=== PATIENT | female | born 1935 | race Caucasian/White ===

== ENCOUNTER → 2016-10-12 | Outpatient (REF) | payer MEDICARE, OTHER ==
[2016-10-12 15:42] LABS: BASO # 0.1 K/mm3 (0.0-0.2); BASO % 1.1 % (0.0-1.0); EOS # 0.3 K/mm3 (0.0-0.50); EOS % 3.6 % (0.0-3.0); LARGE UNSTAINED CELL # 0.2 K/mm3 (0.0-0.4); LARGE UNSTAINED CELL % 2.5 % (0.0-4.0); LYMPH # 2.2 K/mm3 (1.5-4.5); LYMPH % 26.3 % (24.0-44.0); MEAN CORPUSCULAR HEMOGLOBIN 29.4 pg (27.0-33.0); MEAN CORPUSCULAR HGB CONC 33.5 g/dl (32.0-36.5); MEAN CORPUSCULAR VOLUME 87.9 fl (80.0-96.0); MONO # 0.6 K/mm3 (0.0-0.8); MONO % 7.6 % (0.0-5.0); NEUTROPHILS # 4.8 K/mm3 (1.8-7.7); PLATELET COUNT, AUTOMATED 310 k/mm3 (150-450); RED CELL DISTRIBUTION WIDTH 13.2 % (11.5-14.5); WHITE BLOOD COUNT 8.2 K/mm3 (4.0-10.0)
== END ==
LOC: M SFHCSACK 08:50
PROVIDERS: ATTEND Physician Assistant
DX: E87.6 Hypokalemia (principal); D72.828 Other elevated white blood cell count
CPT/HCPCS: 36415; 81001; 84132; 85025; G0463

== ENCOUNTER → 2016-12-30 | Outpatient (REF) | payer MEDICARE, OTHER ==
[2016-12-30 16:17] LABS: ALBUMIN 4.2 GM/DL (3.2-5.2); ALBUMIN/GLOBULIN RATIO 1.2 (1.00-1.93); BILIRUBIN,TOTAL 1.3 MG/DL (0.2-1.0); CALCIUM LEVEL 9.9 MG/DL (8.8-10.2); CREATININE FOR GFR 1.14 MG/DL (0.55-1.02); GLOMERULAR FILTRATION RATE 48.8 (>32); TOTAL PROTEIN 7.7 GM/DL (6.4-8.2)
== END ==
LOC: M SFHCSACK 09:00
PROVIDERS: ATTEND Physician Assistant
DX: I10 Essential (primary) hypertension (principal); E78.5 Hyperlipidemia, unspecified; E11.9 Type 2 diabetes mellitus without complications

== ENCOUNTER → 2017-01-08 | Outpatient (REF) | payer MEDICARE, OTHER | LOC: M SFHCSACK 11:17 | PROVIDERS: ATTEND Physician Assistant | DX: N39.0 Urinary tract infection, site not specified (principal) ==

== ENCOUNTER → 2017-06-30 | Outpatient (REF) | payer MEDICARE, OTHER ==
[~2017-06-30] MED LIST: ATOR1TAB19 PO; CALCTAB68 PO; CIPR-249 PO; FISH1000 PO; GLUCTAB PO; GLUCTAB6 PO; MODU5TA PO; PIND10TA PO; POTA10CA PO; PRAV1TAB39 PO; PRESCAP6 PO; SENN1TAB2 PO; TRAM1CAP15 PO; TRAM50TA2 PO; VESI10TA2 PO; VITA100066 PO; VITA400C7 PO; oxygen
[2017-06-30 16:09] LABS: BASO # 0.1 10^3/uL (0.0-0.2); EOS # 0.2 10^3/uL (0.0-0.50); EOS % 2.3 % (0.0-3.0); IMMATURE GRANULOCYTE % 0.5 % (0-0); LYMPH # 2.4 10^3/uL (1.5-4.5); MEAN CORPUSCULAR HEMOGLOBIN 28.9 pg (27.0-33.0); MEAN CORPUSCULAR HGB CONC 33.5 g/dl (32.0-36.5); MONO % 11.8 % (0.0-5.0); NEUTROPHILS # 4.7 10^3/uL (1.8-7.7); NEUTROPHILS % 55.4 % (36.0-66.0); PLATELET COUNT, AUTOMATED 287 10^3/uL (150-450); RED CELL DISTRIBUTION WIDTH 14.1 % (11.5-14.5); WHITE BLOOD COUNT 8.4 10^3/uL (4.0-10.0)
[2017-06-30 16:14] LABS: ADD MORPHOLOGY? NO
[2017-06-30 16:26] LABS: ALBUMIN/GLOBULIN RATIO 1.25 (1.00-1.93); BILIRUBIN,TOTAL 1.2 MG/DL (0.2-1.0); CALCIUM LEVEL 9.9 MG/DL (8.8-10.2); CREATININE FOR GFR 1.06 MG/DL (0.55-1.02); POTASSIUM SERUM 3.4 MEQ/L (3.5-5.1); TOTAL PROTEIN 7.2 GM/DL (6.4-8.2)
== END ==
LOC: M SFHCSACK 08:46
PROVIDERS: ATTEND Physician Assistant
DX: Z00.00 Encounter for general adult medical examination without abnormal findings (principal); I10 Essential (primary) hypertension; E78.5 Hyperlipidemia, unspecified; E11.9 Type 2 diabetes mellitus without complications; N39.0 Urinary tract infection, site not specified; E55.9 Vitamin D deficiency, unspecified

== ENCOUNTER 2017-07-14 18:19 | Inpatient (IN) | payer MEDICARE, OTHER ==
[~2017-07-14] VITALS: Ht 152.4 cm; Wt 114.2 kg
[2017-07-14] MEDS ORDERED: MODU5TA PO (19:04)
[2017-07-14] MEDS ORDERED: VESI10TA2 PO (19:04)
[2017-07-14] MEDS ORDERED: PIND10TA PO (19:04)
[2017-07-14] MEDS ORDERED: ATOR1TAB19 PO (19:04)
[2017-07-14] MEDS ORDERED: TRAM1CAP15 PO (19:04)
--- NOTE | 2017-07-14 20:10 | REPUSA ---
CLINICAL HISTORY: CVA TECHNIQUE: Multiple axial brain CT scan sections were obtained from base to vertex without contrast a dministration. COMMENTS: The study shows normal configuration of sella turcica. There are no intra or extra-axial collections. There is no mass effect or midline shift. There is no evidence of hematoma formation. No hydrocephal us is present. No abnormal calcifications are noted. Changes of diffuse cerebellar and cerebral atrophy are noted with symmetrically dilated ventricles an d cortical sulci. There are mild bilateral periventricular hypolucencies compatible with white matter ischemic disease. No significant other abnormalities are seen either in the posterior fossa or supra tentorial compartment. There is mucosal thickening and partial opacification involving left sphenoid sinus. IMPRESSION: 1. Diffuse age-appropriate cerebellar and cerebral atrophy. 2. Bilateral periventricular hypolucencies compatible with chronic white matter ischemic disease. 3. Sinusitis as above. 4. No evidence of acute intracranial pathology. Thank you for your kind referral of this patient.
[2017-07-14 20:35] LABS: MEAN CORPUSCULAR HEMOGLOBIN 29.1 pg (27.0-33.0); MEAN CORPUSCULAR HGB CONC 33.8 g/dl (32.0-36.5); PLATELET COUNT, AUTOMATED 261 10^3/uL (150-450); RED CELL DISTRIBUTION WIDTH 14.2 % (11.5-14.5); WHITE BLOOD COUNT 15.9 10^3/uL (4.0-10.0)
[2017-07-14 20:38] LABS: ADD MANUAL DIFFER YES; DIFF SLIDE NUMBER 340; POSITIVE DIFF POS FLAG
--- NOTE | 2017-07-14 20:42 | REP ---
PORTABLE CHEST, ONE VIEW: HISTORY: Infarction. The lungs are clear. The heart is normal in size. The pulmonary vasculature is normal in appearance. IMPRESSION: No acute disease. Signed by Salvatore Ames MD 07/15/2017 08:59 A
--- NOTE | 2017-07-14 20:44 | REP ---
LUMBAR SPINE, FOUR VIEWS: HISTORY: Fall. There is no acute fracture. The L5-S1 intervertebral disc is decreased in height consistent with degeneration. There are 15 mm of grade 2 spondylolisthesis of L5 on S1. There appear to be L5 pars defects. IMPRESSION: Degenerative change as described above. Signed by Salvatore Ames MD 07/15/2017 08:59 A
--- NOTE | 2017-07-14 20:46 | REP ---
PELVIS, BILATERAL HIPS, FIVE VIEWS: HISTORY: Fall. RIGHT HIP, TWO VIEWS: There is no acute fracture or dislocation. There is narrowing of the hip joint space. IMPRESSION: Degenerative change as described above. LEFT HIP, TWO VIEWS: The patient is status post left hip arthroplasty. There is no acute fracture or dislocation. Dystrophic calcification is present. IMPRESSION: The patient is status post left arthroplasty. Signed by Salvatore Ames MD 07/15/2017 08:59 A
--- NOTE | 2017-07-14 20:47 | REP ---
LEFT FEMUR, TWO VIEWS: HISTORY: Pain. There is no acute fracture or dislocation. The patient is status post left hip arthroplasty. There is narrowing of the medial knee joint space. IMPRESSION: Degenerative change as described above. Signed by Salvatore Ames MD 07/15/2017 08:59 A
[2017-07-14 21:08] LABS: BLOOD UREA NITROGEN 27 MG/DL (7-18); CALCIUM LEVEL 9.9 MG/DL (8.8-10.2); CARBON DIOXIDE LEVEL 28 MEQ/L (21-32); CHLORIDE LEVEL 104 MEQ/L (98-107); CREATININE FOR GFR 1.07 MG/DL (0.55-1.02); GLUCOSE, FASTING 169 MG/DL (83-110); POTASSIUM SERUM 3.4 MEQ/L (3.5-5.1)
[2017-07-14 22:27] LABS: ANION GAP 9 MEQ/L (8-16); SODIUM LEVEL 141 MEQ/L (136-145)
[2017-07-14] MEDS ORDERED: NS 500 ML IV ONE (22:30)
[2017-07-14 22:54] LABS: INR 1.21
[2017-07-15] MEDS ORDERED: ONDANSETRON 4MG/2ML VIAL (J2405) IV PRN (00:15)
[2017-07-15] MEDS ORDERED: ACETAMINOPHEN TAB 650MG DOSE (2X325MG) PO PRN (00:15)
[2017-07-15] MEDS ORDERED: POTASSIUM CHLORIDE 10 MEQ SR TABLET PO ONE (00:45)
[2017-07-15] MEDS ORDERED: GLUCTAB6 PO (00:54)
[2017-07-15] MEDS ORDERED: FISH1000 PO (00:54)
[2017-07-15] MEDS ORDERED: TRAM50TA2 PO (00:54)
[2017-07-15] MEDS ORDERED: VITA400C7 PO (00:54)
[2017-07-15] MEDS ORDERED: PRESCAP6 PO (00:54)
[2017-07-15] MEDS ORDERED: VITA100066 PO (00:54)
[2017-07-15] MEDS ORDERED: CALCTAB68 PO (00:54)
[2017-07-15] MEDS ORDERED: DEXTROSE 50% 50 ML SYRINGE IV PRN (01:45)
[2017-07-15] MEDS ORDERED: GLUCOSE 4 GM CHEW TABLET PO PRN (01:45)
[2017-07-15] MEDS ORDERED: GLUCAGON FOR INJ 1 MG VIAL (J1610) SC PRN (01:45)
--- NOTE | 2017-07-15 01:54 | HPEPDOC ---
General Date of Admission Jul 15, 2017 at 00:04 Primary Care Physician: Abida Stephens PA-C Attending Physician: GINNY PANTOJA MD Chief Complaint The patient is a 82-year-old female admitted with a reason for visit of [facility]. Source: Patient, Family History of Present Illness 82-year-old female with a past medical history of hypertension, dyslipidemia, chronic kidney disease, morbid obesity, and diabetes mellitus presents to the ER after she was found down on the floor by her daughter. The patient's history is limited, as she does not recollect the specific events which led her to fall. Apparently, the patient was found down in her home by her daughter at around 5 PM yesterday evening. The patient states that she last remembers having breakfast in the morning, and subsequently remembers awakening following a fall. According to the patient's daughter, the patient has had 4 falls over the last 3 weeks, and there is a concern for her safety at home. The previous falls were noted to be mechanical, with no evidence of seizure-like activity, or any cardiac events. The patient does live by herself, but she does have her daughter and 4 sons who check up on her frequently. The patient denies any symptoms of fevers, chills, chest pain, palpitations, abdominal pain, or any nausea/vomiting. In the ER, imaging did not reveal any acute hip fractures. However, the patient was noted to have rhabdomyolysis, and a mild troponin elevation of 0.31. There were no acute EKG changes, no complaints of chest pain or palpitations noted. The patient will be admitted to the hospitalist service under Dr. Pantoja for further evaluation and management. Home Medications Scheduled (Preservision Areds 2) 1 Cap Cap, 1 CAP PO DAILY, (Reported) (Glucosamine Chondroitin) 1 Tab Tab, 1 TAB PO DAILY, (Reported) Amiloride/Hctz (Amiloride/Hydrochlorothia 5-50 mg) 1 Ea Tab, 1 EA PO QHS, ( Reported) Atorvastatin Calcium (Atorvastatin Calcium) 10 Mg Tab, 10 MG PO QHS, (Reported) Calcium/Vitamin D (Calcium 600 + D 600-400 mg-Unit) 1 Tab Tab, 1 TAB PO DAILY, ( Reported) Cholecalciferol (Vitamin D) 1,000 Unit Tab, 1,000 UNIT PO DAILY, (Reported) Fish Oil (Fish Oil) 1,000 Mg Cap, 1,000 MG PO DAILY, (Reported) Pindolol (Pindolol) 10 Mg Tab, 10 MG PO QHS, (Reported) Solifenacin Succinate (Vesicare) 10 Mg Tab, 10 MG PO QHS, (Reported) Vitamin E (Vitamin E) 400 Unit Cap, 400 UNIT PO DAILY, (Reported) Scheduled PRN Tramadol HCl (Tramadol HCl) 50 Mg Tab, 50 MG PO Q6H PRN for PAIN, (Reported) Allergies Coded Allergies: Penicillins (Unverified Allergy, Intermediate, Rash, 12/28/12) Penicillins Cross Reactors (Unverified Allergy, Intermediate, Rash, 12/28/12 ) Past Medical History Medical History As noted in HPI. Surgical History TONSILECTOMY HYSTERECTOMY HIP REPLACEMENT LEFT Family History Significant Family History: No pertinent family hx Social History * Smoker: Denies Alcohol: Denies Drugs: denies Lives at home by herself. Ambulates with a rolling walker at baseline. Performs most activities of daily living independently. One daughter and 4 sons live nearby and check up on her frequently Review of Symptoms Other systems 10 point review of systems negative unless otherwise specified in HPI. Physical Examination General Exam: Positive: Alert, Cooperative, No Acute Distress ENT Exam: Positive: Atraumatic, Mucous membr. moist/pink Neck Exam: Negative: JVD Chest Exam: Positive: Clear to auscultation, Normal air movement Heart Exam: Positive: Rate Normal, Normal S1, Normal S2 Abdomen Exam: Positive: Soft, Negative: Tenderness Extremity Exam: Negative: Tenderness, Swelling Psych Exam: Positive: Oriented x 3 Vital Signs Vital Signs Date Time Temp Pulse Resp B/P (MAP) Pulse Ox O2 Delivery O2 Flow Rate FiO2 07/15/17 01:39 98.3 07/15/17 01:30 58 18 95 Room Air Laboratory Data Labs 24H Laboratory Tests 2 07/14/17 19:31: White Blood Count 15.9H, Red Blood Count 5.29, Hemoglobin 15.4, Hematocrit 45.5 , Mean Corpuscular Volume 86.0, Mean Corpuscular Hemoglobin 29.1, Mean Corpuscular Hemoglobin Concent 33.8, Red Cell Distribution Width 14.2, Platelet Count 261, Monocytes # (Auto) , Nucleated Red Blood Cells % (auto) 0.0, Neutrophils 63, Lymphocytes (Manual) 18, Monocytes (Manual) 19H, Platelet Estimate NORMAL, Urine Appearance HAZY, Urine Color YELLOW, Urine pH 5.0, Urine Specific [place] 1.023, Urine Protein NEGATIVE, Urine Glucose (UA) NEGATIVE, Urine Ketones NEGATIVE, Urine Urobilinogen 0.2, Urine Bilirubin NEGATIVE, Urine Leukocyte Esterase NEGATIVE, Urine Blood NEGATIVE, Urine Nitrite NEGATIVE, Urine WBC (Auto) 0, Urine RBC (Auto) 1, Urine Hyaline Casts (Auto) 0, Urine Bacteria (Auto) NEGATIVE, Urine Squamous Epithelial Cells 0, Urine Mucus (Auto) SMALL, Urine Sperm (Auto) , Anion Gap 9, Blood Urea Nitrogen 27H, Creatinine 1.07H, Sodium Level 141, Potassium Level 3.4L, Chloride Level 104, Carbon Dioxide Level 28, Calcium Level 9.9, Total Creatine Kinase 2946H, Creatine Kinase MB 17.4H, Creatine Kinase MB Relative Index 0.59, Troponin I 0.31H 07/14/17 22:32: Total Creatine Kinase 2449H, Creatine Kinase MB 15.9H, Creatine Kinase MB Relative Index 0.64, Troponin I 0.26H, Prothrombin Time 15.5H, Prothromb Time International Ratio 1.21, Activated Partial Thromboplast Time 28.2 CBC/BMP Laboratory Tests 07/14/17 19:31 Red Blood Count 5.29, Mean Corpuscular Volume 86.0, Mean Corpuscular Hemoglobin 29.1, Mean Corpuscular Hemoglobin Concent 33.8, Red Cell Distribution Width 14.2 , Monocytes # (Auto) , Calcium Level 9.9, Total Creatine Kinase 2946 H Microbiology Microbiology 07/14/17 Urine Culture, Received Pending Plan / VTE VTE Prophylaxis Ordered?: Yes Plan Plan Rhabdomyolysis likely 2/2 Mechanical Fall, Immobilization CPK noted to be 2946 on admission No acute fractures or dislocations noted on imaging IVF Hydation ordered We will cont to trend CPK levels PT ordered PFS consulted for potential need for placement, given the patient's frequent falls, and concern for the patient's overall safety as she is currently living by herself Elevated Troponin levels possibly 2/2 above Troponin peak at 0.31--we will serially trend EKG with no acute ST changes compared to previous tracing in 08/2016 (Sinus Mechanism with multiple PVC's, and LAFB) Patient with no acute complaints of chest pain, palpitations, shortness of breath, or any abdominal pain We will obtain a 2-D echocardiogram Continue to monitor on telemetry Chronic kidney disease Stage III Serum creatinine appears to be at baseline Diabetes mellitus Hemoglobin A1c noted to be 7.0 % during last PCP visit on 06/30 Patient not currently taking any medications We will continue the patient on insulin sliding scale here Hypertension, stable Continue current regimen Dyslipidemia Continue statin Morbid obesity Counseled on lifestyle modifications Chronic pain Continue tramadol when necessary DVT prophylaxis Heparin subcutaneous This patient will be admitted under the service of Dr. Pantoja, who will begin to follow the patient on 07/15/17 at 7 AM. SHANIQUE PETERS MD Jul 15, 2017 01:54
[2017-07-15] MEDS ORDERED: NS 1,000 ML IV SCH (02:00)
[2017-07-15] MEDS ORDERED: NS 1,500 ML IV SCH ×2 (02:30→02:46)
[2017-07-15 02:53] VITALS: BP 138/72
[2017-07-15 04:00] VITALS: BP 117/58
[2017-07-15] MEDS ORDERED: PREVNAR 13 VACCINE SYRINGE (CPT CODE:90670) IM SCH (04:30)
[2017-07-15 05:14] LABS: MEAN CORPUSCULAR HEMOGLOBIN 28.9 pg (27.0-33.0); MEAN CORPUSCULAR HGB CONC 33.3 g/dl (32.0-36.5); MEAN CORPUSCULAR VOLUME 86.6 fl (80.0-96.0); PLATELET COUNT, AUTOMATED 237 10^3/uL (150-450); RED CELL DISTRIBUTION WIDTH 14.3 % (11.5-14.5); WHITE BLOOD COUNT 12.6 10^3/uL (4.0-10.0)
[2017-07-15 05:32] LABS: ADD MANUAL DIFFER YES; DIFF SLIDE NUMBER 114; POSITIVE DIFF POS FLAG
[2017-07-15 05:37] LABS: ALKALINE PHOSPHATASE 59 U/L (45-117); ALT/SGPT 46 U/L (12-78); AST/SGOT 81 U/L (15-37); BILIRUBIN,TOTAL 2.1 MG/DL (0.2-1.0); BLOOD UREA NITROGEN 30 MG/DL (7-18); CALCIUM LEVEL 8.9 MG/DL (8.8-10.2); CARBON DIOXIDE LEVEL 27 MEQ/L (21-32); CHLORIDE LEVEL 103 MEQ/L (98-107); CREATININE FOR GFR 1.17 MG/DL (0.55-1.02); GLUCOSE, FASTING 163 MG/DL (83-110); MAGNESIUM LEVEL 1.5 MG/DL (1.8-2.4); TOTAL PROTEIN 6.7 GM/DL (6.4-8.2)
[2017-07-15] MEDS: HEPARIN SOD (PORCINE) 5000 UNITS/ML VIAL SC SCH ×3 (06:12→20:12)
[2017-07-15] MEDS: MAG SULF 1GM/100ML (MAG RUN) 1 GM in APPROPRIATE DILUENT 1 EA IV SCH ×2 (06:34→07:47)
[2017-07-15] MEDS: HumaLOG INSULIN (NovoLOG) PER UNIT SC SCH ×4 (07:30→20:11)
[2017-07-15 08:00] VITALS: BP 150/70
[2017-07-15 08:13] LABS: ALBUMIN 3.4 GM/DL (3.2-5.2); ALBUMIN/GLOBULIN RATIO 1.03 (1.00-1.93); ANION GAP 10 MEQ/L (8-16); SODIUM LEVEL 140 MEQ/L (136-145)
[2017-07-15] MEDS: VITAMIN E 400 INTERNATIONAL UNITS CAP PO SCH (09:27)
[2017-07-15] MEDS: VITAMIN D 1,000 INTERNATIONAL UNITS TABLET PO SCH (09:27)
[2017-07-15] MEDS: POTASSIUM CHLORIDE 10 MEQ SR TABLET PO SCH ×2 (09:28→20:11)
[2017-07-15 12:00] VITALS: BP 151/71
[2017-07-15] MEDS: traMADol 50 MG TAB PO PRN ×2 (12:20→20:14)
[2017-07-15 16:00] VITALS: BP 145/67
[2017-07-15] MEDS: NS 1,000 ML IV SCH (17:53)
[2017-07-15 20:00] VITALS: BP 124/75
[2017-07-15] MEDS: SOLIFENACIN 5 MG TAB PO SCH (20:11)
[2017-07-15] MEDS: ATORVASTATIN 10 MG TAB PO SCH (20:11)
[2017-07-15] MEDS ORDERED: PINDOLOL 5 MG TAB PO SCH (21:00)
--- NOTE | 2017-07-15 22:45 | ECGEPIP ---
Stationary ECG Study [facility] Test Date: 2017-07-15 Pat Name: KENIA RICHARDS Department: Room: [place] [address] Gender: F Addresser: ED : 1935 Requested By: SHANIQUE PETERS Order Number: [id number] Reading MD: Tristin Long Measurements Intervals [place] Rate: 60 P: IA: 0 QRS: -53 QRSD: 125 T: 61 QT: 441 QTc: 443 Interpretive Statements SINUS RHYTHM WITH 2ND DEGREE AV BLOCK, MOBITZ TYPE I (WENCKEBACH) POSSIBLE RIGHT VENTRICULAR CONDUCTION DELAY LEFT ANTERIOR FASCICULAR BLOCK Poor R-wave progression. Electronically Signed On 07-15-2017 22:45:03 EDT by Tristin Long
[2017-07-16] VITALS: BP 149/65
[2017-07-16 04:00] VITALS: BP 155/68
[2017-07-16 04:55] LABS: MEAN CORPUSCULAR HGB CONC 32.7 g/dl (32.0-36.5); MEAN CORPUSCULAR VOLUME 88.6 fl (80.0-96.0); PLATELET COUNT, AUTOMATED 211 10^3/uL (150-450); RED CELL DISTRIBUTION WIDTH 14.4 % (11.5-14.5); WHITE BLOOD COUNT 9.6 10^3/uL (4.0-10.0)
[2017-07-16 05:35] LABS: ALBUMIN 2.9 GM/DL (3.2-5.2); ALBUMIN/GLOBULIN RATIO 1.07 (1.00-1.93); ALKALINE PHOSPHATASE 55 U/L (45-117); ALT/SGPT 49 U/L (12-78); ANION GAP 8 MEQ/L (8-16); AST/SGOT 81 U/L (15-37); BILIRUBIN,TOTAL 1.2 MG/DL (0.2-1.0); BLOOD UREA NITROGEN 28 MG/DL (7-18); CALCIUM LEVEL 7.8 MG/DL (8.8-10.2); CARBON DIOXIDE LEVEL 23 MEQ/L (21-32); CHLORIDE LEVEL 111 MEQ/L (98-107); CREATININE FOR GFR 0.93 MG/DL (0.55-1.02); GLOMERULAR FILTRATION RATE > 60.0 (>32); GLUCOSE, FASTING 139 MG/DL (83-110); MAGNESIUM LEVEL 1.8 MG/DL (1.8-2.4); POTASSIUM SERUM 4.1 MEQ/L (3.5-5.1); SODIUM LEVEL 142 MEQ/L (136-145); TOTAL PROTEIN 5.6 GM/DL (6.4-8.2)
--- NOTE | 2017-07-16 05:54 | ECGEPIP ---
Stationary ECG Study [facility] - ED Test Date: 2017-07-14 Pat Name: KENIA RICHARDS Department: Room: [place] [address] Gender: F Datawarehouse Developer: : 1935 Requested By: PERCY Gaffney Order Number: [id number] Reading MD: Chetan Chaney Measurements Intervals [place] Rate: 58 P: -69 DC: 153 QRS: -55 QRSD: 112 T: -14 QT: 456 QTc: 449 Interpretive Statements SECOND DEGREE AV BLOCK, TYPE 1, IN 3:2 RATIO LEFT ANTERIOR FASCICULAR BLOCK NONSPECIFIC ST & T-WAVE ABNORMALITY RHYTHM CHANGE COMPARED TO 09/23/16 Electronically Signed On 07-16-2017 5:54:03 EDT by Chetan Chaney
[2017-07-16] MEDS: HEPARIN SOD (PORCINE) 5000 UNITS/ML VIAL SC SCH ×3 (06:40→21:18)
[2017-07-16] MEDS: NS 1,000 ML IV SCH ×3 (06:51→19:03)
[2017-07-16 08:00] VITALS: BP 140/64
[2017-07-16] MEDS ORDERED: MOM 30ML SUSPENSION UDC PO PRN (08:30)
[2017-07-16] MEDS ORDERED: SENOKOT S TAB PO PRN (08:30)
[2017-07-16] MEDS: POTASSIUM CHLORIDE 10 MEQ SR TABLET PO SCH ×2 (08:40→21:15)
[2017-07-16] MEDS: VITAMIN D 1,000 INTERNATIONAL UNITS TABLET PO SCH (08:40)
[2017-07-16] MEDS: VITAMIN E 400 INTERNATIONAL UNITS CAP PO SCH (08:40)
[2017-07-16] MEDS: HumaLOG INSULIN (NovoLOG) PER UNIT SC SCH ×4 (08:40→20:50)
--- NOTE | 2017-07-16 10:10 | ECGEPIP ---
Stationary ECG Study [facility] Test Date: 2017-07-16 Pat Name: KENIA RICHARDS Department: Room: [place] [address] Gender: F Forming Department Supervisor: KHUSHI : 1935 Requested By: GINNY PANTOJA Order Number: [id number] Reading MD: Tristin Long Measurements Intervals [place] Rate: 75 P: -35 DC: 221 QRS: -59 QRSD: 112 T: 45 QT: 420 QTc: 469 Interpretive Statements SINUS RHYTHM WITH FIRST DEGREE AV BLOCK PATTERN CONSISTENT WITH PULMONARY DISEASE LEFT ANTERIOR FASCICULAR BLOCK Electronically Signed On 07-16-2017 10:10:20 EDT by Tristin Long
--- NOTE | 2017-07-16 11:50 | IPN ---
DATE OF EXAM: 07/16/2017 SUBJECTIVE: The patient tells me she is feeling well. She has no specific complaints at this time. She tells me that she has some pain and weakness in the right lower extremity, but this is secondary to her fall. She denies any fevers, chills, chest pain, shortness of breath, nausea, vomiting, or diarrhea. OBJECTIVE: VITAL SIGNS: Temperature 98.3, pulse 66, respiratory rate 16, blood pressure 155/68. Oxygen saturation 97% on room air. GENERAL: She is an obese, elderly, female lying flat in bed. She does not appear to be in any acute distress whatsoever. HEENT: Cranial nerves III-XII are grossly intact. She has moist mucous membranes. No elevation of CPV. CARDIOVASCULAR EXAM: S1, S2 regular. She is not bradycardic. RESPIRATORY EXAM: Is clear. ABDOMINAL EXAM: Is obese, but exam is benign. EXTREMITIES: No clubbing, cyanosis, or edema. There is no tenderness. She has 5/5 strength throughout. LABORATORY STUDIES: WBC 9.6, down from 15.9, hemoglobin 12.7, platelet count 211. Chemistry panel: Sodium 142, potassium 4.1, chloride 111, bicarbonate 23, BUN 28, creatinine 0.9. CK is 1553, down from 2946 at time of admission. Troponin 0.35 with peak of 0.36, is fairly consistent in that range over numerous values without any symptoms. Urinalysis (UA) is unremarkable. Microbiology: Urine culture is negative. IMAGING: The patient had a chest x-ray that revealed no acute disease, a femur x-ray revealed degenerative changes, a head CT that showed diffuse age-appropriate cerebellar and cerebral atrophy, chronic white matter ischemic disease, sinusitis, no evidence of intracranial pathology, a hip x-ray that revealed degenerative changes, status post left arthroplasty, and a lumbar spine x-ray that revealed degenerative changes. ASSESSMENT AND PLAN: This is an 82-year-old female who presented status post fall. PROBLEM: 1. Fall. The patient has had numerous falls. She tells me that they happen when she is not using her walker. She denies any prodromal symptoms. She denies chest pain, lightheadedness, palpitations, headache, or dizziness. She was unable to answer why she did not hit her Life Alert button when she fell, and she remained down for several hours. She lives alone. Obviously, there are concerns with her returning home. In terms of why she is falling, it may be mechanical, gait instability versus also there is concern for second degree Wenckebach arterioventricular (AV) block. She did present in this and had been on pindolol. Since discontinuing this medication, the AV block has resolved. For the time being, we will continue to monitor her on telemetry. 2. Rhabdomyolysis secondary to fall and being down. Continue with intravenous (IV) fluids. It does appear to be resolving. 3. Elevated troponin, likely related to chronic kidney disease. Is fairly stable in the absence of symptoms or EKG changes. Consider outpatient stress testing and outpatient referral for cardiology. An echocardiogram has been ordered. We are awaiting the results. 4. Chronic kidney disease, stable. 5. Type 2 diabetes. Currently, the patient is on sliding scale and tolerating it well. 6. Hypertension. We will replace her pindolol with Norvasc. 7. Dyslipidemia. Continue statin. 8. Morbid obesity. Counseled on lifestyle modifications, complicating care. 9. Chronic pain. Tramadol when necessary. 10. Deep venous thrombosis (DVT) prophylaxis. Patient is on heparin. DISPOSITION: Pending physical therapy evaluation, resolution of rhabdomyolysis.
[2017-07-16 12:00] VITALS: BP 126/87
[2017-07-16] MEDS: amLODIPine 5 MG TAB PO SCH (12:00)
[2017-07-16] MEDS: BACITRACIN OINT 30GM TOP SCH ×2 (12:01→21:19)
[2017-07-16] MEDS ORDERED: BISACODYL 10 MG SUPP PR ONE (13:30)
[2017-07-16 16:00] VITALS: BP 120/65
--- NOTE | 2017-07-16 17:42 | ECHO ---
DATE OF STUDY: 07/16/2017 REFERRING PHYSICIAN: Neptali Pepe MD INDICATION: Abnormal ECG. HEIGHT: 152 cm. WEIGHT: 160 kg. 2D MEASUREMENTS: Left atrium 4.0 cm Aortic root 3.2 cm Ventricular septum 1.40 cm Posterior wall 1.42 cm Left ventricle diastole 4.7 cm Aortic annulus 2.1 cm Inferior vena cava 1.9 cm DOPPLER MEASUREMENTS: Aortic valve velocity 161 cm/s LVOT velocity 123 cm/s LVOT VTI 31.1 cm Mitral E velocity 112 cm/s Mitral A velocity 13.7 cm/s Very mild tricuspid regurgitation. Estimated right ventricle systolic pressure 38 mmHg assuming a right atrial pressure of 5 mmHg. Pulmonary artery systolic pressure 34 mmHg by pulmonary acceleration time method. MITRAL ANNULAR TISSUE DOPPLER: E prime septal 6.4 cm/s E prime lateral 6.9 cm/s DESCRIPTION: Rhythm was sinus with appearance of a first degree AV block. This was a moderately technically difficult echocardiogram. This is a 2D, M-mode, color flow Doppler and pulse wave Doppler examination including mitral annular tissue Doppler. CONCLUSIONS: 1. Mild concentric left ventricular hypertrophy (LVH). No regional wall motion abnormalities of the left ventricle. Normal LV systolic function. LVEF 70% by visual estimate. Grade 1 LV diastolic dysfunction (impaired relaxation and filling pattern). 2. Mild left atrial dilatation. 3. Suggestive of mild elevation of estimated right ventricle systolic pressure and mild elevation of pulmonary artery systolic pressure. 4. Moderate mitral annular calcification. No mitral regurgitation or mitral stenosis. 5. Mild aortic valve sclerosis of a three-cusps aortic valve. No aortic regurgitation. 6. No pericardial effusion.
[2017-07-16 20:00] VITALS: BP 158/70
[2017-07-16] MEDS: ATORVASTATIN 10 MG TAB PO SCH (21:16)
[2017-07-16] MEDS: SOLIFENACIN 5 MG TAB PO SCH (21:17)
[2017-07-17] VITALS: BP 142/70
[2017-07-17] MEDS: NS 1,000 ML IV SCH ×2 (01:48→08:12)
[2017-07-17 04:00] VITALS: BP 139/65
[2017-07-17] MEDS: HEPARIN SOD (PORCINE) 5000 UNITS/ML VIAL SC SCH ×3 (06:08→21:36)
[2017-07-17] MEDS: HumaLOG INSULIN (NovoLOG) PER UNIT SC SCH ×4 (07:30→21:00)
[2017-07-17 08:00] VITALS: BP 156/71
[2017-07-17 08:03] LABS: MEAN CORPUSCULAR HEMOGLOBIN 29.3 pg (27.0-33.0); MEAN CORPUSCULAR HGB CONC 33.2 g/dl (32.0-36.5); MEAN CORPUSCULAR VOLUME 88.1 fl (80.0-96.0); PLATELET COUNT, AUTOMATED 201 10^3/uL (150-450); RED CELL DISTRIBUTION WIDTH 14.2 % (11.5-14.5); WHITE BLOOD COUNT 6.9 10^3/uL (4.0-10.0)
[2017-07-17 08:17] LABS: ALBUMIN 2.7 GM/DL (3.2-5.2); ALBUMIN/GLOBULIN RATIO 1.08 (1.00-1.93); ALKALINE PHOSPHATASE 54 U/L (45-117); ALT/SGPT 45 U/L (12-78); ANION GAP 7 MEQ/L (8-16); AST/SGOT 46 U/L (15-37); BLOOD UREA NITROGEN 16 MG/DL (7-18); CALCIUM LEVEL 7.4 MG/DL (8.8-10.2); CARBON DIOXIDE LEVEL 23 MEQ/L (21-32); CHLORIDE LEVEL 114 MEQ/L (98-107); CREATININE FOR GFR 0.77 MG/DL (0.55-1.02); GLOMERULAR FILTRATION RATE > 60.0 (>32); GLUCOSE, FASTING 141 MG/DL (83-110); MAGNESIUM LEVEL 1.8 MG/DL (1.8-2.4); SODIUM LEVEL 144 MEQ/L (136-145); TOTAL PROTEIN 5.2 GM/DL (6.4-8.2)
[2017-07-17] MEDS: POTASSIUM CHLORIDE 10 MEQ SR TABLET PO SCH ×2 (08:29→21:00)
[2017-07-17] MEDS: VITAMIN E 400 INTERNATIONAL UNITS CAP PO SCH (08:29)
[2017-07-17] MEDS: amLODIPine 5 MG TAB PO SCH (08:30)
[2017-07-17] MEDS: VITAMIN D 1,000 INTERNATIONAL UNITS TABLET PO SCH (08:30)
[2017-07-17] MEDS: BACITRACIN OINT 30GM TOP SCH ×2 (08:30→21:00)
[2017-07-17 11:25] VITALS: BP 140/90
--- NOTE | 2017-07-17 11:27 | IPN ---
DATE OF EXAM: 07/17/2017 SUBJECTIVE: The patient tells me she is feeling better today. She has no specific complaints. Denies any chest pain, fevers, chills, chest pain, fever, chills, nausea, vomiting, or diarrhea. OBJECTIVE: VITAL SIGNS: Temperature 98.2, pulse 88, respiratory rate 16, blood pressure (BP) 156/71. Oxygen saturation 97% on room air. GENERAL: She is an obese, pleasant, female lying in bed. She does not appear to be in any acute distress whatsoever. HEENT: Cranial nerves III-XII are grossly intact. She has moist mucous membranes. No elevation of central venous pressure (CVP). CARDIOVASCULAR EXAM: S1, S2 regular. She is not bradycardic. RESPIRATORY EXAM: Is clear. ABDOMINAL EXAM: Is benign and obese. Bowel sounds present. The abdomen is soft. EXTREMITIES: No clubbing, cyanosis or edema. She 5/5 strength. LABORATORY STUDIES: WBC 6.9, hemoglobin 12.1, platelet count 201. Chemistry panel: Sodium 144, potassium 4.0, chloride 114, bicarbonate 23, BUN 16, creatinine 0.7. CK is 1624. Urine culture is negative. Patient did have an echocardiogram completed, which revealed concentric left ventricular hypertrophy (LVH), ejection fraction (EF) 70%, grade 1 diastolic dysfunction, mild left atrial dilation suggestive of a mild elevation in estimated right ventricular systolic pressure and mild elevation of pulmonary artery systolic pressure. ASSESSMENT AND PLAN: This is an 82-year-old female who presented status post fall, found down, with rhabdomyolysis. PROBLEMS: 1. Fall. She has had numerous falls in the past. They happen when she is not using her walker. She denies prodromal symptoms, chest pain, lightheadedness, palpitations or dizziness. She cannot tell my why she did not hit her Life Alert button for several hours. She lives alone. Physical therapy is working with her, and at the present time, they do not as though that she is safe. Continue working with physical therapy. There was also concern that her falls may have been related to second-degree atrioventricular (AV) block. She did have Wenckebach since stopping her pindolol. This has resolved. She has a persistent first-degree AV block, but is no longer bradycardic. 2. Rhabdomyolysis secondary to being down. At this time, we will discontinue her intravenous (IV) fluids, continue to trend down. 3. Elevated troponin likely related to chronic kidney disease. Fairly stable in the absence of any symptoms or EKG changes. Recommend outpatient stress testing and followup with outpatient referral to cardiology. Echocardiogram is unrevealing. 4. Chronic kidney disease, stable. 5. Type 2 diabetes. She is on sliding scale, tolerating it well. 6. Hypertension. We have replaced her pindolol with Norvasc and her blood pressure is well controlled. 7. Dyslipidemia. Continue statin. 8. Obesity. Counseled on lifestyle modifications, complicating care. 9. Chronic pain. Tramadol when necessary. 10. Deep venous thrombosis (DVT) prophylaxis. Patient is on heparin. DISPOSITION: Pending PT clearance. At this time, she is medically stable. Transfer to medical-surgical floor.
--- NOTE | 2017-07-17 11:37 | ECGEPIP ---
Stationary ECG Study [facility] Test Date: 2017-07-17 Pat Name: KENIA RICHARDS Department: Room: [place] [address] Gender: F Service Supervisor: ED : 1935 Requested By: GINNY PANTOJA Order Number: [id number] Reading MD: Ziyad Hoffman Measurements Intervals [place] Rate: 87 P: 31 AK: 259 QRS: -50 QRSD: 118 T: 88 QT: 403 QTc: 487 Interpretive Statements SINUS RHYTHM WITH FIRST DEGREE AV BLOCK LEFT ANTERIOR FASCICULAR BLOCK POOR R WAVE PROGRESSION SIMILAR TO 07/16/17 Electronically Signed On 07-17-2017 11:37:42 EDT by Ziyad Hoffman
[2017-07-17 14:00] VITALS: BP 142/90
[2017-07-17] MEDS: ATORVASTATIN 10 MG TAB PO SCH (21:00)
[2017-07-17] MEDS: SOLIFENACIN 5 MG TAB PO SCH (21:00)
[2017-07-17 22:00] VITALS: BP 139/73
[2017-07-17] MEDS: traMADol 50 MG TAB PO PRN (22:05)
[2017-07-18] MEDS: HEPARIN SOD (PORCINE) 5000 UNITS/ML VIAL SC SCH ×3 (05:40→21:06)
[2017-07-18 06:00] VITALS: BP 136/63
[2017-07-18 06:23] LABS: MEAN CORPUSCULAR HEMOGLOBIN 28.9 pg (27.0-33.0); MEAN CORPUSCULAR HGB CONC 32.8 g/dl (32.0-36.5); MEAN CORPUSCULAR VOLUME 88.2 fl (80.0-96.0); PLATELET COUNT, AUTOMATED 224 10^3/uL (150-450); RED CELL DISTRIBUTION WIDTH 14.3 % (11.5-14.5); WHITE BLOOD COUNT 6.9 10^3/uL (4.0-10.0)
[2017-07-18 07:45] LABS: ALBUMIN 2.9 GM/DL (3.2-5.2); ALBUMIN/GLOBULIN RATIO 1.04 (1.00-1.93); ALKALINE PHOSPHATASE 63 U/L (45-117); ALT/SGPT 49 U/L (12-78); ANION GAP 7 MEQ/L (8-16); AST/SGOT 39 U/L (15-37); BLOOD UREA NITROGEN 16 MG/DL (7-18); CALCIUM LEVEL 7.7 MG/DL (8.8-10.2); CARBON DIOXIDE LEVEL 24 MEQ/L (21-32); CHLORIDE LEVEL 114 MEQ/L (98-107); CREATININE FOR GFR 0.85 MG/DL (0.55-1.02); GLOMERULAR FILTRATION RATE > 60.0 (>32); GLUCOSE, FASTING 138 MG/DL (83-110); MAGNESIUM LEVEL 1.9 MG/DL (1.8-2.4); POTASSIUM SERUM 4.4 MEQ/L (3.5-5.1); SODIUM LEVEL 145 MEQ/L (136-145); TOTAL PROTEIN 5.7 GM/DL (6.4-8.2)
[2017-07-18] MEDS: POTASSIUM CHLORIDE 10 MEQ SR TABLET PO SCH ×2 (08:07→21:00)
[2017-07-18] MEDS: HumaLOG INSULIN (NovoLOG) PER UNIT SC SCH ×4 (08:08→21:00)
[2017-07-18] MEDS: VITAMIN D 1,000 INTERNATIONAL UNITS TABLET PO SCH (08:08)
[2017-07-18] MEDS: amLODIPine 5 MG TAB PO SCH (08:08)
[2017-07-18] MEDS: BACITRACIN OINT 30GM TOP SCH ×2 (08:09→21:00)
[2017-07-18] MEDS: VITAMIN E 400 INTERNATIONAL UNITS CAP PO SCH (09:55)
[2017-07-18 14:00] VITALS: BP 136/98
--- NOTE | 2017-07-18 17:19 | IPN ---
DATE: 07/16/2017 SUBJECTIVE: The patient tells me she feels well. She has no complaints at this time. She says that she feels more stable on her feet than she has in quite some time. She denies chest pain, fevers, chills, nausea, vomiting or diarrhea. OBJECTIVE: VITAL SIGNS: Temperature 98.4, pulse 81, respiratory rate 18, blood pressure 136/63, oxygen saturation 95% on room air. GENERAL: She is a pleasant, obese, elderly female lying flat in bed. She does not appear to be in any acute distress whatsoever. HEENT: Cranial nerves II through XII are grossly intact. CARDIOVASCULAR: S1, S2 regular. RESPIRATORY: Clear. ABDOMEN: Obese. Bowel sounds are present. The abdomen is soft. EXTREMITIES: No clubbing, cyanosis or edema. LABORATORY DATA: WBC 6.9, hemoglobin 12.2, platelet count 224. Chemistry panel: Sodium 145, potassium 4.4, chloride 114, bicarbonate 24, BUN 15, creatinine 0.8. CK is 425 today. No new microbiology or imaging. ASSESSMENT AND PLAN: This is an 82-year-old female status post fall, found down with rhabdomyolysis. 1. Fall. She has had numerous falls in the past. I suspect this may be related to second-degree Wenckebach block associated with pindolol and it did resolved with discontinuing the pindolol. However, the patient lives alone. Physical therapy is working with her at this time, and did not feel she is safe. We will have them reevaluate her tomorrow and see if she is able to return home to her previous living environment. 2. Rhabdomyolysis secondary to being down. We have discontinued her intravenous (IV) fluids. Her CK continues to trend down. This is resolving. 3. Elevated troponin, likely related to chronic kidney disease. She did not have any symptoms or electrocardiogram (EKG) changes. Recommend outpatient referral to cardiology for stress testing. An echocardiogram completed during her stay was unrevealing. 4. Chronic kidney disease, stable. 5. Type 2 diabetes. She is on sliding-scale insulin and tolerating it well with control fingersticks. 6. Hypertension. We have replaced her pindolol with Norvasc and her blood pressure is controlled. 7. Dyslipidemia. She is on a statin. 8. Obesity. Counseled on life style modifications and complicating care. 9. Chronic pain. She is on tramadol when necessary. 10. Deep venous thrombosis (DVT) prophylaxis. She is on heparin. DISPOSITION: Pending physical therapy (PT).
[2017-07-18] MEDS: SOLIFENACIN 5 MG TAB PO SCH (21:00)
[2017-07-18] MEDS: ATORVASTATIN 10 MG TAB PO SCH (21:00)
[2017-07-18 22:00] VITALS: BP 142/89
[2017-07-19] MEDS: HEPARIN SOD (PORCINE) 5000 UNITS/ML VIAL SC SCH ×3 (05:19→21:37)
[2017-07-19 06:00] VITALS: BP 158/85
[2017-07-19] MEDS: HumaLOG INSULIN (NovoLOG) PER UNIT SC SCH ×4 (07:30→20:25)
[2017-07-19 08:04] LABS: MEAN CORPUSCULAR HEMOGLOBIN 29.3 pg (27.0-33.0); MEAN CORPUSCULAR HGB CONC 33.2 g/dl (32.0-36.5); MEAN CORPUSCULAR VOLUME 88.2 fl (80.0-96.0); PLATELET COUNT, AUTOMATED 231 10^3/uL (150-450); RED CELL DISTRIBUTION WIDTH 14.5 % (11.5-14.5); WHITE BLOOD COUNT 7.6 10^3/uL (4.0-10.0)
[2017-07-19 08:18] LABS: ALBUMIN 2.9 GM/DL (3.2-5.2); ALBUMIN/GLOBULIN RATIO 1.07 (1.00-1.93); ALKALINE PHOSPHATASE 59 U/L (45-117); ALT/SGPT 49 U/L (12-78); ANION GAP 8 MEQ/L (8-16); AST/SGOT 32 U/L (15-37); BILIRUBIN,TOTAL 0.8 MG/DL (0.2-1.0); BLOOD UREA NITROGEN 16 MG/DL (7-18); CARBON DIOXIDE LEVEL 23 MEQ/L (21-32); CHLORIDE LEVEL 113 MEQ/L (98-107); CREATININE FOR GFR 0.83 MG/DL (0.55-1.02); GLOMERULAR FILTRATION RATE > 60.0 (>32); GLUCOSE, FASTING 125 MG/DL (83-110); MAGNESIUM LEVEL 1.9 MG/DL (1.8-2.4); POTASSIUM SERUM 4.7 MEQ/L (3.5-5.1); SODIUM LEVEL 144 MEQ/L (136-145); TOTAL PROTEIN 5.6 GM/DL (6.4-8.2)
[2017-07-19] MEDS: POTASSIUM CHLORIDE 10 MEQ SR TABLET PO SCH ×2 (08:48→21:36)
[2017-07-19] MEDS: VITAMIN E 400 INTERNATIONAL UNITS CAP PO SCH (08:59)
[2017-07-19] MEDS: VITAMIN D 1,000 INTERNATIONAL UNITS TABLET PO SCH (08:59)
[2017-07-19] MEDS: traMADol 50 MG TAB PO PRN ×2 (09:00→19:46)
[2017-07-19] MEDS: BACITRACIN OINT 30GM TOP SCH ×2 (09:00→21:37)
[2017-07-19] MEDS: amLODIPine 5 MG TAB PO SCH (09:04)
--- NOTE | 2017-07-19 13:54 | IPN ---
DATE: 07/19/2017 SUBJECTIVE: The patient tells me she feels well. She wants to go home. She has no complaints at this time. She denies chest pain, fever, shortness of breath, nausea, vomiting or diarrhea. OBJECTIVE: VITAL SIGNS: Temperature 97.9, pulse 74, respiratory rate 21, blood pressure 158/85, oxygen saturations 90% in room air. General: She is a pleasant elderly female sitting in the chair. She does appear to be in any acute distress. HEENT: Cranial nerves II through XII are grossly intact. She has moist mucous membranes. No elevation of her jugular venous distention. Cardiovascular: S1, S2, regular. Respiratory exam: Actually quite clear. Abdomen is grossly obese. Bowel sounds present. Abdomen is soft. EXTREMITIES: No clubbing, cyanosis or edema. LABORATORY STUDIES: WBC 7.6, hemoglobin 12.4, platelet count 231. Chemistry pane: Sodium 144, potassium 4.7, chloride 113, bicarbonate 23, BUN 16, creatinine 0.8. No new imaging. ASSESSMENT/PLAN: This is an 82-year-old female status post fall, down with rhabdomyolysis. PROBLEMS: 1. Fall: She has had numerous falls in the past. She tells me it happens only when she does not use her walker. I did also have concern that she presented with second Wenckebach associated with pindolol. It did resolve. We are discontinuing pindolol. However, the patient does live alone and physical therapy are working with this and at this time they do not feel she is safe, which I agree with. The patient may progress over the next several days and go home with services verses rehabilitation. 2. Rhabdomyolysis secondary to being down. We have discontinued her IV fluids. Her CKs are trending down and this is resolving. 3. Elevated troponin likely related to her kidney disease: She does not have any symptoms or any electrocardiogram changes, which are concerning of ischemia. Recommend outpatient referral to cardiology for stress testing. An echogram completed during her stay here has been unrevealing. Chronic kidney disease, stable. 4. Type 2 diabetes: She will have sliding scale and her fingersticks are well controlled. 5. Hypertension: We replaced pindolol with Norvasc, fairly well controlled. If this becomes uncontrolled consider titrating up further. 6. Dyslipidemia: She is on a statin. 7. Obesity complicating care. 8. Chronic pain: She is on tramadol when necessary. 9. Deep venous thrombosis prophylaxis: She is on heparin. DISPOSITION: Pending physical therapy, likely subacute rehabilitation in my opinion.
[2017-07-19 14:00] VITALS: BP 153/88
[2017-07-19] MEDS: SOLIFENACIN 5 MG TAB PO SCH (21:30)
[2017-07-19] MEDS: ATORVASTATIN 10 MG TAB PO SCH (21:36)
[2017-07-19 22:00] VITALS: BP 149/84
[2017-07-20] MEDS: HEPARIN SOD (PORCINE) 5000 UNITS/ML VIAL SC SCH ×3 (05:08→21:18)
[2017-07-20 06:00] VITALS: BP 145/62
[2017-07-20 06:08] LABS: MEAN CORPUSCULAR HGB CONC 33.2 g/dl (32.0-36.5); MEAN CORPUSCULAR VOLUME 87.5 fl (80.0-96.0); PLATELET COUNT, AUTOMATED 223 10^3/uL (150-450); RED CELL DISTRIBUTION WIDTH 14.4 % (11.5-14.5); WHITE BLOOD COUNT 7.7 10^3/uL (4.0-10.0)
[2017-07-20 06:39] LABS: ALBUMIN 2.7 GM/DL (3.2-5.2); ALBUMIN/GLOBULIN RATIO 0.84 (1.00-1.93); ALKALINE PHOSPHATASE 59 U/L (45-117); ALT/SGPT 48 U/L (12-78); ANION GAP 9 MEQ/L (8-16); AST/SGOT 30 U/L (15-37); BILIRUBIN,TOTAL 0.8 MG/DL (0.2-1.0); BLOOD UREA NITROGEN 16 MG/DL (7-18); CALCIUM LEVEL 8.2 MG/DL (8.8-10.2); CARBON DIOXIDE LEVEL 24 MEQ/L (21-32); CHLORIDE LEVEL 109 MEQ/L (98-107); CREATININE FOR GFR 0.88 MG/DL (0.55-1.02); GLOMERULAR FILTRATION RATE > 60.0 (>32); GLUCOSE, FASTING 123 MG/DL (83-110); MAGNESIUM LEVEL 1.8 MG/DL (1.8-2.4); POTASSIUM SERUM 4.1 MEQ/L (3.5-5.1); SODIUM LEVEL 142 MEQ/L (136-145); TOTAL PROTEIN 5.9 GM/DL (6.4-8.2)
[2017-07-20] MEDS: HumaLOG INSULIN (NovoLOG) PER UNIT SC SCH ×4 (07:30→20:45)
[2017-07-20] MEDS: POTASSIUM CHLORIDE 10 MEQ SR TABLET PO SCH ×2 (08:41→21:16)
[2017-07-20] MEDS: BACITRACIN OINT 30GM TOP SCH ×2 (08:42→21:18)
[2017-07-20] MEDS: VITAMIN D 1,000 INTERNATIONAL UNITS TABLET PO SCH (08:42)
[2017-07-20] MEDS: amLODIPine 5 MG TAB PO SCH (08:42)
[2017-07-20] MEDS: VITAMIN E 400 INTERNATIONAL UNITS CAP PO SCH (08:42)
[2017-07-20] MEDS: traMADol 50 MG TAB PO PRN ×2 (08:50→17:26)
[2017-07-20 14:00] VITALS: BP 137/92
--- NOTE | 2017-07-20 15:02 | REP ---
Duplex extremity venous ultrasound: Right lower extremity. History: Right leg pain. Question DVT. Findings: The deep veins are anechoic and fully compressible from the groin to the popliteal fossa in the right lower extremity. Color flow imaging is homogeneous. Spectral Doppler interrogation demonstrates intact respiratory variation in flow and normal manual augmentation of flow. There is no evidence of deep vein thrombosis. There is a 5.0 x 1.5 x 2.8 cm fluid collection in the popliteal soft tissues on the right consistent with a Calderon's cyst. Impression: 5.0 cm Calderon's cyst right popliteal fossa. Otherwise negative right lower extremity duplex venous ultrasound. No evidence of deep vein thrombosis. Signed by Caesar Griffin MD 07/20/2017 05:44 P
--- NOTE | 2017-07-20 17:12 | IPN ---
DATE: 07/20/2017 Patient seen and examined. No acute events overnight. Reported right lower extremity pain. Denies any chest pain, pressure, or discomfort, fevers, or chills. VITAL SIGNS: Temperature 96.1, pulse 84, respirations 18, blood pressure 137/92, pulse oximetry 100% on room air. LABORATORY DATA: WBC 7.7, hemoglobin and hmt12.3/37.1, platelets 223. Chemistry: Sodium 142, potassium 4.1, chloride 109, bicarbonate 24, BUN 16, creatinine 0.88. Ultrasound Doppler negative for deep vein thrombosis (DVT). PHYSICAL EXAMINATION: GENERAL: Patient pleasant, elderly female in no acute distress. HEENT: Normocephalic, atraumatic. Moist mucous membranes. NECK: Supple. CARDIAC: Regular rate and rhythm. Normal S1, S2. PULMONARY: Bilaterally clear. ABDOMEN: Obese, soft, nontender. Positive bowel sounds. EXTREMITIES: No clubbing, cyanosis, or edema. ASSESSMENT AND PLAN: This is an 82-year-old female patient with underlying medical history of hypertension, dyslipidemia, chronic kidney disease (CKD), morbid obesity, diabetes mellitus, presented to the hospital status post fall with rhabdomyolysis. 1. Fall. Patient had numerous falls in the past. Patient reported it happening only when she does not use her walker. Patient was also noticed to have Wenckebach on telemetry with pindolol that was discontinued. Patient subsequently reverted back to first-degree heart block. Telemetry appreciated. Physical therapy was ordered. Followup orthostatic vital signs. Pending home services versus rehabilitation. 2. Rhabdomyolysis. Intravenous (IV) fluid discontinued. Currently resolved. 3. Elevated troponin, likely secondary to kidney disease. Patient does not have any cardiac symptoms. Outpatient followup with cardiology recommended. Echocardiogram is appreciated. 4. Type 2 diabetes. Insulin as per protocol. 5. Hypertension. Pindolol has been replaced with Norvasc. Currently controlled. Monitor blood pressure. 6. Dyslipidemia. Continue statin. 7. Obesity complicating care. 8. Chronic pain. Continue current medication. 9. Dyslipidemia. Continue statin. 10. Deep vein thrombosis (DVT) prophylaxis. Heparin subcutaneous. DISPOSITION: Pending physical therapy. Acute rehabilitation evaluation.
[2017-07-20] MEDS: SOLIFENACIN 5 MG TAB PO SCH (21:16)
[2017-07-20] MEDS: ATORVASTATIN 10 MG TAB PO SCH (21:17)
[2017-07-20 22:00] VITALS: BP 142/85
[2017-07-21] MEDS: HEPARIN SOD (PORCINE) 5000 UNITS/ML VIAL SC SCH ×3 (05:59→21:33)
[2017-07-21 06:00] VITALS: BP 157/81
[2017-07-21 06:27] LABS: MEAN CORPUSCULAR HEMOGLOBIN 28.9 pg (27.0-33.0); MEAN CORPUSCULAR VOLUME 87.7 fl (80.0-96.0); PLATELET COUNT, AUTOMATED 263 10^3/uL (150-450); RED CELL DISTRIBUTION WIDTH 14.5 % (11.5-14.5); WHITE BLOOD COUNT 8.1 10^3/uL (4.0-10.0)
[2017-07-21 06:54] LABS: ALBUMIN 3.1 GM/DL (3.2-5.2); ALBUMIN/GLOBULIN RATIO 0.89 (1.00-1.93); BILIRUBIN,TOTAL 0.9 MG/DL (0.2-1.0); CALCIUM LEVEL 8.4 MG/DL (8.8-10.2); CREATININE FOR GFR 0.98 MG/DL (0.55-1.02); MAGNESIUM LEVEL 1.7 MG/DL (1.8-2.4); POTASSIUM SERUM 4.2 MEQ/L (3.5-5.1); TOTAL PROTEIN 6.6 GM/DL (6.4-8.2)
[2017-07-21] MEDS: VITAMIN D 1,000 INTERNATIONAL UNITS TABLET PO SCH (08:04)
[2017-07-21] MEDS: amLODIPine 5 MG TAB PO SCH (08:05)
[2017-07-21] MEDS: POTASSIUM CHLORIDE 10 MEQ SR TABLET PO SCH ×2 (08:05→21:33)
[2017-07-21] MEDS: BACITRACIN OINT 30GM TOP SCH ×2 (08:05→21:33)
[2017-07-21] MEDS: VITAMIN E 400 INTERNATIONAL UNITS CAP PO SCH (08:05)
[2017-07-21] MEDS: HumaLOG INSULIN (NovoLOG) PER UNIT SC SCH ×4 (08:06→21:00)
[2017-07-21] MEDS: traMADol 50 MG TAB PO PRN ×2 (08:11→18:59)
[2017-07-21] MEDS ORDERED: MAG SULF 1GM/100ML (MAG RUN) 1 GM in APPROPRIATE DILUENT 1 EA IV ONE ×2 (09:00→16:15)
[2017-07-21] MEDS ORDERED: PREVNAR 13 VACCINE SYRINGE (CPT CODE:90670) IM ONE (11:00)
[2017-07-21 14:00] VITALS: BP 148/79
--- NOTE | 2017-07-21 16:32 | IPN ---
DATE: 07/21/2017 Patient seen and examined. No acute events overnight. Telemetry reviewed, remained a first degree heart block. Currently at baseline. Reported right lower extremity pain seems to be improved. Denies any chest pain, pressure, or discomfort, fevers, chills, or shortness of breath.. VITAL SIGNS: Temperature 97.9, pulse 78, respirations 19, blood pressure 148/79, pulse oximetry 93% on room air. LABORATORY DATA: WBC 8.1, hemoglobin and hematocrit 12.7/38.5, platelets 263. Chemistry: Sodium 140, potassium 4.2, chloride 108, bicarbonate 25, BUN 18, creatinine 0.98, A1c 7.1, PHYSICAL EXAMINATION: GENERAL: Patient pleasant, elderly, in no acute distress. HEENT: Normocephalic, atraumatic. Moist mucous membranes. NECK: Supple. CARDIAC: Regular rate and rhythm. Normal S1, S2. PULMONARY: Bilaterally clear. ABDOMEN: Obese, soft, nontender. Positive bowel sounds. EXTREMITIES: No clubbing, cyanosis, or edema. ASSESSMENT AND PLAN: This is an 82-year-old female patient with underlying medical history of hypertension, dyslipidemia, chronic kidney disease (CKD), morbid obesity, diabetes mellitus non-insulin dependent who presented to the hospital status post fall with rhabdomyolysis. 1. Fall. Patient had numerous falls in the past. Baseline is supposed to use a walker which patient has not been using. Patient reported that it happens when she is not using a walker. Also noted to have Wenckebach on telemetry on admission. Patients pindolol has been discontinued, subsequently patient reverted back to first-degree heart block. Telemetry appreciated. Physical therapy was ordered. Orthostatic vital signs appreciated. Currently pending PT with home services versus subacute rehabilitation. 2. Rhabdomyolysis. Intravenous (IV) fluid discontinued. Currently resolved. 3. Elevated troponin, likely secondary to acute kidney injury (KT). Patient does not have any cardiac symptoms. Outpatient followup with cardiology recommended. Echocardiogram is appreciated. 4. Type 2 diabetes. A1c 7.1. Patient might benefit from metformin. The family has reported previous reaction to metformin. Will consider putting the patient on Januvia prior to discharge. 5. Hypertension. Pindolol has been discontinued, replaced with Norvasc. Continue to monitor blood pressure. 6. Dyslipidemia. Continue statin. Patients family reported that patient had a reaction to Lipitor before subsequently changed her to pravastatin. 7. Obesity. Patient had success with weight loss, currently complicating care. 8. Chronic pain. Continue current medication. 9. Deep vein thrombosis (DVT) prophylaxis. Heparin subcutaneous. DISPOSITION: Pending physical therapy. Home services versus acute rehabilitation.
[2017-07-21] MEDS: SOLIFENACIN 5 MG TAB PO SCH (21:33)
[2017-07-21] MEDS: PRAVASTATIN 20 MG TAB PO SCH (21:33)
[2017-07-21 22:00] VITALS: BP 144/74
[2017-07-22] MEDS: HEPARIN SOD (PORCINE) 5000 UNITS/ML VIAL SC SCH ×3 (05:54→22:00)
[2017-07-22 06:00] VITALS: BP 132/79
[2017-07-22 06:16] LABS: MEAN CORPUSCULAR HEMOGLOBIN 28.8 pg (27.0-33.0); MEAN CORPUSCULAR HGB CONC 32.8 g/dl (32.0-36.5); MEAN CORPUSCULAR VOLUME 87.8 fl (80.0-96.0); PLATELET COUNT, AUTOMATED 263 10^3/uL (150-450); RED CELL DISTRIBUTION WIDTH 14.6 % (11.5-14.5); WHITE BLOOD COUNT 7.7 10^3/uL (4.0-10.0)
[2017-07-22 06:36] LABS: ALBUMIN 2.9 GM/DL (3.2-5.2); ALBUMIN/GLOBULIN RATIO 0.91 (1.00-1.93); ALKALINE PHOSPHATASE 59 U/L (45-117); ALT/SGPT 53 U/L (12-78); ANION GAP 7 MEQ/L (8-16); AST/SGOT 34 U/L (15-37); BILIRUBIN,TOTAL 0.9 MG/DL (0.2-1.0); BLOOD UREA NITROGEN 15 MG/DL (7-18); CALCIUM LEVEL 8.4 MG/DL (8.8-10.2); CARBON DIOXIDE LEVEL 25 MEQ/L (21-32); CHLORIDE LEVEL 108 MEQ/L (98-107); CREATININE FOR GFR 0.91 MG/DL (0.55-1.02); GLOMERULAR FILTRATION RATE > 60.0 (>32); GLUCOSE, FASTING 123 MG/DL (83-110); POTASSIUM SERUM 4.4 MEQ/L (3.5-5.1); SODIUM LEVEL 140 MEQ/L (136-145); TOTAL PROTEIN 6.1 GM/DL (6.4-8.2)
[2017-07-22] MEDS: VITAMIN E 400 INTERNATIONAL UNITS CAP PO SCH (08:00)
[2017-07-22] MEDS: amLODIPine 5 MG TAB PO SCH (08:01)
[2017-07-22] MEDS: traMADol 50 MG TAB PO PRN ×2 (08:01→19:27)
[2017-07-22] MEDS: POTASSIUM CHLORIDE 10 MEQ SR TABLET PO SCH ×2 (08:01→21:59)
[2017-07-22] MEDS: BACITRACIN OINT 30GM TOP SCH ×2 (08:02→22:00)
[2017-07-22] MEDS: HumaLOG INSULIN (NovoLOG) PER UNIT SC SCH ×4 (08:03→21:00)
[2017-07-22] MEDS: VITAMIN D 1,000 INTERNATIONAL UNITS TABLET PO SCH (10:33)
[2017-07-22 14:00] VITALS: BP 152/71
[2017-07-22] MEDS: metFORMIN XR 500MG TAB *GLUCOPHAGE XR PO SCH (18:40)
--- NOTE | 2017-07-22 19:18 | IPN ---
DATE: 07/22/2017 Patient seen and examined. No acute events overnight. Denies any chest pain, pressure, or discomfort, fevers, chills, or shortness of breath. Patient is asymptomatic. Tolerating physical therapy. Reported her strength to be improved. VITAL SIGNS: Temperature 98, respirations 18, blood pressure 153/71, pulse oximetry 95% on room air. LABORATORY DATA: WBC 7.7, hemoglobin and hematocrit 12.3/37.5, platelets 263. Chemistry: Sodium 140, potassium 4.4, chloride 108, bicarbonate 25, BUN 15, creatinine 0.91, A1c 7.1, PHYSICAL EXAMINATION: GENERAL: Patient pleasant, elderly, in no acute distress. HEENT: Normocephalic, atraumatic. Moist mucous membranes. NECK: Supple. CARDIAC: Regular rate and rhythm. Normal S1, S2. PULMONARY: Bilaterally clear to auscultation. ABDOMEN: Obese, soft, nontender. Positive bowel sounds. EXTREMITIES: No clubbing, cyanosis, or edema. ASSESSMENT AND PLAN: This is an 82-year-old female patient with underlying medical history of hypertension, dyslipidemia, chronic kidney disease (CKD), morbid obesity, diabetes mellitus non-insulin dependent who presented to the hospital status post fall with rhabdomyolysis. 1. Fall. Patient had numerous falls in the past. Baseline is supposed to use a walker which patient has not been using. Patient reported that it happens when she is not using a walker. On admission patient was noted to have Wenckebach on telemetry. Patients pindolol has been discontinued, subsequently patient reverted back to first-degree heart block. Telemetry has been appreciated. Physical therapy, orthostatic vital signs appreciated. Currently patient is working with physical therapy. Discharge pending physical therapy. 2. Rhabdomyolysis. Intravenous (IV) fluid has initially been given, currently discontinued. Currently resolved. 3. Elevated troponin, likely secondary to acute kidney injury (KT). Patient does not have any cardiac symptoms. Outpatient followup with cardiology recommended. Echocardiogram is appreciated. 4. Type 2 diabetes. A1c 7.1. Patient will benefit from metformin. The patient has unknown reaction in terms of nausea and vomiting to a diabetic medication, we will give the patient a trial of low dose metformin to see if patient tolerates it, if not we will place patient on Januvia. In the meantime will continue to followup finger sticks. Insulin per protocol. 5. Hypertension. Pindolol has been discontinued, replaced with Norvasc. Continue to monitor blood pressure. 6. Dyslipidemia. Continue statin. Patients family reported that patient had a reaction to Lipitor before subsequently changed her to pravastatin. 7. Obesity. Patient had successful with weight loss. Outpatient followup. 8. Chronic pain. Continue current medication. 9. Deep vein thrombosis (DVT) prophylaxis. Heparin subcutaneous. DISPOSITION: Pending physical therapy. Home services versus short term rehabilitation.
[2017-07-22] MEDS: SOLIFENACIN 5 MG TAB PO SCH (21:59)
[2017-07-22] MEDS: PRAVASTATIN 20 MG TAB PO SCH (21:59)
[2017-07-22 22:00] VITALS: BP 158/81
[2017-07-23] MEDS: traMADol 50 MG TAB PO PRN ×2 (05:29→20:25)
[2017-07-23] MEDS: HEPARIN SOD (PORCINE) 5000 UNITS/ML VIAL SC SCH ×3 (05:29→20:20)
[2017-07-23 06:00] VITALS: BP 143/76
[2017-07-23 06:38] LABS: MEAN CORPUSCULAR HEMOGLOBIN 28.9 pg (27.0-33.0); MEAN CORPUSCULAR HGB CONC 32.7 g/dl (32.0-36.5); MEAN CORPUSCULAR VOLUME 88.3 fl (80.0-96.0); PLATELET COUNT, AUTOMATED 256 10^3/uL (150-450); RED CELL DISTRIBUTION WIDTH 14.7 % (11.5-14.5); WHITE BLOOD COUNT 7.2 10^3/uL (4.0-10.0)
[2017-07-23 06:59] LABS: CALCIUM LEVEL 8.6 MG/DL (8.8-10.2); CREATININE FOR GFR 0.99 MG/DL (0.55-1.02); GLOMERULAR FILTRATION RATE 57.3 (>32); MAGNESIUM LEVEL 1.8 MG/DL (1.8-2.4); POTASSIUM SERUM 4.1 MEQ/L (3.5-5.1)
[2017-07-23] MEDS: VITAMIN E 400 INTERNATIONAL UNITS CAP PO SCH (08:33)
[2017-07-23] MEDS: VITAMIN D 1,000 INTERNATIONAL UNITS TABLET PO SCH (08:33)
[2017-07-23] MEDS: HumaLOG INSULIN (NovoLOG) PER UNIT SC SCH (08:33)
[2017-07-23] MEDS: POTASSIUM CHLORIDE 10 MEQ SR TABLET PO SCH ×2 (08:34→20:20)
[2017-07-23] MEDS: amLODIPine 5 MG TAB PO SCH (08:34)
[2017-07-23] MEDS: BACITRACIN OINT 30GM TOP SCH ×2 (08:34→20:21)
[2017-07-23 14:00] VITALS: BP 120/68
[2017-07-23] MEDS: metFORMIN XR 500MG TAB *GLUCOPHAGE XR PO SCH (17:58)
--- NOTE | 2017-07-23 19:17 | IPN ---
DATE: 07/23/2017 Patient seen and examined. No acute events overnight. Reported urinary urgency that has been chronic for the patient. The patient is on VESIcare. Denies any chest pain, pressure or discomfort, shortness of breath. Participating with physical therapy. VITAL SIGNS: Temperature 99, pulse 86, respirations 18, blood pressure 120/68, pulse oximetry 93% on room air. LABORATORY DATA: WBC 7.3, hemoglobin and hematocrit 12.3 over 37.6, platelets 256. Chemistry: Sodium 140, potassium 4.1, chloride 106, bicarbonate 25, BUN 16, creatinine 0.99. PHYSICAL EXAMINATION: A pleasant elderly obese female in no acute distress. HEENT: Normocephalic, atraumatic. Moist mucous membranes. NECK: Supple. CARDIAC: Regular rate and rhythm. Normal S1, S2. PULMONARY: Bilaterally clear to auscultation. ABDOMEN: Soft, nontender, positive bowel sounds. EXTREMITIES: No clubbing, cyanosis, or edema. ASSESSMENT AND PLAN: This is an 82-year-old female patient with underlying medical history of hypertension, dyslipidemia, chronic kidney disease, morbid obesity, diabetes mellitus, non-insulin dependent, presented to the hospital status post fall with rhabdomyolysis. Problems: 1. Fall. The patient had numerous falls in the past. At baseline, she is supposed to use a walker, which the patient has not been using. Reported that has happened when she was not using a walker. On admission, the patient was noted to have Wenckebach on telemetry. Patient's pindolol has been discontinued. Subsequently, the patient reverted back to first-degree heart block and telemetry has been appreciated. Physical therapy. Orthostatic vital signs appreciated. Currently, the patient is working with physical therapy. Discharge pending physical therapy. 2. Rhabdomyolysis. Intravenous (IV) fluids initially provided, currently resolved. 3. Elevated troponin. Likely secondary to acute kidney injury (KT). The patient does not have any cardiac symptoms. Outpatient followup with cardiology recommended. Echo appreciated. 4. Type 2 diabetes. A1c 7.1. Patient started on metformin and is currently tolerating metformin. Insulin has been discontinued. The patient has a history of reaction to diabetic medication but currently is tolerating metformin. 5. Hypertension. Pindolol has been discontinued, replaced with Norvasc. Continue to monitor blood pressure. 6. Dyslipidemia. Continue statin. Patient on pravastatin. 7. Obesity. Patient has successful weight loss. Outpatient followup. 8. Chronic pain. Continue current medication. 9. Deep vein thrombosis (DVT) prophylaxis. Heparin subcutaneous. DISPOSITION: Pending physical therapy. Likely home with services.
[2017-07-23] MEDS: oxyBUTYnin *DITROPAN XL* 5 MG TABCR PO SCH (20:20)
[2017-07-23] MEDS: PRAVASTATIN 20 MG TAB PO SCH (20:21)
[2017-07-23 22:00] VITALS: BP 158/60
[2017-07-24] MEDS: HEPARIN SOD (PORCINE) 5000 UNITS/ML VIAL SC SCH ×3 (05:30→20:58)
[2017-07-24 06:10] LABS: MEAN CORPUSCULAR HEMOGLOBIN 28.8 pg (27.0-33.0); MEAN CORPUSCULAR HGB CONC 32.6 g/dl (32.0-36.5); MEAN CORPUSCULAR VOLUME 88.3 fl (80.0-96.0); PLATELET COUNT, AUTOMATED 270 10^3/uL (150-450); RED CELL DISTRIBUTION WIDTH 14.6 % (11.5-14.5); WHITE BLOOD COUNT 7.9 10^3/uL (4.0-10.0)
[2017-07-24 06:29] LABS: CALCIUM LEVEL 9.1 MG/DL (8.8-10.2); CREATININE FOR GFR 0.98 MG/DL (0.55-1.02); MAGNESIUM LEVEL 1.8 MG/DL (1.8-2.4); POTASSIUM SERUM 4.7 MEQ/L (3.5-5.1)
[2017-07-24] MEDS: POTASSIUM CHLORIDE 10 MEQ SR TABLET PO SCH ×2 (08:40→20:58)
[2017-07-24] MEDS: amLODIPine 5 MG TAB PO SCH (08:48)
[2017-07-24] MEDS: VITAMIN D 1,000 INTERNATIONAL UNITS TABLET PO SCH (08:48)
[2017-07-24] MEDS: VITAMIN E 400 INTERNATIONAL UNITS CAP PO SCH (08:49)
[2017-07-24] MEDS: BACITRACIN OINT 30GM TOP SCH ×2 (08:49→20:58)
[2017-07-24] MEDS: metFORMIN XR 500MG TAB *GLUCOPHAGE XR PO SCH (18:43)
[2017-07-24] MEDS: oxyBUTYnin *DITROPAN XL* 5 MG TABCR PO SCH (20:58)
[2017-07-24] MEDS: PRAVASTATIN 20 MG TAB PO SCH (20:58)
[2017-07-24] MEDS: traMADol 50 MG TAB PO PRN (20:59)
[2017-07-24 22:00] VITALS: BP 156/86
[2017-07-24 22:46] LABS: YEAST LIKE CELL URINE AUTO SMALL
[2017-07-25 04:00] VITALS: BP 156/86
[2017-07-25] MEDS: HEPARIN SOD (PORCINE) 5000 UNITS/ML VIAL SC SCH ×3 (05:15→20:15)
[2017-07-25 06:00] VITALS: BP 130/84
[2017-07-25 06:17] LABS: MEAN CORPUSCULAR HEMOGLOBIN 28.8 pg (27.0-33.0); MEAN CORPUSCULAR HGB CONC 32.4 g/dl (32.0-36.5); MEAN CORPUSCULAR VOLUME 88.7 fl (80.0-96.0); PLATELET COUNT, AUTOMATED 258 10^3/uL (150-450); RED CELL DISTRIBUTION WIDTH 14.8 % (11.5-14.5); WHITE BLOOD COUNT 7.7 10^3/uL (4.0-10.0)
[2017-07-25 06:34] LABS: CALCIUM LEVEL 9.1 MG/DL (8.8-10.2); CREATININE FOR GFR 0.99 MG/DL (0.55-1.02); GLOMERULAR FILTRATION RATE 57.3 (>32); MAGNESIUM LEVEL 1.9 MG/DL (1.8-2.4); POTASSIUM SERUM 4.3 MEQ/L (3.5-5.1)
[2017-07-25] MEDS: VITAMIN E 400 INTERNATIONAL UNITS CAP PO SCH (08:46)
[2017-07-25] MEDS: BACITRACIN OINT 30GM TOP SCH ×2 (08:46→20:15)
[2017-07-25] MEDS: VITAMIN D 1,000 INTERNATIONAL UNITS TABLET PO SCH (08:46)
[2017-07-25] MEDS: POTASSIUM CHLORIDE 10 MEQ SR TABLET PO SCH ×2 (08:46→20:13)
[2017-07-25] MEDS: amLODIPine 5 MG TAB PO SCH (08:46)
[2017-07-25] MEDS: CIPROFLOXACIN 500 MG TAB PO SCH ×2 (10:17→17:22)
[2017-07-25 14:00] VITALS: BP 147/64
--- NOTE | 2017-07-25 15:51 | IPN ---
DATE: 07/24/2017 Patient seen and examined. No acute events overnight. Denies any chest pain, pressure or discomfort. Reported one episode of loose stool. Denies any fever or chills, abdominal pain, chest pain, nausea or vomiting. VITAL SIGNS: Temperature 98.4, pulse 84, respirations 19, blood pressure 157/65, pulse oximetry 96% on room air. LABORATORY DATA: WBC 7.9, hemoglobin and hematocrit 13.3/40, platelets 270. Chemistry: Sodium 141, potassium 4.7, chloride 107, bicarbonate 27, BUN 15, creatinine 0.98. PHYSICAL EXAMINATION: Pleasant, obese female in no acute distress. HEENT: Normocephalic, atraumatic. Moist mucous membranes. NECK: Supple. CARDIAC: Regular rate and rhythm. Normal S1, S2. PULMONARY: Bilaterally clear to auscultation. ABDOMEN: Soft, nontender. Positive bowel sounds. EXTREMITIES: No clubbing, cyanosis, or edema. ASSESSMENT AND PLAN: This is an 82-year-old female patient with underlying medical history of hypertension, dyslipidemia, chronic kidney disease (CKD), morbid obesity, diabetes mellitus non-insulin dependent, presented to the hospital status post fall with rhabdomyolysis. 1. Fall. Patient had numerous falls in the past. At baseline, patient is supposed to use a walker, which the patient does not use and reported the fall happened when she was not using walker. On admission, patient was noted to have Wenckebach on telemetry. Patient's pindolol has been discontinued. Subsequently, patient reverted back to first-degree heart block. Telemetry has been appreciated. Physical therapy. Orthostatic vital signs appreciated. Currently, patient is working with physical therapy. Discharge pending physical therapy. 2. Rhabdomyolysis. IV fluids initially given, currently resolved. 3. Elevated troponin, likely secondary to acute kidney injury (KT). Patient does not have any cardiac symptoms. Outpatient followup with cardiology recommended. Echo appreciated. 4. Type 2 diabetes. A1c 7.1. Patient started on metformin. Currently tolerating metformin with only minor side effects. Insulin has been discontinued. Patient does have history of side effects from metformin, would not recommend increasing the dose until patient is completely used to it. 5. Hypertension. Pindolol has been discontinued, replaced with Norvasc. Monitor blood pressure. 6. Dyslipidemia. Continue statin. Patient on pravastatin now given history of side effect with Lipitor. 7. Obesity. Successful weight loss. Obesity complicating care. Outpatient followup. 8. Chronic pain. Continue current medication. 9. Deep vein thrombosis (DVT) prophylaxis. Heparin subcutaneous. DISPOSITION PLANNING: Pending physical therapy. Home with services. Patient and family services (PFS) has been consulted.
[2017-07-25] MEDS: metFORMIN XR 500MG TAB *GLUCOPHAGE XR PO SCH (17:22)
[2017-07-25] MEDS: PRAVASTATIN 20 MG TAB PO SCH (20:13)
[2017-07-25] MEDS: oxyBUTYnin *DITROPAN XL* 5 MG TABCR PO SCH (20:13)
[2017-07-25] MEDS: traMADol 50 MG TAB PO PRN (20:14)
--- NOTE | 2017-07-25 20:22 | IPN ---
DATE: 07/25/2017 Patient seen and examined. No acute events overnight. Reported urinary frequency and urgency. Denies any chest pain, pressure or discomfort, fevers or chills. VITAL SIGNS: Temperature 98.4, pulse 79, respirations 18, blood pressure 147/46, pulse oximetry 94% on room air. LABORATORY DATA: WBC 7.7, hemoglobin and hematocrit 13.2/40.7, platelets 258. Chemistry: Sodium 141, potassium 4.2, chloride 107, bicarbonate 25, BUN 13, creatinine 0.99. PHYSICAL EXAMINATION: Obese female in no acute distress. HEENT: Normocephalic, atraumatic. Moist mucous membranes. NECK: Supple. CARDIAC: Regular rate and rhythm. Normal S1, S2. PULMONARY: Bilaterally clear to auscultation. ABDOMEN: Soft, nontender. Positive bowel sounds. EXTREMITIES: No clubbing, cyanosis, or edema. ASSESSMENT AND PLAN: This is an 82-year-old female patient with underlying medical history of hypertension, dyslipidemia, chronic kidney disease (CKD), morbid obesity, diabetes mellitus non-insulin dependent, presented to the hospital status post fall with rhabdomyolysis. 1. Fall. Patient had numerous falls in the past. At baseline, patient is supposed to use a walker, which the patient does not use and reported the fall happened when she was not using walker. On admission, patient was noted to have Wenckebach on telemetry. Patient's pindolol has been discontinued. Subsequently, patient went back to first-degree heart block. Telemetry has been appreciated. Physical therapy. Orthostatics appreciated. Currently, patient is working with physical therapy. Discharge pending physical therapy. 2. Rhabdomyolysis. Resolved with IV fluids. 3. Elevated troponin, likely secondary to acute kidney injury (KT). Patient does not have any cardiac symptoms. Outpatient followup with cardiology recommended. Echo appreciated. 4. Type 2 diabetes. A1c 7.1. Patient started on metformin. Currently tolerating metformin with minor side effects. Insulin discontinued. 5. Hypertension. Pindolol has been discontinued, replaced with Norvasc. Monitor blood pressure. 6. Urinary tract infection (UTI). The patient is ordered Cipro. Followup cultures. 7. Dyslipidemia. Continue statin. Patient was on pravastatin and reported a history of side effect with Lipitor. 8. Obesity. Discussed weight loss. Obesity complicating care. Outpatient followup. 9. Chronic pain. Continue current medication. 10. Deep vein thrombosis (DVT) prophylaxis. Heparin subcutaneous. DISPOSITION PLANNING: Pending physical therapy. Home with services. Patient and family services (PFS) has been consulted.
[2017-07-25 22:00] VITALS: BP 151/77
[2017-07-26] MEDS: CIPROFLOXACIN 500 MG TAB PO SCH ×2 (05:05→18:31)
[2017-07-26] MEDS: HEPARIN SOD (PORCINE) 5000 UNITS/ML VIAL SC SCH ×3 (05:05→21:07)
[2017-07-26 05:56] LABS: MEAN CORPUSCULAR HEMOGLOBIN 29.3 pg (27.0-33.0); MEAN CORPUSCULAR VOLUME 88.7 fl (80.0-96.0); PLATELET COUNT, AUTOMATED 233 10^3/uL (150-450); RED CELL DISTRIBUTION WIDTH 14.7 % (11.5-14.5); WHITE BLOOD COUNT 7.9 10^3/uL (4.0-10.0)
[2017-07-26 06:00] VITALS: BP 154/83
[2017-07-26 06:19] LABS: CALCIUM LEVEL 8.8 MG/DL (8.8-10.2); GLOMERULAR FILTRATION RATE 56.6 (>32); MAGNESIUM LEVEL 1.5 MG/DL (1.8-2.4); POTASSIUM SERUM 3.9 MEQ/L (3.5-5.1)
[2017-07-26] MEDS ORDERED: MAG SULF 1GM/100ML (MAG RUN) 1 GM in APPROPRIATE DILUENT 1 EA IV ONE (06:45)
[2017-07-26] MEDS ORDERED: PRAV1TAB39 PO (10:20)
[2017-07-26] MEDS ORDERED: POTA10CA PO (10:20)
[2017-07-26] MEDS ORDERED: GLUCTAB PO (10:20)
[2017-07-26] MEDS ORDERED: SENN1TAB2 PO (10:20)
[2017-07-26] MEDS ORDERED: CIPR-249 PO (10:20)
--- NOTE | 2017-07-26 10:44 | REP ---
Bilateral lower extremity Duplex Doppler venous ultrasound: Real time compression and duplex Doppler interrogation of the bilateral lower extremity deep venous system is performed. Bilaterally, the common femoral, superficial femoral and popliteal veins are fully compressible with transducer pressure and demonstrate normal spontaneous and phasic flow, without evidence of deep venous thrombosis. Impression: No evidence of deep venous thrombosis of the bilateral lower extremity femoral popliteal venous system. There is a complex right popliteal cyst measuring 5.8 x 2.5 x 4.5 cm. Signed by Eulalio Valenzuela MD 07/26/2017 10:36 A
[2017-07-26] MEDS: POTASSIUM CHLORIDE 10 MEQ SR TABLET PO SCH ×2 (11:04→20:17)
[2017-07-26] MEDS: VITAMIN E 400 INTERNATIONAL UNITS CAP PO SCH (11:05)
[2017-07-26] MEDS: VITAMIN D 1,000 INTERNATIONAL UNITS TABLET PO SCH (11:05)
[2017-07-26] MEDS: BACITRACIN OINT 30GM TOP SCH ×2 (11:06→20:19)
[2017-07-26] MEDS: amLODIPine 5 MG TAB PO SCH (11:09)
[2017-07-26 14:00] VITALS: BP 149/70
--- NOTE | 2017-07-26 16:12 | DSES ---
DATE OF ADMISSION: 07/15/2017 DATE OF DISCHARGE: Unknown pending physical therapy. FINAL DIAGNOSES: 1. Fall. 2. Second degree heart block with Wenckebach. 3. Rhabdomyolysis. 4. Troponin elevation. 5. Acute kidney injury (KT). 6. Type 2 diabetes. 7. Hypertension. 8. Urinary tract infection (UTI). 9. Dyslipidemia. 10. Obesity. 11. Chronic pain. 12. Deconditioning. PRIMARY CARE PROVIDER: MARYJANE Hobbs HISTORY OF PRESENT ILLNESS: This is an 82-year-old female patient with underlying medical history of hypertension, dyslipidemia, chronic kidney disease (CKD), morbid obesity, diabetes mellitus, who presented to the emergency room, was found down on the floor by her daughter. Patient's history was limited, she does not recollect the event of her fall. Apparently, the patient was found down in her home by her daughter at around 5 p.m. yesterday evening. The patient stated that she had last remembered having breakfast in the morning and subsequently remembered waking up following a fall, going to the kitchen and then subsequently falling. According to the patient's daughter, the patient has had four falls over the past 3 weeks and has concern for her safety. At baseline, is ambulating with a walker or cane, but does not really use it. Previous fall noted to be mechanical with no evidence of seizure activity or cardiac event. Patient lives by herself with her family, sons and daughter, checking on her frequently. Denies any fevers, chills, tongue biting, chest pain, palpitations, abdominal pain, nausea, vomiting, urinary or bladder incontinence. HOSPITAL COURSE: Patient is admitted to the hospital. Telemetry monitoring. Echo was ordered. Rhabdomyolysis was found. Patient was given IV fluids. Patient initially found to be in second degree heart block with Wenckebach. Patient's beta gayathri was discontinued, subsequently going into first degree heart block. Telemetry was appreciated. Orthostatic vital signs were done. Initial troponin was elevated which was followed. Patient had no cardiac symptoms. Echo was appreciated. A1c was appreciated. Initially on insulin, later started on metformin, to monitor for side effects given patient has history of side effects to diabetic medication. Patient tolerated metformin. Blood pressure medication was adjusted. Treated for UTI. Patient's home medication was continued. Physical therapy was done. Currently, patient is tolerating oral, feeling comfortable. Ultrasound Doppler negative for deep venous thrombosis (DVT). Discharge pending physical therapy. Possible discharge plan includes short-term rehabilitation versus home with services, but physical therapy believes that patient needs additional work for possible home with services. Discharge delayed by deconditioning and physical therapy. PHYSICAL EXAMINATION: VITAL SIGNS: Temperature 96.6, pulse 85, respirations 19, blood pressure 149/70 , pulse oximetry 97% on room air. GENERAL: Patient alert, comfortable, in no acute distress. HEENT: Normocephalic, atraumatic. PULMONARY: Bilaterally clear to auscultation. CARDIAC: Regular rate and rhythm. Normal S1, S2. ABDOMEN: Soft, nontender, obese. Positive bowel sounds. EXTREMITIES: Trace edema. No clubbing or cyanosis. LABORATORY DATA: WBC 7.9, hemoglobin and hematocrit 12.2/37, platelets 233. Chemistry: Sodium 141, potassium 3.9, chloride 106, bicarbonate 24, BUN 15, creatinine 1. DISCHARGE MEDICATIONS: - Cipro 500 mg by mouth twice a day for 5 more days - metformin 500 mg by mouth daily - potassium chloride 40 mEq by mouth daily for 7 more days - pravastatin 20 mg by mouth nightly - Senna Plus one tablet by mouth twice a day as needed - amiloride/hydrochlorothiazide 5/50 mg combination by mouth nightly - calcium with vitamin D one tablet by mouth daily - vitamin D 1000 units by mouth daily - fish oil 1000 mg by mouth daily - glucosamine one tablet by mouth daily - PreserVision one capsule by mouth daily - VESIcare 10 mg by mouth nightly - tramadol 50 mg by mouth every 6 hours as needed - vitamin E 400 units by mouth daily Patient's Lipitor and pindolol were discontinued. DISCHARGE INSTRUCTIONS: Patient is instructed to followup with primary care provider in 7 days for checking of patient's potassium as well as monitoring of her blood pressure. Home with services. Return to the hospital if symptoms worsen. Fall precaution. Discharge delayed secondary to physical therapy. MTDD
[2017-07-26] MEDS: metFORMIN XR 500MG TAB *GLUCOPHAGE XR PO SCH (18:31)
[2017-07-26] MEDS: PRAVASTATIN 20 MG TAB PO SCH (20:17)
[2017-07-26] MEDS: oxyBUTYnin *DITROPAN XL* 5 MG TABCR PO SCH (20:17)
[2017-07-26] MEDS: traMADol 50 MG TAB PO PRN (20:18)
[2017-07-26 22:00] VITALS: BP 149/78
[2017-07-27] MEDS: HEPARIN SOD (PORCINE) 5000 UNITS/ML VIAL SC SCH ×2 (05:14→13:11)
[2017-07-27] MEDS: CIPROFLOXACIN 500 MG TAB PO SCH (05:14)
[2017-07-27 06:00] VITALS: BP 164/70
[2017-07-27 06:05] LABS: MEAN CORPUSCULAR HEMOGLOBIN 28.9 pg (27.0-33.0); MEAN CORPUSCULAR HGB CONC 32.4 g/dl (32.0-36.5); MEAN CORPUSCULAR VOLUME 89.2 fl (80.0-96.0); PLATELET COUNT, AUTOMATED 244 10^3/uL (150-450); RED CELL DISTRIBUTION WIDTH 14.7 % (11.5-14.5); WHITE BLOOD COUNT 8.4 10^3/uL (4.0-10.0)
[2017-07-27 06:20] LABS: CALCIUM LEVEL 9.2 MG/DL (8.8-10.2); CREATININE FOR GFR 1.12 MG/DL (0.55-1.02); GLOMERULAR FILTRATION RATE 49.7 (>32); MAGNESIUM LEVEL 1.8 MG/DL (1.8-2.4); POTASSIUM SERUM 4.1 MEQ/L (3.5-5.1)
[2017-07-27] MEDS: POTASSIUM CHLORIDE 10 MEQ SR TABLET PO SCH (08:39)
[2017-07-27 08:40] VITALS: BP 164/70
[2017-07-27] MEDS: VITAMIN D 1,000 INTERNATIONAL UNITS TABLET PO SCH (08:40)
[2017-07-27] MEDS: amLODIPine 5 MG TAB PO SCH (08:40)
[2017-07-27] MEDS: VITAMIN E 400 INTERNATIONAL UNITS CAP PO SCH (08:40)
[2017-07-27] MEDS: BACITRACIN OINT 30GM TOP SCH (08:41)
[2017-07-27] MEDS: traMADol 50 MG TAB PO PRN ×2 (08:41→15:37)
--- NOTE | 2017-07-27 10:54 | IPNPDOC ---
Text Note Date of Service The patient was seen on 07/27/17. NOTE Discharge Addendum Patient cleared by PT today, discharge home with services. Please refer to discharge summary for full details. No changes to discharge summary. VS,Fishbone, I+O VS, Fishbone, I+O Laboratory Tests 07/27/17 05:44 Red Blood Count 4.43, Mean Corpuscular Volume 89.2, Mean Corpuscular Hemoglobin 28.9, Mean Corpuscular Hemoglobin Concent 32.4, Red Cell Distribution Width 14.7 H, Calcium Level 9.2 Vital Signs Date Time Temp Pulse Resp B/P (MAP) Pulse Ox O2 Delivery O2 Flow Rate FiO2 07/27/17 09:11 18 07/27/17 08:40 66 164/70 07/27/17 08:00 Room Air 07/27/17 06:00 97.7 96 I&O- Last 24 Hours up to 6 AM 07/28/17 06:00 Intake Total 240 ml Output Total 200 ml Balance 40 ml LON VEGA MD Jul 27, 2017 10:54
[2017-07-27 14:00] VITALS: BP 132/67
== END 2017-07-27 16:27 | disposition home health service (06) | DRG 558 ==
LOC: EDBD 18:19 → M ED 18:19 → M ED INP 07-15 00:04 → M ICU 07-15 02:42 → M MSPAV 07-17 11:20
PROVIDERS: ADMIT Internal Medicine; ATTEND Hospitalist
DX: M62.82 Rhabdomyolysis (principal); Z68.42 Body mass index [BMI] 45.0-49.9, adult; N17.9 Acute kidney failure, unspecified; N39.0 Urinary tract infection, site not specified; N18.3 Chronic kidney disease, stage 3 (moderate); E66.01 Morbid (severe) obesity due to excess calories; G89.29 Other chronic pain; E11.9 Type 2 diabetes mellitus without complications; E78.5 Hyperlipidemia, unspecified; I44.1 Atrioventricular block, second degree; Z79.899 Other long term (current) drug therapy; Z88.0 Allergy status to penicillin; R29.6 Repeated falls; B96.29 Other Escherichia coli [E. coli] as the cause of diseases classified elsewhere

== ENCOUNTER 2017-08-10 08:59 | Emergency (ER) | payer MEDICARE, OTHER ==
[~2017-08-10] VITALS: Ht 152.4 cm; Wt 65.0 kg
[~2017-08-10 08:59] MED LIST changes: -oxygen
[2017-08-10] MEDS ORDERED: traMADol 50 MG TAB PO ONE (09:15)
[2017-08-10] MEDS ORDERED: ATOR1TAB19 PO (09:16)
[2017-08-10] MEDS ORDERED: oxygen (09:18)
--- NOTE | 2017-08-10 10:05 | REP ---
Clinical: Trauma. Technique: Internal rotation, external rotation, and Y view of the left shoulder. Comparison: 09/23/2016. Findings: Advanced osteoarthritic degenerative changes are again appreciated and similar to prior examination including diffuse joint space narrowing, subchondral sclerosis/heterogeneity, spurring and osteophyte formation, and bulky loose bodies. No acute fracture or dislocation. Impression: Advanced osteoarthritic degenerative changes similar to prior examination. No acute fracture or dislocation. Signed by Corby Salcido MD 08/10/2017 09:56 A
--- NOTE | 2017-08-10 10:08 | REP ---
CT Head without contrast HISTORY: Injury COMPARISON: 07/14/2017 Areas of decreased attenuation are present in the periventricular white matter. This represents small-vessel ischemic disease. There is no intraparenchymal hemorrhage, acute infarct, mass or midline shift. The ventricular system and cortical sulci are dilated consistent with minimal volume loss. There is no extra cerebral collection. There is no fracture. The visualized sinuses are clear. IMPRESSION: 1. Small vessel ischemic disease . 2. Minimal volume loss. Signed by Salvatore Ames MD 08/10/2017 09:59 A
--- NOTE | 2017-08-10 10:08 | REP ---
CT CERVICAL SPINE WITHOUT CONTRAST: HISTORY: Fall. There is no acute fracture or subluxation. A disc bulge is present at the C4-5 level. A disc bulge with associated osteophyte formation is present at the C5-6 level. There is minimal narrowing of the spinal canal. Uncinate process and/or facet hypertrophy are present at the C2-3 through C7-T1 levels. These findings produce minimal to mild narrowing of the neural foramina. The C4-5 through C6-7 intervertebral discs are decreased in height consistent with disc degeneration. IMPRESSION: 1. There is no acute fracture or subluxation. 2. There is cervical spondylosis at the C2-3 through C7-T1 levels. Signed by Salvatore Ames MD 08/10/2017 11:21 A
[2017-08-10 10:53] VITALS: BP 160/74
== END 2017-08-10 11:16 | disposition home or self-care (01) ==
LOC: EDBD 08:59 → M ED 08:59
DX: S16.1XXA Strain of muscle, fascia and tendon at neck level, initial encounter (principal); S40.012A Contusion of left shoulder, initial encounter; W19.XXXA Unspecified fall, initial encounter; Y92.129 Unspecified place in nursing home as the place of occurrence of the external cause; Y93.01 Activity, walking, marching and hiking; Y99.9 Unspecified external cause status; I10 Essential (primary) hypertension; G43.909 Migraine, unspecified, not intractable, without status migrainosus; E11.9 Type 2 diabetes mellitus without complications; N18.9 Chronic kidney disease, unspecified; M47.812 Spondylosis without myelopathy or radiculopathy, cervical region; M47.813 Spondylosis without myelopathy or radiculopathy, cervicothoracic region; M19.012 Primary osteoarthritis, left shoulder; Z79.84 Long term (current) use of oral hypoglycemic drugs; Z99.81 Dependence on supplemental oxygen; Z79.899 Other long term (current) drug therapy; Z88.0 Allergy status to penicillin

== ENCOUNTER 2017-09-10 11:46 | Inpatient (IN) | payer MEDICARE, BC, OTHER ==
[2017-09-10] MEDS: hydroCHLOROthiazide 25 MG TAB PO (09:00)
[2017-09-10 12:31] LABS: BASO # 0.1 10^3/uL (0.0-0.2); BASO % 1.2 % (0.0-1.0); EOS % 0.2 % (0.0-3.0); IMMATURE GRANULOCYTE % 0.5 % (0-0); LYMPH # 0.9 10^3/uL (1.5-4.5); LYMPH % 20.4 % (24.0-44.0); MEAN CORPUSCULAR HGB CONC 34.4 g/dl (32.0-36.5); MEAN CORPUSCULAR VOLUME 84.1 fl (80.0-96.0); MONO # 0.9 10^3/uL (0.0-0.8); MONO % 19.7 % (0.0-5.0); NEUTROPHILS # 2.5 10^3/uL (1.8-7.7); PLATELET COUNT, AUTOMATED 206 10^3/uL (150-450); RED CELL DISTRIBUTION WIDTH 14.3 % (11.5-14.5); WHITE BLOOD COUNT 4.3 10^3/uL (4.0-10.0)
[2017-09-10 12:45] LABS: ANION GAP 9 MEQ/L (8-16); BLOOD UREA NITROGEN 16 MG/DL (7-18); CARBON DIOXIDE LEVEL 27 MEQ/L (21-32); CHLORIDE LEVEL 100 MEQ/L (98-107); CREATININE FOR GFR 1.09 MG/DL (0.55-1.02); GLOMERULAR FILTRATION RATE 51.3 (>32); GLUCOSE, FASTING 125 MG/DL (83-110); POTASSIUM SERUM 3.2 MEQ/L (3.5-5.1); SODIUM LEVEL 136 MEQ/L (136-145)
[2017-09-10] MEDS ORDERED: ACETAMINOPHEN TAB 650MG DOSE (2X325MG) PO (17:45)
[2017-09-10] MEDS ORDERED: ONDANSETRON 4MG/2ML VIAL (J2405) IV (17:45)
[2017-09-10] MEDS: HEPARIN SOD (PORCINE) 5000 UNITS/ML VIAL SC ×2 (18:24→21:22)
[2017-09-10] MEDS: POTASSIUM CHLORIDE 10 MEQ SR TABLET PO (18:25)
[2017-09-10] MEDS: PRAVASTATIN 10 MG TAB PO (21:22)
[2017-09-10] MEDS: metFORMIN XR 500MG TAB *GLUCOPHAGE XR PO (21:23)
[2017-09-10] MEDS: SOLIFENACIN 5 MG TAB PO (21:23)
[2017-09-11] MEDS: HEPARIN SOD (PORCINE) 5000 UNITS/ML VIAL SC ×3 (06:11→21:38)
[2017-09-11 06:49] LABS: MEAN CORPUSCULAR HEMOGLOBIN 28.6 pg (27.0-33.0); MEAN CORPUSCULAR HGB CONC 33.7 g/dl (32.0-36.5); MEAN CORPUSCULAR VOLUME 85.1 fl (80.0-96.0); PLATELET COUNT, AUTOMATED 194 10^3/uL (150-450); RED CELL DISTRIBUTION WIDTH 14.6 % (11.5-14.5); WHITE BLOOD COUNT 6.1 10^3/uL (4.0-10.0)
[2017-09-11 07:13] LABS: ANION GAP 9 MEQ/L (8-16); BLOOD UREA NITROGEN 15 MG/DL (7-18); CALCIUM LEVEL 8.7 MG/DL (8.8-10.2); CARBON DIOXIDE LEVEL 28 MEQ/L (21-32); CHLORIDE LEVEL 102 MEQ/L (98-107); CREATININE FOR GFR 1.02 MG/DL (0.55-1.02); GLOMERULAR FILTRATION RATE 55.4 (>32); GLUCOSE, FASTING 121 MG/DL (83-110); MAGNESIUM LEVEL 1.9 MG/DL (1.8-2.4); POTASSIUM SERUM 3.1 MEQ/L (3.5-5.1); SODIUM LEVEL 139 MEQ/L (136-145)
[2017-09-11] MEDS: POTASSIUM CHLORIDE 10 MEQ SR TABLET PO (09:32)
[2017-09-11] MEDS: VITAMIN D 1,000 INTERNATIONAL UNITS TABLET PO (09:33)
[2017-09-11] MEDS: hydroCHLOROthiazide 25 MG TAB PO (09:33)
[2017-09-11] MEDS: VITAMIN E 400 INTERNATIONAL UNITS CAP PO (09:33)
[2017-09-11] MEDS: traMADol 50 MG TAB PO ×2 (09:36→16:59)
[2017-09-11] MEDS: metFORMIN XR 500MG TAB *GLUCOPHAGE XR PO (21:37)
[2017-09-11] MEDS: SOLIFENACIN 5 MG TAB PO (21:37)
[2017-09-11] MEDS: PRAVASTATIN 10 MG TAB PO (21:37)
[2017-09-12] MEDS: HEPARIN SOD (PORCINE) 5000 UNITS/ML VIAL SC ×3 (05:10→20:56)
[2017-09-12 05:43] LABS: MEAN CORPUSCULAR HEMOGLOBIN 28.7 pg (27.0-33.0); MEAN CORPUSCULAR HGB CONC 33.3 g/dl (32.0-36.5); MEAN CORPUSCULAR VOLUME 86.1 fl (80.0-96.0); PLATELET COUNT, AUTOMATED 186 10^3/uL (150-450); RED CELL DISTRIBUTION WIDTH 14.6 % (11.5-14.5); WHITE BLOOD COUNT 5.7 10^3/uL (4.0-10.0)
[2017-09-12 05:57] LABS: ANION GAP 13 MEQ/L (8-16); BLOOD UREA NITROGEN 17 MG/DL (7-18); CALCIUM LEVEL 7.9 MG/DL (8.8-10.2); CARBON DIOXIDE LEVEL 24 MEQ/L (21-32); CHLORIDE LEVEL 104 MEQ/L (98-107); CREATININE FOR GFR 1.08 MG/DL (0.55-1.02); GLOMERULAR FILTRATION RATE 51.8 (>32); GLUCOSE, FASTING 131 MG/DL (83-110); MAGNESIUM LEVEL 1.6 MG/DL (1.8-2.4); SODIUM LEVEL 141 MEQ/L (136-145)
[2017-09-12 06:06] LABS: POTASSIUM SERUM 2.9 MEQ/L (3.5-5.1)
[2017-09-12] MEDS: POTASSIUM CHLORIDE 10 MEQ SR TABLET PO ×3 (06:19→11:03)
[2017-09-12] MEDS: VITAMIN E 400 INTERNATIONAL UNITS CAP PO (11:01)
[2017-09-12] MEDS: VITAMIN D 1,000 INTERNATIONAL UNITS TABLET PO (11:02)
[2017-09-12] MEDS: traMADol 50 MG TAB PO ×2 (11:02→18:33)
[2017-09-12] MEDS: MAG SULF 1GM/100ML (MAG RUN) 1 GM in APPROPRIATE DILUENT 1 EA IV ×2 (11:03→12:00)
[2017-09-12] MEDS: PRAVASTATIN 10 MG TAB PO (20:53)
[2017-09-12] MEDS: metFORMIN XR 500MG TAB *GLUCOPHAGE XR PO (20:53)
[2017-09-12] MEDS: SOLIFENACIN 5 MG TAB PO (20:54)
[2017-09-13] MEDS: HEPARIN SOD (PORCINE) 5000 UNITS/ML VIAL SC ×3 (05:24→21:21)
[2017-09-13 07:00] LABS: MEAN CORPUSCULAR HEMOGLOBIN 28.3 pg (27.0-33.0); MEAN CORPUSCULAR HGB CONC 33.1 g/dl (32.0-36.5); MEAN CORPUSCULAR VOLUME 85.5 fl (80.0-96.0); PLATELET COUNT, AUTOMATED 209 10^3/uL (150-450); RED CELL DISTRIBUTION WIDTH 14.6 % (11.5-14.5); WHITE BLOOD COUNT 5.7 10^3/uL (4.0-10.0)
[2017-09-13 07:25] LABS: ANION GAP 11 MEQ/L (8-16); BLOOD UREA NITROGEN 19 MG/DL (7-18); CALCIUM LEVEL 8.1 MG/DL (8.8-10.2); CARBON DIOXIDE LEVEL 24 MEQ/L (21-32); CHLORIDE LEVEL 107 MEQ/L (98-107); CREATININE FOR GFR 0.98 MG/DL (0.55-1.02); GLUCOSE, FASTING 117 MG/DL (83-110); POTASSIUM SERUM 3.7 MEQ/L (3.5-5.1); SODIUM LEVEL 142 MEQ/L (136-145)
[2017-09-13] MEDS: POTASSIUM CHLORIDE 10 MEQ SR TABLET PO (09:31)
[2017-09-13] MEDS: VITAMIN E 400 INTERNATIONAL UNITS CAP PO (09:31)
[2017-09-13] MEDS: VITAMIN D 1,000 INTERNATIONAL UNITS TABLET PO (09:31)
[2017-09-13] MEDS: traMADol 50 MG TAB PO ×2 (09:41→17:50)
[2017-09-13] MEDS: DOCUSATE SODIUM 100 MG CAP PO ×2 (13:41→21:20)
[2017-09-13] MEDS: PRAVASTATIN 10 MG TAB PO (21:19)
[2017-09-13] MEDS: metFORMIN XR 500MG TAB *GLUCOPHAGE XR PO (21:20)
[2017-09-13] MEDS: SOLIFENACIN 5 MG TAB PO (21:20)
[2017-09-14] MEDS: HEPARIN SOD (PORCINE) 5000 UNITS/ML VIAL SC ×3 (05:57→20:59)
[2017-09-14] MEDS: traMADol 50 MG TAB PO ×2 (05:57→20:16)
[2017-09-14 07:15] LABS: MEAN CORPUSCULAR HEMOGLOBIN 28.6 pg (27.0-33.0); MEAN CORPUSCULAR HGB CONC 33.5 g/dl (32.0-36.5); MEAN CORPUSCULAR VOLUME 85.5 fl (80.0-96.0); PLATELET COUNT, AUTOMATED 232 10^3/uL (150-450); RED CELL DISTRIBUTION WIDTH 14.7 % (11.5-14.5); WHITE BLOOD COUNT 6.4 10^3/uL (4.0-10.0)
[2017-09-14 07:34] LABS: ANION GAP 11 MEQ/L (8-16); BLOOD UREA NITROGEN 16 MG/DL (7-18); CALCIUM LEVEL 8.3 MG/DL (8.8-10.2); CARBON DIOXIDE LEVEL 22 MEQ/L (21-32); CHLORIDE LEVEL 107 MEQ/L (98-107); CREATININE FOR GFR 0.93 MG/DL (0.55-1.02); GLOMERULAR FILTRATION RATE > 60.0 (>32); GLUCOSE, FASTING 117 MG/DL (83-110); MAGNESIUM LEVEL 1.9 MG/DL (1.8-2.4); POTASSIUM SERUM 4.2 MEQ/L (3.5-5.1); SODIUM LEVEL 140 MEQ/L (136-145)
[2017-09-14] MEDS: VITAMIN D 1,000 INTERNATIONAL UNITS TABLET PO (08:51)
[2017-09-14] MEDS: VITAMIN E 400 INTERNATIONAL UNITS CAP PO (08:51)
[2017-09-14] MEDS: POTASSIUM CHLORIDE 10 MEQ SR TABLET PO (08:51)
[2017-09-14] MEDS: DOCUSATE SODIUM 100 MG CAP PO ×2 (08:51→20:16)
[2017-09-14] MEDS: ASPIRIN 81 MG CHEW TABLET PO (12:54)
[2017-09-14] MEDS ORDERED: GLUCAGON FOR INJ 1 MG VIAL (J1610) SC (14:00)
[2017-09-14] MEDS ORDERED: DEXTROSE 50% 50 ML SYRINGE IV (14:00)
[2017-09-14] MEDS ORDERED: GLUCOSE 4 GM CHEW TABLET PO (14:00)
[2017-09-14] MEDS: HumaLOG INSULIN (NovoLOG) PER UNIT SC ×2 (16:36→20:59)
[2017-09-14] MEDS: PRAVASTATIN 10 MG TAB PO (20:16)
[2017-09-14] MEDS: SOLIFENACIN 5 MG TAB PO (20:16)
[2017-09-15 05:35] LABS: MEAN CORPUSCULAR HEMOGLOBIN 27.9 pg (27.0-33.0); MEAN CORPUSCULAR HGB CONC 32.6 g/dl (32.0-36.5); MEAN CORPUSCULAR VOLUME 85.7 fl (80.0-96.0); PLATELET COUNT, AUTOMATED 230 10^3/uL (150-450); RED CELL DISTRIBUTION WIDTH 14.8 % (11.5-14.5); WHITE BLOOD COUNT 6.6 10^3/uL (4.0-10.0)
[2017-09-15 05:50] LABS: ANION GAP 9 MEQ/L (8-16); BLOOD UREA NITROGEN 18 MG/DL (7-18); CALCIUM LEVEL 8.1 MG/DL (8.8-10.2); CARBON DIOXIDE LEVEL 25 MEQ/L (21-32); CHLORIDE LEVEL 108 MEQ/L (98-107); CREATININE FOR GFR 0.94 MG/DL (0.55-1.02); GLOMERULAR FILTRATION RATE > 60.0 (>32); GLUCOSE, FASTING 125 MG/DL (83-110); POTASSIUM SERUM 4.3 MEQ/L (3.5-5.1); SODIUM LEVEL 142 MEQ/L (136-145)
[2017-09-15] MEDS: HEPARIN SOD (PORCINE) 5000 UNITS/ML VIAL SC ×3 (06:26→21:27)
[2017-09-15] MEDS: VITAMIN E 400 INTERNATIONAL UNITS CAP PO (08:40)
[2017-09-15] MEDS: POTASSIUM CHLORIDE 10 MEQ SR TABLET PO (08:41)
[2017-09-15] MEDS: DOCUSATE SODIUM 100 MG CAP PO ×2 (08:41→21:25)
[2017-09-15] MEDS: ASPIRIN 81 MG CHEW TABLET PO (08:41)
[2017-09-15] MEDS: VITAMIN D 1,000 INTERNATIONAL UNITS TABLET PO (08:41)
[2017-09-15] MEDS: HumaLOG INSULIN (NovoLOG) PER UNIT SC ×4 (08:42→20:42)
[2017-09-15] MEDS: traMADol 50 MG TAB PO ×3 (08:46→21:26)
[2017-09-15] MEDS ORDERED: SLF 3 ML SYR IV (13:00)
[2017-09-15] MEDS: SLF 3 ML SYR IV ×2 (14:37→21:27)
[2017-09-15] MEDS: PRAVASTATIN 10 MG TAB PO (21:25)
[2017-09-15] MEDS: SOLIFENACIN 5 MG TAB PO (21:26)
[2017-09-16] MEDS: traMADol 50 MG TAB PO ×2 (03:43→21:32)
[2017-09-16 05:15] LABS: MEAN CORPUSCULAR HEMOGLOBIN 28.3 pg (27.0-33.0); MEAN CORPUSCULAR HGB CONC 32.6 g/dl (32.0-36.5); MEAN CORPUSCULAR VOLUME 86.9 fl (80.0-96.0); PLATELET COUNT, AUTOMATED 237 10^3/uL (150-450); RED CELL DISTRIBUTION WIDTH 14.7 % (11.5-14.5); WHITE BLOOD COUNT 7.1 10^3/uL (4.0-10.0)
[2017-09-16] MEDS: SLF 3 ML SYR IV ×3 (05:34→21:31)
[2017-09-16] MEDS: HEPARIN SOD (PORCINE) 5000 UNITS/ML VIAL SC ×3 (05:34→21:32)
[2017-09-16 05:35] LABS: ANION GAP 8 MEQ/L (8-16); BLOOD UREA NITROGEN 18 MG/DL (7-18); CALCIUM LEVEL 8.2 MG/DL (8.8-10.2); CARBON DIOXIDE LEVEL 25 MEQ/L (21-32); CHLORIDE LEVEL 108 MEQ/L (98-107); CREATININE FOR GFR 0.95 MG/DL (0.55-1.02); GLOMERULAR FILTRATION RATE > 60.0 (>32); GLUCOSE, FASTING 120 MG/DL (83-110); MAGNESIUM LEVEL 1.8 MG/DL (1.8-2.4); POTASSIUM SERUM 4.1 MEQ/L (3.5-5.1); SODIUM LEVEL 141 MEQ/L (136-145)
[2017-09-16] MEDS: HumaLOG INSULIN (NovoLOG) PER UNIT SC ×4 (08:11→21:00)
[2017-09-16] MEDS: VITAMIN E 400 INTERNATIONAL UNITS CAP PO (08:12)
[2017-09-16] MEDS: VITAMIN D 1,000 INTERNATIONAL UNITS TABLET PO (08:12)
[2017-09-16] MEDS: ASPIRIN 81 MG CHEW TABLET PO (08:12)
[2017-09-16] MEDS: DOCUSATE SODIUM 100 MG CAP PO ×2 (08:12→21:32)
[2017-09-16] MEDS: POTASSIUM CHLORIDE 10 MEQ SR TABLET PO (08:12)
[2017-09-16] MEDS: SOLIFENACIN 5 MG TAB PO (21:32)
[2017-09-16] MEDS: PRAVASTATIN 10 MG TAB PO (21:32)
[2017-09-17] MEDS: HEPARIN SOD (PORCINE) 5000 UNITS/ML VIAL SC ×3 (05:18→21:02)
[2017-09-17] MEDS: SLF 3 ML SYR IV ×3 (05:18→21:02)
[2017-09-17 05:39] LABS: MEAN CORPUSCULAR HEMOGLOBIN 28.7 pg (27.0-33.0); MEAN CORPUSCULAR HGB CONC 33.3 g/dl (32.0-36.5); PLATELET COUNT, AUTOMATED 232 10^3/uL (150-450); RED CELL DISTRIBUTION WIDTH 14.8 % (11.5-14.5); WHITE BLOOD COUNT 6.9 10^3/uL (4.0-10.0)
[2017-09-17 05:59] LABS: ANION GAP 8 MEQ/L (8-16); BLOOD UREA NITROGEN 18 MG/DL (7-18); CARBON DIOXIDE LEVEL 25 MEQ/L (21-32); CHLORIDE LEVEL 108 MEQ/L (98-107); GLOMERULAR FILTRATION RATE > 60.0 (>32); GLUCOSE, FASTING 115 MG/DL (83-110); MAGNESIUM LEVEL 1.9 MG/DL (1.8-2.4); POTASSIUM SERUM 3.9 MEQ/L (3.5-5.1); SODIUM LEVEL 141 MEQ/L (136-145)
[2017-09-17] MEDS: VITAMIN D 1,000 INTERNATIONAL UNITS TABLET PO (08:19)
[2017-09-17] MEDS: HumaLOG INSULIN (NovoLOG) PER UNIT SC ×4 (08:19→20:47)
[2017-09-17] MEDS: VITAMIN E 400 INTERNATIONAL UNITS CAP PO (08:19)
[2017-09-17] MEDS: POTASSIUM CHLORIDE 10 MEQ SR TABLET PO (08:20)
[2017-09-17] MEDS: ASPIRIN 81 MG CHEW TABLET PO (08:20)
[2017-09-17] MEDS: DOCUSATE SODIUM 100 MG CAP PO ×2 (08:20→21:01)
[2017-09-17] MEDS: traMADol 50 MG TAB PO (16:45)
[2017-09-17] MEDS: PRAVASTATIN 10 MG TAB PO (21:01)
[2017-09-17] MEDS: SOLIFENACIN 5 MG TAB PO (21:02)
[2017-09-18] MEDS: HEPARIN SOD (PORCINE) 5000 UNITS/ML VIAL SC ×3 (06:13→21:50)
[2017-09-18] MEDS: SLF 3 ML SYR IV ×3 (06:13→21:50)
[2017-09-18 06:28] LABS: MEAN CORPUSCULAR HGB CONC 32.6 g/dl (32.0-36.5); MEAN CORPUSCULAR VOLUME 86.1 fl (80.0-96.0); PLATELET COUNT, AUTOMATED 241 10^3/uL (150-450); WHITE BLOOD COUNT 6.5 10^3/uL (4.0-10.0)
[2017-09-18 06:49] LABS: ANION GAP 10 MEQ/L (8-16); BLOOD UREA NITROGEN 17 MG/DL (7-18); CALCIUM LEVEL 8.6 MG/DL (8.8-10.2); CARBON DIOXIDE LEVEL 25 MEQ/L (21-32); CHLORIDE LEVEL 108 MEQ/L (98-107); CREATININE FOR GFR 0.94 MG/DL (0.55-1.02); GLOMERULAR FILTRATION RATE > 60.0 (>32); GLUCOSE, FASTING 115 MG/DL (83-110); MAGNESIUM LEVEL 1.9 MG/DL (1.8-2.4); POTASSIUM SERUM 3.9 MEQ/L (3.5-5.1); SODIUM LEVEL 143 MEQ/L (136-145)
[2017-09-18] MEDS: DOCUSATE SODIUM 100 MG CAP PO ×2 (09:00→21:50)
[2017-09-18] MEDS: VITAMIN E 400 INTERNATIONAL UNITS CAP PO (09:00)
[2017-09-18] MEDS: ASPIRIN 81 MG CHEW TABLET PO (09:32)
[2017-09-18] MEDS: POTASSIUM CHLORIDE 10 MEQ SR TABLET PO (09:33)
[2017-09-18] MEDS: VITAMIN D 1,000 INTERNATIONAL UNITS TABLET PO (09:33)
[2017-09-18] MEDS: HumaLOG INSULIN (NovoLOG) PER UNIT SC ×4 (09:34→21:00)
[2017-09-18] MEDS: traMADol 50 MG TAB PO (09:38)
[2017-09-18] MEDS: SOLIFENACIN 5 MG TAB PO (21:50)
[2017-09-18] MEDS: PRAVASTATIN 10 MG TAB PO (21:51)
[2017-09-19] MEDS: SLF 3 ML SYR IV ×3 (05:26→21:00)
[2017-09-19] MEDS: HEPARIN SOD (PORCINE) 5000 UNITS/ML VIAL SC ×3 (05:26→20:59)
[2017-09-19] MEDS: POTASSIUM CHLORIDE 10 MEQ SR TABLET PO (09:07)
[2017-09-19] MEDS: ASPIRIN 81 MG CHEW TABLET PO (09:07)
[2017-09-19] MEDS: DOCUSATE SODIUM 100 MG CAP PO ×2 (09:08→20:59)
[2017-09-19] MEDS: VITAMIN E 400 INTERNATIONAL UNITS CAP PO (09:08)
[2017-09-19] MEDS: VITAMIN D 1,000 INTERNATIONAL UNITS TABLET PO (09:08)
[2017-09-19] MEDS: HumaLOG INSULIN (NovoLOG) PER UNIT SC ×4 (09:09→20:59)
[2017-09-19] MEDS: PRAVASTATIN 10 MG TAB PO (20:59)
[2017-09-19] MEDS: SOLIFENACIN 5 MG TAB PO (20:59)
[2017-09-20] MEDS: HEPARIN SOD (PORCINE) 5000 UNITS/ML VIAL SC ×3 (05:31→20:04)
[2017-09-20] MEDS: SLF 3 ML SYR IV ×3 (05:31→20:03)
[2017-09-20] MEDS: HumaLOG INSULIN (NovoLOG) PER UNIT SC ×4 (07:30→20:09)
[2017-09-20] MEDS: traMADol 50 MG TAB PO ×2 (09:07→20:05)
[2017-09-20] MEDS: VITAMIN E 400 INTERNATIONAL UNITS CAP PO (09:08)
[2017-09-20] MEDS: DOCUSATE SODIUM 100 MG CAP PO ×2 (09:08→20:04)
[2017-09-20] MEDS: POTASSIUM CHLORIDE 10 MEQ SR TABLET PO (09:08)
[2017-09-20] MEDS: VITAMIN D 1,000 INTERNATIONAL UNITS TABLET PO (09:08)
[2017-09-20] MEDS: ASPIRIN 81 MG CHEW TABLET PO (09:08)
[2017-09-20] MEDS ORDERED: MECLIZINE 12.5 MG TAB PO (10:15)
[2017-09-20] MEDS: PRAVASTATIN 10 MG TAB PO (20:04)
[2017-09-20] MEDS: SOLIFENACIN 5 MG TAB PO (20:04)
[2017-09-21] MEDS: HEPARIN SOD (PORCINE) 5000 UNITS/ML VIAL SC ×3 (05:12→21:02)
[2017-09-21] MEDS: SLF 3 ML SYR IV ×4 (05:27→22:00)
[2017-09-21] MEDS: HumaLOG INSULIN (NovoLOG) PER UNIT SC ×4 (08:19→21:00)
[2017-09-21] MEDS: VITAMIN D 1,000 INTERNATIONAL UNITS TABLET PO (08:20)
[2017-09-21] MEDS: DOCUSATE SODIUM 100 MG CAP PO ×2 (08:20→21:02)
[2017-09-21] MEDS: VITAMIN E 400 INTERNATIONAL UNITS CAP PO (08:20)
[2017-09-21] MEDS: ASPIRIN 81 MG CHEW TABLET PO (08:20)
[2017-09-21] MEDS: POTASSIUM CHLORIDE 10 MEQ SR TABLET PO (08:20)
[2017-09-21] MEDS: traMADol 50 MG TAB PO ×3 (08:22→23:07)
[2017-09-21] MEDS: SOLIFENACIN 5 MG TAB PO (21:02)
[2017-09-21] MEDS: PRAVASTATIN 10 MG TAB PO (21:02)
[2017-09-22] MEDS: HEPARIN SOD (PORCINE) 5000 UNITS/ML VIAL SC ×3 (05:29→21:49)
[2017-09-22] MEDS: SLF 3 ML SYR IV ×4 (05:30→21:49)
[2017-09-22] MEDS: HumaLOG INSULIN (NovoLOG) PER UNIT SC ×4 (07:30→21:00)
[2017-09-22] MEDS: VITAMIN E 400 INTERNATIONAL UNITS CAP PO (08:40)
[2017-09-22] MEDS: ASPIRIN 81 MG CHEW TABLET PO (08:40)
[2017-09-22] MEDS: DOCUSATE SODIUM 100 MG CAP PO ×2 (08:40→21:48)
[2017-09-22] MEDS: VITAMIN D 1,000 INTERNATIONAL UNITS TABLET PO (08:40)
[2017-09-22] MEDS: POTASSIUM CHLORIDE 10 MEQ SR TABLET PO (08:41)
[2017-09-22] MEDS: traMADol 50 MG TAB PO ×2 (08:41→21:48)
[2017-09-22 10:34] LABS: MEAN CORPUSCULAR HEMOGLOBIN 28.7 pg (27.0-33.0); MEAN CORPUSCULAR HGB CONC 32.9 g/dl (32.0-36.5); MEAN CORPUSCULAR VOLUME 87.2 fl (80.0-96.0); PLATELET COUNT, AUTOMATED 246 10^3/uL (150-450); RED CELL DISTRIBUTION WIDTH 15.4 % (11.5-14.5); WHITE BLOOD COUNT 6.6 10^3/uL (4.0-10.0)
[2017-09-22 11:14] LABS: ANION GAP 7 MEQ/L (8-16); BLOOD UREA NITROGEN 21 MG/DL (7-18); CALCIUM LEVEL 8.7 MG/DL (8.8-10.2); CARBON DIOXIDE LEVEL 26 MEQ/L (21-32); CHLORIDE LEVEL 107 MEQ/L (98-107); CREATININE FOR GFR 1.09 MG/DL (0.55-1.02); GLOMERULAR FILTRATION RATE 51.3 (>32); GLUCOSE, FASTING 124 MG/DL (83-110); POTASSIUM SERUM 4.4 MEQ/L (3.5-5.1); SODIUM LEVEL 140 MEQ/L (136-145)
[2017-09-22] MEDS: PRAVASTATIN 10 MG TAB PO (21:48)
[2017-09-22] MEDS: SOLIFENACIN 5 MG TAB PO (21:48)
[2017-09-23] MEDS: HEPARIN SOD (PORCINE) 5000 UNITS/ML VIAL SC ×3 (05:49→21:11)
[2017-09-23] MEDS: SLF 3 ML SYR IV ×3 (05:49→21:11)
[2017-09-23] MEDS: HumaLOG INSULIN (NovoLOG) PER UNIT SC ×4 (07:30→21:00)
[2017-09-23] MEDS: VITAMIN E 400 INTERNATIONAL UNITS CAP PO (08:42)
[2017-09-23] MEDS: DOCUSATE SODIUM 100 MG CAP PO ×2 (08:42→21:08)
[2017-09-23] MEDS: VITAMIN D 1,000 INTERNATIONAL UNITS TABLET PO (08:42)
[2017-09-23] MEDS: POTASSIUM CHLORIDE 10 MEQ SR TABLET PO (08:43)
[2017-09-23] MEDS: ASPIRIN 81 MG CHEW TABLET PO (08:44)
[2017-09-23] MEDS: NYSTATIN 100,000 UNITS/GM TOPICAL PWD 15 GM TOP ×2 (08:44→21:09)
[2017-09-23] MEDS: traMADol 50 MG TAB PO ×2 (08:47→21:09)
[2017-09-23] MEDS: TUBERCULIN PPD 5 UNITS/0.1 ML ID (20:37)
[2017-09-23] MEDS: PRAVASTATIN 10 MG TAB PO (21:08)
[2017-09-23] MEDS: SOLIFENACIN 5 MG TAB PO (21:08)
[2017-09-24] MEDS: HEPARIN SOD (PORCINE) 5000 UNITS/ML VIAL SC (05:47)
[2017-09-24] MEDS: traMADol 50 MG TAB PO (05:47)
[2017-09-24] MEDS: SLF 3 ML SYR IV (05:47)
[2017-09-24] MEDS: ASPIRIN 81 MG CHEW TABLET PO (08:30)
[2017-09-24] MEDS: DOCUSATE SODIUM 100 MG CAP PO (08:31)
[2017-09-24] MEDS: HumaLOG INSULIN (NovoLOG) PER UNIT SC (08:31)
[2017-09-24] MEDS: VITAMIN E 400 INTERNATIONAL UNITS CAP PO (08:31)
[2017-09-24] MEDS: VITAMIN D 1,000 INTERNATIONAL UNITS TABLET PO (08:31)
[2017-09-24] MEDS: POTASSIUM CHLORIDE 10 MEQ SR TABLET PO (08:31)
[2017-09-24] MEDS: NYSTATIN 100,000 UNITS/GM TOPICAL PWD 15 GM TOP (08:32)
[2017-09-25] MEDS ORDERED: PPD DOCUMENTATION ENTRY MISC XX (20:00)
== END 2017-09-24 11:46 | DRG 552 ==
LOC: M PCU 09-14 13:30 → M MS5PR 09-17 17:36 → M ED 11:46 → M ED INP 17:41 → M MS4PR 20:40
DX: M43.17 Spondylolisthesis, lumbosacral region (principal); Z68.42 Body mass index [BMI] 45.0-49.9, adult; R53.1 Weakness; E66.01 Morbid (severe) obesity due to excess calories; E87.6 Hypokalemia; M99.73 Connective tissue and disc stenosis of intervertebral foramina of lumbar region; R29.6 Repeated falls; E11.40 Type 2 diabetes mellitus with diabetic neuropathy, unspecified; N18.9 Chronic kidney disease, unspecified; I12.9 Hypertensive chronic kidney disease with stage 1 through stage 4 chronic kidney disease, or unspecified chronic kidney disease; E78.5 Hyperlipidemia, unspecified; R94.31 Abnormal electrocardiogram [ECG] [EKG]; Z90.710 Acquired absence of both cervix and uterus; Z96.642 Presence of left artificial hip joint; Z79.84 Long term (current) use of oral hypoglycemic drugs; Z79.01 Long term (current) use of anticoagulants; Z79.891 Long term (current) use of opiate analgesic

== ENCOUNTER → 2017-10-05 | Outpatient (REF) ==
[2017-10-05 11:11] LABS: HEMATOCRIT 40.9 % (36.0-47.0); HEMOGLOBIN 13.5 g/dl (12.0-16.0); MEAN CORPUSCULAR VOLUME 87.8 fl (80.0-96.0); PLATELET COUNT, AUTOMATED 254 10^3/uL (150-450); RED BLOOD COUNT 4.66 10^6/uL (4.00-5.40); RED CELL DISTRIBUTION WIDTH 15.2 % (11.5-14.5); WHITE BLOOD COUNT 5.6 10^3/uL (4.0-10.0)
[2017-10-05 11:37] LABS: ANION GAP 11 MEQ/L (8-16); BLOOD UREA NITROGEN 21 MG/DL (7-18); CALCIUM LEVEL 8.5 MG/DL (8.8-10.2); CARBON DIOXIDE LEVEL 25 MEQ/L (21-32); CHLORIDE LEVEL 107 MEQ/L (98-107); CREATININE FOR GFR 0.98 MG/DL (0.55-1.02); GLUCOSE, FASTING 133 MG/DL (83-110); POTASSIUM SERUM 3.8 MEQ/L (3.5-5.1); SODIUM LEVEL 143 MEQ/L (136-145)
== END ==
DX: E11.9 Type 2 diabetes mellitus without complications (principal); I10 Essential (primary) hypertension

== ENCOUNTER → 2017-10-14 | Outpatient (REF) ==
[2017-10-14 12:07] LABS: HEMATOCRIT 41.1 % (36.0-47.0); HEMOGLOBIN 13.6 g/dl (12.0-16.0); MEAN CORPUSCULAR HEMOGLOBIN 28.9 pg (27.0-33.0); MEAN CORPUSCULAR HGB CONC 33.1 g/dl (32.0-36.5); MEAN CORPUSCULAR VOLUME 87.3 fl (80.0-96.0); PLATELET COUNT, AUTOMATED 227 10^3/uL (150-450); RED BLOOD COUNT 4.71 10^6/uL (4.00-5.40); RED CELL DISTRIBUTION WIDTH 14.5 % (11.5-14.5); WHITE BLOOD COUNT 5.9 10^3/uL (4.0-10.0)
[2017-10-14 12:50] LABS: ALBUMIN 3.6 GM/DL (3.2-5.2); ALBUMIN/GLOBULIN RATIO 1.16 (1.00-1.93); ALKALINE PHOSPHATASE 61 U/L (45-117); ALT/SGPT 20 U/L (12-78); ANION GAP 11 MEQ/L (8-16); AST/SGOT 17 U/L (7-37); BILIRUBIN,TOTAL 1.1 MG/DL (0.2-1.0); BLOOD UREA NITROGEN 14 MG/DL (7-18); CALCIUM LEVEL 8.7 MG/DL (8.8-10.2); CARBON DIOXIDE LEVEL 26 MEQ/L (21-32); CHLORIDE LEVEL 106 MEQ/L (98-107); CREATININE FOR GFR 0.89 MG/DL (0.55-1.02); GLOMERULAR FILTRATION RATE > 60.0 (>32); GLUCOSE, FASTING 115 MG/DL (83-110); POTASSIUM SERUM 3.8 MEQ/L (3.5-5.1); SODIUM LEVEL 143 MEQ/L (136-145); TOTAL PROTEIN 6.7 GM/DL (6.4-8.2)
== END ==
DX: R53.83 Other fatigue (principal)

== ENCOUNTER → 2017-10-15 | Outpatient (REF) ==
[2017-10-15 16:52] LABS: APPEARANCE, URINE CLOUDY (CLEAR); BACTERIA, URINE AUTO 1+ (NEGATIVE); BILIRUBIN, URINE AUTO NEGATIVE (NEGATIVE); BLOOD, URINE BLOOD NEGATIVE (NEGATIVE); CALCIUM OXALATE CRYSTALS SMALL; COLOR, URINE YELLOW (YELLOW); GLUCOSE, URINE (UA) AUTO NEGATIVE (NEGATIVE); KETONE, URINE AUTO NEGATIVE (NEGATIVE); LEUKOCYTE ESTERASE, URINE AUTO 3+ (NEGATIVE); MUCUS, URINE SMALL (NEGATIVE); NITRITE, URINE AUTO NEGATIVE (NEGATIVE); PROTEIN, URINE AUTO NEGATIVE (NEGATIVE); RBC, URINE AUTO 3 /HPF (0-3); SPECIFIC GRAVITY URINE AUTO 1.018 (1.002-1.035); SQUAMOUS EPITHELIAL CELL UR AU 8 /HPF (0-6); UROBILINOGEN, URINE AUTO 0.2 mg/dL (0.0-2.0); WBC, URINE AUTO 41 /HPF (0-3)
== END ==
DX: R53.83 Other fatigue (principal)

== ENCOUNTER 2017-10-17 17:49 | Inpatient (IN) | payer MEDICARE, BC, OTHER ==
[2017-10-17 18:15] LABS: ABG BASE EXCESS -1.9 (-2.0-2.0); ABG HCO3 19.4 MEQ/L (22.0-26.0); ABG O2 SATURATION 99.3 % (95.0-99.0); ABG PARTIAL PRESSURE CO2 25.1 mmHg (35.0-45.0); ABG PARTIAL PRESSURE O2 139.8 mmHg (75.0-100.0); ABG STANDARD HCO3 22.9 MEQ/L (22.0-26.0); ABG TOTAL CO2 20.2 MEQ/L (23.0-31.0); ABG pH (ARTERIAL) 7.507 UNITS (7.350-7.450)
[2017-10-17 18:27] LABS: BASO # 0.1 10^3/uL (0.0-0.2); BASO % 0.5 % (0.0-1.0); EOS % 0.2 % (0.0-3.0); HEMATOCRIT 40.7 % (36.0-47.0); HEMOGLOBIN 13.9 g/dl (12.0-16.0); IMMATURE GRANULOCYTE # 0.1 10^3/uL (0-0); IMMATURE GRANULOCYTE % 0.4 % (0-0); LYMPH # 0.9 10^3/uL (1.5-4.5); LYMPH % 7.1 % (24.0-44.0); MEAN CORPUSCULAR HGB CONC 34.2 g/dl (32.0-36.5); MONO # 1.5 10^3/uL (0.0-0.8); NEUTROPHILS # 9.7 10^3/uL (1.8-7.7); NEUTROPHILS % 79.8 % (36.0-66.0); PLATELET COUNT, AUTOMATED 237 10^3/uL (150-450); RED BLOOD COUNT 4.79 10^6/uL (4.00-5.40); RED CELL DISTRIBUTION WIDTH 14.4 % (11.5-14.5); WHITE BLOOD COUNT 12.2 10^3/uL (4.0-10.0)
[2017-10-17 18:51] LABS: AMMONIA < 10 uMOL/L (<32)
[2017-10-17 18:51] LABS: OSMOLALITY SERUM 290 MOSM/KG (280-301)
[2017-10-17 18:54] LABS: BEDSIDE GLUCOSE 162 MG/DL (83-110)
[2017-10-17 18:54] LABS: LACTIC ACID SEPSIS PROTOCOL 1.2 MMOL/L (0.4-2.0)
[2017-10-17 18:55] LABS: ALBUMIN 3.4 GM/DL (3.2-5.2); ALBUMIN/GLOBULIN RATIO 0.92 (1.00-1.93); ALKALINE PHOSPHATASE 62 U/L (45-117); ALT/SGPT 19 U/L (12-78); ANION GAP 9 MEQ/L (8-16); AST/SGOT 18 U/L (7-37); BILIRUBIN,DIRECT 0.3 MG/DL (0.0-0.2); BILIRUBIN,TOTAL 1.6 MG/DL (0.2-1.0); BLOOD UREA NITROGEN 10 MG/DL (7-18); CALCIUM LEVEL 8.9 MG/DL (8.8-10.2); CARBON DIOXIDE LEVEL 29 MEQ/L (21-32); CHLORIDE LEVEL 102 MEQ/L (98-107); CPK CREATINE PHOSPHOKINASE 72 U/L (26-192); CREATININE FOR GFR 0.86 MG/DL (0.55-1.02); GLOMERULAR FILTRATION RATE > 60.0 (>32); GLUCOSE, FASTING 141 MG/DL (83-110); SODIUM LEVEL 140 MEQ/L (136-145); TOTAL PROTEIN 7.1 GM/DL (6.4-8.2); TROPONIN I < 0.02 NG/ML (< 0.10)
[2017-10-17 19:01] LABS: MB/CK RELATIVE INDEX 1.38 (< OR =4)
[2017-10-17] MEDS ORDERED: ISOVUE-370 76% 100ML VIAL (Q9967) As Ordered (19:19)
[2017-10-17] MEDS ORDERED: POTASSIUM CHLORIDE INJ 10 MEQ in D5W/0.2% SODIUM CHLORIDE 1,000 ML IV (19:45)
[2017-10-17 19:51] LABS: MAGNESIUM LEVEL 1.5 MG/DL (1.8-2.4)
[2017-10-17] MEDS: AMIODARONE HCL 150 MG in APPROPRIATE DILUENT 1 EA IV (20:10)
[2017-10-17] MEDS ORDERED: ACETAMINOPHEN TAB 650MG DOSE (2X325MG) PO (20:15)
[2017-10-17] MEDS ORDERED: ONDANSETRON 4MG/2ML VIAL (J2405) IV (20:15)
[2017-10-17] MEDS: KCL 10MEQ IN 100ML SWI (KRUN) 10 MEQ in APPROPRIATE DILUENT 1 EA IV ×3 (20:25→22:37)
[2017-10-17] MEDS: MAG SULF 1GM/100ML (MAG RUN) 1 GM in APPROPRIATE DILUENT 1 EA IV ×2 (20:25→21:31)
[2017-10-17] MEDS ORDERED: CIPROFLOXACIN 400 MG in APPROPRIATE DILUENT 1 EA IV (20:30)
[2017-10-17 21:00] LABS: CPK CREATINE PHOSPHOKINASE 71 U/L (26-192); TROPONIN I 0.02 NG/ML (< 0.10)
[2017-10-17] MEDS: PRAVASTATIN 10 MG TAB PO (21:00)
[2017-10-17] MEDS: SENOKOT S TAB PO (21:00)
[2017-10-17] MEDS: MEROPENEM INJ 1 GM in APPROPRIATE DILUENT 1 EA IV (22:34)
[2017-10-17] MEDS: amLODIPine 5 MG TAB PO (23:51)
[2017-10-18 00:23] LABS: KETONE, URINE AUTO RFX TRACE mg/dL (NEGATIVE); LEUKOCYTE ESTERASE UR AUTO RFX NEGATIVE (NEGATIVE); NITRITE, URINE AUTO RFX NEGATIVE (NEGATIVE); RBC, URINE AUTO RFX 1 /HPF (0-3); SPECIFIC GRAVITY UR AUTO RFX 1.035 (1.002-1.035); SQUAM EPITHELIAL CELL UR AURFX 0 /HPF (0-6); WBC, URINE AUTO RFX 1 /HPF (0-3)
[2017-10-18 00:33] LABS: MAGNESIUM LEVEL 2.2 MG/DL (1.8-2.4)
[2017-10-18] MEDS ORDERED: POTASSIUM CHLORIDE 10 MEQ SR TABLET PO ×2 (00:45→01:30)
[2017-10-18] MEDS: POTASSIUM CHLORIDE 10% LIQ 20 MEQ/15 ML UDC PO (01:10)
[2017-10-18] MEDS: KCL 10MEQ IN 100ML SWI (KRUN) 10 MEQ in APPROPRIATE DILUENT 1 EA IV ×5 (02:01→22:56)
[2017-10-18 07:26] LABS: HEMATOCRIT 41.6 % (36.0-47.0); HEMOGLOBIN 13.9 g/dl (12.0-16.0); MEAN CORPUSCULAR HEMOGLOBIN 28.7 pg (27.0-33.0); MEAN CORPUSCULAR HGB CONC 33.4 g/dl (32.0-36.5); PLATELET COUNT, AUTOMATED 226 10^3/uL (150-450); RED BLOOD COUNT 4.84 10^6/uL (4.00-5.40); RED CELL DISTRIBUTION WIDTH 14.7 % (11.5-14.5); WHITE BLOOD COUNT 13.4 10^3/uL (4.0-10.0)
[2017-10-18 07:30] LABS: ABG BASE EXCESS 4.9 (-2.0-2.0); ABG HCO3 29.5 MEQ/L (22.0-26.0); ABG O2 SATURATION 98.4 % (95.0-99.0); ABG PARTIAL PRESSURE CO2 43.5 mmHg (35.0-45.0); ABG PARTIAL PRESSURE O2 112.2 mmHg (75.0-100.0); ABG STANDARD HCO3 28.9 MEQ/L (22.0-26.0); ABG TOTAL CO2 30.8 MEQ/L (23.0-31.0); ABG pH (ARTERIAL) 7.449 UNITS (7.350-7.450)
[2017-10-18 07:55] LABS: ALBUMIN 3.4 GM/DL (3.2-5.2); ALBUMIN/GLOBULIN RATIO 0.97 (1.00-1.93); ALKALINE PHOSPHATASE 61 U/L (45-117); ALT/SGPT 21 U/L (12-78); ANION GAP 7 MEQ/L (8-16); AST/SGOT 20 U/L (7-37); BILIRUBIN,TOTAL 1.4 MG/DL (0.2-1.0); BLOOD UREA NITROGEN 11 MG/DL (7-18); CALCIUM LEVEL 8.5 MG/DL (8.8-10.2); CARBON DIOXIDE LEVEL 29 MEQ/L (21-32); CHLORIDE LEVEL 103 MEQ/L (98-107); CREATININE FOR GFR 0.91 MG/DL (0.55-1.02); GLOMERULAR FILTRATION RATE > 60.0 (>32); GLUCOSE, FASTING 145 MG/DL (83-110); POTASSIUM SERUM 3.4 MEQ/L (3.5-5.1); SODIUM LEVEL 139 MEQ/L (136-145); TOTAL PROTEIN 6.9 GM/DL (6.4-8.2)
[2017-10-18 09:08] LABS: MAGNESIUM LEVEL 2.4 MG/DL (1.8-2.4)
[2017-10-18] MEDS: VITAMIN D 1,000 INTERNATIONAL UNITS TABLET PO ×2 (10:00→10:14)
[2017-10-18] MEDS: SENOKOT S TAB PO ×3 (10:00→20:17)
[2017-10-18] MEDS: ASPIRIN 81 MG ENTERIC TAB PO ×2 (10:00→10:13)
[2017-10-18] MEDS: CALCIUM/VITAMIN D 500 MG TAB PO ×2 (10:00→10:14)
[2017-10-18] MEDS: amLODIPine 5 MG TAB PO (10:13)
[2017-10-18] MEDS: NYSTATIN 100,000 UNITS/GM TOPICAL PWD 15 GM TOP (10:13)
[2017-10-18] MEDS: MEROPENEM INJ 1 GM in APPROPRIATE DILUENT 1 EA IV ×2 (10:13→22:56)
[2017-10-18] MEDS: ENOXAPARIN 30 MG/0.3 ML SYR (J1650) SC (10:14)
[2017-10-18] MEDS: MAGNESIUM CHLORIDE 64 MG TABCR (SLO MAG) PO (20:16)
[2017-10-18] MEDS: POTASSIUM CHLORIDE 10 MEQ SR TABLET PO (20:17)
[2017-10-18] MEDS: PRAVASTATIN 10 MG TAB PO (20:17)
[2017-10-19] MEDS: KCL 10MEQ IN 100ML SWI (KRUN) 10 MEQ in APPROPRIATE DILUENT 1 EA IV (02:41)
[2017-10-19 05:49] LABS: HEMATOCRIT 41.5 % (36.0-47.0); HEMOGLOBIN 13.7 g/dl (12.0-16.0); MEAN CORPUSCULAR HEMOGLOBIN 28.7 pg (27.0-33.0); PLATELET COUNT, AUTOMATED 240 10^3/uL (150-450); RED BLOOD COUNT 4.77 10^6/uL (4.00-5.40); RED CELL DISTRIBUTION WIDTH 14.6 % (11.5-14.5); WHITE BLOOD COUNT 11.9 10^3/uL (4.0-10.0)
[2017-10-19] MEDS: VANCOMYCIN HCL 1,000 MG, VIAL MATE ADAPTER 1 EACH in D5W 250 ML IV (06:03)
[2017-10-19 06:27] LABS: ALBUMIN 3.2 GM/DL (3.2-5.2); ALBUMIN/GLOBULIN RATIO 0.82 (1.00-1.93); ALKALINE PHOSPHATASE 71 U/L (45-117); ALT/SGPT 22 U/L (12-78); ANION GAP 11 MEQ/L (8-16); AST/SGOT 23 U/L (7-37); BILIRUBIN,TOTAL 1.7 MG/DL (0.2-1.0); BLOOD UREA NITROGEN 15 MG/DL (7-18); CALCIUM LEVEL 8.6 MG/DL (8.8-10.2); CARBON DIOXIDE LEVEL 29 MEQ/L (21-32); CHLORIDE LEVEL 104 MEQ/L (98-107); CREATININE FOR GFR 0.88 MG/DL (0.55-1.02); GLOMERULAR FILTRATION RATE > 60.0 (>32); GLUCOSE, FASTING 140 MG/DL (70-100); POTASSIUM SERUM 3.8 MEQ/L (3.5-5.1); SODIUM LEVEL 144 MEQ/L (136-145); TOTAL PROTEIN 7.1 GM/DL (6.4-8.2)
[2017-10-19] MEDS: POTASSIUM CHLORIDE 10 MEQ SR TABLET PO ×2 (07:59→21:00)
[2017-10-19] MEDS: amLODIPine 5 MG TAB PO ×2 (07:59→12:17)
[2017-10-19] MEDS: VITAMIN D 1,000 INTERNATIONAL UNITS TABLET PO (08:00)
[2017-10-19] MEDS: SENOKOT S TAB PO ×2 (08:00→21:00)
[2017-10-19] MEDS: CALCIUM/VITAMIN D 500 MG TAB PO (08:00)
[2017-10-19] MEDS: MAGNESIUM CHLORIDE 64 MG TABCR (SLO MAG) PO ×2 (08:00→21:00)
[2017-10-19] MEDS: NYSTATIN 100,000 UNITS/GM TOPICAL PWD 15 GM TOP (09:00)
[2017-10-19] MEDS: CHLORASEPTIC SPRAY MT ×3 (11:19→15:38)
[2017-10-19] MEDS: MEROPENEM INJ 1 GM in APPROPRIATE DILUENT 1 EA IV ×2 (11:19→23:48)
[2017-10-19] MEDS: ACETAMINOPHEN 650 MG SUPP PR (13:59)
[2017-10-19] MEDS: LR 1,000 ML IV ×2 (15:51→19:45)
[2017-10-19] MEDS: LIDOCAINE 1% SDV INJ 30 ML VIAL As Ordered (16:29)
[2017-10-19] MEDS: VANCOMYCIN 1000 MG/20 ML VIAL (J3370) As Ordered (16:30)
[2017-10-19] MEDS ORDERED: KETAMINE HCL 200 MG/20 ML VIAL As Ordered (16:44)
[2017-10-19] MEDS: VANCOMYCIN HCL 500 MG/10 ML VIAL (J3370) As Ordered (17:04)
[2017-10-19] MEDS ORDERED: fentaNYL 100 MCG/2 ML INJECTION (J3010) As Ordered ×2 (17:23→17:42)
[2017-10-19] MEDS: MUPIROCIN 2% OINT 22 GM TUBE As Ordered (18:42)
[2017-10-19] MEDS: ISOVUE-300 61% 50ML VIAL (Q9967) As Ordered (18:43)
[2017-10-19] MEDS ORDERED: fentaNYL 100 MCG/2 ML INJECTION (J3010) IV (19:45)
[2017-10-19] MEDS ORDERED: ONDANSETRON 4MG/2ML VIAL (J2405) IV (19:45)
[2017-10-19] MEDS: ASCORBIC ACID 250 MG TAB PO (21:00)
[2017-10-19] MEDS: PRAVASTATIN 10 MG TAB PO (21:00)
[2017-10-20 05:40] LABS: HEMATOCRIT 39.8 % (36.0-47.0); MEAN CORPUSCULAR HEMOGLOBIN 28.8 pg (27.0-33.0); MEAN CORPUSCULAR HGB CONC 32.7 g/dl (32.0-36.5); MEAN CORPUSCULAR VOLUME 88.1 fl (80.0-96.0); PLATELET COUNT, AUTOMATED 220 10^3/uL (150-450); RED BLOOD COUNT 4.52 10^6/uL (4.00-5.40); RED CELL DISTRIBUTION WIDTH 14.6 % (11.5-14.5); WHITE BLOOD COUNT 16.8 10^3/uL (4.0-10.0)
[2017-10-20 06:13] LABS: ALBUMIN 2.8 GM/DL (3.2-5.2); ALBUMIN/GLOBULIN RATIO 0.76 (1.00-1.93); ALKALINE PHOSPHATASE 83 U/L (45-117); ALT/SGPT 27 U/L (12-78); ANION GAP 10 MEQ/L (8-16); AST/SGOT 29 U/L (7-37); BILIRUBIN,TOTAL 1.7 MG/DL (0.2-1.0); BLOOD UREA NITROGEN 16 MG/DL (7-18); CALCIUM LEVEL 7.9 MG/DL (8.8-10.2); CARBON DIOXIDE LEVEL 25 MEQ/L (21-32); CHLORIDE LEVEL 108 MEQ/L (98-107); CREATININE FOR GFR 0.76 MG/DL (0.55-1.02); GLOMERULAR FILTRATION RATE > 60.0 (>32); GLUCOSE, FASTING 148 MG/DL (70-100); POTASSIUM SERUM 3.3 MEQ/L (3.5-5.1); SODIUM LEVEL 143 MEQ/L (136-145); TOTAL PROTEIN 6.5 GM/DL (6.4-8.2)
[2017-10-20] MEDS: NYSTATIN 500,000 U/5 ML SUSP UDC SS ×4 (08:59→23:17)
[2017-10-20] MEDS: POTASSIUM CHLORIDE 10 MEQ SR TABLET PO (09:00)
[2017-10-20] MEDS: KCL 10MEQ IN 100ML SWI (KRUN) 10 MEQ in APPROPRIATE DILUENT 1 EA IV ×3 (09:00→12:18)
[2017-10-20] MEDS: ASCORBIC ACID 250 MG TAB PO ×2 (09:01→21:00)
[2017-10-20] MEDS: CALCIUM/VITAMIN D 500 MG TAB PO (09:01)
[2017-10-20] MEDS: SENOKOT S TAB PO ×2 (09:01→21:00)
[2017-10-20] MEDS: VITAMIN D 1,000 INTERNATIONAL UNITS TABLET PO (09:01)
[2017-10-20] MEDS: amLODIPine 5 MG TAB PO (09:04)
[2017-10-20] MEDS: MAGNESIUM CHLORIDE 64 MG TABCR (SLO MAG) PO ×2 (09:05→21:00)
[2017-10-20] MEDS: NYSTATIN 100,000 UNITS/GM TOPICAL PWD 15 GM TOP (09:06)
[2017-10-20] MEDS: MEROPENEM INJ 1 GM in APPROPRIATE DILUENT 1 EA IV ×2 (11:22→22:36)
[2017-10-20] MEDS: SPIRONOLACTONE 25 MG TAB PO (17:34)
[2017-10-20] MEDS: PRAVASTATIN 10 MG TAB PO ×3 (21:00→22:35)
[2017-10-21 05:48] LABS: HEMATOCRIT 37.8 % (36.0-47.0); HEMOGLOBIN 12.3 g/dl (12.0-16.0); MEAN CORPUSCULAR HEMOGLOBIN 28.5 pg (27.0-33.0); MEAN CORPUSCULAR HGB CONC 32.5 g/dl (32.0-36.5); MEAN CORPUSCULAR VOLUME 87.5 fl (80.0-96.0); PLATELET COUNT, AUTOMATED 251 10^3/uL (150-450); RED BLOOD COUNT 4.32 10^6/uL (4.00-5.40); RED CELL DISTRIBUTION WIDTH 14.6 % (11.5-14.5); WHITE BLOOD COUNT 14.4 10^3/uL (4.0-10.0)
[2017-10-21] MEDS: NYSTATIN 500,000 U/5 ML SUSP UDC SS ×4 (06:35→23:16)
[2017-10-21 06:37] LABS: ALBUMIN 2.7 GM/DL (3.2-5.2); ALBUMIN/GLOBULIN RATIO 0.84 (1.00-1.93); ALKALINE PHOSPHATASE 81 U/L (45-117); ALT/SGPT 29 U/L (12-78); ANION GAP 8 MEQ/L (8-16); AST/SGOT 25 U/L (7-37); BLOOD UREA NITROGEN 23 MG/DL (7-18); CALCIUM LEVEL 7.9 MG/DL (8.8-10.2); CARBON DIOXIDE LEVEL 28 MEQ/L (21-32); CHLORIDE LEVEL 110 MEQ/L (98-107); CREATININE FOR GFR 0.74 MG/DL (0.55-1.02); GLOMERULAR FILTRATION RATE > 60.0 (>32); GLUCOSE, FASTING 123 MG/DL (70-100); POTASSIUM SERUM 3.8 MEQ/L (3.5-5.1); SODIUM LEVEL 146 MEQ/L (136-145); TOTAL PROTEIN 5.9 GM/DL (6.4-8.2)
[2017-10-21] MEDS: VITAMIN D 1,000 INTERNATIONAL UNITS TABLET PO (08:24)
[2017-10-21] MEDS: SENOKOT S TAB PO ×2 (08:24→20:07)
[2017-10-21] MEDS: MAGNESIUM CHLORIDE 64 MG TABCR (SLO MAG) PO ×2 (08:24→20:07)
[2017-10-21] MEDS: CALCIUM/VITAMIN D 500 MG TAB PO (08:24)
[2017-10-21] MEDS: SPIRONOLACTONE 25 MG TAB PO (08:26)
[2017-10-21] MEDS: ASCORBIC ACID 250 MG TAB PO ×2 (08:26→20:07)
[2017-10-21] MEDS: NYSTATIN 100,000 UNITS/GM TOPICAL PWD 15 GM TOP (08:26)
[2017-10-21] MEDS: amLODIPine 5 MG TAB PO (08:26)
[2017-10-21] MEDS: MEROPENEM INJ 1 GM in APPROPRIATE DILUENT 1 EA IV ×2 (10:58→22:43)
[2017-10-21] MEDS: PRAVASTATIN 10 MG TAB PO (20:07)
[2017-10-22 05:28] LABS: HEMATOCRIT 38.2 % (36.0-47.0); HEMOGLOBIN 12.3 g/dl (12.0-16.0); MEAN CORPUSCULAR HEMOGLOBIN 28.2 pg (27.0-33.0); MEAN CORPUSCULAR HGB CONC 32.2 g/dl (32.0-36.5); MEAN CORPUSCULAR VOLUME 87.6 fl (80.0-96.0); PLATELET COUNT, AUTOMATED 267 10^3/uL (150-450); RED BLOOD COUNT 4.36 10^6/uL (4.00-5.40); RED CELL DISTRIBUTION WIDTH 14.6 % (11.5-14.5); WHITE BLOOD COUNT 9.8 10^3/uL (4.0-10.0)
[2017-10-22] MEDS: NYSTATIN 500,000 U/5 ML SUSP UDC SS ×4 (05:28→23:58)
[2017-10-22 05:55] LABS: ALBUMIN 2.6 GM/DL (3.2-5.2); ALKALINE PHOSPHATASE 85 U/L (45-117); ALT/SGPT 40 U/L (12-78); ANION GAP 7 MEQ/L (8-16); AST/SGOT 41 U/L (7-37); BILIRUBIN,TOTAL 0.8 MG/DL (0.2-1.0); BLOOD UREA NITROGEN 23 MG/DL (7-18); CARBON DIOXIDE LEVEL 28 MEQ/L (21-32); CHLORIDE LEVEL 108 MEQ/L (98-107); CREATININE FOR GFR 0.73 MG/DL (0.55-1.02); GLOMERULAR FILTRATION RATE > 60.0 (>32); GLUCOSE, FASTING 128 MG/DL (70-100); POTASSIUM SERUM 3.6 MEQ/L (3.5-5.1); SODIUM LEVEL 143 MEQ/L (136-145); TOTAL PROTEIN 6.3 GM/DL (6.4-8.2)
[2017-10-22] MEDS: SENOKOT S TAB PO ×2 (09:04→21:18)
[2017-10-22] MEDS: VITAMIN D 1,000 INTERNATIONAL UNITS TABLET PO (09:04)
[2017-10-22] MEDS: SPIRONOLACTONE 25 MG TAB PO (09:05)
[2017-10-22] MEDS: CALCIUM/VITAMIN D 500 MG TAB PO (09:05)
[2017-10-22] MEDS: amLODIPine 5 MG TAB PO (09:05)
[2017-10-22] MEDS: NYSTATIN 100,000 UNITS/GM TOPICAL PWD 15 GM TOP (09:06)
[2017-10-22] MEDS: MAGNESIUM CHLORIDE 64 MG TABCR (SLO MAG) PO ×2 (09:06→21:18)
[2017-10-22] MEDS: ASCORBIC ACID 250 MG TAB PO ×2 (10:47→21:18)
[2017-10-22] MEDS: MEROPENEM INJ 1 GM in APPROPRIATE DILUENT 1 EA IV ×2 (10:47→23:58)
[2017-10-22] MEDS: PRAVASTATIN 10 MG TAB PO (21:18)
[2017-10-23 05:21] LABS: HEMATOCRIT 39.2 % (36.0-47.0); HEMOGLOBIN 12.8 g/dl (12.0-16.0); MEAN CORPUSCULAR HEMOGLOBIN 28.3 pg (27.0-33.0); MEAN CORPUSCULAR HGB CONC 32.7 g/dl (32.0-36.5); MEAN CORPUSCULAR VOLUME 86.7 fl (80.0-96.0); PLATELET COUNT, AUTOMATED 292 10^3/uL (150-450); RED BLOOD COUNT 4.52 10^6/uL (4.00-5.40); RED CELL DISTRIBUTION WIDTH 14.5 % (11.5-14.5); WHITE BLOOD COUNT 9.4 10^3/uL (4.0-10.0)
[2017-10-23 05:42] LABS: ALBUMIN 2.6 GM/DL (3.2-5.2); ALBUMIN/GLOBULIN RATIO 0.67 (1.00-1.93); ALKALINE PHOSPHATASE 91 U/L (45-117); ALT/SGPT 34 U/L (12-78); ANION GAP 6 MEQ/L (8-16); AST/SGOT 27 U/L (7-37); BILIRUBIN,TOTAL 0.7 MG/DL (0.2-1.0); BLOOD UREA NITROGEN 24 MG/DL (7-18); CALCIUM LEVEL 8.8 MG/DL (8.8-10.2); CARBON DIOXIDE LEVEL 28 MEQ/L (21-32); CHLORIDE LEVEL 107 MEQ/L (98-107); CREATININE FOR GFR 0.79 MG/DL (0.55-1.02); GLOMERULAR FILTRATION RATE > 60.0 (>32); GLUCOSE, FASTING 148 MG/DL (70-100); POTASSIUM SERUM 3.6 MEQ/L (3.5-5.1); SODIUM LEVEL 141 MEQ/L (136-145); TOTAL PROTEIN 6.5 GM/DL (6.4-8.2)
[2017-10-23] MEDS: NYSTATIN 500,000 U/5 ML SUSP UDC SS ×3 (06:24→17:27)
[2017-10-23] MEDS: amLODIPine 5 MG TAB PO (09:28)
[2017-10-23] MEDS: SENOKOT S TAB PO ×2 (09:28→20:39)
[2017-10-23] MEDS: VITAMIN D 1,000 INTERNATIONAL UNITS TABLET PO (09:28)
[2017-10-23] MEDS: CALCIUM/VITAMIN D 500 MG TAB PO (09:28)
[2017-10-23] MEDS: SPIRONOLACTONE 25 MG TAB PO (09:28)
[2017-10-23] MEDS: ASCORBIC ACID 250 MG TAB PO ×2 (09:28→20:39)
[2017-10-23] MEDS: NYSTATIN 100,000 UNITS/GM TOPICAL PWD 15 GM TOP (09:29)
[2017-10-23] MEDS: MAGNESIUM CHLORIDE 64 MG TABCR (SLO MAG) PO ×2 (09:29→20:39)
[2017-10-23] MEDS: traMADol 50 MG TAB PO ×2 (10:42→20:49)
[2017-10-23] MEDS: MEROPENEM INJ 1 GM in APPROPRIATE DILUENT 1 EA IV (10:42)
[2017-10-23] MEDS ORDERED: SLF 3 ML SYR IV (11:15)
[2017-10-23] MEDS: SLF 3 ML SYR IV ×2 (11:30→20:40)
[2017-10-23] MEDS: PRAVASTATIN 10 MG TAB PO (20:38)
[2017-10-24 04:33] LABS: HEMOGLOBIN 12.4 g/dl (12.0-16.0); MEAN CORPUSCULAR HEMOGLOBIN 28.1 pg (27.0-33.0); MEAN CORPUSCULAR HGB CONC 32.6 g/dl (32.0-36.5); PLATELET COUNT, AUTOMATED 292 10^3/uL (150-450); RED BLOOD COUNT 4.42 10^6/uL (4.00-5.40); RED CELL DISTRIBUTION WIDTH 14.6 % (11.5-14.5); WHITE BLOOD COUNT 11.4 10^3/uL (4.0-10.0)
[2017-10-24 05:06] LABS: ALBUMIN 2.5 GM/DL (3.2-5.2); ALBUMIN/GLOBULIN RATIO 0.71 (1.00-1.93); ALKALINE PHOSPHATASE 74 U/L (45-117); ALT/SGPT 29 U/L (12-78); ANION GAP 8 MEQ/L (8-16); AST/SGOT 20 U/L (7-37); BILIRUBIN,TOTAL 0.7 MG/DL (0.2-1.0); BLOOD UREA NITROGEN 19 MG/DL (7-18); CALCIUM LEVEL 8.2 MG/DL (8.8-10.2); CARBON DIOXIDE LEVEL 26 MEQ/L (21-32); CHLORIDE LEVEL 108 MEQ/L (98-107); CREATININE FOR GFR 0.71 MG/DL (0.55-1.02); GLOMERULAR FILTRATION RATE > 60.0 (>32); GLUCOSE, FASTING 113 MG/DL (70-100); POTASSIUM SERUM 3.6 MEQ/L (3.5-5.1); SODIUM LEVEL 142 MEQ/L (136-145)
[2017-10-24] MEDS: NYSTATIN 500,000 U/5 ML SUSP UDC SS ×4 (05:32→17:15)
[2017-10-24] MEDS: SLF 3 ML SYR IV ×3 (05:32→21:06)
[2017-10-24] MEDS: MAGNESIUM CHLORIDE 64 MG TABCR (SLO MAG) PO ×2 (08:37→21:06)
[2017-10-24] MEDS: NYSTATIN 100,000 UNITS/GM TOPICAL PWD 15 GM TOP (08:37)
[2017-10-24] MEDS: VITAMIN D 1,000 INTERNATIONAL UNITS TABLET PO (08:37)
[2017-10-24] MEDS: CALCIUM/VITAMIN D 500 MG TAB PO (08:37)
[2017-10-24] MEDS: ASCORBIC ACID 250 MG TAB PO ×2 (08:37→21:05)
[2017-10-24] MEDS: amLODIPine 10 MG TAB PO (08:38)
[2017-10-24] MEDS: SENOKOT S TAB PO ×2 (08:38→21:05)
[2017-10-24] MEDS: SPIRONOLACTONE 25 MG TAB PO (08:38)
[2017-10-24] MEDS: traMADol 50 MG TAB PO ×2 (08:48→21:05)
[2017-10-24] MEDS: PRAVASTATIN 10 MG TAB PO (21:04)
[2017-10-25] MEDS: NYSTATIN 500,000 U/5 ML SUSP UDC SS ×5 (00:08→23:37)
[2017-10-25 05:19] LABS: HEMATOCRIT 36.7 % (36.0-47.0); HEMOGLOBIN 12.2 g/dl (12.0-16.0); MEAN CORPUSCULAR HEMOGLOBIN 28.6 pg (27.0-33.0); MEAN CORPUSCULAR HGB CONC 33.2 g/dl (32.0-36.5); MEAN CORPUSCULAR VOLUME 86.2 fl (80.0-96.0); PLATELET COUNT, AUTOMATED 286 10^3/uL (150-450); RED BLOOD COUNT 4.26 10^6/uL (4.00-5.40); RED CELL DISTRIBUTION WIDTH 14.4 % (11.5-14.5); WHITE BLOOD COUNT 12.9 10^3/uL (4.0-10.0)
[2017-10-25 05:45] LABS: ANION GAP 7 MEQ/L (8-16); BLOOD UREA NITROGEN 15 MG/DL (7-18); CALCIUM LEVEL 8.5 MG/DL (8.8-10.2); CARBON DIOXIDE LEVEL 27 MEQ/L (21-32); CHLORIDE LEVEL 107 MEQ/L (98-107); CREATININE FOR GFR 0.66 MG/DL (0.55-1.02); GLOMERULAR FILTRATION RATE > 60.0 (>32); GLUCOSE, FASTING 119 MG/DL (70-100); MAGNESIUM LEVEL 1.8 MG/DL (1.8-2.4); POTASSIUM SERUM 3.6 MEQ/L (3.5-5.1); SODIUM LEVEL 141 MEQ/L (136-145)
[2017-10-25] MEDS: SLF 3 ML SYR IV ×3 (06:40→21:33)
[2017-10-25] MEDS: SPIRONOLACTONE 25 MG TAB PO (09:23)
[2017-10-25] MEDS: CALCIUM/VITAMIN D 500 MG TAB PO (09:23)
[2017-10-25] MEDS: MAGNESIUM CHLORIDE 64 MG TABCR (SLO MAG) PO ×4 (09:23→21:54)
[2017-10-25] MEDS: VITAMIN D 1,000 INTERNATIONAL UNITS TABLET PO (09:23)
[2017-10-25] MEDS: amLODIPine 10 MG TAB PO (09:23)
[2017-10-25] MEDS: SENOKOT S TAB PO ×4 (09:23→21:54)
[2017-10-25] MEDS: ASCORBIC ACID 250 MG TAB PO ×4 (09:23→21:53)
[2017-10-25] MEDS: traMADol 50 MG TAB PO (09:24)
[2017-10-25] MEDS: NYSTATIN 100,000 UNITS/GM TOPICAL PWD 15 GM TOP (09:24)
[2017-10-25] MEDS: PRAVASTATIN 10 MG TAB PO ×3 (21:00→21:54)
[2017-10-26] MEDS: NYSTATIN 500,000 U/5 ML SUSP UDC SS ×2 (05:44→11:40)
[2017-10-26] MEDS: SLF 3 ML SYR IV (05:44)
[2017-10-26 06:42] LABS: HEMATOCRIT 36.8 % (36.0-47.0); HEMOGLOBIN 12.2 g/dl (12.0-16.0); MEAN CORPUSCULAR HEMOGLOBIN 28.3 pg (27.0-33.0); MEAN CORPUSCULAR HGB CONC 33.2 g/dl (32.0-36.5); MEAN CORPUSCULAR VOLUME 85.4 fl (80.0-96.0); PLATELET COUNT, AUTOMATED 276 10^3/uL (150-450); RED BLOOD COUNT 4.31 10^6/uL (4.00-5.40); RED CELL DISTRIBUTION WIDTH 14.4 % (11.5-14.5); WHITE BLOOD COUNT 10.8 10^3/uL (4.0-10.0)
[2017-10-26 06:48] LABS: ANION GAP 8 MEQ/L (8-16); BLOOD UREA NITROGEN 18 MG/DL (7-18); CALCIUM LEVEL 8.6 MG/DL (8.8-10.2); CARBON DIOXIDE LEVEL 25 MEQ/L (21-32); CHLORIDE LEVEL 106 MEQ/L (98-107); CREATININE FOR GFR 0.78 MG/DL (0.55-1.30); GLOMERULAR FILTRATION RATE > 60.0 (>32); GLUCOSE, FASTING 130 MG/DL (70-100); POTASSIUM SERUM 3.8 MEQ/L (3.5-5.1); SODIUM LEVEL 139 MEQ/L (136-145)
[2017-10-26] MEDS: ASCORBIC ACID 250 MG TAB PO (08:14)
[2017-10-26] MEDS: CALCIUM/VITAMIN D 500 MG TAB PO (08:14)
[2017-10-26] MEDS: traMADol 50 MG TAB PO (08:14)
[2017-10-26] MEDS: SPIRONOLACTONE 25 MG TAB PO (08:14)
[2017-10-26] MEDS: SENOKOT S TAB PO (08:14)
[2017-10-26] MEDS: MAGNESIUM CHLORIDE 64 MG TABCR (SLO MAG) PO (08:14)
[2017-10-26] MEDS: NYSTATIN 100,000 UNITS/GM TOPICAL PWD 15 GM TOP (08:15)
[2017-10-26] MEDS: amLODIPine 10 MG TAB PO (08:15)
[2017-10-26] MEDS: VITAMIN D 1,000 INTERNATIONAL UNITS TABLET PO (08:15)
[2017-10-26 10:13] LABS: ALDOS/RENIN RATIO 4.3 (0.0-30.0); ALDOSTERONE 1.8 ng/dL (0.0-30.0)
== END 2017-10-26 11:47 | DRG 243 ==
LOC: M PCU 10-22 13:22 → M MSPAV 10-25 11:30 → M ED 17:49 → M ED INP 20:13 → M ICU 22:27
PROC: 0JH606Z Insertion of Pacemaker, Dual Chamber into Chest Subcutaneous Tissue and Fascia, Open Approach (ICD-10-PCS; principal; 2017-10-19 16:35)
PROC: 02H63JZ Insertion of Pacemaker Lead into Right Atrium, Percutaneous Approach (ICD-10-PCS; 2017-10-19 16:35)
PROC: 02HK3JZ Insertion of Pacemaker Lead into Right Ventricle, Percutaneous Approach (ICD-10-PCS; 2017-10-19 16:35)
DX: I47.2 Ventricular tachycardia (principal); Z68.42 Body mass index [BMI] 45.0-49.9, adult; E66.01 Morbid (severe) obesity due to excess calories; I44.1 Atrioventricular block, second degree; J02.9 Acute pharyngitis, unspecified; C44.519 Basal cell carcinoma of skin of other part of trunk; I45.81 Long QT syndrome; E87.6 Hypokalemia; Z79.899 Other long term (current) drug therapy; Z79.82 Long term (current) use of aspirin; E78.5 Hyperlipidemia, unspecified; I12.9 Hypertensive chronic kidney disease with stage 1 through stage 4 chronic kidney disease, or unspecified chronic kidney disease; R29.6 Repeated falls; E83.42 Hypomagnesemia; Z88.0 Allergy status to penicillin; N18.3 Chronic kidney disease, stage 3 (moderate); G43.909 Migraine, unspecified, not intractable, without status migrainosus; M10.9 Gout, unspecified; F41.9 Anxiety disorder, unspecified; F40.240 Claustrophobia; Z96.642 Presence of left artificial hip joint

== ENCOUNTER → 2017-11-02 | Outpatient (REF) | payer MEDICARE, BC, OTHER ==
[2017-11-02 11:21] LABS: ANION GAP 14 MEQ/L (8-16); BLOOD UREA NITROGEN 16 MG/DL (7-18); CARBON DIOXIDE LEVEL 23 MEQ/L (21-32); CHLORIDE LEVEL 104 MEQ/L (98-107); CREATININE FOR GFR 0.92 MG/DL (0.55-1.30); GLOMERULAR FILTRATION RATE > 60.0 (>32); GLUCOSE, FASTING 179 MG/DL (70-100); POTASSIUM SERUM 4.1 MEQ/L (3.5-5.1); SODIUM LEVEL 141 MEQ/L (136-145)
== END ==
DX: E83.2 Disorders of zinc metabolism (principal)
CPT/HCPCS: 83735

== ENCOUNTER → 2017-11-08 | Outpatient (REF) | payer MEDICARE, BC, OTHER ==
[2017-11-08 12:51] LABS: HEMATOCRIT 39.6 % (36.0-47.0); MEAN CORPUSCULAR HEMOGLOBIN 28.3 pg (27.0-33.0); MEAN CORPUSCULAR HGB CONC 32.8 g/dl (32.0-36.5); MEAN CORPUSCULAR VOLUME 86.3 fl (80.0-96.0); PLATELET COUNT, AUTOMATED 309 10^3/uL (150-450); RED BLOOD COUNT 4.59 10^6/uL (4.00-5.40); RED CELL DISTRIBUTION WIDTH 14.8 % (11.5-14.5); WHITE BLOOD COUNT 7.1 10^3/uL (4.0-10.0)
[2017-11-08 13:01] LABS: ANION GAP 11 MEQ/L (8-16); BLOOD UREA NITROGEN 12 MG/DL (7-18); CALCIUM LEVEL 8.9 MG/DL (8.8-10.2); CARBON DIOXIDE LEVEL 26 MEQ/L (21-32); CHLORIDE LEVEL 104 MEQ/L (98-107); CREATININE FOR GFR 0.81 MG/DL (0.55-1.30); GLOMERULAR FILTRATION RATE > 60.0 (>32); GLUCOSE, FASTING 154 MG/DL (70-100); MAGNESIUM LEVEL 1.9 MG/DL (1.8-2.4); POTASSIUM SERUM 3.9 MEQ/L (3.5-5.1); SODIUM LEVEL 141 MEQ/L (136-145)
== END ==
DX: Z79.899 Other long term (current) drug therapy (principal)
CPT/HCPCS: 83735

== ENCOUNTER → 2017-11-16 | Outpatient (REF) | payer MEDICARE, BC, OTHER ==
[2017-11-16 11:18] LABS: ANION GAP 12 MEQ/L (8-16); BLOOD UREA NITROGEN 18 MG/DL (7-18); CALCIUM LEVEL 8.7 MG/DL (8.8-10.2); CARBON DIOXIDE LEVEL 24 MEQ/L (21-32); CHLORIDE LEVEL 104 MEQ/L (98-107); CREATININE FOR GFR 0.98 MG/DL (0.55-1.30); GLUCOSE, FASTING 200 MG/DL (70-100); MAGNESIUM LEVEL 1.8 MG/DL (1.8-2.4); POTASSIUM SERUM 3.8 MEQ/L (3.5-5.1); SODIUM LEVEL 140 MEQ/L (136-145)
== END ==
DX: E87.6 Hypokalemia (principal)
CPT/HCPCS: 83735

== ENCOUNTER → 2017-11-17 | Outpatient (REF) | payer MEDICARE, BC, OTHER ==
[2017-11-17 09:41] LABS: ANION GAP 11 MEQ/L (8-16); BLOOD UREA NITROGEN 19 MG/DL (7-18); CARBON DIOXIDE LEVEL 26 MEQ/L (21-32); CHLORIDE LEVEL 105 MEQ/L (98-107); CREATININE FOR GFR 0.87 MG/DL (0.55-1.30); GLOMERULAR FILTRATION RATE > 60.0 (>32); GLUCOSE, FASTING 122 MG/DL (70-100); MAGNESIUM LEVEL 2.2 MG/DL (1.8-2.4); POTASSIUM SERUM 4.2 MEQ/L (3.5-5.1); SODIUM LEVEL 142 MEQ/L (136-145)
== END ==
DX: E83.42 Hypomagnesemia (principal)
CPT/HCPCS: 83735

== ENCOUNTER → 2017-11-21 | Outpatient (REF) | DX: R30.0 Dysuria (principal) ==

== ENCOUNTER → 2017-11-23 | Outpatient (REF) | payer MEDICARE, BC, OTHER | DX: I10 Essential (primary) hypertension (principal) ==

== ENCOUNTER → 2017-12-07 | Outpatient (REF) | payer MEDICARE, BC, OTHER ==
[2017-12-07 10:22] LABS: ANION GAP 9 MEQ/L (8-16); BLOOD UREA NITROGEN 20 MG/DL (7-18); CALCIUM LEVEL 9.2 MG/DL (8.8-10.2); CARBON DIOXIDE LEVEL 27 MEQ/L (21-32); CHLORIDE LEVEL 104 MEQ/L (98-107); CREATININE FOR GFR 0.92 MG/DL (0.55-1.30); GLOMERULAR FILTRATION RATE > 60.0 (>32); GLUCOSE, FASTING 145 MG/DL (70-100); MAGNESIUM LEVEL 1.9 MG/DL (1.8-2.4); POTASSIUM SERUM 4.2 MEQ/L (3.5-5.1); SODIUM LEVEL 140 MEQ/L (136-145)
== END ==
DX: E87.6 Hypokalemia (principal)
CPT/HCPCS: 83735

== ENCOUNTER → 2017-12-15 | Outpatient (REF) | payer MEDICARE, BC, OTHER | DX: N39.0 Urinary tract infection, site not specified (principal) ==

== ENCOUNTER → 2017-12-20 | Outpatient (REF) | payer MEDICARE, BC, OTHER ==
[2017-12-20 13:48] LABS: APPEARANCE, URINE CLEAR (CLEAR); BACTERIA, URINE AUTO 1+ (NEGATIVE); BILIRUBIN, URINE AUTO NEGATIVE (NEGATIVE); BLOOD, URINE BLOOD NEGATIVE (NEGATIVE); COLOR, URINE YELLOW (YELLOW); GLUCOSE, URINE (UA) AUTO NEGATIVE (NEGATIVE); KETONE, URINE AUTO NEGATIVE (NEGATIVE); LEUKOCYTE ESTERASE, URINE AUTO TRACE (NEGATIVE); MUCUS, URINE SMALL (NEGATIVE); NITRITE, URINE AUTO NEGATIVE (NEGATIVE); PROTEIN, URINE AUTO NEGATIVE (NEGATIVE); RBC, URINE AUTO 1 /HPF (0-3); SPECIFIC GRAVITY URINE AUTO 1.008 (1.002-1.035); SQUAMOUS EPITHELIAL CELL UR AU 1 /HPF (0-6); UROBILINOGEN, URINE AUTO 0.2 mg/dL (0.0-2.0); WBC, URINE AUTO 1 /HPF (0-3)
== END ==
DX: N39.0 Urinary tract infection, site not specified (principal)
CPT/HCPCS: 81001

== ENCOUNTER → 2017-12-21 | Outpatient (REF) | payer MEDICARE, BC, OTHER ==
[2017-12-21 14:05] LABS: BASO # 0.1 10^3/uL (0.0-0.2); BASO % 1.1 % (0.0-1.0); EOS # 0.1 10^3/uL (0.0-0.50); EOS % 1.4 % (0.0-3.0); HEMATOCRIT 45.1 % (36.0-47.0); HEMOGLOBIN 15.1 g/dl (12.0-16.0); IMMATURE GRANULOCYTE % 0.3 % (0-3.0); LYMPH # 1.5 10^3/uL (1.5-4.5); LYMPH % 20.6 % (24.0-44.0); MEAN CORPUSCULAR HEMOGLOBIN 28.5 pg (27.0-33.0); MEAN CORPUSCULAR HGB CONC 33.5 g/dl (32.0-36.5); MEAN CORPUSCULAR VOLUME 85.1 fl (80.0-96.0); MONO # 0.8 10^3/uL (0.0-0.8); MONO % 11.1 % (0.0-5.0); NEUTROPHILS # 4.8 10^3/uL (1.8-7.7); NEUTROPHILS % 65.5 % (36.0-66.0); PLATELET COUNT, AUTOMATED 307 10^3/uL (150-450); RED CELL DISTRIBUTION WIDTH 14.3 % (11.5-14.5); WHITE BLOOD COUNT 7.3 10^3/uL (4.0-10.0)
[2017-12-21 14:43] LABS: ALBUMIN/GLOBULIN RATIO 1.18 (1.00-1.93); ALKALINE PHOSPHATASE 76 U/L (45-117); ALT/SGPT 24 U/L (12-78); ANION GAP 10 MEQ/L (8-16); AST/SGOT 14 U/L (7-37); BILIRUBIN,TOTAL 1.2 MG/DL (0.2-1.0); BLOOD UREA NITROGEN 23 MG/DL (7-18); CALCIUM LEVEL 9.4 MG/DL (8.8-10.2); CARBON DIOXIDE LEVEL 24 MEQ/L (21-32); CHLORIDE LEVEL 105 MEQ/L (98-107); CREATININE FOR GFR 0.89 MG/DL (0.55-1.30); GLOMERULAR FILTRATION RATE > 60.0 (>32); GLUCOSE, FASTING 107 MG/DL (70-100); POTASSIUM SERUM 4.1 MEQ/L (3.5-5.1); SODIUM LEVEL 139 MEQ/L (136-145); TOTAL PROTEIN 7.4 GM/DL (6.4-8.2)
== END ==
DX: R53.83 Other fatigue (principal)
CPT/HCPCS: 80053

== ENCOUNTER → 2017-12-22 | Outpatient (REF) | payer MEDICARE, BC, OTHER | DX: M25.552 Pain in left hip (principal); M25.562 Pain in left knee; W19.XXXA Unspecified fall, initial encounter; Z96.642 Presence of left artificial hip joint | CPT/HCPCS: 73564 ==

== ENCOUNTER → 2018-02-01 | Outpatient (REF) | payer MEDICARE, OTHER ==
[2018-02-01 09:48] LABS: ANION GAP 7 MEQ/L (8-16); BLOOD UREA NITROGEN 16 MG/DL (7-18); CALCIUM LEVEL 8.9 MG/DL (8.8-10.2); CARBON DIOXIDE LEVEL 27 MEQ/L (21-32); CHLORIDE LEVEL 107 MEQ/L (98-107); CREATININE FOR GFR 0.82 MG/DL (0.55-1.30); GLOMERULAR FILTRATION RATE > 60.0 (>32); GLUCOSE, FASTING 110 MG/DL (70-100); MAGNESIUM LEVEL 1.7 MG/DL (1.8-2.4); SODIUM LEVEL 141 MEQ/L (136-145)
== END ==
DX: E78.5 Hyperlipidemia, unspecified (principal); I10 Essential (primary) hypertension; E87.6 Hypokalemia
CPT/HCPCS: 83735

== ENCOUNTER → 2018-03-08 | Outpatient (REF) | payer MEDICARE, OTHER ==
[2018-03-08 10:18] LABS: ANION GAP 10 MEQ/L (8-16); BLOOD UREA NITROGEN 18 MG/DL (7-18); CALCIUM LEVEL 8.8 MG/DL (8.8-10.2); CARBON DIOXIDE LEVEL 23 MEQ/L (21-32); CHLORIDE LEVEL 107 MEQ/L (98-107); CREATININE FOR GFR 0.77 MG/DL (0.55-1.30); GLOMERULAR FILTRATION RATE > 60.0 (>32); GLUCOSE, FASTING 148 MG/DL (70-100); MAGNESIUM LEVEL 1.9 MG/DL (1.8-2.4); SODIUM LEVEL 140 MEQ/L (136-145)
== END ==
DX: Z51.81 Encounter for therapeutic drug level monitoring (principal); Z79.899 Other long term (current) drug therapy
CPT/HCPCS: 83735

== ENCOUNTER → 2018-04-05 | Outpatient (REF) | payer MEDICARE, OTHER ==
[2018-04-05 10:41] LABS: ANION GAP 8 MEQ/L (8-16); BLOOD UREA NITROGEN 20 MG/DL (7-18); CARBON DIOXIDE LEVEL 28 MEQ/L (21-32); CHLORIDE LEVEL 106 MEQ/L (98-107); CREATININE FOR GFR 0.94 MG/DL (0.55-1.30); GLOMERULAR FILTRATION RATE > 60.0 (>32); GLUCOSE, FASTING 136 MG/DL (70-100); MAGNESIUM LEVEL 1.9 MG/DL (1.8-2.4); POTASSIUM SERUM 3.9 MEQ/L (3.5-5.1); SODIUM LEVEL 142 MEQ/L (136-145)
== END ==
DX: Z51.81 Encounter for therapeutic drug level monitoring (principal); Z79.899 Other long term (current) drug therapy
CPT/HCPCS: 83735

== ENCOUNTER → 2018-05-13 | Outpatient (REF) | payer MEDICARE, OTHER ==
[2018-05-13 10:45] LABS: ANION GAP 13 MEQ/L (8-16); BLOOD UREA NITROGEN 18 MG/DL (7-18); CALCIUM LEVEL 8.7 MG/DL (8.8-10.2); CARBON DIOXIDE LEVEL 22 MEQ/L (21-32); CHLORIDE LEVEL 108 MEQ/L (98-107); CREATININE FOR GFR 0.72 MG/DL (0.55-1.30); GLOMERULAR FILTRATION RATE > 60.0 (>32); GLUCOSE, FASTING 130 MG/DL (70-100); POTASSIUM SERUM 4.3 MEQ/L (3.5-5.1); SODIUM LEVEL 143 MEQ/L (136-145)
== END ==
DX: E87.6 Hypokalemia (principal)
CPT/HCPCS: 83735

== ENCOUNTER → 2018-06-08 | Outpatient (REF) | payer MEDICARE, OTHER ==
[2018-06-08 10:50] LABS: ANION GAP 9 MEQ/L (8-16); BLOOD UREA NITROGEN 18 MG/DL (7-18); CALCIUM LEVEL 8.9 MG/DL (8.8-10.2); CARBON DIOXIDE LEVEL 27 MEQ/L (21-32); CHLORIDE LEVEL 106 MEQ/L (98-107); CREATININE FOR GFR 0.76 MG/DL (0.55-1.30); GLOMERULAR FILTRATION RATE > 60.0 (>32); GLUCOSE, FASTING 97 MG/DL (70-100); POTASSIUM SERUM 4.2 MEQ/L (3.5-5.1); SODIUM LEVEL 142 MEQ/L (136-145)
== END ==
DX: Z79.01 Long term (current) use of anticoagulants (principal)
CPT/HCPCS: 83735

== ENCOUNTER → 2018-07-05 | Outpatient (REF) | payer MEDICARE, OTHER ==
[2018-07-05 11:06] LABS: ANION GAP 10 MEQ/L (8-16); BLOOD UREA NITROGEN 18 MG/DL (7-18); CALCIUM LEVEL 8.5 MG/DL (8.8-10.2); CARBON DIOXIDE LEVEL 26 MEQ/L (21-32); CHLORIDE LEVEL 105 MEQ/L (98-107); CREATININE FOR GFR 0.87 MG/DL (0.55-1.30); GLOMERULAR FILTRATION RATE > 60.0 (>32); GLUCOSE, FASTING 136 MG/DL (70-100); MAGNESIUM LEVEL 1.9 MG/DL (1.8-2.4); SODIUM LEVEL 141 MEQ/L (136-145)
== END ==
DX: E83.42 Hypomagnesemia (principal)
CPT/HCPCS: 83735

== ENCOUNTER → 2018-08-09 | Outpatient (REF) | payer MEDICARE, OTHER ==
[2018-08-09 12:29] LABS: ANION GAP 12 MEQ/L (8-16); BLOOD UREA NITROGEN 17 MG/DL (7-18); CALCIUM LEVEL 8.7 MG/DL (8.8-10.2); CARBON DIOXIDE LEVEL 24 MEQ/L (21-32); CHLORIDE LEVEL 104 MEQ/L (98-107); CREATININE FOR GFR 0.92 MG/DL (0.55-1.30); GLOMERULAR FILTRATION RATE > 60.0 (>32); GLUCOSE, FASTING 137 MG/DL (70-100); POTASSIUM SERUM 4.1 MEQ/L (3.5-5.1); SODIUM LEVEL 140 MEQ/L (136-145)
== END ==
DX: Z79.899 Other long term (current) drug therapy (principal)
CPT/HCPCS: 83735

== ENCOUNTER → 2018-09-06 | Outpatient (REF) | payer MEDICARE, OTHER ==
[2018-09-06 10:27] LABS: ANION GAP 10 MEQ/L (8-16); BLOOD UREA NITROGEN 19 MG/DL (7-18); CARBON DIOXIDE LEVEL 26 MEQ/L (21-32); CHLORIDE LEVEL 105 MEQ/L (98-107); CREATININE FOR GFR 0.82 MG/DL (0.55-1.30); GLOMERULAR FILTRATION RATE > 60.0 (>32); GLUCOSE, FASTING 146 MG/DL (70-100); POTASSIUM SERUM 3.9 MEQ/L (3.5-5.1); SODIUM LEVEL 141 MEQ/L (136-145)
== END ==
DX: I47.2 Ventricular tachycardia (principal)
CPT/HCPCS: 80048

== ENCOUNTER → 2018-10-04 | Outpatient (REF) ==
[~2018-10-04] MED LIST changes: +ALDA25TA2 PO; +AMLO10TA5 PO; +ASPI81CH PO; +ASPI81CH32 PO; +BISA10SU27 PR; +CALC600T57 PO; +COLA100C5 PO; +ENEMENE PR; +FISH100049 PO; +GLUC1CAP9 PO; +KLOR10TA76 PO; +MACR100C42 PO; +MAGN64TASA PO; +MAPA650T PO; +MECL12.575 PO; +METF500T4 PO; +MILK120011 PO; +NATU400T PO; +NYAM10003 TOP; +NYST50SS SS; -POTA10CA PO; +PRAV10TA4 PO; +PRESCAP PO; +oxygen
[2018-10-04 10:24] LABS: BLOOD UREA NITROGEN 20 MG/DL (7-18); CALCIUM LEVEL 8.4 MG/DL (8.8-10.2); CARBON DIOXIDE LEVEL 24 MEQ/L (21-32); CHLORIDE LEVEL 106 MEQ/L (98-107); CREATININE FOR GFR 0.75 MG/DL (0.55-1.30); GLOMERULAR FILTRATION RATE > 60.0 (>32); GLUCOSE, FASTING 143 MG/DL (70-100); MAGNESIUM LEVEL 1.8 MG/DL (1.8-2.4); POTASSIUM SERUM 3.9 MEQ/L (3.5-5.1); SODIUM LEVEL 141 MEQ/L (136-145)
== END ==
PROVIDERS: ATTEND Family Medicine
DX: Z79.01 Long term (current) use of anticoagulants (principal)

== ENCOUNTER → 2018-10-25 | Outpatient (REF) ==
[2018-10-25 09:32] LABS: BLOOD UREA NITROGEN 18 MG/DL (7-18); CALCIUM LEVEL 8.5 MG/DL (8.8-10.2); CARBON DIOXIDE LEVEL 25 MEQ/L (21-32); CHLORIDE LEVEL 107 MEQ/L (98-107); CREATININE FOR GFR 0.72 MG/DL (0.55-1.30); GLOMERULAR FILTRATION RATE > 60.0 (>32); GLUCOSE, FASTING 104 MG/DL (70-100); MAGNESIUM LEVEL 1.7 MG/DL (1.8-2.4); POTASSIUM SERUM 4.1 MEQ/L (3.5-5.1); SODIUM LEVEL 141 MEQ/L (136-145)
== END ==
PROVIDERS: ATTEND Family Medicine
DX: Z79.899 Other long term (current) drug therapy (principal)

== ENCOUNTER → 2018-12-07 | Outpatient (REF) ==
[2018-12-07 10:20] LABS: ALBUMIN 3.5 GM/DL (3.2-5.2); ALT/SGPT 21 U/L (12-78); BILIRUBIN,TOTAL 0.7 MG/DL (0.2-1.0); BLOOD UREA NITROGEN 20 MG/DL (7-18); CALCIUM LEVEL 8.5 MG/DL (8.8-10.2); CARBON DIOXIDE LEVEL 25 MEQ/L (21-32); CHLORIDE LEVEL 108 MEQ/L (98-107); CHOLESTEROL LEVEL 158 MG/DL (<200); CREATININE FOR GFR 0.73 MG/DL (0.55-1.30); GLOMERULAR FILTRATION RATE > 60.0 (>32); GLUCOSE, FASTING 107 MG/DL (70-100); HDL CHOLESTEROL 50 MG/DL (>40); LDL CHOLESTEROL 75 MG/DL (<100); NON-HDL-C 108 MG/DL; POTASSIUM SERUM 4.1 MEQ/L (3.5-5.1); SODIUM LEVEL 141 MEQ/L (136-145); TOTAL PROTEIN 6.4 GM/DL (6.4-8.2); TRIGLYCERIDES LEVEL 167 MG/DL (<150)
[2018-12-07 10:24] LABS: TOTAL 25(OH) VITAMIN D 23.9 NG/ML (30.0-100.0)
== END ==
PROVIDERS: ATTEND Family Medicine
DX: E78.5 Hyperlipidemia, unspecified (principal)

== ENCOUNTER → 2019-03-07 | Outpatient (REF) ==
[~2019-03-07] MED LIST changes: -ASPI81CH PO; -ASPI81CH32 PO; +ASPI81CH33 PO; +ASPI81CH49 PO; -SENN1TAB2 PO; +SENN1TAB40 PO
[2019-03-07 10:03] LABS: ALBUMIN 3.7 GM/DL (3.2-5.2); ALT/SGPT 22 U/L (12-78); BILIRUBIN,TOTAL 0.8 MG/DL (0.2-1.0); BLOOD UREA NITROGEN 19 MG/DL (7-18); CALCIUM LEVEL 9.1 MG/DL (8.8-10.2); CARBON DIOXIDE LEVEL 25 MEQ/L (21-32); CHLORIDE LEVEL 107 MEQ/L (98-107); GLOMERULAR FILTRATION RATE > 60.0 (>32); GLUCOSE, FASTING 145 MG/DL (70-100); MAGNESIUM LEVEL 1.8 MG/DL (1.8-2.4); SODIUM LEVEL 142 MEQ/L (136-145); TOTAL PROTEIN 6.5 GM/DL (6.4-8.2)
== END ==
PROVIDERS: ATTEND Family Medicine
DX: I81 Portal vein thrombosis (principal)

== ENCOUNTER → 2019-03-27 | Outpatient (CLI) | payer MEDICARE, BC, OTHER, MEDICAID ==
--- NOTE | 2019-03-27 14:13 | REP ---
ULTRASOUND LEFT ARM SOFT TISSUES: Real-time sonographic evaluation of the left arm soft tissues performed at the site of a palpable lump. In the mid upper arm posterolaterally at the site of the palpable lump, there is a lobulated mass versus adjacent masses. They are solid and isoechoic to adjacent soft tissues. The three components measure 5.7 x 2.3 x 5.1 and 4.9 x 1.7 x 2.0 cm and 2.1 x 1.5 x 2.0 cm. IMPRESSION: Lobulated soft tissue mass versus three adjacent contiguous masses in the left upper arm soft tissues. Recommend MRI for more specific evaluation, to evaluate for the possibility that this represents lipoma versus sarcoma. Electronically Signed by Eulalio Valenzuela MD 03/27/2019 03:08 P
== END ==
LOC: M RAD 13:16
PROVIDERS: ATTEND Physician Assistant
DX: R22.32 Localized swelling, mass and lump, left upper limb (principal)

== ENCOUNTER → 2019-04-04 | Outpatient (CLI) | payer MEDICARE, BC, OTHER, MEDICAID ==
--- NOTE | 2019-04-04 17:58 | REP ---
CT LEFT SHOULDER WITHOUT CONTRAST: Axial CT left shoulder performed with sagittal and coronal reconstruction images and correlated with prior ultrasound of 03/27/2019, which showed soft tissue masses of the upper left arm. Correlation is also made with prior plain films of the let shoulder 09/23/2016. Superiorly, posterior to the distal end of the left clavicle there is a partially calcified oval mass which measures approximately 3.7 cm in diameter with lobulated margins. Inferior to this, anterior to the bony glenoid, there is an oval partially calcified soft tissue nodule which is also oval in shape measuring 2.8 cm in maximum diameter. Another adjacent more lateral similar appearing nodule measures 2.5 cm in diameter. There are approximately four other smaller nodules just inferior to this, one of which is partially calcified. There is a heavily calcified nodule anterior to the neck of the humerus measuring 2 cm in maximum diameter. These are all consistent with partially calcified and calcified periarticular chondroid nodules. There are severe arthritic changes at the glenohumeral joint with severe joint space narrowing and associated subchondral sclerosis and spurring. There is moderate degenerative change at the acromioclavicular joint. There is severe narrowing of the space between the humeral head and acromion consistent with a rotator cuff tear. No other definite soft tissue abnormalities are seen. IMPRESSION: In the periarticular soft tissues of the left shoulder, multiple calcific and partially calcified nodules are seen which are probably chondroid in etiology and are most consistent with benign periarticular bodies. These were noted on plain films in 2016. 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 There is also evidence of rotator cuff tear. Electronically Signed by Eulalio Valenzuela MD 04/07/2019 10:04 A
== END ==
LOC: M RAD 09:12
PROVIDERS: ATTEND Physician Assistant
DX: R22.32 Localized swelling, mass and lump, left upper limb (principal)

== ENCOUNTER → 2019-05-11 | Outpatient (REF) | payer MEDICARE, OTHER, MEDICAID ==
[~2019-05-11] MED LIST changes: +METF-791 PO; -METF500T4 PO
== END ==
LOC: M SFHCPLAZ 18:32
PROVIDERS: ATTEND Dermatology
DX: C44.321 Squamous cell carcinoma of skin of nose (principal)
CPT/HCPCS: 11102; 88305; G0463

== ENCOUNTER → 2019-06-06 | Outpatient (REF) | payer MEDICARE, OTHER, MEDICAID ==
[2019-06-06 19:27] LABS: ALBUMIN 3.7 GM/DL (3.2-5.2); ALT/SGPT 22 U/L (12-78); BILIRUBIN,TOTAL 0.6 MG/DL (0.2-1.0); BLOOD UREA NITROGEN 21 MG/DL (7-18); CALCIUM LEVEL 8.9 MG/DL (8.8-10.2); CARBON DIOXIDE LEVEL 24 MEQ/L (21-32); CHLORIDE LEVEL 105 MEQ/L (98-107); CREATININE FOR GFR 0.77 MG/DL (0.55-1.30); GLOMERULAR FILTRATION RATE > 60.0 (>32); GLUCOSE, FASTING 130 MG/DL (70-100); POTASSIUM SERUM 4.3 MEQ/L (3.5-5.1); SODIUM LEVEL 140 MEQ/L (136-145); TOTAL PROTEIN 6.7 GM/DL (6.4-8.2)
== END ==
PROVIDERS: ATTEND Family Medicine
DX: E83.42 Hypomagnesemia (principal)

== ENCOUNTER → 2019-06-27 | Outpatient (REF) | payer MEDICARE, OTHER, MEDICAID ==
[~2019-06-27] MED LIST changes: +SENN-53 PO; -SENN1TAB40 PO
== END ==
LOC: M SFHCPLAZ 09:47
PROVIDERS: ATTEND Dermatology
DX: L72.0 Epidermal cyst (principal)

== ENCOUNTER → 2019-08-08 | Outpatient (REF) | payer MEDICARE, OTHER, MEDICAID ==
[2019-08-08 10:24] LABS: BLOOD UREA NITROGEN 19 MG/DL (7-18); CARBON DIOXIDE LEVEL 25 MEQ/L (21-32); CHLORIDE LEVEL 106 MEQ/L (98-107); CREATININE FOR GFR 0.89 MG/DL (0.55-1.30); GLOMERULAR FILTRATION RATE > 60.0 (>32); GLUCOSE, FASTING 198 MG/DL (70-100); POTASSIUM SERUM 3.9 MEQ/L (3.5-5.1); SODIUM LEVEL 141 MEQ/L (136-145)
[2019-08-08 10:53] LABS: HEMOGLOBIN A1c 6.3 %
== END ==
PROVIDERS: ATTEND Family Medicine
DX: E11.9 Type 2 diabetes mellitus without complications (principal)

== ENCOUNTER → 2019-09-05 | Outpatient (REF) | payer MEDICARE, OTHER, MEDICAID ==
[2019-09-05 12:24] LABS: ALBUMIN 3.7 GM/DL (3.2-5.2); ALT/SGPT 35 U/L (12-78); BILIRUBIN,TOTAL 0.8 MG/DL (0.2-1.0); BLOOD UREA NITROGEN 14 MG/DL (7-18); CALCIUM LEVEL 8.5 MG/DL (8.8-10.2); CARBON DIOXIDE LEVEL 25 MEQ/L (21-32); CHLORIDE LEVEL 106 MEQ/L (98-107); CREATININE FOR GFR 0.84 MG/DL (0.55-1.30); GLOMERULAR FILTRATION RATE > 60.0 (>32); GLUCOSE, FASTING 169 MG/DL (70-100); MAGNESIUM LEVEL 1.9 MG/DL (1.8-2.4); POTASSIUM SERUM 3.9 MEQ/L (3.5-5.1); SODIUM LEVEL 141 MEQ/L (136-145); TOTAL PROTEIN 6.8 GM/DL (6.4-8.2)
== END ==
PROVIDERS: ATTEND Family Medicine
DX: I47.2 Ventricular tachycardia (principal)

== ENCOUNTER → 2019-09-12 | Outpatient (REF) | payer MEDICARE, OTHER, MEDICAID ==
[2019-09-12 10:48] LABS: ALBUMIN 3.3 GM/DL (3.2-5.2); ALT/SGPT 27 U/L (12-78); BILIRUBIN,TOTAL 0.6 MG/DL (0.2-1.0); BLOOD UREA NITROGEN 22 MG/DL (7-18); CALCIUM LEVEL 8.8 MG/DL (8.8-10.2); CARBON DIOXIDE LEVEL 28 MEQ/L (21-32); CHLORIDE LEVEL 108 MEQ/L (98-107); CREATININE FOR GFR 0.93 MG/DL (0.55-1.30); GLOMERULAR FILTRATION RATE > 60.0 (>32); GLUCOSE, FASTING 118 MG/DL (70-100); MAGNESIUM LEVEL 1.9 MG/DL (1.8-2.4); POTASSIUM SERUM 4.1 MEQ/L (3.5-5.1); SODIUM LEVEL 143 MEQ/L (136-145); TOTAL PROTEIN 6.1 GM/DL (6.4-8.2)
== END ==
PROVIDERS: ATTEND Family Medicine
DX: Z79.899 Other long term (current) drug therapy (principal)

== ENCOUNTER → 2019-12-06 | Outpatient (REF) | payer MEDICARE, OTHER, MEDICAID ==
[~2019-12-06] MED LIST changes: -MECL12.575 PO; +MECL12.589 PO
[2019-12-06 13:15] LABS: ALBUMIN 3.6 GM/DL (3.2-5.2); ALT/SGPT 33 U/L (12-78); BILIRUBIN,TOTAL 0.7 MG/DL (0.2-1.0); BLOOD UREA NITROGEN 20 MG/DL (7-18); CALCIUM LEVEL 9.2 MG/DL (8.8-10.2); CARBON DIOXIDE LEVEL 26 MEQ/L (21-32); CHLORIDE LEVEL 105 MEQ/L (98-107); CHOLESTEROL LEVEL 163 MG/DL (<200); CREATININE FOR GFR 0.89 MG/DL (0.55-1.30); GLOMERULAR FILTRATION RATE > 60.0 (>32); GLUCOSE, FASTING 176 MG/DL (70-100); HDL CHOLESTEROL 43 MG/DL (>40); LDL CHOLESTEROL 75 MG/DL (<100); NON-HDL-C 120 MG/DL; POTASSIUM SERUM 4.2 MEQ/L (3.5-5.1); SODIUM LEVEL 139 MEQ/L (136-145); TOTAL PROTEIN 6.6 GM/DL (6.4-8.2); TRIGLYCERIDES LEVEL 223 MG/DL (<150)
[2019-12-06 13:21] LABS: TOTAL 25(OH) VITAMIN D 21.3 NG/ML (30.0-100.0)
== END ==
PROVIDERS: ATTEND Family Medicine
DX: E78.5 Hyperlipidemia, unspecified (principal); Z79.899 Other long term (current) drug therapy

== ENCOUNTER → 2020-02-06 | Outpatient (REF) | payer MEDICARE, OTHER, MEDICAID ==
[~2020-02-06] MED LIST changes: -METF-791 PO; +METF-838 PO
== END ==
PROVIDERS: ATTEND Family Medicine
DX: E55.9 Vitamin D deficiency, unspecified (principal); Z79.899 Other long term (current) drug therapy

== ENCOUNTER → 2020-02-13 | Outpatient (REF) ==
[~2020-02-13] MED LIST changes: -AMLO10TA5 PO; +AMLO1TAB25 PO; -MECL12.589 PO; +MECL12.590 PO
== END ==
PROVIDERS: ATTEND Internal Medicine
DX: Z03.818 Encounter for observation for suspected exposure to other biological agents ruled out (principal)

== ENCOUNTER → 2020-02-13 | Outpatient (REF) | payer MEDICARE, MEDICAID, OTHER ==
[~2020-02-13] MED LIST changes: +AMLO10TA5 PO; -AMLO1TAB25 PO; +MECL12.589 PO; -MECL12.590 PO
== END ==
LOC: M LAB REF 17:13
PROVIDERS: ATTEND Dermatology
DX: C44.612 Basal cell carcinoma of skin of right upper limb, including shoulder (principal)

== ENCOUNTER → 2020-03-04 | Outpatient (REF) | payer MEDICARE, OTHER ==
[2020-03-04 10:39] LABS: ALBUMIN 3.6 GM/DL (3.2-5.2); ALT/SGPT 34 U/L (12-78); BILIRUBIN,TOTAL 0.9 MG/DL (0.2-1.0); BLOOD UREA NITROGEN 14 MG/DL (7-18); CALCIUM LEVEL 8.7 MG/DL (8.8-10.2); CARBON DIOXIDE LEVEL 25 MEQ/L (21-32); CHLORIDE LEVEL 106 MEQ/L (98-107); CREATININE FOR GFR 0.86 MG/DL (0.55-1.30); GLOMERULAR FILTRATION RATE > 60.0 (>32); GLUCOSE, FASTING 136 MG/DL (70-100); MAGNESIUM LEVEL 1.9 MG/DL (1.8-2.4); POTASSIUM SERUM 4.1 MEQ/L (3.5-5.1); SODIUM LEVEL 141 MEQ/L (136-145); TOTAL PROTEIN 6.8 GM/DL (6.4-8.2)
== END ==
PROVIDERS: ATTEND Family Medicine
DX: Z79.899 Other long term (current) drug therapy (principal)

== ENCOUNTER → 2020-04-09 | Outpatient (REF) | payer MEDICARE, OTHER | PROVIDERS: ATTEND Internal Medicine | DX: E55.9 Vitamin D deficiency, unspecified (principal); Z79.899 Other long term (current) drug therapy ==

== ENCOUNTER → 2020-06-10 | Outpatient (REF) | payer MEDICARE, OTHER ==
[~2020-06-10] MED LIST changes: -AMLO10TA5 PO; +AMLO1TAB25 PO
[2020-06-10 11:40] LABS: ALBUMIN 3.4 GM/DL (3.2-5.2); ALT/SGPT 26 U/L (12-78); BILIRUBIN,TOTAL 0.9 MG/DL (0.2-1.0); BLOOD UREA NITROGEN 15 MG/DL (7-18); CARBON DIOXIDE LEVEL 28 MEQ/L (21-32); CHLORIDE LEVEL 104 MEQ/L (98-107); CREATININE FOR GFR 0.85 MG/DL (0.55-1.30); GLOMERULAR FILTRATION RATE > 60.0 (>32); GLUCOSE, FASTING 180 MG/DL (70-100); MAGNESIUM LEVEL 1.8 MG/DL (1.8-2.4); POTASSIUM SERUM 4.2 MEQ/L (3.5-5.1); SODIUM LEVEL 138 MEQ/L (136-145); TOTAL PROTEIN 6.5 GM/DL (6.4-8.2)
== END ==
PROVIDERS: ATTEND Family Medicine
DX: I47.2 Ventricular tachycardia (principal)

== ENCOUNTER → 2020-07-20 | Outpatient (REF) | payer BC, MEDICARE, OTHER | PROVIDERS: ATTEND Nurse Practitioner Acute Care | DX: R19.7 Diarrhea, unspecified (principal) ==

== ENCOUNTER → 2020-07-20 | Outpatient (REF) ==
[2020-07-20 21:06] LABS: ALBUMIN 3.7 GM/DL (3.2-5.2); BILIRUBIN,TOTAL 1.5 MG/DL (0.2-1.0); CALCIUM LEVEL 9.5 MG/DL (8.8-10.2); CREATININE FOR GFR 1.08 MG/DL (0.55-1.30); GLOMERULAR FILTRATION RATE 51.5 (>32); TOTAL PROTEIN 7.2 GM/DL (6.4-8.2)
[2020-07-20 21:11] LABS: BASO # 0.1 10^3/uL (0.0-0.2); BASO % 0.3 % (0.0-1.0); HEMATOCRIT 46.4 % (36.0-47.0); HEMOGLOBIN 14.7 g/dl (12.0-15.5); LYMPH # 0.7 10^3/uL (1.5-5.0); MEAN CORPUSCULAR HEMOGLOBIN 28.2 pg (27.0-33.0); MEAN CORPUSCULAR HGB CONC 31.7 g/dl (32.0-36.5); MEAN CORPUSCULAR VOLUME 88.9 fl (80.0-96.0); MONO # 1.4 10^3/uL (0.0-0.8); MONO % 6.2 % (0.0-5.0); NEUTROPHILS # 19.8 10^3/uL (1.5-8.5); NEUTROPHILS % 89.5 % (36.0-66.0); PLATELET COUNT, AUTOMATED 283 10^3/uL (150-450); RED BLOOD COUNT 5.22 10^6/uL (4.00-5.40); WHITE BLOOD COUNT 22.1 10^3/uL (4.0-10.0)
== END ==
PROVIDERS: ATTEND Family Medicine
DX: R19.7 Diarrhea, unspecified (principal)

== ENCOUNTER → 2020-07-20 | Outpatient (REF) | payer MEDICARE | PROVIDERS: ATTEND Nurse Practitioner Gerontology | DX: R19.7 Diarrhea, unspecified (principal) ==

== ENCOUNTER → 2020-07-21 | Outpatient (REF) | payer MEDICARE | PROVIDERS: ATTEND Nurse Practitioner Gerontology | DX: D72.829 Elevated white blood cell count, unspecified (principal) ==

== ENCOUNTER → 2020-07-21 | Outpatient (REF) | payer MEDICARE ==
[2020-07-21 10:36] LABS: HEMATOCRIT 41.6 % (36.0-47.0); HEMOGLOBIN 13.2 g/dl (12.0-15.5); MEAN CORPUSCULAR HEMOGLOBIN 28.6 pg (27.0-33.0); MEAN CORPUSCULAR HGB CONC 31.7 g/dl (32.0-36.5); PLATELET COUNT, AUTOMATED 229 10^3/uL (150-450); RED BLOOD COUNT 4.62 10^6/uL (4.00-5.40); WHITE BLOOD COUNT 13.8 10^3/uL (4.0-10.0)
== END ==
PROVIDERS: ATTEND Nurse Practitioner Gerontology
DX: R19.7 Diarrhea, unspecified (principal)

== ENCOUNTER → 2020-07-22 | Outpatient (REF) | payer MEDICARE ==
[2020-07-22 14:15] LABS: HEMATOCRIT 40.6 % (36.0-47.0); HEMOGLOBIN 12.9 g/dl (12.0-15.5); MEAN CORPUSCULAR HEMOGLOBIN 28.4 pg (27.0-33.0); MEAN CORPUSCULAR HGB CONC 31.8 g/dl (32.0-36.5); MEAN CORPUSCULAR VOLUME 89.4 fl (80.0-96.0); PLATELET COUNT, AUTOMATED 224 10^3/uL (150-450); RED BLOOD COUNT 4.54 10^6/uL (4.00-5.40); WHITE BLOOD COUNT 7.3 10^3/uL (4.0-10.0)
[2020-07-22 14:52] LABS: CALCIUM LEVEL 8.7 MG/DL (8.8-10.2); CREATININE FOR GFR 0.98 MG/DL (0.55-1.30); GLOMERULAR FILTRATION RATE 57.6 (>32)
== END ==
PROVIDERS: ATTEND Nurse Practitioner Adult Health
DX: N39.0 Urinary tract infection, site not specified (principal)

== ENCOUNTER → 2020-07-22 | Outpatient (REF) | payer MEDICARE ==
[2020-07-22 13:19] LABS: BLOOD UREA NITROGEN 19 MG/DL (7-18); CALCIUM LEVEL 8.4 MG/DL (8.8-10.2); CARBON DIOXIDE LEVEL 26 MEQ/L (21-32); CHLORIDE LEVEL 102 MEQ/L (98-107); CREATININE FOR GFR 0.92 MG/DL (0.55-1.30); GLOMERULAR FILTRATION RATE > 60.0 (>32); GLUCOSE, FASTING 178 MG/DL (70-100); POTASSIUM SERUM 4.3 MEQ/L (3.5-5.1); SODIUM LEVEL 137 MEQ/L (136-145)
== END ==
PROVIDERS: ATTEND Internal Medicine
DX: N39.0 Urinary tract infection, site not specified (principal)

== ENCOUNTER → 2020-08-05 | Outpatient (REF) | payer MEDICARE ==
[2020-08-05 11:13] LABS: HEMATOCRIT 46.5 % (36.0-47.0); HEMOGLOBIN 14.9 g/dl (12.0-15.5); MEAN CORPUSCULAR HEMOGLOBIN 28.9 pg (27.0-33.0); MEAN CORPUSCULAR VOLUME 90.1 fl (80.0-96.0); PLATELET COUNT, AUTOMATED 308 10^3/uL (150-450); RED BLOOD COUNT 5.16 10^6/uL (4.00-5.40)
[2020-08-05 11:34] LABS: BILIRUBIN,TOTAL 1.1 MG/DL (0.2-1.0); CALCIUM LEVEL 9.6 MG/DL (8.8-10.2); CREATININE FOR GFR 0.96 MG/DL (0.55-1.30); GLOMERULAR FILTRATION RATE 58.9 (>32); POTASSIUM SERUM 4.2 MEQ/L (3.5-5.1); TOTAL PROTEIN 7.4 GM/DL (6.4-8.2)
== END ==
PROVIDERS: ATTEND Internal Medicine
DX: R53.1 Weakness (principal)

== ENCOUNTER → 2020-08-08 | Outpatient (REF) | PROVIDERS: ATTEND Internal Medicine | DX: Z20.828 Contact with and (suspected) exposure to other viral communicable diseases (principal) ==

== ENCOUNTER → 2020-08-13 | Outpatient (REF) | payer MEDICARE ==
[2020-08-13 12:50] LABS: BLOOD UREA NITROGEN 13 MG/DL (7-18); CALCIUM LEVEL 8.7 MG/DL (8.8-10.2); CARBON DIOXIDE LEVEL 26 MEQ/L (21-32); CHLORIDE LEVEL 105 MEQ/L (98-107); CREATININE FOR GFR 0.87 MG/DL (0.55-1.30); GLOMERULAR FILTRATION RATE > 60.0 (>32); GLUCOSE, FASTING 192 MG/DL (70-100); POTASSIUM SERUM 3.9 MEQ/L (3.5-5.1); SODIUM LEVEL 138 MEQ/L (136-145)
== END ==
PROVIDERS: ATTEND Nurse Practitioner Adult Health
DX: F32.9 Major depressive disorder, single episode, unspecified (principal)

== ENCOUNTER → 2020-08-15 | Outpatient (REF) | payer MEDICARE, BC, OTHER, MEDICAID ==
[~2020-08-15] MED LIST changes: -MECL12.589 PO; +MECL12.590 PO
== END ==
LOC: EDSTATUS 09-24 08:35
PROVIDERS: ATTEND Internal Medicine
DX: Z20.828 Contact with and (suspected) exposure to other viral communicable diseases (principal)

== ENCOUNTER → 2020-08-21 | Outpatient (REF) | payer MEDICARE, OTHER | PROVIDERS: ATTEND Internal Medicine | DX: Z20.828 Contact with and (suspected) exposure to other viral communicable diseases (principal) ==

== ENCOUNTER → 2020-08-29 | Outpatient (REF) | payer MEDICARE, OTHER | LOC: M LAB REF 17:29 | PROVIDERS: ATTEND Dermatology | DX: L57.0 Actinic keratosis (principal) ==

== ENCOUNTER → 2020-09-03 | Outpatient (REF) | payer MEDICARE, OTHER ==
[2020-09-03 11:48] LABS: ALBUMIN 3.8 GM/DL (3.2-5.2); BILIRUBIN,TOTAL 0.9 MG/DL (0.2-1.0); CALCIUM LEVEL 9.6 MG/DL (8.8-10.2); CREATININE FOR GFR 1.11 MG/DL (0.55-1.30); GLOMERULAR FILTRATION RATE 49.9 (>32); MAGNESIUM LEVEL 1.9 MG/DL (1.8-2.4); POTASSIUM SERUM 4.2 MEQ/L (3.5-5.1); TOTAL PROTEIN 7.2 GM/DL (6.4-8.2)
== END ==
PROVIDERS: ATTEND Internal Medicine
DX: I73.9 Peripheral vascular disease, unspecified (principal)

== ENCOUNTER → 2020-09-08 | Outpatient (REF) | payer MEDICARE, OTHER | PROVIDERS: ATTEND Internal Medicine | DX: Z20.828 Contact with and (suspected) exposure to other viral communicable diseases (principal) ==

== ENCOUNTER → 2020-09-12 | Outpatient (REF) | payer MEDICARE, OTHER | PROVIDERS: ATTEND Internal Medicine | DX: Z20.828 Contact with and (suspected) exposure to other viral communicable diseases (principal) ==

== ENCOUNTER → 2020-09-18 | Outpatient (REF) | payer MEDICARE, OTHER | PROVIDERS: ATTEND Internal Medicine | DX: Z20.828 Contact with and (suspected) exposure to other viral communicable diseases (principal) ==

== ENCOUNTER → 2020-09-23 | Outpatient (REF) | payer MEDICARE, OTHER ==
[2020-09-23 14:03] LABS: RSV AMPLIFICATION NEGATIVE (NEGATIVE)
== END ==
PROVIDERS: ATTEND Internal Medicine
DX: Z20.828 Contact with and (suspected) exposure to other viral communicable diseases (principal)

== ENCOUNTER → 2020-09-30 | Outpatient (REF) | payer MEDICARE, OTHER | PROVIDERS: ATTEND Internal Medicine | DX: Z20.822 Contact with and (suspected) exposure to COVID-19 (principal) ==

== ENCOUNTER → 2020-10-04 | Outpatient (REF) | payer MEDICARE, OTHER | PROVIDERS: ATTEND Internal Medicine | DX: Z20.822 Contact with and (suspected) exposure to COVID-19 (principal) ==

== ENCOUNTER → 2020-10-09 | Outpatient (REF) | payer MEDICARE, OTHER | PROVIDERS: ATTEND Internal Medicine | DX: Z20.822 Contact with and (suspected) exposure to COVID-19 (principal) ==

== ENCOUNTER → 2020-10-16 | Outpatient (REF) | payer MEDICARE, OTHER | PROVIDERS: ATTEND Internal Medicine | DX: Z20.822 Contact with and (suspected) exposure to COVID-19 (principal) ==

== ENCOUNTER → 2020-10-23 | Outpatient (REF) | payer MEDICARE, OTHER | PROVIDERS: ATTEND Internal Medicine | DX: Z20.822 Contact with and (suspected) exposure to COVID-19 (principal) ==

== ENCOUNTER → 2020-10-30 | Outpatient (REF) | payer MEDICARE, OTHER | PROVIDERS: ATTEND Internal Medicine | DX: Z20.822 Contact with and (suspected) exposure to COVID-19 (principal) ==

== ENCOUNTER → 2020-11-06 | Outpatient (REF) | payer MEDICARE, OTHER | PROVIDERS: ATTEND Internal Medicine | DX: Z20.822 Contact with and (suspected) exposure to COVID-19 (principal) ==

== ENCOUNTER → 2020-11-13 | Outpatient (REF) | payer MEDICARE, OTHER ==
[~2020-11-13] MED LIST changes: +ACET-907 PO; +IPRA0.00 INH; +LEXA5TAB13 PO; +MILKSUS3 PO; +REFR0.5D8 OU; +SENN-50 PO; +SIME1CHW5 PO; +SPIR-10 PO; +TRAM37.53 PO; +VITA50005 PO; +VOLT1GEL15 TOP
== END ==
PROVIDERS: ATTEND Internal Medicine
DX: Z20.822 Contact with and (suspected) exposure to COVID-19 (principal)

== ENCOUNTER 2020-11-19 21:14 | Inpatient (IN) | payer MEDICARE, OTHER ==
[~2020-11-19] VITALS: Ht 152.4 cm; Wt 119.3 kg
[~2020-11-19 21:14] MED LIST changes: -ACET-907 PO; -IPRA0.00 INH; -LEXA5TAB13 PO; +MECL-136 PO; -MECL12.590 PO; -MILKSUS3 PO; -REFR0.5D8 OU; -SENN-50 PO; -SIME1CHW5 PO; -SPIR-10 PO; -TRAM37.53 PO; -VITA50005 PO; -VOLT1GEL15 TOP
[2020-11-19 22:48] LABS: INR 1.15
[2020-11-19 22:49] LABS: PARTIAL THROMBOPLASTIN TIME 32.9 SECONDS (24.2-38.5)
[2020-11-19 22:59] LABS: ALBUMIN 3.3 GM/DL (3.2-5.2); BILIRUBIN,DIRECT 0.4 MG/DL (0.0-0.2); BILIRUBIN,TOTAL 1.1 MG/DL (0.2-1.0); C REACTIVE PROTEIN QUANTITATIV 14.2 MG/DL (0.00-0.30); CALCIUM LEVEL 8.7 MG/DL (8.8-10.2); CREATININE FOR GFR 1.05 MG/DL (0.55-1.30); GLOMERULAR FILTRATION RATE 53.2 (>32); POTASSIUM SERUM 3.6 MEQ/L (3.5-5.1); TOTAL PROTEIN 6.7 GM/DL (6.4-8.2)
[2020-11-19] MEDS ORDERED: SENN-50 PO (23:11)
[2020-11-19] MEDS ORDERED: AMLO1TAB25 PO (23:11)
[2020-11-19] MEDS ORDERED: REFR0.5D8 OU (23:11)
[2020-11-19] MEDS ORDERED: SIME1CHW5 PO ×2 (23:11→23:21)
[2020-11-19] MEDS ORDERED: IPRA0.00 INH (23:11)
[2020-11-19] MEDS ORDERED: MAGN64TASA PO (23:11)
[2020-11-19] MEDS ORDERED: SPIR-10 PO (23:11)
[2020-11-19] MEDS ORDERED: LEXA5TAB13 PO (23:11)
[2020-11-19] MEDS ORDERED: TRAM37.53 PO (23:11)
[2020-11-19] MEDS ORDERED: ACET-907 PO (23:21)
[2020-11-19] MEDS ORDERED: VOLT1GEL15 TOP (23:21)
[2020-11-19] MEDS ORDERED: VITA50005 PO (23:21)
[2020-11-19] MEDS ORDERED: MILKSUS3 PO (23:21)
[2020-11-19 23:24] LABS: BASO # 0.1 10^3/uL (0.0-0.2); BASO % 0.3 % (0.0-1.0); HEMATOCRIT 42.7 % (36.0-47.0); HEMOGLOBIN 13.3 g/dl (12.0-15.5); LYMPH % 5.5 % (24.0-44.0); MEAN CORPUSCULAR HEMOGLOBIN 27.9 pg (27.0-33.0); MEAN CORPUSCULAR HGB CONC 31.1 g/dl (32.0-36.5); MEAN CORPUSCULAR VOLUME 89.7 fl (80.0-96.0); MONO # 1.4 10^3/uL (0.0-0.8); MONO % 7.5 % (2.0-8.0); NEUTROPHILS # 16.1 10^3/uL (1.5-8.5); NEUTROPHILS % 85.8 % (36.0-66.0); PLATELET COUNT, AUTOMATED 247 10^3/uL (150-450); RED BLOOD COUNT 4.76 10^6/uL (4.00-5.40); WHITE BLOOD COUNT 18.8 10^3/uL (4.0-10.0)
--- NOTE | 2020-11-19 23:35 | REPVR ---
PROCEDURE INFORMATION: Exam: US Duplex Left Lower Extremity Veins, Limited Exam date and time: 11/19/2020 11:21 PM Age: 85 years old Clinical indication: Edema, localized; Lower extremity, left; Additional info: Lle, swelling, pain TECHNIQUE: Imaging protocol: Real-time Duplex ultrasound of the Left Lower Extremity with 2-D coronel scale, color Doppler flow and spectral waveform analysis with image documentation. Limited exam focused on the left lower extremity veins. COMPARISON: US Duplex, Ext LOWER veins, bilat BILATERAL 07/26/2017 9:04 AM FINDINGS: Left deep veins: Unremarkable. The common femoral, femoral, proximal profunda femoral and popliteal veins are patent without thrombus. Normal Doppler waveforms. Normal compressibility and/or augmentation response. Left superficial veins: Unremarkable. Saphenofemoral junction is patent without thrombus. Soft tissues: Swelling. IMPRESSION: No evidence of deep vein thrombosis. Electronically signed by: Thai Cole On 11/19/2020 23:35:43 PM
[2020-11-19 23:42] LABS: ERYTHROCYTE SEDIMENTATION RATE 18 mm/hr (0-30)
[2020-11-20] MEDS ORDERED: VANCOMYCIN HCL 1,000 MG, VIAL MATE ADAPTER 1 EACH in D5W 250 ML IV ONE (00:45)
--- NOTE | 2020-11-20 01:37 | REPVR ---
PROCEDURE INFORMATION: Exam: XR Left Foot Exam date and time: 11/20/2020 12:59 AM Age: 85 years old Clinical indication: Pain; Foot; Left; Additional info: Trauma TECHNIQUE: Imaging protocol: XR Left foot. Views: 3 or more views. COMPARISON: US EXTREMITY NON VASCUL LIMITED 03/27/2019 1:27 PM FINDINGS: Bones/joints: No acute fracture. Joint space narrowing at the 2nd DIP joint. No dislocation. Soft tissues: Normal. Vasculature: Diffuse small vessel atherosclerotic calcification. IMPRESSION: 1. No acute fracture. 2. Joint space narrowing at the 2nd DIP joint. 3. Diffuse small vessel atherosclerotic calcification. Electronically signed by: Hiro Cuellar On 11/20/2020 01:37:38 AM
--- NOTE | 2020-11-20 01:38 | REPVR ---
PROCEDURE INFORMATION: Exam: XR Left Ankle Exam date and time: 11/20/2020 12:59 AM Age: 85 years old Clinical indication: Pain; Ankle; Left; Additional info: Trauma TECHNIQUE: Imaging protocol: XR Left ankle. Views: 3 or more views. COMPARISON: US EXTREMITY NON VASCUL LIMITED 03/27/2019 1:27 PM FINDINGS: Bones/joints: No fracture. No dislocation. Joint spaces are preserved. Degenerative changes at the 5th tarsometatarsal joint. Soft tissues: Normal. Vasculature: Diffuse small vessel atherosclerotic calcification. IMPRESSION: 1. No acute fracture. 2. Degenerative changes at the 5th tarsometatarsal joint. Electronically signed by: Hiro Cuellar On 11/20/2020 01:38:51 AM
[2020-11-20] MEDS ORDERED: ACETAMINOPHEN TAB 650MG DOSE (2X325MG) PO PRN (02:00)
[2020-11-20] MEDS ORDERED: MOM 30ML SUSPENSION UDC PO PRN (02:00)
--- NOTE | 2020-11-20 02:23 | HPEPDOC ---
[facility] Medical History & Physical Date of Admission Nov 20, 2020 Date of Service: Nov 20, 2020 Primary Care Physician: LORETA MCCORMACK DO Attending Physician: STEVEN BULLOCK MD History and Physical CHIEF COMPLAINT: Fever, LLE pain HISTORY OF PRESENT ILLNESS: Patient is an 85-year-old female with a past medical history significant for hypertension, CKDIII, NIDDM, obesity class IV and SCC presents to emergency department via EMS from [facility] the evening of 11/19/20 after being found to have a temperature of 103 rectally. It appears that patient was noted to have left lower extremity cellulitis earlier today and was started on IM ceftriaxone QD. This evening, as mentioned above, patient was noticed to be febrile and sent to the emergency department further evaluation. Patient reports that approximately 2 days prior, her left ankle was "run over" with an Apexlift device. Denies any subsequent pain or discomfort. Does recall experiencing a fever earlier today, but was seemingly unaware that she had cellulitis. Upon presentation to the emergency department, patient was found to be afebrile with temperature 98.8. Pulse 91, RR 14, BP of 154/76 maintaining an oxygen saturation of 98% on room air. CBC negative for leukocytosis of 18.8, H/H and ESR within normal limits. Electrolytes within normal limits, BUN/CR of 15/1.05, GFR of 53.2. Patient was found to have a lactic acid of 2.2. Mild elevations of both T bili and D bili of 1.1 and 0.4 respectively. Cardiac markers negative, CRP elevated at 14.2 UA unremarkable. COVID negative. Doppler patient's lower extremity was ordered and negative for DVT. X-rays of the left lower foot and ankle were also ordered and negative for any fracture. Given patient's cellulitis, she was given a dose of vancomycin. The hospitalist team seen was contacted to admit the patient for further management and observation. 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, s/p excision and graft actinic keratoses PAST SURGICAL HISTORY: Tonsillectomy Hysterectomy Left sided hip replacement Left nasal tip excision and skin graft SOCIAL HISTORY: Marital status: Resides in: [facility] Tobacco use: Patient is a nonsmoker ETOH: Denies regular alcohol use Illicit drug use: Denies illicit or IV drug use FAMILY HISTORY: Father: , emphysema Mother: , heart disease Siblings: One brother secondary to ACS Hereditary Diseases: Has any family history of melanoma, lung, GI, breast, pancreatic or prostate cancer ALLERGIES: Penicillin, rash REVIEW OF SYSTEMS: CONSTITUTIONAL: Denies any recent fevers, chills, changes in weight or difficu lty sleeping. HEENT: Denies any headaches, changes in vision, hearing, taste or smell. No trouble swallowing or eating. CARDIOVASCULAR: Denies any chest pain, pressure, palpitations RESPIRATORY: Denies any new shortness of breath, new cough or wheeze. Patient is limited in evaluation secondary to body habitus. GASTROINTESTINAL: As in the nausea or vomiting, no abdominal pain, constipation or diarrhea GENITOURINARY: No dysuria or urinary frequency SKIN: She was seemingly unaware of her left lower extremity cellulitis, denies any other recent skin changes including rashes or lesions MUSCULOSKELETAL: Denies any muscle/joint aches or pains HOME MEDICATIONS: Please see below. PHYSICAL EXAMINATION: VITAL SIGNS: Please see below. GENERAL APPEARANCE: He was interviewed and examined in the emergency department. Patient was found to be resting comfortably in bed. She was easily arousable, a fair medical claims specialist, cooperative with examination. HEENT: NC/AT, EOMI, sclera NI, MMM, JVD examination limed by body habitus CARDIOVASCULAR: Regular rate and rhythm, no appreciable murmur, limited secondary to body habitus LUNGS: Clear to auscultation, examination limited secondary to body habitus ABDOMEN: Obese, soft, nontender, nondistended, no guarding/rigidity. MUSCULOSKELETAL: She is able to move her upper and lower extremities equally and symmetrically EXTREMITIES: Left lower extremity does exhibit erythema extending from the medial malleoli to the lateral left hip, anterior, medial and partial posterior sparing. No discrete induration, open wounds, drainage or bruising, nontender to palpation. No ankle, knee or hip joint tenderness. NEUROLOGICAL: Oriented to person and place but not time, patient's memory does appear somewhat limited, no apparent dysphagia or dysarthria. Cranial nerves II through XII are grossly intact. PSYCHIATRIC: Mood and affect are appropriate. LABORATORY DATA: See below. IMAGING: Lower extremity ultrasound (11/19/20): No evidence of DVT Foot x-ray (11/19/20): No acute fracture, joint space narrowing at the second DIP joint, diffuse small vessel atherosclerotic calcification Ankle x-ray (11/20/20): No acute fracture, degenerative changes at the fifth tarsometatarsal joint MICROBIOLOGY: Please see below. ASSESSMENT: Patient is an 85-year-old female, past medical history of hypertension, CK D3, NIDDM, class 4 obesity and SCC who presented to emergency room via EMS on 11/19/20 after having a temperature of 103 rectally. Earlier in the day, patient was started on ceftriaxone for suspected left lower extremity cellulitis. Per patient, and confirmed by her daughter, patient did experience some trauma to the left lower ankle approximately 2 days ago involving and apex lift machine. In the emergency department, patient was found to have a leukocytosis and a very mild lactic acidosis. Ultrasound the lower extremity was negative, plain film images of the patient's left foot and ankle also negative for any fracture. Hospitalist team was contacted to admit the patient for further management of her left lower extremity cellulitis. PLAN: #LLE Cellulitis -Per patient and as confirmed by the patient's daughter, patient's left foot was hit by an Apexlift machine earlier this week. No apparent open wound on examination. -As mentioned above, extensive erythema from the patient's medial ankle extending towards the lateral thigh. -Continue vancomycin on admission. Monitor WBC, inflammatory markers. Of note, patient does have a 20+ year old L hip replacement. Maintain low threshold for hip imaging. #SIRS -Reported temp of 103F, leukocytosis. HR <90, RR <20. -IVF, Abx, repeat lactic -Close monitoring #HTN -Normotensive -c/w home medications #CKDIII -BUN/Cr of 15/1.05, GFR of 53.2, below baseline -IVF, close monitoring #Depression -c/w home medications #NIDDM -She is not on any oral antihyperglycemics given her advanced age. -SSI #Obesity, class 4 -BMI of 51.8, complicating care -Patient is nonambulatory and does require 2 person assist DVT PROPHYLAXIS: Heparin CODE STATUS: She does have a most on file which indicates that she is DNR and DNI. This does carry an exception in the even that the patient is COVID-19 positive, then she wishes to be a DNR with a trial of intubation. This was again confirmed with the patient during admission. DISPOSITION: Anticipate 2 night stay Vital Signs Vital Signs Date Time Temp Pulse Resp B/P (MAP) Pulse Ox O2 Delivery O2 Flow Rate FiO2 11/20/20 01:00 82 152/74 (100) 97 11/19/20 21:31 98.8 14 Room Air Laboratory Data Labs 24H Laboratory Tests 2 11/19/20 22:17: Prothrombin Time 15.0H, Prothromb Time International Ratio 1.15, Activated Partial Thromboplast Time 32.9, Anion Gap 7L, Glomerular Filtration Rate 53.2, Calcium Level 8.7L, Total Bilirubin 1.1H, Direct Bilirubin 0.4H, Aspartate Amino Transf (AST/SGOT) 25, Alanine Aminotransferase (ALT/SGPT) 28, Alkaline Phosphatase 75, C-Reactive Protein, Quantitative 14.20H, Total Protein 6.7, Albumin 3.3, Albumin/Globulin Ratio 1.0L, Lipase 75 11/19/20 22:18: Lactic Acid Level 2.2*H 11/19/20 23:10: Immature Granulocyte % (Auto) 0.9, Neutrophils (%) (Auto) 85.8H, Lymphocytes (%) (Auto) 5.5L, Monocytes (%) (Auto) 7.5, Eosinophils (%) (Auto) 0.0, Basophils (%) (Auto) 0.3, Neutrophils # (Auto) 16.1H, Lymphocytes # (Auto) 1.0L, Monocytes # (Auto) 1.4H, Eosinophils # (Auto) 0.0, Basophils # (Auto) 0.1, Nucleated Red Blood Cells % (auto) 0.0, Erythrocyte Sedimentation Rate 18 11/20/20 00:34: Urine Color YELLOW, Urine Appearance CLEAR, Urine pH 5.0, Urine Specific [place] 1.024, Urine Protein 2+H, Urine Glucose (UA) NEGATIVE, Urine Ketones TRACEH, Urine Blood NEGATIVE, Urine Nitrite NEGATIVE, Urine Bilirubin NEGATIVE, Urine Urobilinogen 0.2, Urine Leukocyte Esterase NEGATIVE, Urine WBC (Auto) 7H, Urine RBC (Auto) 3, Urine Hyaline Casts (Auto) 0, Urine Bacteria (Auto) NEGATIVE, Urin e Squamous Epithelial Cells 0, Urine Mucus (Auto) SMALL, Urine Sperm (Auto) CBC/BMP Laboratory Tests 11/19/20 22:17 11/19/20 23:10 Microbiology Microbiology 11/19/20 Blood Culture, Received Pending 11/19/20 Respiratory Virus Panel (PCR) ([facility]) - Final, Complete 11/19/20 Blood Culture, Received Pending Home Medications Scheduled Amlodipine Besylate (Amlodipine Besylate) 10 Mg Tablet, 10 MG PO DAILY Carboxymethylcellulose Sodium (Refresh Tears) 15 Ml Drops, 1 DROP OU BID Diclofenac Sodium (Voltaren) 100 Gm Gel..gram., 1 DOSE TOP TID APPLY TO LEFT SHOULDER Docusate Sodium (Colace) 100 Mg Cap, 100 MG PO BID Ergocalciferol (Vitamin D2) (Vitamin D2) 50,000 Units Cap, 50,000 UNITS PO QWEEK WEDNESDAY Escitalopram Oxalate (Lexapro) 5 Mg Tablet, 5 MG PO QHS Ipratropium/Albuterol Sulfate (Iprat-Albut 0.5-3(2.5) mg/3 ml) 3 Ml Ampul.neb, 3 ML INH QID STARTED 11/19/20 Magnesium Chloride (Mag64) 64 Mg Tablet.dr, 192 MG PO BID Pravastatin Sodium (Pravastatin Sodium) 10 Mg Tab, 10 MG PO QHS Sennosides/Docusate Sodium (Senna Plus Tablet) 1 Each Tablet, 1 TAB PO BID Simethicone (Simethicone) 125 Mg Tab.chew, 125 MG PO QHS Spironolactone (Spironolactone) 25 Mg Tablet, 25 MG PO DAILY Tramadol HCl/Acetaminophen (Tramadol-Acetaminophn 37.5-325) 1 Each Tablet, 1 TAB PO TID 0600, 1200, 1900 Scheduled PRN Acetaminophen (Tylenol) 325 Mg Tablet, 650 MG PO Q4H PRN for PAIN / FEVER Diclofenac Sodium (Voltaren) 100 Gm Gel..gram., 1 DOSE TOP TID PRN for PAIN IN ADDITION TO SCHEDULED DOSES Magnesium Hydroxide (Milk of Magnesia) 400 Mg/5 Ml Oral.susp, 30 ML PO DAILY PRN for CONSTIPATION Simethicone (Simethicone) 125 Mg Tab.chew, 125 MG PO DAILY PRN for FLATULENCE Allergies Coded Allergies: Penicillins (Verified Allergy, Unknown, 11/19/20) A-FIB/CHADSVASC A-FIB History Current/History of A-Fib/PAF?: No Current PO Anticoag Therapy: No GME ATTESTATION GME ATTESTATION My faculty preceptor for this patient encounter was physically present during the encounter and was fully available. All aspects of the patient interview, examination, medical decision making process, and medical care plan development were reviewed and approved by the faculty preceptor. The faculty preceptor is aware and concurs with the plan as stated in the body of this note and will attest to such by his/her cosignature. ATTENDING NOTE time of service 430 am is an 85 yr old [facility] resident w a hx of HTN, obesity, DM, CKD, gout who presented w c/o LLE pain and swelling and will be admitted for sepsis 2/2 LLE cellulitis. Rest per 's H&P HERIBERTO RASCON DO Nov 20, 2020 02:23 STEVEN BULLOCK MD Nov 20, 2020 07:05
--- OUTSIDE RECORDS SUMMARY | 2020-11-20 02:27 | CCD ---
Author Author [facility] Organization [facility] Address Unknown Phone Unavailable Care Team Providers Care [employer] Supervisor Name Role Phone Kwaku Fowler Unavailable PROBLEMS Type Condition ICD9-CM Code [id number] Code Onset Dates Condition S tatus SNOMED Code Notes Problem Generalized osteoarthrosis, involving multiple sites M15.9 Active 797475280 Problem Hypoxemia R09.02 Active 438209850 Problem Carpal tunnel syndrome G56.00 Active 43758769 Problem Hypertension I10 Active 68431622 Problem Hyperlipidemia E78.5 Active 43429884 Problem LAFB (left anterior fascicular block) I44.4 Ac tive 51589538 Problem Diabetes mellitus type 2 in obese E11.9 Active 92315115 Problem Vitamin D deficiency E55.9 Active 40431719 Problem History of total left hip arthroplasty Z96.642 A ctive 560904604487 Problem Seborrheic keratoses L82.1 Active 636985193 Problem Basal cell carcinoma of right shoulder C44.612 A ctive 209409277 Problem Weakness R53.1 Active 23450933 Problem AK (actinic keratosis) L57.0 Active 032262629 Problem Frequent falls R29.6 Active 982834270 Problem 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 Active 1592909 Problem History of nonmelanoma skin cancer Z85.828 Activ e 919272472 Problem Lentigines L81.4 Active 537869291 Problem Accidental tattoo L81.8 Active 706057198 ALLERGIES Allergen (clinical drug ingredient) Drug/Non Drug Allergy do cumented on EMR Reaction Allergy Type Onset Date Status Penicillin (For Allergies Use Only) rash Drug Allerg y Active ENCOUNTERS from 1935 to 2020-09-03 Encounter Location Date Provider Diagnosis [facility] Dermatology [address] [facility] [address] [place] [address] Aug, Kwaku Nahbrittaney Neoplasm of unspecified beha vior of bone, soft tissue, and skin D49.2 ; Screening, malignant neoplasm, skin Z12.83 ; Seborrheic keratoses L82.1 ; History of nonmelanoma skin cancer Z85.828 ; 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 ; Accidental tattoo L81.8 ; Lentigines L81.4 and AK (actinic keratosis) L57.0 IMMUNIZATIONS Vaccine Route Administration Date Status Influenza (High Dose 65 & up) IM Intramuscular Jul 07, 2017 A dministered Influenza (High Dose 65 & up) IM Intramuscular Aug 26, 2015 A dministered Zoster 0.65mL (Zostavax) Unknown Jun 12, 2013 Adminis tered Pneumococcal Adult 0.5mL (Pneumovax 23) Unknown Jul 06, 2001 Administered Pneumococcal 0.5mL (Prevnar 13) IM Intramuscular Aug 26, 2015 Administered Influenza (6mo & up) Fluzone Unknown Jun 27, 2014 Adm inistered Influenza (6mo & up) Fluzone IM Intramuscular Jul 12, 2013 Ad ministered Influenza (6mo & up) Fluzone IM Intramuscular Jul 06, 2012 Ad ministered Influenza (6mo & up) Fluzone IM Intramuscular Jul 03, 2011 Ad ministered SOCIAL HISTORY Tobacco Use: Social History Observation Description Date Details (start date - stop date) Never Smoker Sex Assigned At : Social History Observation Description Sex Assigned At Unknown Education: Question Answer Notes Level of Education: Finished College [employer]: Question Answer Notes [employer] 21 [employer] Sexual Hx: Question Answer Notes Had sex in the last 12 months (vaginal, oral, or anal)? No BMI Care Goal Follow-Up Question Answer Notes Above Normal BMI Follow-Up Dietary management educatio n, guidance, and counseling Tobacco Use: Question Answer Notes Are you a: never smoker , never smoker REASON FOR REFERRAL No Information VITAL SIGNS Weight 265.5 lbs Aug, Height 60.5 in Aug, BMI 50.99 kg/m2 Aug, MEDICATIONS Medication SIG (Take, Route, Frequency, Duration) Notes Start Da te End Date Status Aspirin 81 81 MG 1 tablet Orally Once a day for 30 day(s) Active D3-50 1.25 MG (53235 UT) 1 capsule Orally for 30 day(s) Active PreserVision AREDS 1 tab Orally 1 tablet twice daily as directed Active Colace 100 MG 1 capsule as needed Orally Once a day for 30 day(s) Active Tramadol-Acetaminophen 37.5-325 MG 2 tablets as needed Orally every 6 hrs Active Acetaminophen Extra Strength 500 MG 1 tablet as needed Orally every 6 hrs Active Glucosamine Chondr Complex 500-400 MG 1 capsule with a meal Oral ly Once a day Active Melatonin Active Escitalopram Oxalate 5 MG 1 tablet Orally Once a day for 30 day(s) Active Ultracet 325-37.5 MG 2 tablets as needed Orally every 6 hrs Active Docusate Sodium 100 MG 1 capsule as needed Orally Once a day for 30 day(s) Active Loperamide A-D 2 MG 1 tablet as needed Orally Four times a day Active Aldactone 100 MG 1 tablet Orally Once a day for 30 day(s) Active Simethicone 125 MG 1 tablet after meals and at bedtime as needed Orally Four times a day Active Mag64 64 MG 1 tablet Orally Twice a day for 30 day(s) Active AmLODIPine Besylate 10 MG 1 tablet Orally Once a day for 30 day(s) Active Milk of Magnesia 400 MG/5ML 5 ml at least 4 hours betw een doses as needed Orally Four times a day Active Senna Plus 8.6-50 MG 1 tablet in the evening as n eeded Orally Once a day for 30 day(s) Active Simethicone Active Calcium Carbonate-Vitamin D3 600-400 MG-UNIT 1 tablet with a meal Orally Once a day for 30 day(s) Active Pravastatin Sodium 10 MG 1 tablet Orally Once a day for 30 day(s) Active PROCEDURES No Information RESULTS No Results REASON FOR VISIT Followup MEDICAL (GENERAL) HISTORY Type Description Date Medical History HTN Medical History OA Medical History fasting hyperglycemia Medical History obesity Medical History PNEUMONIA VAC. 08/22/2001 Medical History Squamous cell carcinoma of nose Medical History Actinic keratoses Surgical History TONSILECTOMY Surgical History HYSTERECTOMY Surgical History HIP REPLACEMENT LEFT Surgical History Excision Nasal Tip and Skin graft Hospitalization History childbirth Hospitalization History Hip replacement Goals Section No Information Health Concerns No Information MEDICAL EQUIPMENT No Information MENTAL STATUS No Information FUNCTIONAL STATUS No Information ASSESSMENTS Encounter Date Diagnosis Assessment Notes Treatment Notes Treatm ent Clinical Notes Aug, Neoplasm of unspecified beha vior of bone, soft tissue, and skin (ICD-10 - D49.2) Procedure: Tangential Biopsy [place] protocol was followed in compliance with [facility] standards. The patient was educated on the potential risks and benefits of the procedure and gave his/her informed consent. Location of biopsy noted in the physical exam and images uploaded to the medical record. Area(s) treated with EtOH. Local anesthesia performed with <1mL of 1% lidocaine with epinephrine per site. Site(s) verified with patient via timeout utilizing patient name and date of . Biopsy/Biopsies performed. Dual site-specimen cup verification performed verbally between provider and clinic staff. Hemostasis achieved with hyfrecation or aluminum chloride/styptic. Closure: secondary intent. Petrolatum and bandage applied. Wound care instruction addressed with patient by provider or clinic staff and wound care handout given. Patient tolerated the procedure well and left in stable condition. Patient reports that his/her pain was well-managed. There was no noted significant d ifference from baseline pain score after procedure. Patient was educated to use acetaminophen 500mg up to 4 times daily. If not sufficient, patient was educated to re-present to the dermatology clinic or, if after hours, the emergency department. Patient was informed they would be notified in 10-14 days by telephone for all malignant conditions and scheduled for definitive management. Aug, Screening, malignant neoplasm, skin (ICD-10 - Z1 2.83) Patient counseled on signs and symptoms of skin cancer including ABCDE's of Melanoma. Patient counseled to wear sunscreen or use sun protective clothing when outdoors. Avoid peak hours of sun between 10-2. Patient instructed to call with any new or changing lesions. Aug, Seborrheic keratoses (ICD-10 - L82.1) Benign, reassurance Aug, History of nonmelanoma skin cancer (ICD-10 - Z85 .828) NER, photoprotection Aug, Pierce angioma (ICD-10 - D18.01) Benign, reassurance Aug, Accidental tattoo (ICD-10 - L81.8) Right chest. Graphite in appearance Aug, Lentigines (ICD-10 - L81.4) Benign, reassurance, ABCDE, photoprotection, Q 1 Y derm skin check, Q 1 M self skin check Aug, AK (actinic keratosis) (ICD-10 - L57.0) Cryotherapy x [ 1] number of sites. [place] protocol was followed in compliance with [facility] standards. Patient was counseled regarding the indication for treatment (precancerous state for actinic keratosis or cosmetic reasons if done for seborrheic keratoses, acrochordons or warts) as well as, the method and expected results to include compromise of the skin barrier, bleeding, scarring/white area, redness at site, lesion recurrence, and pain. Patient was consented to the risks and benefits of the procedure and gave informed consent. Lesion(s) with locations as indicated in the physical examination were treated. Lesion(s) were treated with 2 cycles of liquid nitrogen with a thaw time of at least ten seconds. Therapy was applied in a pulsed fashion to minimize collateral tissue injury. Patient was instructed to use Vaseline ointment to the area(s) until healed. Patient tolerated the procedure well and left in stable condition. Pain before and after the procedure were assessed to not be significantly different than baseline. PLAN OF TREATMENT Treatment Notes Assessment Notes Clinical Notes Neoplasm of unspecified behavior of bone, soft tissue, and skin Procedure: Tangential Biopsy [place] protocol was followed in compliance with [facility] standards. The patient was educated on the potential risks and benefits of the procedure and gave his/her informed consent. Location of biopsy noted in the physical exam and images uploaded to the medical record. Area(s) treated with EtOH. Local anesthesia performed with <1mL of 1% lidocaine with epinephrine per site. Site(s) verified with patient via timeout utilizing patient name and date of . Biopsy/Biopsies performed. Dual site-specimen cup verification performed verbally between provider and clinic staff. Hemostasis achieved with hyfrecation or aluminum chloride/styptic. Closure: secondary intent. Petrolatum and bandage applied. Wound care instruction addressed with patient by provider or clinic staff and wound care handout given. Patient tolerated the procedure well and left in stable condition. Patient reports that his/her pain was well-managed. There was no noted significant d ifference from baseline pain score after procedure. Patient was educated to use acetaminophen 500mg up to 4 times daily. If not sufficient, patient was educated to re-present to the dermatology clinic or, if after hours, the emergency department. Patient was informed they would be notified in 10-14 days by telephone for all malignant conditions and scheduled for definitive management. Screening, malignant neoplasm, skin Patient counseled on signs and symptoms of skin cancer including ABCDE's of Melanoma. Patient counseled to wear sunscreen or use sun protective clothing when outdoors. Avoid peak hours of sun between 10 -2. Patient instructed to call with any new or changing lesions. Seborrheic keratoses Benign, reassurance History of nonmelanoma skin cancer NER, photoprotection Pierce angioma Benign, reassurance Accidental tattoo Right chest. Graphite in appearance Lentigines Benign, reassurance, ABCDE, photoprotection, Q 1 Y derm skin check, Q 1 M self skin check AK (actinic keratosis) Cryotherapy x [ 1] number of sites. [place] protocol was followed in compliance with [facility] standards. Patient was counseled regarding the indication for treatment (precancerous state for actinic keratosis or cosmetic reasons if done for seborrheic keratoses, acrochordons or warts) as well as, the method and expected results to include compromise of the skin barrier, bleeding, scarring/white area, redness at site, lesion recurrence, and pain. Patient was consented to the risks and benefits of the procedure and gave informed consent. Lesion(s) with locations as indicated in the physical examination were treated. Lesion(s) were treated with 2 cycles of liquid nitrogen with a thaw time of at least ten seconds. Therapy was applied in a pulsed fashion to minimize collateral tissue injury. Patient was instructed to use Vaseline ointment to the area(s) until healed. Patient tolerated the procedure well and left in stable condition. Pain before and after the procedure were assessed to not be significantly different than baseline. Next Appt Details Per path, o/w 6 M - 1 Y Reason:FBSE Follow Up:Per path, o/w 6 M - 1 YFBSE Insurance Providers Payer Name Payer Address Payer Phone Insured Name Patient Relati onship to Insured Coverage Start Date Coverage End Date MEDICARE Part A and B [address] [facility] [id number] [place] R[place]AR[place] [address] [facility] [id number] P [place] DAS self MEDICAID [employer] [address] [facility] [id number] [employer] [employer]ICHAR[place]
--- OUTSIDE RECORDS SUMMARY | 2020-11-20 02:27 | CCD ---
Author Author [facility] Organization [facility] Address Unknown Phone Unavailable Care Team Providers Care Program Proposals Coordinator Name Role Phone George, L Nae PA Unavailable Unavailable George, L Nae PA Unavailable Unavailable George, L Nae PA Unavailable Unavailable George, L Nae PA Unavailable Unavailable George, L Nae PA Unavailable Unavailable George, L Nae PA Unavailable Unavailable George, L Nae PA Unavailable Unavailable George, L Nae PA Unavailable Unavailable George, L Nae PA Unavailable Unavailable George, L Nae PA Unavailable Unavailable George, L Nae PA Unavailable Unavailable George, L Nae PA Unavailable Unavailable George, L Nae PA Unavailable Unavailable George, L Nae PA Unavailable Unavailable George, L Nae PA Unavailable Unavailable George, L Nae PA Unavailable Unavailable George, L Nae PA Unavailable Unavailable George, L Nae PA Unavailable Unavailable George, L Nae PA Unavailable Unavailable George, L Nae PA Unavailable Unavailable George, L Nae PA Unavailable Unavailable George, L Nae PA Unavailable Unavailable George, L Nae PA Unavailable Unavailable AMINA, L LENA PA Unavailable Unavailable AMINA, L LENA PA Unavailable Unavailable AMINA, L LENA PA Unavailable Unavailable AMINA, L LENA PA Unavailable Unavailable AMINA, L LENA PA Unavailable Unavailable AMINA, L LENA PA Unavailable Unavailable AMINA, L LENA PA Unavailable Unavailable AMINA, L LENA PA Unavailable Unavailable AMINA, L LENA PA Unavailable Unavailable AMINA, L LENA PA Unavailable Unavailable AMINA, L LENA PA Unavailable Unavailable AMINA, L LENA PA Unavailable Unavailable Re-disclosure Warning The records that you are about to access may contain information from federally-assisted alcohol or drug abuse programs. If such information is present, then the following federally mandated warning applies: This information has been disclosed to you from records protected by federal confidentiality rules (42 CFR part 2). The federal rules prohibit you from making any further disclosure of this information unless further disclosure is expressly permitted by the written consent of the person to whom it pertains or as otherwise permitted by 42 CFR part 2. A general authorization for the release of medical or other information is NOT sufficient for this purpose. The Federal rules restrict any use of the information to criminally investigate or prosecute any alcohol or drug abuse patient.The records that you are about to access may contain highly sensitive health information, the redisclosure of which is protected by Article 27-F of the [facility] Public Health law. If you continue you may have access to information: Regarding HIV / AIDS; Provided by facilities licensed or operated by the [facility] Office of Mental Health; or Provided by the [facility] Office for People With Developmental Disabilities. If such information is present, then the following [facility] mandated warning applies: This information has been disclosed to you from confidential records which are protected by state law. State law prohibits you from making any further disclosure of this information without the specific written consent of the person to whom it pertains, or as otherwise permitted by law. Any unauthorized further disclosure in violation of state law may result in a fine or long-term sentence or both. A general authorization for the release of medical or other information is NOT sufficient authorization for further disc losure. Allergies and Adverse Reactions Type Description Substance Reaction Status Data Source(s ) Drug allergy Penicillin (For Allergies Use Only) Drug allergy rash Active eCW1 ([facility]) Family History Family Member Name Family Member Gender Family Member Status Date o f Status Description Data Source(s) Unknown Unknown Problem MEDENT ([facility]) Unknown Male Problem MEDENT ([facility], ) () Encounters Encounter Providers Location Date Indications Data Source(s ) Outpatient Attender: LENA WESLEY Main Office 11/05/2020 0 9:15:00 AM EST MEDENT ([facility]) Office Visit, Est Pt., Level [address] [place] [address] 08/29/2020 12:00:00 AM EST eCW1 ([facility]) [facility] Dermatology [address] [place] [phone] 08/19/2020 12:00:00 AM EST eCW1 ([facility]) Outpatient Attender: Nae WESLEY Main Office 04/25/2020 11:30:0 0 AM EDT MEDENT ([facility]) [facility] Dermatology [address] [place] [phone] 03/05/2020 12:00:00 AM EDT eCW1 ([facility]) [facility] Dermatology [address] [place] [phone] 02/13/2020 12:00:00 AM EDT eCW1 ([facility]) [facility] Dermatology Center [address] [place] [phone] 10/02/2019 12:00:00 AM EST eCW1 ([facility]) Medications Medication Brand Name Start Date Product Form Dose Route Admi nistrative Instructions Pharmacy Instructions Status Indications Reaction Description Data Source(s) Escitalopram 5 MG Oral Tablet Escitalopram Oxalate 11/04/2020 12:00 :00 AM EST ORAL active MEDENT ([facility]) Cholecalciferol 5000 UNT Oral Tablet Vitamin D-3 11/04/2020 12:00:00 AM EST ORAL active MEDENT ([facility]) Acetaminophen 325 MG / tramadol hydrochloride 37.5 MG Oral Tablet [Ultracet] Ultracet 11/04/2020 12:00:00 AM EST ORAL active MEDENT ([facility]) Magnesium Hydroxide 80 MG/ML Oral Suspension Milk Of Magnesi a 11/04/2020 12:00:00 AM EST ORAL active M EDENT ([facility]) Pravastatin Sodium 10 MG Oral Tablet PRAVASTATIN SODIUM 06/2021 12:00:00 AM EST tablet 5 TAKE ONE TABLET BY MOUTH SURYA RY DAY TAKE ONE TABLET BY MOUTH EVERY DAY SOLD: 10/06/2020 [facility] 1 % 05/30/2020 12:00:00 AM EDT gel 100 APPLY 2 GRAMS TO LEFT SHOUDLER THREE TIMES A DAY AND EVERY 4 HOURS NEEDED APPLY 2 GRAMS TO LEFT SHOUDLER THREE TIMES A DAY AND EVERY 4 HOURS NEEDED SOLD: 05/31/2020 [facility] Magnesium Chloride 535 MG Delayed Release Oral Tablet [Mag 6 4] Mag64 04/24/2020 12:00:00 AM EDT ORAL active M EDENT ([facility]) Polyvinyl Alcohol 0.014 ML/ML / Povidone 6 MG/ML Ophthalmic Solution Refresh 04/24/2020 12:00:00 AM EDT OPHTHALMIC active MEDENT ([facility]) Simethicone 125 MG Oral Capsule Simethicone 04/24/2020 12:00:00 AM EDT ORAL active MEDENT ([facility]) Melatonin 10 MG Oral Tablet Melatonin 04/24/2020 12:00:00 AM EDT ORAL active MEDENT ([facility]) Menthol 0.05 MG/MG Topical Gel Bengay Cold Therapy 04/24/2020 12:00 :00 AM EDT active MEDENT ([facility]) Insurance Providers Payer name Policy type / Coverage type Policy ID Covered constitution party ID Covered constitution party's relationship to flanagan Policy Flanagan Plan Information MEDICARE [id number] SP [id number] [facility] [id number] SP [id number] MEDICARE [id number] SP [id number] D BCBS [place] UNAVAILABLE UNAVAILABLE [facility] [id number] SP [id number] BCBS [employer] [place] [id number] SP [id number] [facility] [id number] SP [id number] [place] [id number] SP [id number] BCBS [place] [place] [id number] SP [id number] MEDICARE COMPLETE [id number] SP [id number] MEDICAID [id number] SP [id number] MEDICAID [id number] SP [id number] BCBS [employer] [place] [id number] SP [id number] MEDICARE [id number] SP [id number] D [facility] [id number] SP [id number] MEDICARE [id number] SP [id number] D [employer] [place] [place] [id number] SP [id number] BCBS [place] [id number] SP [id number] BCBS OF [place] 306/[id number] Medicaid Medigap Part B [id number] Self [id number] [place] [facility] Medigap Part B [id number] Self [id number] Medicare (Part B) Medicare Primary [id number] Self [id number] Medicaid Medigap Part B [id number] Self [id number] [place] [facility] Medigap Part B [id number] Self [id number] Medicare (Part B) Medicare Primary [id number] Self [id number] [facility] O [id number] S [id number] MEDICARE C [id number] S [id number] D United [employer] [place] Medigap Part B [id number] Family [facility] endent [id number] Medicare [facility] Medicare Primary [id number] Self [id number] [place] [facility] Medigap Part B [id number] Self [id number] Medicare (Part B) Medicare Primary [id number] Self [id number] S [employer]MIN[employer]AT[employer], [facility] C [id number] S [id number] [facility] [employer] C [id number] S [id number] BCBS [place] [id number] SP [id number] MEDICARE [id number] SP [id number] D MEDICARE [id number] SP [id number] D [id number] D Problems, Conditions, and Diagnoses Code Display Name Description Problem Type Effective Dates Data Source(s) L57.0 [id number] [place] (actinic keratosis) Problem 08/29/2020 12 :00:00 AM EST eCW1 ([facility]) C44.612 [id number] Basal cell carcinoma of right shoulder Pr oblem 03/31/2020 12:00:00 AM EDT eCW1 ([facility]) L81.8 [id number] Accidental tattoo Problem 02/13/2020 12:00:0 0 AM EDT eCW1 ([facility]) L81.4 [id number] Lentigines Problem 02/13/2020 12:00:00 AM ED T eCW1 ([facility]) Z85.828 [id number] History of nonmelanoma skin cancer Proble 02/13/2020 12:00:00 AM EDT eCW1 ([facility]) D18.01 [id number] [place] angioma Problem 02/13/2020 12:00:00 A M EDT eCW1 ([facility]) Z85.828 [id number] History of nonmelanoma skin cancer Proble 02/13/2020 12:00:00 AM EDT eCW1 ([facility]) D18.01 [id number] [place] angioma Problem 02/13/2020 12:00:00 A M EDT eCW1 ([facility]) L81.4 [id number] Lentigines Problem 02/13/2020 12:00:00 AM ED T eCW1 ([facility]) L81.8 [id number] Accidental tattoo Problem 02/13/2020 12:00:0 0 AM EDT eCW1 ([facility]) Surgeries/Procedures Procedure Description Date Indications Data Source(s) ECG ROUTINE ECG W/LEAST 12 LDS W/I&R 11/05/2020 12:00: 00 AM EST MEDENT ([facility]) INTERROGATION EVAL REMOTE </90 D 1/2/LABORATORY ASSOCIATE LEAD PM 08/21 12:00:00 AM EST MEDENT ([facility]) INTERROGATION REMOTE </90 D MOBILE NURSE REVIEW 08/21/20 12:00:00 AM EST MEDENT ([facility]) INTERROGATION EVAL REMOTE </90 D 1/2/LABORATORY ASSOCIATE LEAD PM 05/22 12:00:00 AM EDT MEDENT ([facility]) INTERROGATION REMOTE </90 D MOBILE NURSE REVIEW 05/22/20 12:00:00 AM EDT MEDENT ([facility]) ECG ROUTINE ECG W/LEAST 12 LDS W/I&R 04/25/2020 12:00: 00 AM EDT MEDENT ([facility]) INTERROGATION EVAL REMOTE </90 D 1/2/LABORATORY ASSOCIATE LEAD PM 02/19 12:00:00 AM EDT MEDENT ([facility]) INTERROGATION REMOTE </90 D MOBILE NURSE REVIEW 02/20/20 12:00:00 AM EDT MEDENT ([facility]) Office Visit, Est Pt., Level 4 PC 02/13/2020 12:00:00 AM EDT eCW1 ([facility]) TANGNTL BX SKIN SINGLE LES 02/13/2020 12:00:00 AM EDT eCW1 ([facility]) INTERROGATION EVAL IN PERSON 1/DUAL/LABORATORY ASSOCIATE LEAD PM 2019 12:00:00 AM EST MEDENT ([facility]) Results ID Date Data Source [id number] 11/13/2020 10:00:00 AM EST [facility] Name Value Range Interpretation Code Description Data Diya rce(s) Supporting Document(s) SARS coronavirus 2 RNA Not Detected [facility] This lab was ordered by [facility] and reported by [facility]. ID Date Data Source [id number] 11/06/2020 10:00:00 AM EST [facility] Name Value Range Interpretation Code Description Data Diya rce(s) Supporting Document(s) SARS coronavirus 2 RNA Not Detected [facility] [place] This lab was ordered by [facility] and reported by [facility]. ID Date Data Source [id number] 10/30/2020 10:00:00 AM EST [facility] Name Value Range Interpretation Code Description Data Diya rce(s) Supporting Document(s) SARS coronavirus 2 RNA Not Detected [facility] This lab was ordered by [facility] and reported by [facility]. ID Date Data Source [id number] 10/23/2020 06:00:00 AM EST [facility] Name Value Range Interpretation Code Description Data Diya rce(s) Supporting Document(s) SARS coronavirus 2 RNA Not Detected [facility] This lab was ordered by [facility] and reported by [facility]. ID Date Data Source [id number] 10/16/2020 10:45:00 AM EST [facility] Name Value Range Interpretation Code Description Data Diya rce(s) Supporting Document(s) SARS coronavirus 2 RNA Not Detected [facility] This lab was ordered by [facility] and reported by [facility]. ID Date Data Source [id number] 10/09/2020 11:00:00 AM EST [facility] Name Value Range Interpretation Code Description Data Diya rce(s) Supporting Document(s) SARS coronavirus 2 RNA Not Detected [facility] This lab was ordered by [facility] and reported by [facility]. ID Date Data Source [id number] 10/04/2020 11:00:00 AM EST [facility] Name Value Range Interpretation Code Description Data Diya rce(s) Supporting Document(s) SARS coronavirus 2 RNA Not Detected [facility] This lab was ordered by [facility] and reported by [facility]. ID Date Data Source [id number] 09/30/2020 09:30:00 AM EST [facility] Name Value Range Interpretation Code Description Data Diya rce(s) Supporting Document(s) SARS coronavirus 2 RNA Not Detected [facility] This lab was ordered by [facility] and reported by [facility]. ID Date Data Source [id number] 09/23/2020 10:17:00 AM EST [facility] Name Value Range Interpretation Code Description Data Diya rce(s) Supporting Document(s) SARS coronavirus 2 RNA [Presence] in Res piratory specimen by JAC with probe detection [facility] This lab was ordered by [facility] a nd reported by [facility]. ID Date Data Source [id number] 09/18/2020 11:00:00 AM EST [facility] Name Value Range Interpretation Code Description Data Diya rce(s) Supporting Document(s) SARS coronavirus 2 RNA [facility] This lab was ordered by [facility] and reported by [facility]. ID Date Data Source [id number] 09/12/2020 10:45:00 AM EST [facility] Name Value Range Interpretation Code Description Data Diya rce(s) Supporting Document(s) SARS coronavirus 2 RNA [facility] This lab was ordered by [facility] and reported by [facility]. ID Date Data Source [id number] 09/08/2020 05:00:00 PM EST [facility] Name Value Range Interpretation Code Description Data Diya rce(s) Supporting Document(s) SARS coronavirus 2 RNA [facility] This lab was ordered by [facility] and reported by [facility]. ID Date Data Source [id number] 09/03/2020 03:05:00 PM EST [facility]ENT ([facility]) Name Value Range Interpretation Code Description Data Diya rce(s) Supporting Document(s) Magnesium Level 1.9 1.8-2.4 MEDENT ([facility]) ID Date Data Source [id number] 09/03/2020 03:05:00 PM EST MEDENT ([facility]) Name Value Range Interpretation Code Description Data Diya rce(s) Supporting Document(s) Alanine aminotransferase [Enzymatic activity/volume] in Serum or Pl asma 32 [facility] ([facility]) Albumin [Mass/volume] in Serum or Plasma 3.8 [facility] ([facility]) Carbon dioxide, total [Moles/volume] in Serum or Plasma 25 [facility] ([facility]) Chloride [Moles/volume] in Serum or Plasma 105 [facility] ([facility]) Calcium [Mass/volume] in Serum or Plasma 9.6 [facility] ([facility]) Alkaline phosphatase [Enzymatic activity/volume] in Serum or Plasma 7 0 MEDENT ([facility]) Protein [Mass/volume] in Serum or Plasma 7.2 [facility] ([facility]) Potassium [Moles/volume] in Serum or Plasma 4.2 [facility] ([facility]) Sodium 140 [facility] ([facility] Aspartate aminotransferase [Enzymatic activity/volume] in Serum or Plasma 21 [facility] ([facility]) Urea nitrogen [Mass/volume] in Serum or Plasma 15 [facility] ([facility]) Glucose 154 70-100 [facility] ([facility]) Creatinine For GFR 1.11 MEDENT ([facility]) ID Date Data Source [id number] 08/21/2020 11:00:00 AM EST [facility] Name Value Range Interpretation Code Description Data Diya rce(s) Supporting Document(s) SARS coronavirus 2 RNA [facility] This lab was ordered by [facility] and reported by [facility]. ID Date Data Source [id number] 08/15/2020 02:00:00 PM EST [facility] Name Value Range Interpretation Code Description Data Diya rce(s) Supporting Document(s) SARS coronavirus 2 RNA [facility] This lab was ordered by [facility] and reported by [facility]. ID Date Data Source [id number] 08/08/2020 01:50:00 PM EST [facility] Name Value Range Interpretation Code Description Data Diya rce(s) Supporting Document(s) SARS coronavirus 2 RNA [facility] This lab was ordered by [facility] and reported by [facility]. ID Date Data Source [id number] 03/04/2020 08:05:00 AM EDT MEDENT ([facility]) Name Value Range Interpretation Code Description Data Diya rce(s) Supporting Document(s) Magnesium Level 1.9 1.8-2.4 MED[facility] ([facility]) ID Date Data Source [id number] 03/04/2020 08:05:00 AM EDT MEDENT ([facility]) Name Value Range Interpretation Code Description Data Diya rce(s) Supporting Document(s) Alanine aminotransferase [Enzymatic activity/volume] in Serum or Pl asma 34 [facility] ([facility]) Albumin [Mass/volume] in Serum or Plasma 3.6 [facility] ([facility]) Calcium [Mass/volume] in Serum or Plasma 8.7 [facility] ([facility]) Carbon dioxide, total [Moles/volume] in Serum or Plasma 25 [facility] ([facility]) Chloride [Moles/volume] in Serum or Plasma 106 [facility] ([facility]) Alkaline phosphatase [Enzymatic activity/volume] in Serum or Plasma 7 1 [facility] ([facility]) Protein [Mass/volume] in Serum or Plasma 6.8 [facility] ([facility]) Potassium [Moles/volume] in Serum or Plasma 4.1 [facility] ([facility]) Aspartate aminotransferase [Enzymatic activity/volume] in Serum or Plasma 22 [facility] ([facility]) Sodium 141 [facility] ([facility]) Urea nitrogen [Mass/volume] in Serum or Plasma 14 [facility] ([facility]) Glucose 136 70-100 [facility] ([facility]) Creatinine For GFR 0.86 [facility] ([facility]) ID Date Data Source [id number] 02/13/2020 11:45:00 AM EDT [facility] Name Value Range Interpretation Code Description Data Diya rce(s) Supporting Document(s) SARS CORONAVIRUS 2 RNA [facility] This lab was ordered by [facility] and reported by [facility]. Procedure Social History Code Duration Value Status Description Data Source(s ) Smoking 11/05/2020 12:00:00 AM EST Patient has never smoked co mpleted Patient has never smoked MEDENT ([facility]) Smoking 08/29/2020 12:00:00 AM EST Never Smoker completed Never S moker eCW1 ([facility]) Vital Signs ID Date Data Source UNK Name Value Range Interpretation Code Description Data Source(s) Heart rate 79 /min 79 /min [facility] ([facility]) Body height 60 [in_i] 60 [in_i] MEDENT ([facility]) 5'0" Body mass index (BMI) [Ratio] 50.99 kg/m2 50.99 kg/m2 W1 ([facility]) Body height 60.5 [in_i] 60.5 [in_i] eCW1 ([facility]) Body weight 265.5 [lb_av] 265.5 [lb_av] eCW1 ([facility]) Diastolic blood pressure--sitting 80 mm[Hg] 80 mm[Hg] MEDENT ([facility]) large cuff, Ra Systolic blood pressure--sitting 130 mm[Hg] 130 mm[Hg] MEDENT ([facility]) large cuff, Ra Body height 60 [in_i] 60 [in_i] MEDENT ([facility]) 5'0" Diastolic blood pressure 84 mm[Hg] 84 mm[Hg] eCW1 ([facility]) Systolic blood pressure 128 mm[Hg] 128 mm[Hg] e CW1 ([facility]) Body mass index (BMI) [Ratio] 52.24 kg/m2 52.24 kg/m2 W1 ([facility]) Body height 60.5 [in_us] 60.5 [in_us] eCW1 ([facility]) Body weight Measured 272 [lb_av] 272 [lb_av] eC W1 ([facility])
--- OUTSIDE RECORDS SUMMARY | 2020-11-20 02:27 | CCD | Continuity of Care Document ---
Author Author Mami HUYNH Organization Unknown Address [address] [facility], [facility] [place] [address] Phone [phone] Care Team Providers Care Virtualization Architect Name Role Phone Neptali Pepe MD [facility] [phone] Tavo Romo MD [facility] [phone] Problems Active Problems Provider Date Cardiac pacemaker in situ MARYJANE Castro Onset: 2017 Essential hypertension MARYJANE Castro Onset: 8 Paroxysmal ventricular tachycardia MARYJANE Castro Onse t: 04/27/2018 Electrocardiogram abnormal MARYJANE Castro Onset: 04/27 Dietary management surveillance MARYJANE Castro Onset: 04/27/2018 Atrioventricular block, second degree MARYJANE Castro O nset: 04/27/2018 Social History Type Date Description Comments Sex Unknown ETOH Use Does not consume alcohol Tobacco Use Start: Unknown Patient has never smoked Smoking Status Reviewed: 11/05/20 Patient has never smoked Exercise Type/Frequency Limited self-car e: Confined to bed/chair > 50% of waking hours Exercise Type/Frequency Chair Exercises Exercise Limitations Orthopedic Problem Exercise Limitations Weakness Allergies, Adverse Reactions, Alerts Active Allergies Reaction Severity Comments Date Penicillin Rash 10/27/2017 Medications Active Medications SIG Qnty Indications Ordering Provide r Date Milk Of Magnesia 400mg/5ML Suspens ion 30 milliliters by mouth once daily as needed Tavo Diallo JR, MD 11/04/2020 Ultracet 37.5-325mg Tablets 1 by mouth 3 times daily MDD=3 Tavo Romo JR, MD 04/2021 Vitamin D-3 125mcg (5000 Ut) Table ts 1 by mouth every day Tavo Romo JR, MD 2020 Escitalopram Oxalate 5mg Tablets 1 by mouth every day Tavo Romo JR, MD [address] 3 by mouth twice a day Henok Cheng MD 0 Refresh 1.4-0.6% Solution instill 2 drops into both eyes twice daily Unknown 04/24 Simethicone 125mg Capsules 1 by mouth once daily at bedtime as needed Henok Cheng M D 04/24/2020 Senna Plus 8.6-50mg Tablets 1 by mouth twice a day as needed Henok Cheng MD 12/2017 Docusate Sodium 100mg Capsules 1 by mouth twice a day Unknown 10/26/2017 Pravastatin Sodium 10mg Tablets 1 by mouth every night at bedtime Unknown 8 Acetaminophen 650mg Suppository 1 every 4 hours as needed Unknown 10/26/2017 Amlodipine Besylate 10mg Tablets 1 by mouth every day Unknown 10/26/2017 Aldactone 25mg Tablets 1 by mouth every day Unknown 10/26/2017 Immunizations Description No Information Available Vital Signs Date Vital Result Comment 11/05/2020 10:11am Home Weight 265lb Wednesday t week SSV Height 60 inches 5'0" Heart Rate 79 /min 04/25/2020 11:29am Home Weight 270lb Height 60 inches 5'0" BP Systolic Sitting 130 mmHg large cuff, Ra BP Diastolic Sitting 80 mmHg large cuff, Ra Results Test Acquired Date Facility Test Result H/L Range Note CMP 09/03/2020 [facility] - not interfaced (315)- - Albumin Serum/Plasma 3.8 Alt - SGPT 32 Calcium Ser/Plasma Mass/Vol 9.6 Carbon Dioxide Ser/Plasm 25 Chloride Serum/Plasma 105 Alkaline Phosphatase 70 Potassium 4.2 Protein Total 7.2 Sodium 140 Ast - Sgot 21 BUN - Urea Nitrogen 15 Glucose 154 High 70-100 Creatinine For GFR 1.11 Laboratory test finding 09/03/2020 [facility] - not interf aced (315)- - Magnesium Level 1.9 1.8-2.4 Procedures Date Code Description Status 11/05/2020 67253 ECG 12-Lead Completed 08/21/2020 30367 Remote Pacemaker/Cardio-Defibril lator Data Acquistion Completed 08/21/2020 47966 Remote Interrogation Device Eval Pacemaker System Up To 90 Days Completed 05/22/2020 05053 Remote Pacemaker/Cardio-Defibril lator Data Acquistion Completed 05/22/2020 59485 Remote Interrogation Device Eval Pacemaker System Up To 90 Days Completed Medical Devices Description No Information Available Encounters Type Date Location Provider Dx Diagnosis Office Visit 11/05/2020 10:15a Main Office MARYJANE Mackenzie I10 Essential (primary) hypertension I47.2 Ventricular tachycardia Z95.0 Presence of cardiac pacemake r R94.31 Abnormal electrocardiogram [ ECG] [EKG] Z71.3 Dietary counseling and surve illance Assessments Date Code Description Provider 11/05/2020 I10 Essential (primary) hypertension MARYJANE Mackenzie 11/05/2020 I47.2 Ventricular tachycardia MARYJANE Tamayo 11/05/2020 Z95.0 Presence of cardiac pacemaker Ca MARYJANE Basurto 11/05/2020 R94.31 Abnormal electrocardiogram [ECG] [EKG] MARYJANE Mackenzie 11/05/2020 Z71.3 Dietary counseling and surveilla nce MARYJANE Mackenzie 08/21/2020 Z95.0 Presence of cardiac pacemaker [facility] 05/22/2020 Z95.0 Presence of cardiac pacemaker [facility] Plan of Treatment Future Appointment(s):* 05/05/2021 11:15 am - MARYJANE Mackenzie at Main Office * 11/21/2020 12:45 pm - MARYJANE Castro at Main Office 11/05/2020 - MARYJANE Mackenzie* I10 Essential (primary) hypertension* Recommendations:* No medication changes made today Advised patient to please continue to monitor blood pressures at the [facility] and to alert our office for readings >140/>90 or <110/<60 * I47.2 Ventricular tachycardia* Recommendations:* No further evaluation is needed at this time * Z95.0 Presence of cardiac pacemaker* Recommendations:* Continue 91 day home/12 month office pacer checks * R94.31 Abnormal electrocardiogram [ECG] [EKG]* Recommendations:* No further evaluation is needed at this time. * Z71.3 Dietary counseling and surveillance* Recommendations:* Recommended for patient to follow a more whole food diet. Advised patient to avoid overly processed foods and packaged foods. Advised patient to avoid sodas, juices and other liquid calories. Recommended at least 30 minutes of exercise 3 days a week. * All * Follow up:* Follow up in 6 months Functional Status Functional Condition Comment Date Status Dependent with ambulating uses wheelchair Acti ve Requires assistance with bathing Active Requires assistance with dressing Active Independent with feeding Active Independent with grooming Active Requires assistance with standing Active Requires assistance with toileting Active Mental Status Description No Information Available Referrals Description No Information Available
--- OUTSIDE RECORDS SUMMARY | 2020-11-20 02:27 | CCD | Continuity of Care Document ---
Author Organization Unknown Address Unknown Phone Unavailable Care Team Providers Care Inventory Worker Name Role Phone Neptali Pepe MD [facility] [phone] Problems Active Problems Provider Date Cardiac pacemaker [...] Patient has never smoked Smoking Status Reviewed: 04/25/20 Patient has never smoked Exercise Type/Frequency Limited self-car e: Confined to bed/chair > 50% of waking hours Exercise Type/Frequency Chair Exercises Exercise Limitations Orthopedic Problem Exercise Limitations Weakness Allergies, Adverse Reactions, Alerts Active Allergies Reaction Severity Comments Date Penicillin Rash 10/27/2017 Medications Active Medications SIG Qnty Indications Ordering Provide r Date Mag64 64mg Tablets DR 3 by mouth twice a day Henok Cheng MD 0 Refresh 1.4-0.6% Solution instill 2 drops into both eyes twice daily Unknown 04/24 Simethicone 125mg Capsules 1 by mouth once daily at bedtime as needed Henok Cheng M D 04/24/2020 Melatonin 10mg Capsules 1 by mouth once daily at bedtime Henok Cheng MD 04/24/20 20 Bengay Cold Therapy 5% Gel apply to affected areas as needed 4 times daily Henok Cheng MD 04/24/2020 Tramadol HCL 50mg Tablets 1 by mouth every 6 hours as needed, as directed Unknown 0 11/20/2018 Loperamide HCL 2mg Tablets 2 by mouth 3 times daily as needed Unknown 10/27/2018 Saline Mist Greer 0.65% Solution 2 sprays each nostril every 2 hours as needed Unknown 04/26/2018 Acetaminophen 650mg Suppository 1 rectally every 4 hours as needed Henok Cheng MD 0 10/31/2017 Senna Plus 8.6-50mg Tablets 1 by mouth twice a day as needed Henok Cheng MD 12/2017 Aldactone 25mg Tablets 1 by mouth every day Unknown 10/26/2017 Amlodipine Besylate 10mg Tablets 1 by mouth every day Unknown 10/26/2017 Acetaminophen 650mg Suppository 1 every 4 hours as needed Unknown 10/26/2017 Milk Of Magnesia Concentrate 2400mg/10ML Suspension 10ml by mouth every night at bedtime as needed Unknown 10/26/2017 Preservision Areds Capsules 1 by mouth every day Unknown 10/26/2017 Pravastatin Sodium 10mg Tablets 1 by mouth every night at bedtime Unknown 8 Glucosamine Chondroitin Complex C apsules 1 by mouth every day Unknown 10/26/2017 Calcium 600+D [id number]-[id number] Table ts 1 by mouth once a day Unknown 10/26/2017 Vitamin D (Cholecalciferol) 1000Unit Capsules 1 by mouth every day Unknown 018 Docusate Sodium 100mg Capsules 1 by mouth twice a day Unknown 10/26/2017 Aspirin Adult Low Dose 81mg Tablet s DR 1 by mouth every day Unknown 10/26/2017 Immunizations Description No Information Available Vital Signs Date Vital Result Comment 04/25/2020 11:29am Home Weight 270lb Height 60 inches 5'0" BP Systolic Sitting 130 mmHg large cuff, Ra BP Diastolic Sitting 80 mmHg large cuff, Ra 10/28/2018 10:42am Home Weight 253lb home weight Height 60 inches 5'0" Heart Rate 82 /min BP Systolic Sitting 132 mmHg BP Diastolic Sitting 82 mmHg Results Test Acquired Date Facility Test Result H/L Range Note CMP 09/03/2020 [facility] - not interfaced (315)- - Albumin Serum/Plasma 3.8 Alt - SGPT 32 Calcium Ser/Plasma Mass/Vol 9.6 Carbon Dioxide Ser/Plasm 25 Chloride Serum/Plasma 105 Alkaline Phosphatase 70 Potassium 4.2 Protein Total 7.2 Sodium 140 Ast - Sgot 21 BUN - Urea Nitrogen 15 Glucose 154 High 70-100 Creatinine For GFR 1.11 Laboratory test finding 09/03/2020 [facility] - not interf aced (315)- - Magnesium Level 1.9 1.8-2.4 Procedures Date Code Description Status 08/21/2020 48226 Remote Pacemaker/Cardio-Defibril lator Data Acquistion Completed 08/21/2020 73997 Remote Interrogation Device Eval Pacemaker System Up To 90 Days Completed 05/22/2020 39778 Remote Pacemaker/Cardio-Defibril lator Data Acquistion Completed 05/22/2020 79234 Remote Interrogation Device Eval Pacemaker System Up To 90 Days Completed Medical Devices Description No Information Available Encounters Description No Information Available Assessments Date Code Description Provider 08/21/2020 Z95.0 Presence of cardiac pacemaker [facility] 05/22/2020 Z95.0 Presence of cardiac pacemaker [facility] Plan of Treatment Future Appointment(s):* 11/05/2020 10:15 am - MARYJANE Mackenzie at Main Office * 11/21/2020 12:45 pm - MARYJANE Castro at Main Office 04/25/2020 - MARYJANE Castro* I10 Essential (primary) hypertension* Recommendations:* No medication changes were made today. * I47.2 Ventricular tachycardia* Recommendations:* No further workup required at this time. * Z95.0 Presence of cardiac pacemaker * R94.31 Abnormal electrocardiogram [ECG] [EKG]* Recommendations:* No significant change. No further workup required. * Z71.3 Dietary counseling and surveillance* Recommendations:* Recommend adopting a more whole foods, plant-based diet in addition to moderate exercise a minimum of 30 minutes 6 days a week. In order to optimize cardiovascular health please be conscious of processed foods, alcohol (no more than two dr inks a day for men and one drink a day for women), salt (<2000 mg/d), oils, saturated fat/animal products, and highly refined carbohydrates such as breads, pastas, and sweets. * All * Follow up:* Follow up in 6 months. Functional Status Functional Condition Comment Date Status Dependent with ambulating uses wheelchair Acti ve Requires assistance with bathing Active Requires assistance with dressing Active Independent with feeding Active Independent with grooming Active Requires assistance with standing Active Requires assistance with toileting Active Mental Status Description No Information Available Referrals Description No Information Available
--- OUTSIDE RECORDS SUMMARY | 2020-11-20 02:31 | CCD ---
Author Author [facility] Organization [facility] Address Unknown Phone Unavailable Care Team Providers Care Product Development Actuary Name Role Phone George, L Nae PA [...] is protected by Article 27-F of the [facility] Public Health law. If you continue you may have access to information: Regarding HIV / AIDS; Provided by facilities licensed or operated by the [facility] Office of Mental Health; or Provided by the [facility] Office for People With Developmental Disabilities. If such information is present, then the following [facility] mandated warning applies: This information has been [...] law may result in a fine or detention sentence or both. A general authorization for the release of medical or other information is NOT sufficient authorization for further disc losure. Allergies and Adverse Reactions Type Description Substance Reaction Status Data Source(s ) Drug allergy Penicillin (For Allergies Use Only) Drug allergy rash Active eCW1 ([facility]) Family History Family Member Name Family Member Gender Family Member Status Date o f Status Description Data Source(s) Unknown Unknown Problem MEDENT ([facility]) Unknown Male Problem MEDENT ([facility], ) () Encounters Encounter Providers Location Date Indications Data Source(s ) Outpatient Attender: LENA WESLEY Main Office 11/05/2020 0 9:15:00 AM EST MEDENT ([facility]) Office Visit, Est Pt., Level [address] [place] [phone] 08/29/2020 12:00:00 AM EST eCW1 ([facility]) [facility] Dermatology [address] [place] [phone] 08/19/2020 12:00:00 AM EST eCW1 ([facility]) Outpatient Attender: Nae WESLEY Main Office 04/25/2020 11:30:0 0 AM EDT MEDENT ([facility]) [facility] Dermatology [address] [place] [phone] 03/05/2020 12:00:00 AM EDT eCW1 ([facility]) [facility] Dermatology [address] [place] [phone] 02/13/2020 12:00:00 AM EDT eCW1 ([facility]) [facility] Dermatology Center [address] [place] [phone] 10/02/2019 12:00:00 AM EST eCW1 ([facility]) Medications Medication Brand Name Start Date Product Form Dose Route Admi nistrative Instructions Pharmacy Instructions Status Indications Reaction Description Data Source(s) Escitalopram 5 MG Oral Tablet Escitalopram Oxalate 11/04/2020 12:00 :00 AM EST ORAL active MEDENT ([facility]) Cholecalciferol 5000 UNT Oral Tablet Vitamin D-3 11/04/2020 12:00:00 AM EST ORAL active MEDENT ([facility]) Acetaminophen 325 MG / tramadol hydrochloride 37.5 MG Oral Tablet [Ultracet] Ultracet 11/04/2020 12:00:00 AM EST ORAL active MEDENT ([facility]) Magnesium Hydroxide 80 MG/ML Oral Suspension Milk Of Magnesi a 11/04/2020 12:00:00 AM EST ORAL active M EDENT ([facility]) Pravastatin Sodium 10 MG Oral Tablet PRAVASTATIN [...] EDT ORAL active M EDENT ([facility]) Polyvinyl Alcohol 0.014 ML/ML / Povidone 6 MG/ML Ophthalmic Solution Refresh 04/24/2020 12:00:00 AM EDT OPHTHALMIC active MEDENT ([facility]) Simethicone 125 MG Oral Capsule Simethicone 04/24/2020 12:00:00 AM EDT ORAL active MEDENT ([facility]) Melatonin 10 MG Oral Tablet Melatonin 04/24/2020 12:00:00 AM EDT ORAL active MEDENT ([facility]) Menthol 0.05 MG/MG Topical Gel Bengay Cold Therapy 04/24/2020 12:00 :00 AM EDT active MEDENT ([facility]) Insurance Providers Payer name Policy type / Coverage type Policy ID Covered constitution party ID Covered constitution party's relationship to flanagan Policy Flanagan Plan Information MEDICARE [id number] SP [id number] [facility] [id number] SP [id number] MEDICARE [id number] SP [id number] D BCBS E[place]IRE [place] UNAVAILABLE UNAVAILABLE [facility] [id number] SP [id number] BCBS E[place]IRE [place] [id number] SP [id number] [facility] [id number] SP [id number] EMEDNY [id number] SP [id number] BCBS [place] [id number] SP [id number] MEDICARE COMPLETE [id number] SP [id number] MEDICAID [id number] SP [id number] MEDICAID [id number] SP [id number] BCBS [place]IRE [place] [id number] SP [id number] MEDICARE [id number] SP [id number] D [facility] [id number] SP [id number] MEDICARE [id number] SP [id number] D BCBS [place] [id number] SP [id number] BCBS [place] [id number] SP [id number] BCBS OF [place] 306/806 Medicaid Medigap Part B [id number] Self [id number] [place] [facility] Medigap Part B [id number] Self [id number] Medicare (Part B) Medicare Primary [id number] Self [id number] Medicaid Medigap Part B [id number] Self [id number] [place] [facility] Medigap Part B [id number] Self [id number] Medicare (Part B) Medicare Primary [id number] Self [id number] [facility] O [id number] S [id number] MEDICARE C [id number] S [id number] D [employer] [place] Medigap Part B [id number] Family [facility] endent [id number] Medicare [facility] Medicare Primary [id number] Self [id number] [place] [facility] Medigap Part B [id number] Self [id number] Medicare (Part B) Medicare Primary [id number] Self [id number] S ADMINISTRATORS, [facility] C [id number] S [id number] [facility] SVC OPTIONS C [id number] S [id number] BCBS EMPIRE HAO DIV [id number] SP [id number] MEDICARE [id number] SP [id number] D MEDICARE [id number] SP [id number] D [id number] D Problems, Conditions, and Diagnoses Code Display Name Description Problem Type Effective Dates Data Source(s) L57.0 [id number] [place] (actinic keratosis) Problem 08/29/2020 12 :00:00 AM EST eCW1 ([facility]) C44.612 [id number] Basal cell carcinoma of right shoulder Pr oblem 03/31/2020 12:00:00 AM EDT eCW1 ([facility]) L81.8 [id number] Accidental tattoo Problem 02/13/2020 12:00:0 0 AM EDT eCW1 ([facility]) L81.4 [id number] Lentigines Problem 02/13/2020 12:00:00 AM ED T eCW1 ([facility]) Z85.828 [id number] History of nonmelanoma skin cancer Proble 02/13/2020 12:00:00 AM EDT eCW1 ([facility]) 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 Problem 02/13/2020 12:00:00 A M EDT eCW1 ([facility]) Z85.828 [id number] History of nonmelanoma skin cancer Proble 02/13/2020 12:00:00 AM EDT eCW1 ([facility]) D18.01 [id number] Pierce angioma Problem 02/13/2020 12:00:00 A M EDT eCW1 ([facility]) L81.4 [id number] Lentigines Problem 02/13/2020 12:00:00 AM ED T eCW1 ([facility]) L81.8 [id number] Accidental tattoo Problem 02/13/2020 12:00:0 0 AM EDT eCW1 ([facility]) Surgeries/Procedures Procedure Description Date Indications Data Source(s) ECG ROUTINE ECG W/LEAST 12 LDS W/I&R 11/05/2020 12:00: 00 AM EST MEDENT ([facility]) INTERROGATION EVAL REMOTE </90 D 1/2/QUALITY CONTROL COORDINATOR LEAD PM 08/21 12:00:00 AM EST MEDENT ([facility]) INTERROGATION REMOTE </90 D NETWORK SECURITY ARCHITECT REVIEW 08/21/20 12:00:00 AM EST MEDENT ([facility]) INTERROGATION EVAL REMOTE </90 D 1/2/QUALITY CONTROL COORDINATOR LEAD PM 05/22 12:00:00 AM EDT MEDENT ([facility]) INTERROGATION REMOTE </90 D NETWORK SECURITY ARCHITECT REVIEW 05/22/20 12:00:00 AM EDT MEDENT ([facility]) ECG ROUTINE ECG W/LEAST 12 LDS W/I&R 04/25/2020 12:00: 00 AM EDT MEDENT ([facility]) INTERROGATION EVAL REMOTE </90 D 1/2/QUALITY CONTROL COORDINATOR LEAD PM 02/19 12:00:00 AM EDT MEDENT ([facility]) INTERROGATION REMOTE </90 D NETWORK SECURITY ARCHITECT REVIEW 02/20/20 12:00:00 AM EDT MEDENT ([facility]) Office Visit, Est Pt., Level 4 PC 02/13/2020 12:00:00 AM EDT eCW1 ([facility]) TANGNTL BX SKIN SINGLE LES 02/13/2020 12:00:00 AM EDT eCW1 ([facility]) INTERROGATION EVAL IN PERSON 1/DUAL/QUALITY CONTROL COORDINATOR LEAD PM 2019 12:00:00 AM EST MEDENT ([facility]) Results ID Date Data Source [id number] 11/13/2020 10:00:00 AM EST [facility] Name Value Range Interpretation Code Description Data Diya rce(s) Supporting Document(s) SARS coronavirus 2 RNA Not Detected [facility] This lab was ordered by [facility] and reported by [facility]. ID Date Data Source [id number] 11/06/2020 10:00:00 AM EST [facility] Name Value Range Interpretation Code Description Data Diya rce(s) Supporting Document(s) SARS coronavirus 2 RNA Not Detected [facility] [place] This lab was ordered by [facility] and reported by [facility]. ID Date Data Source [id number] 10/30/2020 10:00:00 AM EST [facility] Name Value Range Interpretation Code Description Data Diya rce(s) Supporting Document(s) SARS coronavirus 2 RNA Not Detected [facility] [place] This lab was ordered by [facility] and reported by [facility]. ID Date Data Source [id number] 10/23/2020 06:00:00 AM EST [facility] Name Value Range Interpretation Code Description Data Diya rce(s) Supporting Document(s) SARS coronavirus 2 RNA Not Detected [facility] This lab was ordered by [facility] and reported by [facility]. ID Date Data Source [id number] 10/16/2020 10:45:00 AM EST [facility] Name Value Range Interpretation Code Description Data Diya rce(s) Supporting Document(s) SARS coronavirus 2 RNA Not Detected [facility] [place] This lab was ordered by [facility] and reported by [facility]. ID Date Data Source [id number] 10/09/2020 11:00:00 AM EST [facility] Name Value Range Interpretation Code Description Data Diya rce(s) Supporting Document(s) SARS coronavirus 2 RNA Not Detected [facility] This lab was ordered by [facility] and reported by [facility]. ID Date Data Source [id number] 10/04/2020 11:00:00 AM EST [facility] Name Value Range Interpretation Code Description Data Diya rce(s) Supporting Document(s) SARS coronavirus 2 RNA Not Detected [facility] This lab was ordered by [facility] and reported by [facility]. ID Date Data Source [id number] 09/30/2020 09:30:00 AM EST [facility] Name Value Range Interpretation Code Description Data Diya rce(s) Supporting Document(s) SARS coronavirus 2 RNA Not Detected [facility] This lab was ordered by [facility] and reported by [facility]. ID Date Data Source [id number] 09/23/2020 10:17:00 AM EST [facility] Name Value Range Interpretation Code Description Data Diya rce(s) Supporting Document(s) SARS coronavirus 2 RNA [Presence] in Res piratory specimen by JAC with probe detection [facility] This lab was ordered by [facility] a nd reported by [facility]. ID Date Data Source [id number] 09/18/2020 11:00:00 AM EST [facility] Name Value Range Interpretation Code Description Data Diya rce(s) Supporting Document(s) SARS coronavirus 2 RNA [facility] This lab was ordered by [facility] and reported by [facility]. ID Date Data Source [id number] 09/12/2020 10:45:00 AM EST [facility] Name Value Range Interpretation Code Description Data Diya rce(s) Supporting Document(s) SARS coronavirus 2 RNA [facility] This lab was ordered by [facility] and reported by [facility]. ID Date Data Source [id number] 09/08/2020 05:00:00 PM EST [facility] Name Value Range Interpretation Code Description Data Diya rce(s) Supporting Document(s) SARS coronavirus 2 RNA [facility] This lab was ordered by [facility] and reported by [facility]. ID Date Data Source [id number] 09/03/2020 03:05:00 PM EST MEDENT ([facility]) Name Value Range Interpretation Code Description Data Diya rce(s) Supporting Document(s) Magnesium Level 1.9 1.8-2.4 MEDENT ([facility]) ID Date Data Source [id number] 09/03/2020 03:05:00 PM EST MEDENT ([facility]) Name Value Range Interpretation Code Description Data Diya rce(s) Supporting Document(s) Alanine aminotransferase [Enzymatic activity/volume] in Serum or Pl asma 32 MEDENT ([facility]) Albumin [Mass/volume] in Serum or Plasma 3.8 MEDENT ([facility]) Carbon dioxide, total [Moles/volume] in Serum or Plasma 25 MEDENT ([facility]) Chloride [Moles/volume] in Serum or Plasma 105 MEDENT ([facility]) Calcium [Mass/volume] in Serum or Plasma 9.6 MEDENT ([facility]) Alkaline phosphatase [Enzymatic activity/volume] in Serum or Plasma 7 0 MEDENT ([facility]) Protein [Mass/volume] in Serum or Plasma 7.2 MEDENT ([facility]) Potassium [Moles/volume] in Serum or Plasma 4.2 MEDENT ([facility]) Sodium 140 [facility] Aspartate aminotransferase [Enzymatic activity/volume] in Serum or Plasma 21 MEDENT ([facility] Urea nitrogen [Mass/volume] in Serum or Plasma 15 MEDENT ([facility]) Glucose 154 70-100 MEDENT ([facility]) Creatinine For GFR 1.11 MEDENT ([facility]) ID Date Data Source [id number] 08/21/2020 11:00:00 AM EST [facility] Name Value Range Interpretation Code Description Data Diya rce(s) Supporting Document(s) SARS coronavirus 2 RNA [facility] This lab was ordered by [facility] and reported by [facility]. ID Date Data Source [id number] 08/15/2020 02:00:00 PM EST [facility] Name Value Range Interpretation Code Description Data Diya rce(s) Supporting Document(s) SARS coronavirus 2 RNA [facility] This lab was ordered by [facility] and reported by [facility]. ID Date Data Source [id number] 08/08/2020 01:50:00 PM EST [facility] Name Value Range Interpretation Code Description Data Diya rce(s) Supporting Document(s) SARS coronavirus 2 RNA [facility] This lab was ordered by [facility] and reported by [facility]. ID Date Data Source [id number] 03/04/2020 08:05:00 AM EDT MEDENT ([facility]) Name Value Range Interpretation Code Description Data Diya rce(s) Supporting Document(s) Magnesium Level 1.9 1.8-2.4 MEDENT ([facility]) ID Date Data Source [id number] 03/04/2020 08:05:00 AM EDT MEDENT ([facility]) Name Value Range Interpretation Code Description Data Diya rce(s) Supporting Document(s) Alanine aminotransferase [Enzymatic activity/volume] in Serum or Pl asma 34 MEDENT ([facility]) Albumin [Mass/volume] in Serum or Plasma 3.6 MEDENT ([facility]) Calcium [Mass/volume] in Serum or Plasma 8.7 MEDENT ([facility]) Carbon dioxide, total [Moles/volume] in Serum or Plasma 25 MEDENT ([facility]) Chloride [Moles/volume] in Serum or Plasma 106 MEDENT ([facility]) Alkaline phosphatase [Enzymatic activity/volume] in Serum or Plasma 7 1 MEDENT ([facility]) Protein [Mass/volume] in Serum or Plasma 6.8 MEDENT ([facility]) Potassium [Moles/volume] in Serum or Plasma 4.1 MEDENT ([facility]) Aspartate aminotransferase [Enzymatic activity/volume] in Serum or Plasma 22 MEDENT ([facility]) Sodium 141 MEDENT ([facility]) Urea nitrogen [Mass/volume] in Serum or Plasma 14 MEDENT ([facility]) Glucose 136 70-100 MEDENT ([facility]) Creatinine For GFR 0.86 MEDENT ([facility]) ID Date Data Source [id number] 02/13/2020 11:45:00 AM EDT [facility] Name Value Range Interpretation Code Description Data Diya rce(s) Supporting Document(s) SARS CORONAVIRUS 2 RNA [facility] This lab was ordered by [facility] and reported by [facility]. Procedure Social History Code Duration Value Status Description Data Source(s ) Smoking 11/05/2020 12:00:00 AM EST Patient has never smoked co mpleted Patient has never smoked MEDENT ([facility]) Smoking 08/29/2020 12:00:00 AM EST Never Smoker completed Never S moker eCW1 ([facility]) Vital Signs ID Date Data Source UNK Name Value Range Interpretation Code Description Data Source(s) Heart rate 79 /min 79 /min MEDENT ([facility]) Body height 60 [in_i] 60 [in_i] MEDENT ([facility]) 5'0" Body mass index (BMI) [Ratio] 50.99 kg/m2 50.99 kg/m2 W1 ([facility]) Body height 60.5 [in_i] 60.5 [in_i] eCW1 ([facility]) Body weight 265.5 [lb_av] 265.5 [lb_av] eCW1 ([facility]) Diastolic blood pressure--sitting 80 mm[Hg] 80 mm[Hg] MEDENT ([facility]) large cuff, Ra Systolic blood pressure--sitting 130 mm[Hg] 130 mm[Hg] MEDENT ([facility]) large cuff, Ra Body height 60 [in_i] 60 [in_i] MEDENT ([facility]) 5'0" Diastolic blood pressure 84 mm[Hg] 84 mm[Hg] eCW1 ([facility]) Systolic blood pressure 128 mm[Hg] 128 mm[Hg] e CW1 ([facility]) Body mass index (BMI) [Ratio] 52.24 kg/m2 52.24 kg/m2 W1 ([facility]) Body height 60.5 [in_us] 60.5 [in_us] eCW1 ([facility]) Body weight Measured 272 [lb_av] 272 [lb_av] eC W1 ([facility])
[2020-11-20] MEDS: VANCOMYCIN HCL 1,000 MG, VIAL MATE ADAPTER 1 EACH in D5W 250 ML IV SCH (04:24)
[2020-11-20] MEDS: NS 1,000 ML IV SCH ×3 (04:25→20:22)
[2020-11-20 05:56] VITALS: BP 162/81
[2020-11-20] MEDS: ULTRACET TAB PO SCH ×3 (06:50→20:21)
[2020-11-20 07:00] LABS: BILIRUBIN,TOTAL 1.2 MG/DL (0.2-1.0); CALCIUM LEVEL 8.3 MG/DL (8.8-10.2); CREATININE FOR GFR 0.99 MG/DL (0.55-1.30); GLOMERULAR FILTRATION RATE 56.9 (>32); POTASSIUM SERUM 3.7 MEQ/L (3.5-5.1); TOTAL PROTEIN 6.9 GM/DL (6.4-8.2)
[2020-11-20 07:32] LABS: HEMATOCRIT 40.9 % (36.0-47.0); MEAN CORPUSCULAR HEMOGLOBIN 28.6 pg (27.0-33.0); MEAN CORPUSCULAR HGB CONC 31.8 g/dl (32.0-36.5); MEAN CORPUSCULAR VOLUME 90.1 fl (80.0-96.0); PLATELET COUNT, AUTOMATED 210 10^3/uL (150-450); RED BLOOD COUNT 4.54 10^6/uL (4.00-5.40); WHITE BLOOD COUNT 14.5 10^3/uL (4.0-10.0)
[2020-11-20] MEDS: IPRATROPIUM 0.5MG/ALBUTEROL 2.5MG INH SOL UD 3ML (DUONEB) INH SCH ×4 (08:02→19:56)
[2020-11-20 08:19] LABS: HEMOGLOBIN A1c 6.3 %
[2020-11-20] MEDS: DOCUSATE SODIUM 100MG CAPSULE PO SCH ×2 (09:30→20:21)
[2020-11-20] MEDS: SENOKOT S TAB PO SCH ×2 (09:30→20:21)
[2020-11-20] MEDS: SPIRONOLACTONE 25 MG TAB PO SCH (09:31)
[2020-11-20] MEDS: HEPARIN SOD (PORCINE) 5000UNITS/ML 1ML VIAL/SYRINGE SC SCH ×2 (09:31→20:22)
[2020-11-20 14:00] VITALS: BP 150/82
[2020-11-20] MEDS: ESCITALOPRAM OXALATE 5MG TABLET (LEXAPRO) PO SCH (20:22)
[2020-11-20] MEDS: PRAVASTATIN 10 MG TAB PO SCH (20:22)
--- NOTE | 2020-11-20 20:32 | IPNPDOC ---
Subjective Date Seen The patient was seen on 11/20/20. Subjective Chief Complaint/HPI Mrs. Lara is an 85-year-old female with diabetes mellitus from [facility] who presents with fever and left lower cellulitis. Overnight, patient was afebrile. This morning, patient denies any chest pain or dyspnea. Left leg is still warm, swollen, and erythematous. Objective Physical Examination General Exam: Positive: Cooperative Eye Exam: Positive: EOMI; Negative: Sclera icteric ENT Exam: Positive: Atraumatic Neck Exam: Positive: Supple Chest Exam: Positive: Clear to auscultation; Negative: Rales, Rhonchi, Wheezing Heart Exam: Positive: Rate Normal, Regular Rhythm Abdomen Exam: Positive: Normal bowel sounds, Soft; Negative: Tenderness Extremity Exam: Positive: Edema, Swelling (left leg) Neuro Exam: Positive: Cranial Nerves 3-12 NL Psych Exam: Positive: Mental status NL, Mood NL Assessment /Plan Assessment Mrs. Lara is an 85-year-old female with diabetes mellitus from [facility] who presents with fever and left lower cellulitis. Patient met sepsis criteria. Leukocytes elevated at 18.8. We'll continue vancomycin and trending WBC and CRP. Plan/VTE VTE Prophylaxis Ordered?: Yes Plan 1. Left lower extremity cellulitis Met sepsis criteria with fever and leukocytosis Patient received IV fluids and IV vancomycin Follow WBC and CRP 2. Diabetes mellitus Sliding scale insulin Carbohydrate consistent diet 3. Hypertension Continue amlodipine and spironolactone 4. Anxiety/depression Continue Lexapro 5. DVT prophylaxis Heparin subcutaneous VS, I&O, 24H, Fishbone Vital Signs/I&O Vital Signs Date Time Temp Pulse Resp B/P (MAP) Pulse Ox O2 Delivery O2 Flow Rate FiO2 11/20/20 20:21 16 11/20/20 14:00 98.2 78 150/82 (104) 95 Room Air I&O- Last 24 Hours up to 6 AM 11/20/20 06:00 Intake Total 250 ml Balance 250 ml Laboratory Data 24H LABS Laboratory Tests 2 11/19/20 22:17: Prothrombin Time 15.0H, Prothromb Time International Ratio 1.15, Activated Partial Thromboplast Time 32.9, Anion Gap 7L, Glomerular Filtration Rate 53.2, Calcium Level 8.7L, Total Bilirubin 1.1H, Direct Bilirubin 0.4H, Aspartate Amino Transf (AST/SGOT) 25, Alanine Aminotransferase (ALT/SGPT) 28, Alkaline Phosphatase 75, C-Reactive Protein, Quantitative 14.20H, Total Protein 6.7, Albumin 3.3, Albumin/Globulin Ratio 1.0L, Lipase 75 11/19/20 22:18: Lactic Acid Level 2.2*H 11/19/20 23:10: Immature Granulocyte % (Auto) 0.9, Neutrophils (%) (Auto) 85.8H, Lymphocytes (%) (Auto) 5.5L, Monocytes (%) (Auto) 7.5, Eosinophils (%) (Auto) 0.0, Basophils (%) (Auto) 0.3, Neutrophils # (Auto) 16.1H, Lymphocytes # (Auto) 1.0L, Monocytes # (Auto) 1.4H, Eosinophils # (Auto) 0.0, Basophils # (Auto) 0.1, Nucleated Red B lood Cells % (auto) 0.0, Erythrocyte Sedimentation Rate 18 11/20/20 00:34: Urine Color YELLOW, Urine Appearance CLEAR, Urine pH 5.0, Urine Specific [place] 1.024, Urine Protein 2+H, Urine Glucose (UA) NEGATIVE, Urine Ketones TRACEH, Urine Blood NEGATIVE, Urine Nitrite NEGATIVE, Urine Bilirubin NEGATIVE, Urine Urobilinogen 0.2, Urine Leukocyte Esterase NEGATIVE, Urine WBC (Auto) 7H, Urine RBC (Auto) 3, Urine Hyaline Casts (Auto) 0, Urine Bacteria (Auto) NEGATIVE, Urine Squamous Epithelial Cells 0, Urine Mucus (Auto) SMALL, Urine Sperm (Auto) 11/20/20 02:54: Lactic Acid Followup at 4 Hours 2.0 11/20/20 06:26: Anion Gap 9, Glomerular Filtration Rate 56.9, Calcium Level 8.3L, Total Bilirubin 1.2H, Aspartate Amino Transf (AST/SGOT) 18, Alanine Aminotransferase (ALT/SGPT) 28, Alkaline Phosphatase 73, Total Protein 6.9, Albumin 3.0L, Albumin/Globulin Ratio 0.8L 11/20/20 07:18: Nucleated Red Blood Cells % (auto) 0.0, Estimated Mean Plasma Glucose 134H, Hemoglobin A1c 6.3 11/20/20 07:44: CBC/BMP Laboratory Tests 11/19/20 22:17 11/19/20 23:10 11/20/20 06:26 11/20/20 07:18 Microbiology Microbiology 11/19/20 Blood Culture, Received Pending 11/19/20 Respiratory Virus Panel (PCR) ([facility]) - Final, Complete 11/19/20 Blood Culture, Received Pending TIEN WARE DO Nov 20, 2020 20:32
[2020-11-20 22:00] VITALS: BP 161/75
[2020-11-21] MEDS: NS 1,000 ML IV SCH ×2 (04:01→20:27)
[2020-11-21] MEDS: VANCOMYCIN HCL 1,000 MG, VIAL MATE ADAPTER 1 EACH in D5W 250 ML IV SCH (04:01)
[2020-11-21] MEDS: ULTRACET TAB PO SCH ×3 (05:46→20:27)
[2020-11-21 06:00] VITALS: BP 176/64
[2020-11-21 06:54] LABS: HEMATOCRIT 38.8 % (36.0-47.0); HEMOGLOBIN 11.9 g/dl (12.0-15.5); MEAN CORPUSCULAR HEMOGLOBIN 27.6 pg (27.0-33.0); MEAN CORPUSCULAR HGB CONC 30.7 g/dl (32.0-36.5); PLATELET COUNT, AUTOMATED 203 10^3/uL (150-450); RED BLOOD COUNT 4.31 10^6/uL (4.00-5.40); WHITE BLOOD COUNT 8.3 10^3/uL (4.0-10.0)
[2020-11-21 07:29] LABS: ALBUMIN 2.8 GM/DL (3.2-5.2); ALT/SGPT 23 U/L (12-78); BILIRUBIN,TOTAL 0.9 MG/DL (0.2-1.0); BLOOD UREA NITROGEN 13 MG/DL (7-18); CALCIUM LEVEL 6.8 MG/DL (8.8-10.2); CARBON DIOXIDE LEVEL 24 MEQ/L (21-32); CHLORIDE LEVEL 107 MEQ/L (98-107); CREATININE FOR GFR 0.81 MG/DL (0.55-1.30); GLOMERULAR FILTRATION RATE > 60.0 (>32); GLUCOSE, FASTING 160 MG/DL (70-100); POTASSIUM SERUM 3.3 MEQ/L (3.5-5.1); SODIUM LEVEL 138 MEQ/L (136-145); TOTAL PROTEIN 6.4 GM/DL (6.4-8.2)
[2020-11-21] MEDS: IPRATROPIUM 0.5MG/ALBUTEROL 2.5MG INH SOL UD 3ML (DUONEB) INH SCH ×4 (08:00→19:51)
[2020-11-21] MEDS: HEPARIN SOD (PORCINE) 5000UNITS/ML 1ML VIAL/SYRINGE SC SCH ×2 (09:14→20:28)
[2020-11-21] MEDS: SPIRONOLACTONE 25 MG TAB PO SCH (09:14)
[2020-11-21] MEDS: SENOKOT S TAB PO SCH ×2 (09:14→20:27)
[2020-11-21] MEDS: DOCUSATE SODIUM 100MG CAPSULE PO SCH ×2 (09:14→20:27)
[2020-11-21] MEDS ORDERED: ISOVUE-370 76% 100ML VIAL As Ordered ONE (09:42)
--- NOTE | 2020-11-21 12:26 | REP ---
INDICATION: trauma, pain in left femur, cellulitis left leg, osteo?. COMPARISON: Left hip x-ray 12/22/2017, 07/14/2017; CT abdomen pelvis 10/17/2017.. TECHNIQUE: Bolus of 100 mL Isovue 370 scanning through the femur from above the acetabulum through the tibial plateau soft tissue and bone window settings. Coronal and sagittal reconstructions were provided. Orthopedic metal artifact reduction algorithm utilized for axial images. FINDINGS: The conductor symphonic orchestra image shows a left total hip arthroplasty with the 2 components well aligned in relationship to the each other and the ramona bone. There is a long stem component of the hip prosthesis in the proximal femur. There is no hardware failure. Even allowing for the metal artifact reduction algorithm, lateral aspect of the greater trochanter is partially obscured. Pain that portion visible of is intact however and I do not see any definite evidence of acute fracture. The conductor symphonic orchestra image suggests no abnormal lucency surrounding the femoral stem component within the femoral shaft. There is no abnormal soft tissue density in the periosteal region and visualized musculature of the proximal thigh, buttock and hip shows no mass or focal lesion. There is no inguinal hernia or pathologic sized inguinal adenopathy. The ischia, bony acetabulum, symphysis pubis and inferior margin of the SI joint intact. Some mild skin thickening or is subcutaneous edema along the lateral flank at the hip that may reflect cellulitis. No subcutaneous emphysema. No other significant findings. IMPRESSION: 1. 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 The absence of fluid collection about the hip and femur also noted. No visible fracture. No other significant finding. 2. Findings and may suggest some subcutaneous edema and skin thickening that likely represents cellulitis. No subcutaneous abscess or emphysematous change <Electronically signed by Lenard Paris > 11/21/20 [id number]
[2020-11-21 14:00] VITALS: BP 155/82
--- NOTE | 2020-11-21 14:09 | IPNPDOC ---
Subjective Date Seen The patient was seen on 11/21/20. Subjective Chief Complaint/HPI Mrs. Lara is an 85-year-old female with diabetes mellitus from [facility] who presents with fever and left lower cellulitis. He has been afebrile for 48 hours. This morning, the pain in her left ankle was improved. She still has pain in her left thigh as well as tenderness. Otherwise she denies any chest pain or worsening dyspnea. Objective Physical Examination General Exam: Positive: Cooperative Eye Exam: Positive: EOMI; Negative: Sclera icteric ENT Exam: Positive: Atraumatic Neck Exam: Positive: Supple Chest Exam: Positive: Clear to auscultation; Negative: Rales, Rhonchi, Wheezing Heart Exam: Positive: Rate Normal, Regular Rhythm Abdomen Exam: Positive: Normal bowel sounds, Soft; Negative: Tenderness Extremity Exam: Positive: Edema, Swelling (left leg) Neuro Exam: Positive: Cranial Nerves 3-12 NL Psych Exam: Positive: Mental status NL, Mood NL Assessment /Plan Assessment Mrs. Lara is an 85-year-old female with diabetes mellitus from [facility] who prese nts with fever and left lower cellulitis. Patient met sepsis criteria. Leukocytes elevated at 18.8 which is now resolved. Otherwise CMP is still elevated. Obtained a CT of the left femur due to persistent pain. No fractures or signs to be suggestive of osteomyelitis. Demonstrated cellulitis of the left thigh. Plan/VTE VTE Prophylaxis Ordered?: Yes Plan 1. Left lower extremity cellulitis Met sepsis criteria with fever and leukocytosis Patient received IV fluids and IV vancomycin Follow WBC and CRP 2. Diabetes mellitus Sliding scale insulin Carbohydrate consistent diet 3. Hypertension Continue amlodipine and spironolactone 4. Anxiety/depression Continue Lexapro 5. DVT prophylaxis Heparin subcutaneous Disposition: Pending improvement of cellulitis. CRP still elevated. Continue IV antibiotics. VS, I&O, 24H, Fishbone Vital Signs/I&O Vital Signs Date Time Temp Pulse Resp B/P (MAP) Pulse Ox O2 Delivery O2 Flow Rate FiO2 11/21/20 12:23 97.0 86 20 176/64 93 Room Air I&O- Last 24 Hours up to 6 AM 11/21/20 06:00 Intake Total 1670 ml Balance 1670 ml Laboratory Data 24H LABS Laboratory Tests 2 11/21/20 06:10: Nucleated Red Blood Cells % (auto) 0.0, Anion Gap 7L, Glomerular Filtration Rate > 60.0, Calcium Level 6.8#L, Total Bilirubin 0.9, Aspartate Amino Transf ( T/SGOT) 13, Alanine Aminotransferase (ALT/SGPT) 23, Alkaline Phosphatase 63, C- Reactive Protein, Quantitative 16.30H, Total Protein 6.4, Albumin 2.8L, Albumin/Globulin Ratio 0.8L CBC/BMP Laboratory Tests 11/21/20 06:10 Microbiology Microbiology 11/19/20 Blood Culture - Preliminary, Resulted No growth after 24 hours . All specim... 11/19/20 Respiratory Virus Panel (PCR) ([facility]) - Final, Complete 11/19/20 Blood Culture - Preliminary, Resulted No growth after 24 hours . All specim... TIEN WARE DO Nov 21, 2020 14:09
[2020-11-21] MEDS: ESCITALOPRAM OXALATE 5MG TABLET (LEXAPRO) PO SCH (20:26)
[2020-11-21] MEDS: PRAVASTATIN 10 MG TAB PO SCH (20:27)
[2020-11-22] MEDS ORDERED: VANCOMYCIN HCL 1,000 MG, VIAL MATE ADAPTER 1 EACH in D5W 250 ML IV SCH (04:00)
[2020-11-22] MEDS: NS 1,000 ML IV SCH ×2 (05:44→15:36)
[2020-11-22] MEDS: ULTRACET TAB PO SCH ×3 (05:48→19:54)
[2020-11-22 07:47] LABS: HEMATOCRIT 37.8 % (36.0-47.0); HEMOGLOBIN 11.8 g/dl (12.0-15.5); MEAN CORPUSCULAR HEMOGLOBIN 28.1 pg (27.0-33.0); MEAN CORPUSCULAR HGB CONC 31.2 g/dl (32.0-36.5); PLATELET COUNT, AUTOMATED 220 10^3/uL (150-450); WHITE BLOOD COUNT 6.5 10^3/uL (4.0-10.0)
[2020-11-22] MEDS: IPRATROPIUM 0.5MG/ALBUTEROL 2.5MG INH SOL UD 3ML (DUONEB) INH SCH ×3 (08:00→14:51)
[2020-11-22 08:18] LABS: ALBUMIN 2.8 GM/DL (3.2-5.2); ALT/SGPT 22 U/L (12-78); BILIRUBIN,TOTAL 0.6 MG/DL (0.2-1.0); BLOOD UREA NITROGEN 14 MG/DL (7-18); C REACTIVE PROTEIN QUANTITATIV 8.14 MG/DL (0.00-0.30); CALCIUM LEVEL 7.9 MG/DL (8.8-10.2); CARBON DIOXIDE LEVEL 25 MEQ/L (21-32); CHLORIDE LEVEL 108 MEQ/L (98-107); GLOMERULAR FILTRATION RATE > 60.0 (>32); GLUCOSE, FASTING 143 MG/DL (70-100); POTASSIUM SERUM 3.7 MEQ/L (3.5-5.1); SODIUM LEVEL 140 MEQ/L (136-145); TOTAL PROTEIN 5.7 GM/DL (6.4-8.2)
[2020-11-22] MEDS: DOCUSATE SODIUM 100MG CAPSULE PO SCH ×2 (08:37→19:54)
[2020-11-22] MEDS: SENOKOT S TAB PO SCH ×2 (08:37→19:53)
[2020-11-22] MEDS: HEPARIN SOD (PORCINE) 5000UNITS/ML 1ML VIAL/SYRINGE SC SCH ×2 (08:37→19:54)
[2020-11-22] MEDS: SPIRONOLACTONE 25 MG TAB PO SCH (08:37)
--- NOTE | 2020-11-22 12:03 | IPNPDOC ---
Subjective Date Seen The patient was seen on 11/22/20. Subjective Chief Complaint/HPI Mrs. Lara is an 85-year-old female with diabetes mellitus from [facility] who presents with fever and left lower cellulitis. She was afebrile overnight. She was seen this morning using the commode. Otherwise denies any fevers, chest pain, or dyspnea. Objective Physical Examination General Exam: Positive: Cooperative Eye Exam: Positive: EOMI; Negative: Sclera icteric ENT Exam: Positive: Atraumatic Neck Exam: Positive: Supple Chest Exam: Positive: Clear to auscultation; Negative: Rales, Rhonchi, Wheezing Heart Exam: Positive: Rate Normal, Regular Rhythm Abdomen Exam: Positive: Normal bowel sounds, Soft; Negative: Tenderness Extremity Exam: Positive: Edema, Swelling (left leg) Neuro Exam: Positive: Cranial Nerves 3-12 NL Psych Exam: Positive: Mental status NL, Mood NL Assessment /Plan Assessment Mrs. Lara is an 85-year-old female with diabetes mellitus from [facility] who presents with fever and left lower cellulitis. Patient met sepsis criteria. Leukocytes elevated at 18.8 which is now resolved. Otherwise CRP is still elevated. Obtained a CT of the left femur due to persistent pain. No fractures or signs to be suggestive of osteomyelitis. Demonstrated cellulitis of the left thigh. Plan/VTE VTE Prophylaxis Ordered?: Yes Plan 1. Left lower extremity cellulitis Met sepsis criteria with fever and leukocytosis Patient received IV fluids and IV vancomycin Follow WBC and CRP CRP still elevated at 8 2. Diabetes mellitus Sliding scale insulin Carbohydrate consistent diet 3. Hypertension Continue amlodipine and spironolactone 4. Anxiety/depression Continue Lexapro 5. DVT prophylaxis Heparin subcutaneous Disposition: Pending improvement of cellulitis. CRP still elevated. Continue IV antibiotics. VS, I&O, 24H, Fishbone Vital Signs/I&O Vital Signs Date Time Temp Pulse Resp B/P (MAP) Pulse Ox O2 Delivery O2 Flow Rate FiO2 11/22/20 08:37 79 176/64 11/22/20 06:00 98.6 20 79 11/21/20 12:23 Room Air I&O- Last 24 Hours up to 6 AM 11/22/20 06:00 Intake Total 2780 ml Balance 2780 ml Laboratory Data 24H LABS Laboratory Tests 2 11/22/20 03:17: Vancomycin Level Trough 8.5L 11/22/20 07:14: Nucleated Red Blood Cells % (auto) 0.0, Anion Gap 7L, Glomerular Filtration Rate > 60.0, Calcium Level 7.9#L, Total Bilirubin 0.6, Aspartate Amino Transf (AST/SGOT) 13, Alanine Aminotransferase (ALT/SGPT) 22, Alkaline Phosphatase 64, C-Reactive Protein, Quantitative 8.14H, Total Protein 5.7L, Albumin 2.8L, Albumin/Globulin Ratio 1.0L CBC/BMP Laboratory Tests 11/22/20 07:14 Microbiology Microbiology 11/19/20 Blood Culture - Preliminary, Resulted No Growth after 48 hours. All Specime... 11/19/20 Respiratory Virus Panel (PCR) ([facility]) - Final, Complete 11/19/20 Blood Culture - Preliminary, Resulted No Growth after 48 hours. All Specime... TIEN WARE DO Nov 22, 2020 12:03
[2020-11-22 14:00] VITALS: BP 145/82
[2020-11-22] MEDS ORDERED: VANCOMYCIN HCL 1,000 MG, VIAL MATE ADAPTER 1 EACH in NS 250 ML IV SCH (16:00)
[2020-11-22] MEDS: PRAVASTATIN 10 MG TAB PO SCH (19:54)
[2020-11-22] MEDS: ESCITALOPRAM OXALATE 5MG TABLET (LEXAPRO) PO SCH (19:54)
[2020-11-22 22:00] VITALS: BP 169/76
[2020-11-23] MEDS: NS 1,000 ML IV SCH ×3 (00:31→20:24)
[2020-11-23 06:00] VITALS: BP 156/78
[2020-11-23] MEDS: ULTRACET TAB PO SCH ×3 (06:06→20:25)
[2020-11-23 06:37] LABS: BASO # 0.1 10^3/uL (0.0-0.2); BASO % 1.2 % (0.0-1.0); EOS # 0.4 10^3/uL (0.0-0.5); EOS % 5.8 % (0.0-3.0); HEMATOCRIT 40.9 % (36.0-47.0); HEMOGLOBIN 12.8 g/dl (12.0-15.5); LYMPH % 30.3 % (24.0-44.0); MEAN CORPUSCULAR HEMOGLOBIN 28.3 pg (27.0-33.0); MEAN CORPUSCULAR HGB CONC 31.3 g/dl (32.0-36.5); MEAN CORPUSCULAR VOLUME 90.3 fl (80.0-96.0); MONO # 0.7 10^3/uL (0.0-0.8); MONO % 10.5 % (2.0-8.0); NEUTROPHILS # 3.3 10^3/uL (1.5-8.5); NEUTROPHILS % 50.2 % (36.0-66.0); PLATELET COUNT, AUTOMATED 264 10^3/uL (150-450); RED BLOOD COUNT 4.53 10^6/uL (4.00-5.40); WHITE BLOOD COUNT 6.5 10^3/uL (4.0-10.0)
[2020-11-23 07:07] LABS: BLOOD UREA NITROGEN 14 MG/DL (7-18); C REACTIVE PROTEIN QUANTITATIV 4.65 MG/DL (0.00-0.30); CALCIUM LEVEL 8.5 MG/DL (8.8-10.2); CARBON DIOXIDE LEVEL 25 MEQ/L (21-32); CHLORIDE LEVEL 110 MEQ/L (98-107); CREATININE FOR GFR 0.91 MG/DL (0.55-1.30); GLOMERULAR FILTRATION RATE > 60.0 (>32); GLUCOSE, FASTING 137 MG/DL (70-100); POTASSIUM SERUM 4.1 MEQ/L (3.5-5.1); SODIUM LEVEL 141 MEQ/L (136-145)
[2020-11-23] MEDS: IPRATROPIUM 0.5MG/ALBUTEROL 2.5MG INH SOL UD 3ML (DUONEB) INH SCH ×3 (08:00→15:27)
[2020-11-23] MEDS: SPIRONOLACTONE 25 MG TAB PO SCH (08:50)
[2020-11-23] MEDS: DOCUSATE SODIUM 100MG CAPSULE PO SCH ×2 (08:50→20:24)
[2020-11-23] MEDS: DOXYCYCLINE HYCLATE 100MG TABLET PO SCH ×2 (08:50→20:24)
[2020-11-23] MEDS: SENOKOT S TAB PO SCH ×2 (08:50→20:24)
[2020-11-23] MEDS: HEPARIN SOD (PORCINE) 5000UNITS/ML 1ML VIAL/SYRINGE SC SCH ×2 (08:51→20:24)
[2020-11-23 14:00] VITALS: BP 174/92
[2020-11-23 14:05] VITALS: BP 168/84
--- NOTE | 2020-11-23 17:14 | IPNPDOC ---
Subjective Date Seen The patient was seen on 11/23/20. Subjective Chief Complaint/HPI Mrs. Lara is an 85-year-old female with diabetes mellitus from [facility] who presents with fever and left lower cellulitis. Overnight, she was afebrile. Denies any chest pain or dyspnea. Cellulitis is receding and CRP is improving. We'll switch to oral antibiotics today. Plan to return to [facility] back on Wednesday. Objective Physical Examination General Exam: Positive: Cooperative Eye Exam: Positive: EOMI; Negative: Sclera icteric ENT Exam: Positive: Atraumatic Neck Exam: Positive: Supple Chest Exam: Positive: Clear to auscultation; Negative: Rales, Rhonchi, Wheezing Heart Exam: Positive: Rate Normal, Regular Rhythm Abdomen Exam: Positive: Normal bowel sounds, Soft; Negative: Tenderness Extremity Exam: Positive: Edema Neuro Exam: Positive: Cranial Nerves 3-12 NL Psych Exam: Positive: Mental status NL, Mood NL Assessment /Plan Assessment Mrs. Lara is an 85-year-old female with diabetes mellitus from [facility] who presents with fever and left lower cellulitis. Patient met sepsis criteria. Leukocytes elevated at 18.8 which is now resolved. Otherwise CRP is still elevated. Obtained a CT of the left femur due to persistent pain. No fractures or signs to be suggestive of osteomyelitis. Demonstrated cellulitis of the left thigh. Cellulitis has improved and the labs are improving. Switch to oral antibiotic. Plan to return to [facility] on Wednesday. Plan/VTE VTE Prophylaxis Ordered?: Yes Plan 1. Left lower extremity cellulitis Met sepsis criteria with fever and leukocytosis Patient received IV fluids and IV vancomycin IV vancomycin de-escalated to PO doxycycline Follow WBC and CRP CRP now 4 2. Diabetes mellitus Sliding scale insulin Carbohydrate consistent diet 3. Hypertension Continue amlodipine and spironolactone 4. Anxiety/depression Continue Lexapro 5. DVT prophylaxis Heparin subcutaneous Disposition: Return to return to [facility] on Wednesday VS, I&O, 24H, Fishbone Vital Signs/I&O Vital Signs Date Time Temp Pulse Resp B/P (MAP) Pulse Ox O2 Delivery O2 Flow Rate FiO2 11/23/20 14:05 168/84 (112) 11/23/20 14:00 99.1 86 18 94 Room Air I&O- Last 24 Hours up to 6 AM 11/23/20 06:00 Intake Total 780 ml Output Total 200 ml Balance 580 ml Laboratory Data 24H LABS Laboratory Tests 2 11/23/20 06:18: Immature Granulocyte % (Auto) 2.0, Neutrophils (%) (Auto) 50.2, Lymphocytes (%) (Auto) 30.3, Monocytes (%) (Auto) 10.5H, Eosinophils (%) (Auto) 5.8H, Basophils (%) (Auto) 1.2H, Neutrophils # (Auto) 3.3, Lymphocytes # (Auto) 2.0, Monocytes # (Auto) 0.7, Eosinophils # (Auto) 0.4, Basophils # (Auto) 0.1, Nucleated Red Blood Cells % (auto) 0.0, Anion Gap 6L, Glomerular Filtration Rate > 60.0, Calcium Level 8.5L, C-Reactive Protein, Quantitative 4.65H CBC/BMP Laboratory Tests 11/23/20 06:18 Microbiology Microbiology 11/19/20 Blood Culture - Preliminary, Resulted No Growth after 72 hours. All specime... 11/19/20 Respiratory Virus Panel (PCR) ([facility]) - Final, Complete 11/19/20 Blood Culture - Preliminary, Resulted No Growth after 72 hours. All specime... TIEN WARE DO Nov 23, 2020 17:14
[2020-11-23] MEDS: PRAVASTATIN 10 MG TAB PO SCH (20:24)
[2020-11-23] MEDS: ESCITALOPRAM OXALATE 5MG TABLET (LEXAPRO) PO SCH (20:24)
[2020-11-23 22:00] VITALS: BP 162/79
[2020-11-24 06:00] VITALS: BP 165/89
[2020-11-24] MEDS: NS 1,000 ML IV SCH (06:05)
[2020-11-24] MEDS: ULTRACET TAB PO SCH ×3 (06:05→20:22)
[2020-11-24 06:31] LABS: BASO # 0.1 10^3/uL (0.0-0.2); BASO % 1.5 % (0.0-1.0); EOS # 0.4 10^3/uL (0.0-0.5); EOS % 4.6 % (0.0-3.0); HEMATOCRIT 38.9 % (36.0-47.0); HEMOGLOBIN 12.1 g/dl (12.0-15.5); LYMPH # 2.3 10^3/uL (1.5-5.0); LYMPH % 28.2 % (24.0-44.0); MEAN CORPUSCULAR HEMOGLOBIN 27.8 pg (27.0-33.0); MEAN CORPUSCULAR HGB CONC 31.1 g/dl (32.0-36.5); MEAN CORPUSCULAR VOLUME 89.4 fl (80.0-96.0); MONO # 1.1 10^3/uL (0.0-0.8); MONO % 13.1 % (2.0-8.0); NEUTROPHILS # 3.9 10^3/uL (1.5-8.5); NEUTROPHILS % 48.3 % (36.0-66.0); PLATELET COUNT, AUTOMATED 266 10^3/uL (150-450); RED BLOOD COUNT 4.35 10^6/uL (4.00-5.40)
[2020-11-24 06:57] LABS: BLOOD UREA NITROGEN 9 MG/DL (7-18); C REACTIVE PROTEIN QUANTITATIV 2.44 MG/DL (0.00-0.30); CALCIUM LEVEL 8.3 MG/DL (8.8-10.2); CARBON DIOXIDE LEVEL 26 MEQ/L (21-32); CHLORIDE LEVEL 108 MEQ/L (98-107); CREATININE FOR GFR 0.83 MG/DL (0.55-1.30); GLOMERULAR FILTRATION RATE > 60.0 (>32); GLUCOSE, FASTING 135 MG/DL (70-100); POTASSIUM SERUM 3.3 MEQ/L (3.5-5.1); SODIUM LEVEL 140 MEQ/L (136-145)
[2020-11-24] MEDS: IPRATROPIUM 0.5MG/ALBUTEROL 2.5MG INH SOL UD 3ML (DUONEB) INH SCH (07:51)
[2020-11-24 08:10] LABS: MAGNESIUM LEVEL 1.6 MG/DL (1.8-2.4)
[2020-11-24] MEDS ORDERED: IPRATROPIUM 0.5MG/ALBUTEROL 2.5MG INH SOL UD 3ML (DUONEB) NEB PRN (08:45)
[2020-11-24] MEDS ORDERED: POTASSIUM CHLORIDE 10 MEQ SR TABLET PO ONE (09:00)
[2020-11-24] MEDS: SENOKOT S TAB PO SCH ×2 (09:47→20:22)
[2020-11-24] MEDS: DOXYCYCLINE HYCLATE 100MG TABLET PO SCH ×2 (09:47→20:22)
[2020-11-24] MEDS: HEPARIN SOD (PORCINE) 5000UNITS/ML 1ML VIAL/SYRINGE SC SCH ×2 (09:48→20:21)
[2020-11-24] MEDS: DOCUSATE SODIUM 100MG CAPSULE PO SCH ×2 (09:48→20:22)
[2020-11-24] MEDS: SPIRONOLACTONE 25 MG TAB PO SCH (09:48)
--- NOTE | 2020-11-24 12:54 | IPNPDOC ---
Subjective Date Seen The patient was seen on 11/24/20. Subjective Chief Complaint/HPI Mrs. Lara is an 85-year-old female with diabetes mellitus from [facility] who presents with fever and left lower cellulitis. This morning, she was doing well. Denies any fever, chest pain, or dyspnea. Left leg pain has improved and redness has receded. CRP is almost resolved. Plan to return to [facility] back on Wednesday. Objective Physical Examination General Exam: Positive: Cooperative Eye Exam: Positive: EOMI; Negative: Sclera icteric ENT Exam: Positive: Atraumatic Neck Exam: Positive: Supple Chest Exam: Positive: Clear to auscultation; Negative: Rales, Rhonchi, Wheezing Heart Exam: Positive: Rate Normal, Regular Rhythm Abdomen Exam: Positive: Normal bowel sounds, Soft; Negative: Tenderness Extremity Exam: Positive: Edema Neuro Exam: Positive: Cranial Nerves 3-12 NL Psych Exam: Positive: Mental status NL, Mood NL Assessment /Plan Assessment Mrs. Lara is an 85-year-old female with diabetes mellitus from [facility] who presents with fever and left lower cellulitis. Patient met sepsis criteria. Leukocytes elevated at 18.8 which is now resolved. Otherwise CRP is still elevated. Obtained a CT of the left femur due to persistent pain. No fractures or signs to be suggestive of osteomyelitis. Demonstrated cellulitis of the left thigh. Cellulitis has improved and the labs are improving. Switch to oral antibiotic. Plan to return to [facility] on Wednesday. Plan/VTE VTE Prophylaxis Ordered?: Yes Plan 1. Left lower extremity cellulitis Met sepsis criteria with fever and leukocytosis Patient received IV fluids and IV vancomycin IV vancomycin de-escalated to PO doxycycline Follow WBC and CRP CRP now 2 2. Diabetes mellitus Sliding scale insulin Carbohydrate consistent diet 3. Hypertension Continue amlodipine and spironolactone Blood pressure still elevated we'll add on lisinopril 4. Anxiety/depression Continue Lexapro 5. DVT prophylaxis Heparin subcutaneous Disposition: Return to return to [facility] on Wednesday VS, I&O, 24H, Kay Vital Signs/I&O Vital Signs Date Time Temp Pulse Resp B/P (MAP) Pulse Ox O2 Delivery O2 Flow Rate FiO2 11/24/20 12:46 20 Room Air 11/24/20 09:47 85 174/86 11/24/20 06:00 98.1 94 I&O- Last 24 Hours up to 6 AM 11/24/20 05:59 Intake Total 1120 ml Output Total 200 ml Balance 920 ml Laboratory Data 24H LABS Laboratory Tests 2 11/24/20 05:49: Immature Granulocyte % (Auto) 4.3H, Neutrophils (%) (Auto) 48.3, Lymphocytes (%) (Auto) 28.2, Monocytes (%) (Auto) 13.1H, Eosinophils (%) (Auto) 4.6H, Basophils (%) (Auto) 1.5H, Neutrophils # (Auto) 3.9, Lymphocytes # (Auto) 2.3, Monocytes # (Auto) 1.1H, Eosinophils # (Auto) 0.4, Basophils # (Auto) 0.1, Nucleated Red Blood Cells % (auto) 0.0, Anion Gap 6L, Glomerular Filtration Rate > 60.0, Calcium Level 8.3L, Magnesium Level 1.6L, C-Reactive Protein, Quantitative 2.44H CBC/BMP Laboratory Tests 11/24/20 05:49 Microbiology Microbiology 11/19/20 Blood Culture - Preliminary, Resulted No Growth after 72 hours. All specime... 11/19/20 Respiratory Virus Panel (PCR) ([facility]) - Final, Complete 11/19/20 Blood Culture - Preliminary, Resulted No Growth after 72 hours. All specime... TIEN WARE DO Nov 24, 2020 12:54
[2020-11-24 14:00] VITALS: BP 170/87
[2020-11-24] MEDS: lisinopriL 5 MG TAB PO SCH (14:06)
[2020-11-24 16:00] VITALS: BP 153/84
[2020-11-24] MEDS: ESCITALOPRAM OXALATE 5MG TABLET (LEXAPRO) PO SCH (20:22)
[2020-11-24] MEDS: PRAVASTATIN 10 MG TAB PO SCH (20:22)
[2020-11-24 22:00] VITALS: BP 153/77
[2020-11-25 05:22] LABS: BASO # 0.2 10^3/uL (0.0-0.2); BASO % 1.3 % (0.0-1.0); EOS # 0.4 10^3/uL (0.0-0.5); EOS % 3.8 % (0.0-3.0); HEMATOCRIT 41.3 % (36.0-47.0); HEMOGLOBIN 12.8 g/dl (12.0-15.5); LYMPH # 2.5 10^3/uL (1.5-5.0); LYMPH % 22.2 % (24.0-44.0); MEAN CORPUSCULAR HEMOGLOBIN 28.6 pg (27.0-33.0); MEAN CORPUSCULAR VOLUME 92.4 fl (80.0-96.0); MONO # 1.4 10^3/uL (0.0-0.8); MONO % 12.8 % (2.0-8.0); NEUTROPHILS # 6.3 10^3/uL (1.5-8.5); NEUTROPHILS % 56.8 % (36.0-66.0); PLATELET COUNT, AUTOMATED 276 10^3/uL (150-450); RED BLOOD COUNT 4.47 10^6/uL (4.00-5.40); WHITE BLOOD COUNT 11.2 10^3/uL (4.0-10.0)
[2020-11-25] MEDS: NYSTATIN 100,000 UNITS/GM TOPICAL PWD 15 GM TOP SCH ×3 (05:43→20:47)
[2020-11-25] MEDS: ULTRACET TAB PO SCH ×3 (05:43→20:46)
[2020-11-25 05:44] LABS: BLOOD UREA NITROGEN 13 MG/DL (7-18); C REACTIVE PROTEIN QUANTITATIV 1.56 MG/DL (0.00-0.30); CALCIUM LEVEL 8.8 MG/DL (8.8-10.2); CARBON DIOXIDE LEVEL 25 MEQ/L (21-32); CHLORIDE LEVEL 108 MEQ/L (98-107); CREATININE FOR GFR 0.89 MG/DL (0.55-1.30); GLOMERULAR FILTRATION RATE > 60.0 (>32); GLUCOSE, FASTING 141 MG/DL (70-100); POTASSIUM SERUM 3.9 MEQ/L (3.5-5.1); SODIUM LEVEL 140 MEQ/L (136-145)
[2020-11-25 06:00] VITALS: BP 155/77
[2020-11-25] MEDS ORDERED: DOXY100T PO (08:42)
[2020-11-25] MEDS ORDERED: LISI-898 PO (08:42)
[2020-11-25] MEDS ORDERED: MAGNESIUM OXIDE 400MG TAB (MAG-OX) PO SCH ×3 (08:45→13:00)
[2020-11-25] MEDS: SPIRONOLACTONE 25 MG TAB PO SCH (09:26)
[2020-11-25] MEDS: HEPARIN SOD (PORCINE) 5000UNITS/ML 1ML VIAL/SYRINGE SC SCH ×2 (09:26→20:46)
[2020-11-25] MEDS: DOXYCYCLINE HYCLATE 100MG TABLET PO SCH ×2 (09:27→20:45)
[2020-11-25] MEDS: lisinopriL 5 MG TAB PO SCH (09:27)
[2020-11-25] MEDS: DOCUSATE SODIUM 100MG CAPSULE PO SCH ×2 (09:28→20:45)
[2020-11-25] MEDS: SENOKOT S TAB PO SCH ×2 (11:25→20:46)
[2020-11-25 14:00] VITALS: BP 104/64
[2020-11-25 20:45] VITALS: BP 123/63
[2020-11-25] MEDS: ESCITALOPRAM OXALATE 5MG TABLET (LEXAPRO) PO SCH (20:45)
[2020-11-25] MEDS: PRAVASTATIN 10 MG TAB PO SCH (20:45)
--- NOTE | 2020-11-25 21:34 | IPNPDOC ---
Subjective Date Seen The patient was seen on 11/25/20. Subjective Chief Complaint/HPI Mrs. Lara is an 85-year-old female with diabetes mellitus from [facility] who presents with fever and left lower cellulitis. Morning she felt well and felt ready to return to [facility]. Denies any chest pain or dyspnea. Her left leg pain is completely gone away. She is to return today but can often transportation. Plan to return tomorrow morning Objective Physical Examination General Exam: Positive: Cooperative Eye Exam: Positive: EOMI; Negative: Sclera icteric ENT Exam: Positive: Atraumatic Neck Exam: Positive: Supple Chest Exam: Positive: Clear to auscultation; Negative: Rales, Rhonchi, Wheezing Heart Exam: Positive: Rate Normal, Regular Rhythm Abdomen Exam: Positive: Normal bowel sounds, Soft; Negative: Tenderness Extremity Exam: Positive: Edema Neuro Exam: Positive: Cranial Nerves 3-12 NL Psych Exam: Positive: Mental status NL, Mood NL Assessment /Plan Assessment Mrs. Lara is an 85-year-old female with diabetes mellitus from [facility] who presents with fever and left lower cellulitis. Patient met sepsis criteria. Leukocytes elevated at 18.8 which is now resolved. Otherwise CRP is still elevated. Obtained a CT of the left femur due to persistent pain. No fractures or signs to be suggestive of osteomyelitis. Demonstrated cellulitis of the left thigh. Cellulitis has improved and the labs are improving. Switch to oral antibiotic. Plan to return to [facility] on Wednesday. Plan/VTE VTE Prophylaxis Ordered?: Yes Plan 1. Left lower extremity cellulitis Met sepsis criteria with fever and leukocytosis Patient received IV fluids and IV vancomycin IV vancomycin de-escalated to PO doxycycline Follow WBC and CRP 2. Diabetes mellitus Sliding scale insulin Carbohydrate consistent diet 3. Hypertension Continue amlodipine and spironolactone Blood pressure still elevated we'll add on lisinopril 4. Anxiety/depression Continue Lexapro 5. DVT prophylaxis Heparin subcutaneous Disposition: Return to return to [facility] on Wednesday VS, I&O, 24H, Gildardobontwyla Vital Signs/I&O Vital Signs Date Time Temp Pulse Resp B/P (MAP) Pulse Ox O2 Delivery O2 Flow Rate FiO2 11/25/20 20:46 18 11/25/20 14:00 97.1 70 104/64 (77) 95 Room Air I&O- Last 24 Hours up to 6 AM 11/25/20 06:00 Intake Total 1500 ml Balance 1500 ml Laboratory Data 24H LABS Laboratory Tests 2 11/25/20 05:05: Immature Granulocyte % (Auto) 3.1H, Neutrophils (%) (Auto) 56.8, Lymphocytes (%) (Auto) 22.2L, Monocytes (%) (Auto) 12.8H, Eosinophils (%) (Auto) 3.8H, Basophils (%) (Auto) 1.3H, Neutrophils # (Auto) 6.3, Lymphocytes # (Auto) 2.5, Monocytes # (Auto) 1.4H, Eosinophils # (Auto) 0.4, Basophils # (Auto) 0.2, Nucleated Red Blood Cells % (auto) 0.2H, Anion Gap 7L, Glomerular Filtration Rate > 60.0, Calcium Level 8.8, C-Reactive Protein, Quantitative 1.56H 11/25/20 14:38: Coronavirus (COVID-19)(PCR) NEGATIVE CBC/BMP Laboratory Tests 11/25/20 05:05 Microbiology Microbiology 11/19/20 Blood Culture - Final, Complete NO GROWTH AFTER 5 DAYS 11/19/20 Respiratory Virus Panel (PCR) ([facility]) - Final, Complete 11/19/20 Blood Culture - Final, Complete NO GROWTH AFTER 5 DAYS TIEN WARE 1, 2021 21:34
--- NOTE | 2020-11-26 01:39 | DS.PDOC ---
Discharge Summary General Date of Admission Nov 20, 2020 at 02:01 Date of Discharge Nov 26, 2020 Discharge Summary PROCEDURES PERFORMED DURING STAY: None ADMITTING DIAGNOSES: 1. Left lower extremity cellulitis 2. Hypertension 3. CKD stage III 4. Depression 5. NIDDM 6. Morbid obesity DISCHARGE DIAGNOSES: 1. Left lower extremity cellulitis 2. Hypertension 3. CKD stage III 4. Depression 5. NIDDM 6. Morbid obesity COMPLICATIONS/CHIEF COMPLAINT: Cellulitis. HISTORY OF PRESENT ILLNESS: Mrs. Lara is an 85 year old female with history of hypertension, CKD stage III, NIDDM, and morbid obesity who presents from [facility] for fever of 103 and left lower extremity cellulitis. About 2 days prior, she had her left ankle "run over" by an Apexlift device. She did not initially have pain, but morning of admission, she was found to have left lower extremity cellulitis. She was then given IM ceftriaxone. That evening, her temperature was taken rectally which read 103 and she was brought to the ED. She had an US which was negative for DVT and XR which was negative for fracture. HOSPITAL COURSE: Her cellulitis was outlined. She had erythema, warmth, and tenderness that went from the ankle up to her thigh. The cellulitis initially receded in her ankle, but pain persisted in the left thigh making it difficult for her to transfer which she normally is able to do. Obtained CT of left femur to look for fracture which was negative. She was treated with IV vancomycin initially, then transitioned to PO doxycycline. Since it was the weekend, he had to wait until Wednesday to return to [facility]. Wednesday morning, she felt well. The pain was gone. The erythema was no longer there. She felt ready to return. Unfortunately, she did not have transportation, and so she was scheduled to return Wednesday. DISCHARGE MEDICATIONS: Please see below. ALLERGIES: Please see below. PHYSICAL EXAMINATION ON DISCHARGE: VITAL SIGNS: Please see below. To be completed by day time attending LABORATORY DATA: Please see below. IMAGING: Radiologist interpretation US left lower extremity No evidence of deep vein thrombosis. XR left foot 1. No acute fracture. 2. Joint space narrowing at the 2nd DIP joint. 3. Diffuse small vessel atherosclerotic calcification XR left ankle 1. No acute fracture. 2. Degenerative changes at the 5th tarsometatarsal joint. CT femur 1. 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 The absence of fluid collection about the hip and femur also noted. No visible fracture. No other significant finding. 2. Findings and may suggest some subcutaneous edema and skin thickening that likely represents cellulitis. No subcutaneous abscess or emphysematous change PROGNOSIS: Good ACTIVITY: As tolerated. DIET: Carbohydrate consistent diet DISCHARGE PLAN: Return to [facility] DISPOSITION: [facility] DISCHARGE INSTRUCTIONS: 1. Follow up with PCP within 5 days 2. Complete antibiotic course 3. Started on lisinopril for hypertension. Monitor blood pressure. If systolic blood pressure is less than 120 or patient is symptomatic, discontinue lisinopril DISCHARGE CONDITION: Stable. Total time spent on discharge planning, discharge summary, and medication reconciliation: 55 minutes Vital Signs/I&Os Vital Signs Date Time Temp Pulse Resp B/P (MAP) Pulse Ox O2 Delivery O2 Flow Rate FiO2 11/25/20 20:46 18 11/25/20 14:00 97.1 70 104/64 (77) 95 Room Air I&O- Last 24 Hours up to 6 AM 11/26/20 06:00 Intake Total 1020 ml Balance 1020 ml Laboratory Data Labs 24H Laboratory Tests 2 11/25/20 05:05: Immature Granulocyte % (Auto) 3.1H, Neutrophils (%) (Auto) 56.8, Lymphocytes (%) (Auto) 22.2L, Monocytes (%) (Auto) 12.8H, Eosinophils (%) (Auto) 3.8H, Basophils (%) (Auto) 1.3H, Neutrophils # (Auto) 6.3, Lymphocytes # (Auto) 2.5, Monocytes # (Auto) 1.4H, Eosinophils # (Auto) 0.4, Basophils # (Auto) 0.2, Nucleated Red Blood Cells % (auto) 0.2H, Anion Gap 7L, Glomerular Filtration Rate > 60.0, Calcium Level 8.8, C-Reactive Protein, Quantitative 1.56H 11/25/20 14:38: Coronavirus (COVID-19)(PCR) NEGATIVE CBC/BMP Laboratory Tests 11/25/20 05:05 Microbiology Microbiology 11/19/20 Blood Culture - Final, Complete NO GROWTH AFTER 5 DAYS 11/19/20 Respiratory Virus Panel (PCR) ([facility]) - Final, Complete 11/19/20 Blood Culture - Final, Complete NO GROWTH AFTER 5 DAYS Discharge Medications Scheduled Amlodipine Besylate (Amlodipine Besylate) 10 Mg Tablet, 10 MG PO DAILY, (Reported) Carboxymethylcellulose Sodium (Refresh Tears) 15 Ml Drops, 1 DROP OU BID, (Reported) Diclofenac Sodium (Voltaren) 100 Gm Gel..gram., 1 DOSE TOP TID, (Reported) APPLY TO LEFT SHOULDER Docusate Sodium (Colace) 100 Mg Cap, 100 MG PO BID, (Reported) Doxycycline Hyclate (Doxycycline Hyclate) 100 Mg Tablet, 100 MG PO BID Ergocalciferol (Vitamin D2) (Vitamin D2) 50,000 Units Cap, 50,000 UNITS PO QWEEK, (Reported) WEDNESDAY Escitalopram Oxalate (Lexapro) 5 Mg Tablet, 5 MG PO QHS, (Reported) Ipratropium/Albuterol Sulfate (Iprat-Albut 0.5-3(2.5) mg/3 ml) 3 Ml Ampul.neb, 3 ML INH QID, (Reported) STARTED 11/19/20 Lisinopril (Lisinopril) 5 Mg Tablet, 5 MG PO DAILY Magnesium Chloride (Mag64) 64 Mg Tablet.dr, 192 MG PO BID, (Reported) Pravastatin Sodium (Pravastatin Sodium) 10 Mg Tab, 10 MG PO QHS, (Reported) Sennosides/Docusate Sodium (Senna Plus Tablet) 1 Each Tablet, 1 TAB PO BID, (Reported) Simethicone (Simethicone) 125 Mg Tab.chew, 125 MG PO QHS, (Reported) Spironolactone (Spironolactone) 25 Mg Tablet, 25 MG PO DAILY, (Reported) Tramadol HCl/Acetaminophen (Tramadol-Acetaminophn 37.5-325) 1 Each Tablet, 1 TAB PO TID, (Reported) 0600, 1200, 1900 Scheduled PRN Acetaminophen (Tylenol) 325 Mg Tablet, 650 MG PO Q4H PRN for PAIN / FEVER, (Reported) Diclofenac Sodium (Voltaren) 100 Gm Gel..gram., 1 DOSE TOP TID PRN for PAIN, (Reported) IN ADDITION TO SCHEDULED DOSES Magnesium Hydroxide (Milk of Magnesia) 400 Mg/5 Ml Oral.susp, 30 ML PO DAILY PRN for CONSTIPATION, (Reported) Simethicone (Simethicone) 125 Mg Tab.chew, 125 MG PO DAILY PRN for FLATULENCE, (Reported) Allergies Coded Allergies: Penicillins (Verified Allergy, Unknown, 11/19/20) TIEN WARE DO Nov 26, 2020 01:39
[2020-11-26 05:16] VITALS: BP 131/68
[2020-11-26 05:38] LABS: BASO # 0.2 10^3/uL (0.0-0.2); BASO % 1.3 % (0.0-1.0); EOS # 0.4 10^3/uL (0.0-0.5); EOS % 3.1 % (0.0-3.0); HEMATOCRIT 44.5 % (36.0-47.0); HEMOGLOBIN 13.4 g/dl (12.0-15.5); LYMPH # 2.8 10^3/uL (1.5-5.0); LYMPH % 24.3 % (24.0-44.0); MEAN CORPUSCULAR HEMOGLOBIN 27.5 pg (27.0-33.0); MEAN CORPUSCULAR HGB CONC 30.1 g/dl (32.0-36.5); MEAN CORPUSCULAR VOLUME 91.4 fl (80.0-96.0); MONO # 1.1 10^3/uL (0.0-0.8); MONO % 9.7 % (2.0-8.0); NEUTROPHILS # 6.6 10^3/uL (1.5-8.5); NEUTROPHILS % 57.1 % (36.0-66.0); PLATELET COUNT, AUTOMATED 318 10^3/uL (150-450); RED BLOOD COUNT 4.87 10^6/uL (4.00-5.40); WHITE BLOOD COUNT 11.5 10^3/uL (4.0-10.0)
[2020-11-26 06:00] LABS: C REACTIVE PROTEIN QUANTITATIV 1.25 MG/DL (0.00-0.30); CALCIUM LEVEL 9.2 MG/DL (8.8-10.2); CREATININE FOR GFR 1.08 MG/DL (0.55-1.30); GLOMERULAR FILTRATION RATE 51.5 (>32); POTASSIUM SERUM 4.1 MEQ/L (3.5-5.1)
[2020-11-26] MEDS: ULTRACET TAB PO SCH (06:12)
[2020-11-26] MEDS: SENOKOT S TAB PO SCH (08:36)
[2020-11-26] MEDS: DOCUSATE SODIUM 100MG CAPSULE PO SCH (08:37)
[2020-11-26 08:38] VITALS: BP 131/68
[2020-11-26] MEDS: SPIRONOLACTONE 25 MG TAB PO SCH (08:38)
[2020-11-26] MEDS: DOXYCYCLINE HYCLATE 100MG TABLET PO SCH (08:38)
[2020-11-26] MEDS: lisinopriL 5 MG TAB PO SCH (08:38)
[2020-11-26] MEDS: HEPARIN SOD (PORCINE) 5000UNITS/ML 1ML VIAL/SYRINGE SC SCH (08:39)
[2020-11-26] MEDS: NYSTATIN 100,000 UNITS/GM TOPICAL PWD 15 GM TOP SCH (08:41)
[2020-11-26 08:46] LABS: MAGNESIUM LEVEL 1.8 MG/DL (1.8-2.4)
--- NOTE | 2020-11-26 10:07 | IPNPDOC ---
Date Seen The patient was seen on 11/26/20. Progress Note SUBJECTIVE: Patient was seen and examined at bedside this morning. Doing well. States that her left leg pain has resolved. She denies any fevers, chills, chest pain, shortness of breath, cough or production of sputum. She has no abdominal pain. Has good appetite. In afebrile overnight. OBJECTIVE PHYSICAL EXAMINATION: VITAL SIGNS: please see below General: NAD, comfortable HEENT: PERRLA, EOMI, sclerae clear Neck: supple, normal ROM, no JVD Respiratory: lungs CTAB, no wheeze, no rales, no crackles CVS: RRR, normal S1, S2, no murmurs Abdo: soft, no masses, no hepatosplenomegaly, BS+, no rebound tenderness Extremities: no edema, pulses 2+ MSK: no joint deformities, normal ROM Neuro: no focal neuro deficits, moving all 4 extremities, CN2-12 intact. Strength 5/5 in all 4 extremities. No nystagmus. Psych: calm, cooperative, AAO x 3 LABORATORY DATA, IMAGING STUDIES, MICROBIOLOGY: Please see below. DVT prophylaxis ordered?: SCD/test/heparin ASSESSMENT AND PLAN: Mrs. Lynch is an 85-year-old female with history of diabetes, resident of [facility] was admitted for management of left lower extremity cellulitis with extension of the left thigh. Patient has responded well to IV vancomycin and sinusitis essentially resolved. Has been transitioned to by mouth doxycycline to complete outpatient course. Please see Dr. Bernstein's discharge summary signed on 11/25/20 for detailed description of her stay. Patient feels well. Has mild leukocytosis. This morning, however, has been afebrile without cough, abdominal pain. She has no somatic symptoms. Her left lower extremity sinusitis has resolved. Appr opriate for discharge. VS, I&O, 24H, Fishbone Vital Signs/I&O Vital Signs Date Time Temp Pulse Resp B/P (MAP) Pulse Ox O2 Delivery O2 Flow Rate FiO2 11/26/20 08:38 131/68 11/26/20 08:37 78 11/26/20 06:12 16 11/26/20 05:16 98.1 94 Room Air I&O- Last 24 Hours up to 6 AM 11/26/20 05:59 Intake Total 1420 ml Balance 1420 ml Laboratory Data 24H LABS Laboratory Tests 2 11/25/20 14:38: Coronavirus (COVID-19)(PCR) NEGATIVE 11/26/20 05:18: Immature Granulocyte % (Auto) 4.5H, Neutrophils (%) (Auto) 57.1, Lymphocytes (%) (Auto) 24.3, Monocytes (%) (Auto) 9.7H, Eosinophils (%) (Auto) 3.1H, Basophils (%) (Auto) 1.3H, Neutrophils # (Auto) 6.6, Lymphocytes # (Auto) 2.8, Monocytes # (Auto) 1.1H, Eosinophils # (Auto) 0.4, Basophils # (Auto) 0.2, Nucleated Red Blood Cells % (auto) 0.0, Anion Gap 7L, Glomerular Filtration Rate 51.5, Calcium Level 9.2, Magnesium Level 1.8, C-Reactive Protein, Quantitative 1.25H CBC/BMP Laboratory Tests 11/26/20 05:18 Microbiology Microbiology 11/19/20 Blood Culture - Final, Complete NO GROWTH AFTER 5 DAYS 11/19/20 Respiratory Virus Panel (PCR) ([facility]) - Final, Complete 11/19/20 Blood Culture - Final, Complete NO GROWTH AFTER 5 DAYS MARIAH STARR MD Nov 26, 2020 10:07
== END 2020-11-26 09:00 | DRG 603 ==
LOC: EDBD 21:14 → M ED 21:14 → M ED INP 11-20 02:01 → ENRESERV 11-20 04:39 → M MS5PR 11-20 05:55
PROVIDERS: ADMIT Internal Medicine; ATTEND Family Medicine
DX: L03.116 Cellulitis of left lower limb (principal); Z68.43 Body mass index [BMI] 50.0-59.9, adult; Z95.0 Presence of cardiac pacemaker; N18.30 Chronic kidney disease, stage 3 unspecified; E66.01 Morbid (severe) obesity due to excess calories; E11.9 Type 2 diabetes mellitus without complications; F32.9 Major depressive disorder, single episode, unspecified; I12.9 Hypertensive chronic kidney disease with stage 1 through stage 4 chronic kidney disease, or unspecified chronic kidney disease; Z79.899 Other long term (current) drug therapy; Z88.0 Allergy status to penicillin; M19.90 Unspecified osteoarthritis, unspecified site; Z66 Do not resuscitate; M10.9 Gout, unspecified; F41.9 Anxiety disorder, unspecified

== ENCOUNTER → 2020-11-19 | Outpatient (REF) | payer MEDICARE, OTHER ==
[2020-11-19 13:54] LABS: BASO # 0.1 10^3/uL (0.0-0.2); BASO % 0.3 % (0.0-1.0); HEMOGLOBIN 13.9 g/dl (12.0-15.5); LYMPH # 0.9 10^3/uL (1.5-5.0); LYMPH % 4.7 % (24.0-44.0); MEAN CORPUSCULAR HEMOGLOBIN 28.1 pg (27.0-33.0); MEAN CORPUSCULAR HGB CONC 31.6 g/dl (32.0-36.5); MEAN CORPUSCULAR VOLUME 89.1 fl (80.0-96.0); MONO # 1.2 10^3/uL (0.0-0.8); MONO % 6.2 % (2.0-8.0); NEUTROPHILS % 88.2 % (36.0-66.0); PLATELET COUNT, AUTOMATED 270 10^3/uL (150-450); RED BLOOD COUNT 4.94 10^6/uL (4.00-5.40); WHITE BLOOD COUNT 19.3 10^3/uL (4.0-10.0)
[2020-11-19 14:20] LABS: BLOOD UREA NITROGEN 15 MG/DL (7-18); CALCIUM LEVEL 9.4 MG/DL (8.8-10.2); CARBON DIOXIDE LEVEL 25 MEQ/L (21-32); CHLORIDE LEVEL 104 MEQ/L (98-107); CREATININE FOR GFR 0.94 MG/DL (0.55-1.30); GLOMERULAR FILTRATION RATE > 60.0 (>32); GLUCOSE, FASTING 146 MG/DL (70-100); POTASSIUM SERUM 4.2 MEQ/L (3.5-5.1); SODIUM LEVEL 140 MEQ/L (136-145)
--- NOTE | 2020-11-19 16:06 | REPPI ---
INDICATION: [facility] ROOM S163-1. COMPARISON: Comparison chest x-ray is from 20 October 2017.. TECHNIQUE: AP semi-erect chest x-ray. FINDINGS: A bipolar pacemaker is seen in the heart view of the left side. Heart size is mildly prominent unchanged. Pulmonary vasculature is cephalized. Pleural angles are sharp. No pulmonary edema or pleural effusion seen. No focal infiltrate is seen. There are degenerative changes in the shoulders bilaterally. The thoracic aorta is tortuous and calcific IMPRESSION: Cardiomegaly with pacemaker and vascular cephalization. Mild CHF pattern. No evidence of pulmonary edema or pleural effusion. <Electronically signed by Kishan Griffin > 11/19/20 [id number]
== END ==
PROVIDERS: ATTEND Internal Medicine
DX: I51.7 Cardiomegaly (principal); R53.83 Other fatigue; M19.011 Primary osteoarthritis, right shoulder; M19.012 Primary osteoarthritis, left shoulder; Z95.0 Presence of cardiac pacemaker

== ENCOUNTER → 2020-11-20 | Outpatient (REF) | payer MEDICARE, OTHER ==
[~2020-11-20] MED LIST changes: +ACET-907 PO; +IPRA0.00 INH; +LEXA5TAB13 PO; -MECL-136 PO; +MECL12.590 PO; +MILKSUS3 PO; +REFR0.5D8 OU; +SENN-50 PO; +SIME1CHW5 PO; +SPIR-10 PO; +TRAM37.53 PO; +VITA50005 PO; +VOLT1GEL15 TOP
== END ==
PROVIDERS: ATTEND Internal Medicine
DX: Z20.822 Contact with and (suspected) exposure to COVID-19 (principal)

== ENCOUNTER → 2020-11-27 | Outpatient (REF) ==
[~2020-11-27] MED LIST changes: +DOXY100T PO; +LISI-898 PO; +MECL-136 PO; -MECL12.590 PO
[2020-11-27 10:15] LABS: HEMOGLOBIN 12.9 g/dl (12.0-15.5); MEAN CORPUSCULAR HEMOGLOBIN 28.3 pg (27.0-33.0); MEAN CORPUSCULAR HGB CONC 30.7 g/dl (32.0-36.5); MEAN CORPUSCULAR VOLUME 92.1 fl (80.0-96.0); PLATELET COUNT, AUTOMATED 324 10^3/uL (150-450); RED BLOOD COUNT 4.56 10^6/uL (4.00-5.40); WHITE BLOOD COUNT 9.7 10^3/uL (4.0-10.0)
== END ==
PROVIDERS: ATTEND Internal Medicine
DX: L03.90 Cellulitis, unspecified (principal); Z20.822 Contact with and (suspected) exposure to COVID-19

== ENCOUNTER → 2020-12-04 | Outpatient (REF) | payer MEDICARE, OTHER ==
[2020-12-04 12:46] LABS: CHOLESTEROL RISK RATIO 3.68 (<5)
== END ==
PROVIDERS: ATTEND Internal Medicine
DX: E78.5 Hyperlipidemia, unspecified (principal); Z20.822 Contact with and (suspected) exposure to COVID-19
CPT/HCPCS: 36415; 80061; U0003

== ENCOUNTER → 2021-01-01 | Outpatient (REF) | payer MEDICARE, OTHER ==
[2021-01-01 09:50] LABS: HEMATOCRIT 41.9 % (36.0-47.0); HEMOGLOBIN 13.3 g/dl (12.0-15.5); MEAN CORPUSCULAR HEMOGLOBIN 28.9 pg (27.0-33.0); MEAN CORPUSCULAR HGB CONC 31.7 g/dl (32.0-36.5); MEAN CORPUSCULAR VOLUME 91.1 fl (80.0-96.0); PLATELET COUNT, AUTOMATED 286 10^3/uL (150-450); WHITE BLOOD COUNT 7.6 10^3/uL (4.0-10.0)
[2021-01-01 10:37] LABS: FREE T4 0.82 NG/DL (0.76-1.46); PERCENT SATURATION 21.8 % (13.2-45.0); THYROID STIMULATING HORMONE 1.11 uIU/ML (0.358-3.740)
[2021-01-01 12:13] LABS: FOLATE 9.4 NG/ML (>5.4)
== END ==
PROVIDERS: ATTEND Internal Medicine
DX: L65.9 Nonscarring hair loss, unspecified (principal)

== ENCOUNTER → 2021-01-03 | Outpatient (REF) | payer MEDICARE, OTHER ==
[2021-01-03 21:09] LABS: RSV AMPLIFICATION NEGATIVE (NEGATIVE)
== END ==
PROVIDERS: ATTEND Internal Medicine
DX: Z11.52 Encounter for screening for COVID-19 (principal)

== ENCOUNTER → 2021-01-07 | Outpatient (REF) | payer MEDICARE, OTHER | PROVIDERS: ATTEND Internal Medicine | DX: Z20.822 Contact with and (suspected) exposure to COVID-19 (principal) ==

== ENCOUNTER → 2021-01-14 | Outpatient (REF) | payer MEDICARE, OTHER | PROVIDERS: ATTEND Internal Medicine | DX: Z20.822 Contact with and (suspected) exposure to COVID-19 (principal) ==

== ENCOUNTER → 2021-01-21 | Outpatient (REF) | payer MEDICARE, OTHER | PROVIDERS: ATTEND Internal Medicine | DX: Z20.822 Contact with and (suspected) exposure to COVID-19 (principal) ==

== ENCOUNTER → 2021-02-14 | Outpatient (REF) | payer MEDICARE | PROVIDERS: ATTEND Nurse Practitioner Adult Health | DX: E56.9 Vitamin deficiency, unspecified (principal); Z79.899 Other long term (current) drug therapy ==

== ENCOUNTER → 2021-03-12 | Outpatient (REF) | payer MEDICARE ==
[2021-03-12 10:34] LABS: ALBUMIN 3.4 GM/DL (3.2-5.2); ALT/SGPT 27 U/L (12-78); BILIRUBIN,TOTAL 0.8 MG/DL (0.2-1.0); BLOOD UREA NITROGEN 19 MG/DL (7-18); CALCIUM LEVEL 8.6 MG/DL (8.8-10.2); CARBON DIOXIDE LEVEL 25 MEQ/L (21-32); CHLORIDE LEVEL 104 MEQ/L (98-107); CREATININE FOR GFR 0.93 MG/DL (0.55-1.30); GLOMERULAR FILTRATION RATE > 60.0 (>32); GLUCOSE, FASTING 186 MG/DL (70-100); MAGNESIUM LEVEL 1.9 MG/DL (1.8-2.4); POTASSIUM SERUM 4.5 MEQ/L (3.5-5.1); SODIUM LEVEL 137 MEQ/L (136-145); TOTAL PROTEIN 6.5 GM/DL (6.4-8.2)
== END ==
PROVIDERS: ATTEND Internal Medicine
DX: Z86.718 Personal history of other venous thrombosis and embolism (principal)

== ENCOUNTER → 2021-06-04 | Outpatient (REF) | payer MEDICARE ==
[~2021-06-04] MED LIST changes: +ERGO500029 PO; -VITA50005 PO
[2021-06-04 13:12] LABS: ALBUMIN 3.6 GM/DL (3.2-5.2); BILIRUBIN,TOTAL 1.1 MG/DL (0.2-1.0); CALCIUM LEVEL 8.8 MG/DL (8.8-10.2); CREATININE FOR GFR 0.98 MG/DL (0.55-1.30); GLOMERULAR FILTRATION RATE 57.4 (>32); MAGNESIUM LEVEL 1.9 MG/DL (1.8-2.4); POTASSIUM SERUM 4.5 MEQ/L (3.5-5.1); TOTAL PROTEIN 6.7 GM/DL (6.4-8.2)
== END ==
PROVIDERS: ATTEND Internal Medicine
DX: I81 Portal vein thrombosis (principal)

== ENCOUNTER → 2021-08-08 | Outpatient (REF) | payer MEDICARE ==
[~2021-08-08] MED LIST changes: -KLOR10TA76 PO; +POTA-136 PO
[2021-08-08 14:28] LABS: HEMATOCRIT 43.2 % (36.0-47.0); HEMOGLOBIN 13.8 g/dl (12.0-15.5); MEAN CORPUSCULAR HEMOGLOBIN 29.2 pg (27.0-33.0); MEAN CORPUSCULAR HGB CONC 31.9 g/dl (32.0-36.5); MEAN CORPUSCULAR VOLUME 91.5 fl (80.0-96.0); PLATELET COUNT, AUTOMATED 244 10^3/uL (150-450); RED BLOOD COUNT 4.72 10^6/uL (4.00-5.40); WHITE BLOOD COUNT 7.3 10^3/uL (4.0-10.0)
[2021-08-08 14:59] LABS: ALBUMIN 3.3 GM/DL (3.2-5.2); ALT/SGPT 28 U/L (12-78); BILIRUBIN,TOTAL 0.8 MG/DL (0.2-1.0); BLOOD UREA NITROGEN 21 MG/DL (7-18); CALCIUM LEVEL 8.9 MG/DL (8.8-10.2); CARBON DIOXIDE LEVEL 27 MEQ/L (21-32); CHLORIDE LEVEL 110 MEQ/L (98-107); CREATININE FOR GFR 0.94 MG/DL (0.55-1.30); GLOMERULAR FILTRATION RATE > 60.0 (>32); GLUCOSE, FASTING 127 MG/DL (70-100); NT-PRO BNP 199 PG/ML (<450); POTASSIUM SERUM 4.5 MEQ/L (3.5-5.1); SODIUM LEVEL 143 MEQ/L (136-145); TOTAL PROTEIN 6.3 GM/DL (6.4-8.2)
== END ==
PROVIDERS: ATTEND Internal Medicine
DX: R41.82 Altered mental status, unspecified (principal)

== ENCOUNTER → 2021-08-11 | Outpatient (REF) | payer MEDICARE | PROVIDERS: ATTEND Internal Medicine | DX: E87.8 Other disorders of electrolyte and fluid balance, not elsewhere classified (principal) ==

== ENCOUNTER → 2021-08-13 | Outpatient (CLI) | payer MEDICARE ==
[~2021-08-13] MED LIST changes: +ISOVUE-370 76% 100ML VIAL As Ordered ONE
--- NOTE | 2021-08-13 12:46 | REP ---
INDICATION: AMS, DELERIUM COMPARISON: 10/17/2017 TECHNIQUE: Axial noncontrast images from the skull base to the thoracic inlet with coronal reformations. This CT examination was performed using the following dose reduction techniques: Automated exposure control, adjustment of mA and/or kv according to the patient's size, and use of iterative reconstruction technique. FINDINGS: Atrophy with periventricular leukomalacia and microvascular ischemic changes are appreciated. The ventricles and sulci are symmetric. Valenzuela-white differentiation is maintained. There is no evidence for acute intracranial hemorrhage, mass/mass effect, pathology or infarction. No extra-axial fluid collection. Calvarium is intact. Paranasal sinuses and mastoid air cells are clear. IMPRESSION: Atrophy and microvascular ischemic changes. No acute intracranial hemorrhage, infarction, or mass/mass effect. <Electronically signed by Corby Salcido > 08/13/21 1898
== END ==
LOC: M RAD 12:08
PROVIDERS: ATTEND Nurse Practitioner Adult Health
DX: R41.82 Altered mental status, unspecified (principal)
CPT/HCPCS: 70470; Q9967

== ENCOUNTER → 2021-08-27 | Outpatient (REF) | payer MEDICARE ==
[~2021-08-27] MED LIST changes: -ISOVUE-370 76% 100ML VIAL As Ordered ONE
[2021-08-27 11:48] LABS: CREATININE FOR GFR 1.02 MG/DL (0.55-1.30); GLOMERULAR FILTRATION RATE 54.8 (>32)
[2021-08-27 11:49] LABS: ALBUMIN 3.5 GM/DL (3.2-5.2); BILIRUBIN,TOTAL 0.9 MG/DL (0.2-1.0); CALCIUM LEVEL 9.1 MG/DL (8.8-10.2); MAGNESIUM LEVEL 1.8 MG/DL (1.8-2.4); POTASSIUM SERUM 4.7 MEQ/L (3.5-5.1); TOTAL PROTEIN 6.9 GM/DL (6.4-8.2)
== END ==
PROVIDERS: ATTEND Internal Medicine
DX: I81 Portal vein thrombosis (principal)

== ENCOUNTER → 2021-10-01 | Outpatient (REF) | payer MEDICARE, OTHER, MEDICAID ==
[2021-10-01 18:52] LABS: HEMOGLOBIN A1c 6.7 %
== END ==
PROVIDERS: ATTEND Internal Medicine
DX: E83.42 Hypomagnesemia (principal); Z79.899 Other long term (current) drug therapy

== ENCOUNTER → 2021-11-26 | Outpatient (REF) | payer MEDICARE, OTHER, MEDICAID ==
[~2021-11-26] MED LIST changes: -LISI-898 PO; +LISI5TAB11 PO
[2021-11-26 13:39] LABS: ALBUMIN 3.1 GM/DL (3.2-5.2); BILIRUBIN,TOTAL 0.8 MG/DL (0.2-1.0); CALCIUM LEVEL 8.8 MG/DL (8.8-10.2); CHOLESTEROL RISK RATIO 4.052 (<5); CREATININE FOR GFR 0.95 MG/DL (0.55-1.30); GLOMERULAR FILTRATION RATE 59.5 (>32); MAGNESIUM LEVEL 1.8 MG/DL (1.8-2.4); POTASSIUM SERUM 4.3 MEQ/L (3.5-5.1); TOTAL PROTEIN 6.1 GM/DL (6.4-8.2)
[2021-11-26 13:46] LABS: TOTAL 25(OH) VITAMIN D 50.5 NG/ML (30.0-100.0)
== END ==
PROVIDERS: ATTEND Internal Medicine
DX: I47.2 Ventricular tachycardia (principal); Z79.899 Other long term (current) drug therapy

== ENCOUNTER → 2021-12-10 | Outpatient (REF) | payer MEDICARE, OTHER, MEDICAID ==
[2021-12-10 10:55] LABS: BLOOD UREA NITROGEN 17 MG/DL (7-18); CALCIUM LEVEL 8.9 MG/DL (8.8-10.2); CARBON DIOXIDE LEVEL 27 MEQ/L (21-32); CHLORIDE LEVEL 108 MEQ/L (98-107); CREATININE FOR GFR 0.92 MG/DL (0.55-1.30); GLOMERULAR FILTRATION RATE > 60.0 (>32); GLUCOSE, FASTING 132 MG/DL (70-100); MAGNESIUM LEVEL 2.1 MG/DL (1.8-2.4); POTASSIUM SERUM 4.6 MEQ/L (3.5-5.1); SODIUM LEVEL 141 MEQ/L (136-145)
== END ==
PROVIDERS: ATTEND Internal Medicine
DX: I47.2 Ventricular tachycardia (principal)

== ENCOUNTER → 2022-04-15 | Outpatient (REF) | payer MEDICARE, MEDICAID ==
[~2022-04-15] MED LIST changes: -GLUCTAB6 PO; +GLUCTAB7 PO
== END ==
PROVIDERS: ATTEND Internal Medicine
DX: R40.0 Somnolence (principal)

== ENCOUNTER → 2022-06-03 | Outpatient (REF) | payer MEDICARE, MEDICAID, OTHER ==
[2022-06-03 12:59] LABS: ALBUMIN 3.6 GM/DL (3.2-5.2); BILIRUBIN,TOTAL 0.9 MG/DL (0.2-1.0); CALCIUM LEVEL 8.9 MG/DL (8.8-10.2); MAGNESIUM LEVEL 2.1 MG/DL (1.8-2.4); PHOSPHORUS LEVEL 3.1 MG/DL (2.5-4.9); POTASSIUM SERUM 4.8 MEQ/L (3.5-5.1); TOTAL PROTEIN 6.8 GM/DL (6.4-8.2)
[2022-06-03 13:31] LABS: PTH INTACT 65.7 PG/ML (18.5-88.0)
== END ==
PROVIDERS: ATTEND Internal Medicine
DX: N18.9 Chronic kidney disease, unspecified (principal)

== ENCOUNTER → 2022-09-02 | Outpatient (REF) | payer MEDICARE, MEDICAID, OTHER ==
[2022-09-02 12:47] LABS: MAGNESIUM LEVEL 1.6 MG/DL (1.8-2.4)
[2022-09-02 12:49] LABS: ALBUMIN 3.5 G/DL (3.2-5.2); ALKALINE PHOSPHATASE 60 U/L (46-116); ALT/SGPT 21 U/L (7.0-40); AST/SGOT 20 U/L (<34); BILIRUBIN,TOTAL 0.7 MG/DL (0.3-1.2); BLOOD UREA NITROGEN 17 MG/DL (9-23); CALCIUM LEVEL 8.8 MG/DL (8.3-10.6); CARBON DIOXIDE LEVEL 26 MMOL/L (20-31); CHLORIDE LEVEL 105 MMOL/L (98-107); CREATININE FOR GFR 0.92 MG/DL (0.55-1.30); GLOMERULAR FILTRATION RATE > 60.0 (>32); GLUCOSE, FASTING 176 MG/DL (74-106); POTASSIUM SERUM 4.7 MMOL/L (3.5-5.1); SODIUM LEVEL 140 MMOL/L (136-145); TOTAL PROTEIN 6.2 G/DL (5.7-8.2)
== END ==
PROVIDERS: ATTEND Internal Medicine
DX: I47.29 Other ventricular tachycardia (principal)

== ENCOUNTER → 2022-10-13 | Outpatient (REF) | payer MEDICARE, MEDICAID, OTHER ==
[~2022-10-13] MED LIST changes: +NYST-38 SS; -NYST50SS SS
== END ==
PROVIDERS: ATTEND Nurse Practitioner Family
DX: J32.9 Chronic sinusitis, unspecified (principal)

== ENCOUNTER → 2022-12-03 | Outpatient (REF) | payer MEDICARE, MEDICAID, OTHER ==
[2022-12-03 16:22] LABS: HEMATOCRIT 44.9 % (36.0-47.0); MEAN CORPUSCULAR HEMOGLOBIN 29.4 pg (27.0-33.0); MEAN CORPUSCULAR HGB CONC 31.2 g/dl (32.0-36.5); MEAN CORPUSCULAR VOLUME 94.3 fl (80.0-96.0); PLATELET COUNT, AUTOMATED 214 10^3/uL (150-450); RED BLOOD COUNT 4.76 10^6/uL (4.00-5.40); WHITE BLOOD COUNT 7.8 10^3/uL (4.0-10.0)
[2022-12-03 16:54] LABS: ALBUMIN 3.4 G/DL (3.2-5.2); BILIRUBIN,TOTAL 1.3 MG/DL (0.3-1.2); CALCIUM LEVEL 8.3 MG/DL (8.3-10.6); CREATININE FOR GFR 1.18 MG/DL (0.55-1.30); GLOMERULAR FILTRATION RATE 46.2 (>32); POTASSIUM SERUM 4.7 MMOL/L (3.5-5.1); TOTAL PROTEIN 6.3 G/DL (5.7-8.2)
== END ==
PROVIDERS: ATTEND Nurse Practitioner Family
DX: R05.9 Cough, unspecified (principal); Z79.899 Other long term (current) drug therapy

== ENCOUNTER → 2022-12-07 | Outpatient (REF) | payer MEDICARE, MEDICAID, OTHER ==
[2022-12-07 11:39] LABS: HEMATOCRIT 47.1 % (36.0-47.0); HEMOGLOBIN 14.5 g/dl (12.0-15.5); MEAN CORPUSCULAR HEMOGLOBIN 29.5 pg (27.0-33.0); MEAN CORPUSCULAR HGB CONC 30.8 g/dl (32.0-36.5); MEAN CORPUSCULAR VOLUME 95.9 fl (80.0-96.0); PLATELET COUNT, AUTOMATED 273 10^3/uL (150-450); RED BLOOD COUNT 4.91 10^6/uL (4.00-5.40); WHITE BLOOD COUNT 7.6 10^3/uL (4.0-10.0)
[2022-12-07 12:25] LABS: ALBUMIN 3.7 G/DL (3.2-5.2); ALKALINE PHOSPHATASE 65 U/L (46-116); ALT/SGPT 22 U/L (7.0-40); AST/SGOT 19 U/L (<34); BILIRUBIN,TOTAL 0.9 MG/DL (0.3-1.2); BLOOD UREA NITROGEN 23 MG/DL (9-23); CALCIUM LEVEL 8.7 MG/DL (8.3-10.6); CARBON DIOXIDE LEVEL 23 MMOL/L (20-31); CHLORIDE LEVEL 102 MMOL/L (98-107); CREATININE FOR GFR 0.93 MG/DL (0.55-1.30); GLOMERULAR FILTRATION RATE > 60.0 (>32); GLUCOSE, FASTING 179 MG/DL (74-106); POTASSIUM SERUM 4.5 MMOL/L (3.5-5.1); SODIUM LEVEL 139 MMOL/L (136-145); TOTAL PROTEIN 6.8 G/DL (5.7-8.2)
== END ==
PROVIDERS: ATTEND Nurse Practitioner Family
DX: U07.1 COVID-19 (principal); Z79.899 Other long term (current) drug therapy

== ENCOUNTER → 2022-12-09 | Outpatient (REF) | payer MEDICARE, MEDICAID, OTHER ==
[2022-12-09 11:45] LABS: HEMATOCRIT 45.9 % (36.0-47.0); MEAN CORPUSCULAR HEMOGLOBIN 29.1 pg (27.0-33.0); MEAN CORPUSCULAR HGB CONC 30.5 g/dl (32.0-36.5); MEAN CORPUSCULAR VOLUME 95.4 fl (80.0-96.0); PLATELET COUNT, AUTOMATED 322 10^3/uL (150-450); RED BLOOD COUNT 4.81 10^6/uL (4.00-5.40); WHITE BLOOD COUNT 9.3 10^3/uL (4.0-10.0)
[2022-12-09 12:20] LABS: ALBUMIN 3.7 G/DL (3.2-5.2); BILIRUBIN,TOTAL 0.6 MG/DL (0.3-1.2); CALCIUM LEVEL 8.9 MG/DL (8.3-10.6); CREATININE FOR GFR 0.95 MG/DL (0.55-1.30); GLOMERULAR FILTRATION RATE 59.4 (>32); POTASSIUM SERUM 4.7 MMOL/L (3.5-5.1); TOTAL PROTEIN 6.6 G/DL (5.7-8.2)
[2022-12-09 12:24] LABS: TOTAL 25(OH) VITAMIN D 44.2 NG/ML (20.0-100.0)
[2022-12-09 12:33] LABS: CHOLESTEROL RISK RATIO 5.45 (<5); LDL CHOLESTEROL 121.8 MG/DL (<100); MAGNESIUM LEVEL 1.8 MG/DL (1.8-2.4)
== END ==
PROVIDERS: ATTEND Nurse Practitioner Family
DX: U07.1 COVID-19 (principal); Z79.899 Other long term (current) drug therapy

== ENCOUNTER → 2022-12-14 | Outpatient (REF) | payer MEDICARE, MEDICAID, OTHER ==
[2022-12-14 13:06] LABS: HEMATOCRIT 47.4 % (36.0-47.0); HEMOGLOBIN 14.5 g/dl (12.0-15.5); MEAN CORPUSCULAR HEMOGLOBIN 29.1 pg (27.0-33.0); MEAN CORPUSCULAR HGB CONC 30.6 g/dl (32.0-36.5); PLATELET COUNT, AUTOMATED 316 10^3/uL (150-450); RED BLOOD COUNT 4.99 10^6/uL (4.00-5.40); WHITE BLOOD COUNT 11.3 10^3/uL (4.0-10.0)
[2022-12-14 13:38] LABS: ALBUMIN 3.7 G/DL (3.2-5.2); ALKALINE PHOSPHATASE 65 U/L (46-116); ALT/SGPT 25 U/L (7.0-40); AST/SGOT 22 U/L (<34); BILIRUBIN,TOTAL 0.9 MG/DL (0.3-1.2); BLOOD UREA NITROGEN 20 MG/DL (9-23); CALCIUM LEVEL 8.3 MG/DL (8.3-10.6); CARBON DIOXIDE LEVEL 25 MMOL/L (20-31); CHLORIDE LEVEL 103 MMOL/L (98-107); CREATININE FOR GFR 0.89 MG/DL (0.55-1.30); GLOMERULAR FILTRATION RATE > 60.0 (>32); GLUCOSE, FASTING 144 MG/DL (74-106); POTASSIUM SERUM 4.7 MMOL/L (3.5-5.1); SODIUM LEVEL 138 MMOL/L (136-145); TOTAL PROTEIN 6.7 G/DL (5.7-8.2)
== END ==
PROVIDERS: ATTEND Nurse Practitioner Family
DX: U07.1 COVID-19 (principal); Z79.899 Other long term (current) drug therapy

== ENCOUNTER → 2022-12-16 | Outpatient (REF) | payer MEDICARE, MEDICAID, OTHER ==
[2022-12-16 11:13] LABS: HEMATOCRIT 43.6 % (36.0-47.0); HEMOGLOBIN 13.3 g/dl (12.0-15.5); MEAN CORPUSCULAR HEMOGLOBIN 28.8 pg (27.0-33.0); MEAN CORPUSCULAR HGB CONC 30.5 g/dl (32.0-36.5); MEAN CORPUSCULAR VOLUME 94.4 fl (80.0-96.0); PLATELET COUNT, AUTOMATED 268 10^3/uL (150-450); RED BLOOD COUNT 4.62 10^6/uL (4.00-5.40); WHITE BLOOD COUNT 8.8 10^3/uL (4.0-10.0)
[2022-12-16 11:50] LABS: ALBUMIN 3.4 G/DL (3.2-5.2); BILIRUBIN,TOTAL 0.9 MG/DL (0.3-1.2); CALCIUM LEVEL 8.8 MG/DL (8.3-10.6); CREATININE FOR GFR 0.95 MG/DL (0.55-1.30); GLOMERULAR FILTRATION RATE 59.4 (>32); POTASSIUM SERUM 4.4 MMOL/L (3.5-5.1); TOTAL PROTEIN 6.1 G/DL (5.7-8.2)
== END ==
PROVIDERS: ATTEND Nurse Practitioner Family
DX: U07.1 COVID-19 (principal); Z79.899 Other long term (current) drug therapy

== ENCOUNTER → 2023-03-08 | Outpatient (REF) | payer MEDICARE, MEDICAID, OTHER ==
[2023-03-08 11:56] LABS: ALKALINE PHOSPHATASE 62 U/L (46-116); ALT/SGPT 17 U/L (7.0-40); AST/SGOT 14 U/L (<34); BILIRUBIN,TOTAL 1.1 MG/DL (0.3-1.2); BLOOD UREA NITROGEN 20 MG/DL (9-23); CALCIUM LEVEL 9.1 MG/DL (8.3-10.6); CARBON DIOXIDE LEVEL 25 MMOL/L (20-31); CHLORIDE LEVEL 104 MMOL/L (98-107); CREATININE FOR GFR 0.93 MG/DL (0.55-1.30); GLOMERULAR FILTRATION RATE > 60.0 (>32); GLUCOSE, FASTING 126 MG/DL (74-106); MAGNESIUM LEVEL 1.8 MG/DL (1.8-2.4); POTASSIUM SERUM 4.3 MMOL/L (3.5-5.1); SODIUM LEVEL 139 MMOL/L (136-145); TOTAL PROTEIN 6.7 G/DL (5.7-8.2)
== END ==
PROVIDERS: ATTEND Internal Medicine
DX: N18.9 Chronic kidney disease, unspecified (principal)

== ENCOUNTER → 2023-04-20 | Outpatient (REF) | payer MEDICARE, MEDICAID, OTHER | PROVIDERS: ATTEND Nurse Practitioner Family | DX: N39.0 Urinary tract infection, site not specified (principal) ==

== ENCOUNTER → 2023-06-09 | Outpatient (REF) | payer MEDICARE, MEDICAID ==
[2023-06-09 11:37] LABS: ALBUMIN 3.6 G/DL (3.2-5.2); ALKALINE PHOSPHATASE 61 U/L (46-116); ALT/SGPT 21 U/L (7.0-40); AST/SGOT 13 U/L (<34); BLOOD UREA NITROGEN 16 MG/DL (9-23); CALCIUM LEVEL 8.6 MG/DL (8.3-10.6); CARBON DIOXIDE LEVEL 26 MMOL/L (20-31); CHLORIDE LEVEL 104 MMOL/L (98-107); CREATININE FOR GFR 0.83 MG/DL (0.55-1.30); GLOMERULAR FILTRATION RATE > 60.0 (>32); GLUCOSE, FASTING 199 MG/DL (74-106); MAGNESIUM LEVEL 1.6 MG/DL (1.8-2.4); POTASSIUM SERUM 4.3 MMOL/L (3.5-5.1); SODIUM LEVEL 141 MMOL/L (136-145); TOTAL PROTEIN 6.3 G/DL (5.7-8.2)
== END ==
PROVIDERS: ATTEND Internal Medicine
DX: N18.9 Chronic kidney disease, unspecified (principal)

== ENCOUNTER → 2023-09-06 | Outpatient (REF) | payer MEDICARE, MEDICAID ==
[2023-09-06 12:16] LABS: ALBUMIN 3.5 G/DL (3.2-5.2); ALKALINE PHOSPHATASE 57 U/L (46-116); ALT/SGPT 17 U/L (7.0-40); AST/SGOT 15 U/L (<34); BLOOD UREA NITROGEN 20 MG/DL (9-23); CALCIUM LEVEL 8.8 MG/DL (8.3-10.6); CARBON DIOXIDE LEVEL 24 MMOL/L (20-31); CHLORIDE LEVEL 107 MMOL/L (98-107); CREATININE FOR GFR 0.87 MG/DL (0.55-1.30); GLOMERULAR FILTRATION RATE > 60.0 (>32); GLUCOSE, FASTING 187 MG/DL (74-106); MAGNESIUM LEVEL 1.8 MG/DL (1.8-2.4); POTASSIUM SERUM 4.5 MMOL/L (3.5-5.1); SODIUM LEVEL 141 MMOL/L (136-145); TOTAL PROTEIN 6.1 G/DL (5.7-8.2)
== END ==
PROVIDERS: ATTEND Physician Assistant
DX: N18.9 Chronic kidney disease, unspecified (principal)

== ENCOUNTER → 2023-12-10 | Outpatient (REF) | payer MEDICARE, MEDICAID | PROVIDERS: ATTEND Internal Medicine | DX: N18.9 Chronic kidney disease, unspecified (principal); Z53.8 Procedure and treatment not carried out for other reasons ==

== ENCOUNTER → 2023-12-15 | Outpatient (REF) | payer MEDICARE, MEDICAID ==
[2023-12-15 12:47] LABS: TOTAL 25(OH) VITAMIN D 43.3 NG/ML (20.0-100.0)
[2023-12-15 12:57] LABS: ALBUMIN 3.7 G/DL (3.2-5.2); BILIRUBIN,TOTAL 0.4 MG/DL (0.3-1.2); CHOLESTEROL RISK RATIO 3.29 (<5); CREATININE FOR GFR 1.34 MG/DL (0.55-1.30); GLOMERULAR FILTRATION RATE 39.8 (>32); LDL CHOLESTEROL 71.6 MG/DL (<100); POTASSIUM SERUM 4.1 MMOL/L (3.5-5.1); TOTAL PROTEIN 6.5 G/DL (5.7-8.2)
== END ==
PROVIDERS: ATTEND Internal Medicine
DX: N18.9 Chronic kidney disease, unspecified (principal); Z79.899 Other long term (current) drug therapy

== ENCOUNTER → 2024-02-09 | Outpatient (REF) | payer MEDICARE, MEDICAID | PROVIDERS: ATTEND Physician Assistant | DX: E83.42 Hypomagnesemia (principal) ==

== ENCOUNTER → 2024-03-06 | Outpatient (REF) | payer MEDICARE, MEDICAID ==
[2024-03-06 13:05] LABS: ALBUMIN 3.4 G/DL (3.2-5.2); ALKALINE PHOSPHATASE 68 U/L (46-116); ALT/SGPT 17 U/L (7.0-40); AST/SGOT 12 U/L (<34); BILIRUBIN,TOTAL 0.9 MG/DL (0.3-1.2); BLOOD UREA NITROGEN 16 MG/DL (9-23); CALCIUM LEVEL 8.6 MG/DL (8.3-10.6); CARBON DIOXIDE LEVEL 24 MMOL/L (20-31); CHLORIDE LEVEL 106 MMOL/L (98-107); CREATININE FOR GFR 0.88 MG/DL (0.55-1.30); GLOMERULAR FILTRATION RATE > 60.0 (>32); GLUCOSE, FASTING 146 MG/DL (74-106); MAGNESIUM LEVEL 1.7 MG/DL (1.8-2.4); POTASSIUM SERUM 4.4 MMOL/L (3.5-5.1); SODIUM LEVEL 143 MMOL/L (136-145); TOTAL PROTEIN 6.3 G/DL (5.7-8.2)
== END ==
PROVIDERS: ATTEND Physician Assistant
DX: Z79.899 Other long term (current) drug therapy (principal)

== ENCOUNTER → 2024-05-25 | Outpatient (REF) | payer MEDICARE, MEDICAID, BC ==
[~2024-05-25] MED LIST changes: +TRAM1TAB42 PO; -TRAM37.53 PO
[2024-05-25 15:55] LABS: HEMATOCRIT 44.9 % (36.0-47.0); HEMOGLOBIN 14.3 g/dl (12.0-15.5); MEAN CORPUSCULAR HEMOGLOBIN 28.9 pg (27.0-33.0); MEAN CORPUSCULAR HGB CONC 31.8 g/dl (32.0-36.5); MEAN CORPUSCULAR VOLUME 90.9 fl (80.0-96.0); PLATELET COUNT, AUTOMATED 278 10^3/uL (150-450); RED BLOOD COUNT 4.94 10^6/uL (4.00-5.40); WHITE BLOOD COUNT 8.7 10^3/uL (4.0-10.0)
[2024-05-25 16:20] LABS: BLOOD UREA NITROGEN 20 MG/DL (9-23); CALCIUM LEVEL 8.7 MG/DL (8.3-10.6); CARBON DIOXIDE LEVEL 24 MMOL/L (20-31); CHLORIDE LEVEL 106 MMOL/L (98-107); CREATININE FOR GFR 0.91 MG/DL (0.55-1.30); GLOMERULAR FILTRATION RATE > 60.0 (>32); GLUCOSE, FASTING 146 MG/DL (74-106); POTASSIUM SERUM 4.5 MMOL/L (3.5-5.1); SODIUM LEVEL 138 MMOL/L (136-145)
== END ==
PROVIDERS: ATTEND Nurse Practitioner Adult Health
DX: L03.90 Cellulitis, unspecified (principal)

== ENCOUNTER → 2024-05-26 | Outpatient (REF) | payer MEDICARE, MEDICAID, BC | PROVIDERS: ATTEND Nurse Practitioner Adult Health | DX: L03.90 Cellulitis, unspecified (principal) ==

== ENCOUNTER → 2024-06-12 | Outpatient (REF) | payer MEDICARE, MEDICAID | LOC: M SFHCDERM 16:57 | PROVIDERS: ATTEND Physician Assistant | DX: L08.9 Local infection of the skin and subcutaneous tissue, unspecified (principal) ==

== ENCOUNTER → 2024-06-29 | Outpatient (REF) | payer MEDICARE, MEDICAID | PROVIDERS: ATTEND Internal Medicine | DX: R41.82 Altered mental status, unspecified (principal) ==

== ENCOUNTER → 2024-06-30 | Outpatient (REF) | payer MEDICARE, MEDICAID ==
[2024-06-30 09:58] LABS: HEMATOCRIT 48.5 % (36.0-47.0); HEMOGLOBIN 15.3 g/dl (12.0-15.5); MEAN CORPUSCULAR HEMOGLOBIN 28.8 pg (27.0-33.0); MEAN CORPUSCULAR HGB CONC 31.5 g/dl (32.0-36.5); MEAN CORPUSCULAR VOLUME 91.3 fl (80.0-96.0); PLATELET COUNT, AUTOMATED 260 10^3/uL (150-450); RED BLOOD COUNT 5.31 10^6/uL (4.00-5.40); WHITE BLOOD COUNT 8.3 10^3/uL (4.0-10.0)
[2024-06-30 10:23] LABS: CALCIUM LEVEL 9.1 MG/DL (8.3-10.6); CREATININE FOR GFR 0.96 MG/DL (0.55-1.30); GLOMERULAR FILTRATION RATE 58.4 (>32); POTASSIUM SERUM 4.3 MMOL/L (3.5-5.1)
== END ==
PROVIDERS: ATTEND Internal Medicine
DX: R41.82 Altered mental status, unspecified (principal)

== ENCOUNTER → 2024-07-10 | Outpatient (REF) | payer MEDICARE, MEDICAID, BC ==
[2024-07-10 10:02] LABS: ALBUMIN 3.6 G/DL (3.2-5.2); ALKALINE PHOSPHATASE 82 U/L (46-116); ALT/SGPT 23 U/L (7.0-40); AST/SGOT 32 U/L (<34); BLOOD UREA NITROGEN 17 MG/DL (9-23); CARBON DIOXIDE LEVEL 26 MMOL/L (20-31); CHLORIDE LEVEL 109 MMOL/L (98-107); CREATININE FOR GFR 0.82 MG/DL (0.55-1.30); GLOMERULAR FILTRATION RATE > 60.0 (>32); GLUCOSE, FASTING 115 MG/DL (74-106); MAGNESIUM LEVEL 1.9 MG/DL (1.8-2.4); POTASSIUM SERUM 4.2 MMOL/L (3.5-5.1); SODIUM LEVEL 140 MMOL/L (136-145); TOTAL PROTEIN 6.5 G/DL (5.7-8.2)
== END ==
PROVIDERS: ATTEND Nurse Practitioner Adult Health
DX: Z79.899 Other long term (current) drug therapy (principal)

== ENCOUNTER → 2024-08-15 | Outpatient (REF) | payer MEDICARE, MEDICAID, BC | PROVIDERS: ATTEND Nurse Practitioner Adult Health | DX: R53.83 Other fatigue (principal); Z53.9 Procedure and treatment not carried out, unspecified reason ==

== ENCOUNTER → 2024-08-16 | Outpatient (REF) | payer MEDICARE, MEDICAID, BC ==
[2024-08-16 11:14] LABS: HEMATOCRIT 46.3 % (36.0-47.0); HEMOGLOBIN 14.4 g/dl (12.0-15.5); MEAN CORPUSCULAR HEMOGLOBIN 28.8 pg (27.0-33.0); MEAN CORPUSCULAR HGB CONC 31.1 g/dl (32.0-36.5); MEAN CORPUSCULAR VOLUME 92.6 fl (80.0-96.0); PLATELET COUNT, AUTOMATED 245 10^3/uL (150-450); WHITE BLOOD COUNT 7.4 10^3/uL (4.0-10.0)
[2024-08-16 11:55] LABS: CREATININE FOR GFR 0.96 MG/DL (0.55-1.30); GLOMERULAR FILTRATION RATE 58.4 (>32); POTASSIUM SERUM 4.3 MMOL/L (3.5-5.1)
== END ==
PROVIDERS: ATTEND Nurse Practitioner Adult Health
DX: R53.83 Other fatigue (principal)

== ENCOUNTER → 2024-11-02 | Outpatient (CLI) | payer MEDICARE, MEDICAID | LOC: M RAD 13:48 | PROVIDERS: ATTEND Nurse Practitioner Family | DX: M79.605 Pain in left leg (principal); M79.89 Other specified soft tissue disorders ==

== ENCOUNTER → 2024-11-08 | Outpatient (REF) | payer MEDICARE, MEDICAID, BC ==
[2024-11-08 09:08] LABS: ALBUMIN 3.6 G/DL (3.2-5.2); ALKALINE PHOSPHATASE 67 U/L (35-104); ALT/SGPT 14 U/L (7.0-40); AST/SGOT 15 U/L (<34); BLOOD UREA NITROGEN 18 MG/DL (9-23); CALCIUM LEVEL 8.7 MG/DL (8.3-10.6); CARBON DIOXIDE LEVEL 24 MMOL/L (20-31); CHLORIDE LEVEL 108 MMOL/L (98-107); GLOMERULAR FILTRATION RATE > 60.0 (>32); GLUCOSE, FASTING 111 MG/DL (74-106); MAGNESIUM LEVEL 1.7 MG/DL (1.8-2.4); POTASSIUM SERUM 4.3 MMOL/L (3.5-5.1); SODIUM LEVEL 144 MMOL/L (136-145); TOTAL PROTEIN 6.5 G/DL (5.7-8.2)
[2024-11-08 10:40] LABS: HEMOGLOBIN A1c 5.8 % (4.0-6.0)
== END ==
PROVIDERS: ATTEND Internal Medicine
DX: N18.9 Chronic kidney disease, unspecified (principal); Z79.899 Other long term (current) drug therapy

== ENCOUNTER → 2024-12-06 | Outpatient (REF) | payer MEDICARE, MEDICAID, BC ==
[2024-12-06 10:04] LABS: CHOLESTEROL RISK RATIO 5.25 (<5); HDL CHOLESTEROL 39.2 MG/DL (>40); LDL CHOLESTEROL 120.2 MG/DL (<100); NON-HDL-C 166.8 MG/DL
[2024-12-06 10:06] LABS: TOTAL 25(OH) VITAMIN D 49.6 NG/ML (20.0-100.0)
== END ==
PROVIDERS: ATTEND Physician Assistant
DX: N18.9 Chronic kidney disease, unspecified (principal); Z79.899 Other long term (current) drug therapy

== ENCOUNTER 2025-01-28 20:45 | Emergency (ER) | payer MEDICARE, MEDICAID ==
[~2025-01-28] VITALS: Ht 167.6 cm; Wt 118.2 kg
[2025-01-28] MEDS: ONDANSETRON 4MG ORAL DISINTEGRATING TAB PO ONE (21:51)
[2025-01-28] MEDS: ACETAMINOPHEN 325 MG TAB PO ONE (21:51)
[2025-01-29 03:15] VITALS: BP 120/58; TEMP 97; O2SAT 95
== END 2025-01-29 03:28 | disposition home or self-care (01) ==
LOC: EDBD 20:45 → M ED 20:45 → EDUNIT# 20:45 → M ED 01-29 03:28
DX: S00.83XA Contusion of other part of head, initial encounter (principal); Y92.019 Unspecified place in single-family (private) house as the place of occurrence of the external cause; Y93.9 Activity, unspecified; Y99.9 Unspecified external cause status; W19.XXXA Unspecified fall, initial encounter; E11.9 Type 2 diabetes mellitus without complications; I12.9 Hypertensive chronic kidney disease with stage 1 through stage 4 chronic kidney disease, or unspecified chronic kidney disease; Z88.0 Allergy status to penicillin; Z91.018 Allergy to other foods; Z79.1 Long term (current) use of non-steroidal anti-inflammatories (NSAID); Z79.51 Long term (current) use of inhaled steroids; Z79.899 Other long term (current) drug therapy

== ENCOUNTER → 2025-01-30 | Outpatient (REF) | payer MEDICARE, MEDICAID ==
[2025-01-30 14:07] LABS: APPEARANCE, URINE CLEAR (CLEAR); BACTERIA, URINE AUTO 2+ (NEGATIVE); BILIRUBIN, URINE AUTO NEGATIVE (NEGATIVE); BLOOD, URINE BLOOD NEGATIVE (NEGATIVE); COLOR, URINE YELLOW (YELLOW); GLUCOSE, URINE (UA) AUTO NEGATIVE (NEGATIVE); KETONE, URINE AUTO NEGATIVE (NEGATIVE); LEUKOCYTE ESTERASE, URINE AUTO NEGATIVE (NEGATIVE); MUCUS, URINE SMALL (NEGATIVE); NITRITE, URINE AUTO POSITIVE (NEGATIVE); PROTEIN, URINE AUTO NEGATIVE (NEGATIVE); RBC, URINE AUTO 1 /HPF (0-3); SPECIFIC GRAVITY URINE AUTO 1.017 (1.002-1.035); SQUAMOUS EPITHELIAL CELL UR AU 2 /HPF (0-6); UROBILINOGEN, URINE AUTO 0.2 mg/dL (0.0-2.0); WBC, URINE AUTO 2 /HPF (0-3)
[2025-01-30 14:15] LABS: HEMATOCRIT 45.1 % (36.0-47.0); HEMOGLOBIN 13.9 g/dl (12.0-15.5); MEAN CORPUSCULAR HGB CONC 30.8 g/dl (32.0-36.5); PLATELET COUNT, AUTOMATED 227 10^3/uL (150-450); WHITE BLOOD COUNT 7.2 10^3/uL (4.0-10.0)
[2025-01-30 14:50] LABS: CALCIUM LEVEL 8.4 MG/DL (8.3-10.6); CREATININE FOR GFR 0.92 MG/DL (0.55-1.30); GLOMERULAR FILTRATION RATE 59.9 (>32); POTASSIUM SERUM 4.6 MMOL/L (3.5-5.1)
== END ==
PROVIDERS: ATTEND Nurse Practitioner Family
DX: R29.6 Repeated falls (principal); R41.82 Altered mental status, unspecified

== ENCOUNTER → 2025-06-18 | Outpatient (REF) | payer MEDICARE, MEDICAID ==
[~2025-06-18] MED LIST changes: +PRAV10TA PO; -PRAV10TA4 PO
[2025-06-18 12:50] LABS: PLATELET COUNT, AUTOMATED 246 10^3/uL (150-450)
[2025-06-18 13:18] LABS: CALCIUM LEVEL 8.5 MG/DL (8.3-10.6); CARBON DIOXIDE LEVEL 27.0 MMOL/L (20-31); CHLORIDE LEVEL 104.0 MMOL/L (98-107); CREATININE FOR GFR 0.94 MG/DL (0.55-1.30); GLOMERULAR FILTRATION RATE 58.0 (>32); POTASSIUM SERUM 4.6 MMOL/L (3.5-5.1); SODIUM LEVEL 140.0 MMOL/L (136-145)
[2025-06-18 13:19] LABS: TOTAL 25(OH) VITAMIN D 42.4 NG/ML (20.0-100.0)
== END ==
PROVIDERS: ATTEND Nurse Practitioner Family
DX: Z01.818 Encounter for other preprocedural examination (principal); Z79.899 Other long term (current) drug therapy

== ENCOUNTER → 2025-07-04 | Outpatient (CLI) | payer MEDICARE, MEDICAID | LOC: M CARPUL 16:47 | PROVIDERS: ATTEND Nurse Practitioner Family | DX: Z01.810 Encounter for preprocedural cardiovascular examination (principal); Z95.0 Presence of cardiac pacemaker; I34.0 Nonrheumatic mitral (valve) insufficiency; I36.1 Nonrheumatic tricuspid (valve) insufficiency; I37.1 Nonrheumatic pulmonary valve insufficiency ==

== ENCOUNTER → 2025-07-09 | Outpatient (REF) | payer MEDICARE, MEDICAID ==
[2025-07-09 13:30] LABS: ALT/SGPT 19.0 U/L (7.0-40); AST/SGOT 20.0 U/L (<34); CALCIUM LEVEL 8.7 MG/DL (8.3-10.6); CARBON DIOXIDE LEVEL 27.0 MMOL/L (20-31); CHLORIDE LEVEL 105.0 MMOL/L (98-107); CREATININE FOR GFR 0.96 MG/DL (0.55-1.30); GLOMERULAR FILTRATION RATE 56.6 (>32); MAGNESIUM LEVEL 1.7 MG/DL (1.8-2.4); POTASSIUM SERUM 4.5 MMOL/L (3.5-5.1); SODIUM LEVEL 141.0 MMOL/L (136-145)
== END ==
PROVIDERS: ATTEND Nurse Practitioner Family
DX: N18.9 Chronic kidney disease, unspecified (principal)